=== PATIENT | female | born 1970 | race Caucasian/White ===

== ENCOUNTER 2019-05-09 07:58 | Outpatient (CLI) | payer OTHER, SELFPAY ==
--- NOTE | 2019-05-09 08:00 | US_ITS ---
WS: [id number] RIGHT UPPER QUADRANT ULTRASOUND HISTORY: ELEVATED LIVER ENZYMES COMPARISON: None available. Liver: 16.1 cm in length. Normal size liver with mild hepatic steatosis. No bile duct dilatation. Gallbladder: Normally distended gallbladder with no stones or wall thickening. CBD: 5.1 cm Pancreas: Normal size and echogenicity. Right kidney: 13.3 cm in length. Normal echogenicity with no mass or hydronephrosis. Aorta and IVC: Unremarkable. No ascites. US/US abdomen limited [id number] IMPRESSION: 1. Normal gallbladder. 2. Mild hepatic steatosis. No bile duct dilatation.
== END 2019-05-09 07:59 | disposition home or self-care (01) ==
PROVIDERS: PCP Nurse Practitioner Family; Visit Provider Nurse Practitioner Family
DX: R74.8 Abnormal levels of other serum enzymes (principal); K76.0 Fatty (change of) liver, not elsewhere classified
CPT/HCPCS: 76705

== ENCOUNTER 2019-08-10 10:43 | Emergency (ER) | payer OTHER, SELFPAY ==
[2019-08-10 10:50] VITALS: BP 119/87; PULSE 87; RESP 17; TEMP 37; O2SAT 96; BMI 21.7
--- NOTE | 2019-08-10 11:01 | CTR_ITS ---
PROCEDURE INFORMATION: Exam: CT Abdomen And Pelvis With Contrast Exam date and time: 08/10/2019 11:30 AM Age: 49 years old Clinical indication: Abdominal pain; Generalized; Prior surgery; Surgery date: 6+ months; Surgery type: Hyst, appy; Patient HX: C/O abd pain and nausea TECHNIQUE: Imaging protocol: Computed tomography of the abdomen and pelvis with intravenous contrast. Radiation optimization: All CT scans at this facility use at least one of these dose optimization techniques: automated exposure control; mA and/or kV adjustment per patient size (includes targeted exams where dose is matched to clinical indication); or iterative reconstruction. Contrast material: OMNI 300; Contrast volume: 95 ml; Contrast route: 20G; COMPARISON: CT Abdomen/[place]elvis o [id number] 01/16/2013 8:12 AM RADIATION DOSE METRICS: Total DLP: 564.15 mGy-cm FINDINGS: Lungs: Calcified granuloma right lung base Liver: Fatty infiltration of the liver. Gallbladder and bile ducts: Normal. No calcified stones. No ductal dilation. Pancreas: Normal. No ductal dilation. Spleen: Splenic granulomas are present. Adrenals: Normal. No mass. Kidneys and ureters: Normal. No hydronephrosis. Stomach and bowel: Rather severe circumferential thickening of the large bowel including the cecum, ascending colon, transverse colon splenic flexure and a portion of the descending colon. Findings consistent with a colitis either infectious versus inflammatory. Pseudomembranous colitis within the differential diagnosis although typically a lr colitis. Ischemic colitis felt unlikely given the distribution of involved segments. Diverticulosis without evidence of diverticulitis. Appendix: No evidence of appendicitis. Intraperitoneal space: No free fluid within the pelvis or within the dependent portions of the peritoneum. Vasculature: Calcification of the aorta. Celiac trunk and superior mesenteric arteries are patent. No appreciable narrowing. Lymph nodes: Unremarkable. No enlarged lymph nodes. Bladder: Unremarkable as visualized. Reproductive: Prior hysterectomy. Bones/joints: Unremarkable. No acute fracture. Soft tissues: Unremarkable. CT/CT abdomen pelvis w con* [id number] IMPRESSION: 1. Rather severe circumferential thickening of the large bowel including the cecum, ascending colon, transverse colon splenic flexure and a portion of the descending colon. Findings consistent with a colitis either infectious versus inflammatory. Pseudomembranous colitis within the differential diagnosis although typically a lr colitis. Ischemic colitis felt unlikely given the distribution of involved segments. 2. Diverticulosis without evidence of diverticulitis. 3. Fatty infiltration of the liver. Radiation Dose CTDIVOL = (mGy): DLP = 564.15 (mGy-cm)
--- NOTE | 2019-08-10 11:02 | ED_ITS ---
HPI - Abdominal Pain General: Chief Complaint: Abdominal Pain Stated Complaint: lower abd pain Time Seen by Provider: 08/10/19 11:01 History of Present Illness: HPI narrative: Patient is complained about abdominal pain that started last night that is progressively gotten worse. She describes it as sharp pain that comes in waves from the right side down to her lower pelvic area and then across her whole abdomen she ate [place]ian food last night denies any problems that she is not vomiting at all but that she does have some nausea she denies bowel or bladder problems present has history of full hysterectomy Sugars been running in 300 range MD elicited complaint: abdominal pain Pertinent past history: other (Diabetes) Onset (ago): day(s) (Since last night) Pain Consistency: intermittent Location: Diffuse Severity: moderate Pain scale (0-10): 6 Quality: stabbing and sharp Radiation: suprapubic Exacerbating factors: movement Relieving factors: rest Associated Symptoms: Reports no associated symptoms; Denies chills, fever(s), nausea and vomiting Review of Systems Const: Denies: fever(s), chills or body aches Eyes: Denies: change in vision or blurry vision ENMT: Denies: throat pain or nasal congestion Card: Denies: chest pain or dyspnea on exertion Resp: Denies: dyspnea, productive cough or non-productive cough GI: Reports: abdominal pain; Denies: nausea or vomiting Musc: Denies: extremity pain Skin/Breast: Denies: rash Neuro: Denies: headache(s) Psych: Denies: anxiety or depression Mio/Lymph: Denies: easy bruising PFSH ED PFSH: Social History Smoking and tobacco status: current some day smoker Physical Exam Const: COMMON NORMALS: no acute distress, average body habitus and patient oriented x3 HENMT: COMMON NORMALS: normocephalic HEAD & SCALP: normal to inspection and normocephalic FACE & SINUS: normal facial exam Eye: COMMON NORMALS: conjunctivae normal GENERAL EYE: appearance normal, both eyes and all related structures CONJUNCTIVA: Yes conjunctivae normal Neck/C-Spine: COMMON NORMALS: no JVD Chest: COMMONS NORMALS: normal inspection of the chest Resp: COMMON NORMALS: normal respiratory effort and clear to auscultation bilaterally AUSCULTATION: clear to auscultation bilaterally Cardio: COMMON NORMALS: no JVD, regular rate and regular rhythm RATE: regular rate RHYTHM: regular rhythm GI: COMMON NORMALS: Normal to inspection, nondistended, normoactive bowel sounds present AUSCULTATION: Yes normoactive bowel sounds PALPATION: Yes Tenderness to palpation present (GI) (Generalized) PERCUSSION: normal to percussion Extremity: COMMON NORMALS: normal to inspection and full ROM Neuro: COMMON NORMALS: patient oriented x3 Course Vital Signs: Vital signs: Vital Signs Temperature 98.6 F 08/10/19 10:50 Pulse Rate 87 08/10/19 10:50 Respiratory Rate 16 08/10/19 11:52 Blood Pressure 119/87 08/10/19 10:50 Pulse Oximetry 95 08/10/19 11:52 MDM - Abdominal Pain MDM Narrative: Medical decision making narrative: Discussed case after all results are back with Dr. Kendall agrees with plan Lab Data: Labs: Lab Results 08/10/19 08/10/19 08/10/19 Range/Units 11:12 11:12 11:25 WBC 7.9 (4.0-10.0) 10^3/ uL RBC 5.32 H (4.1-5.3) 10^6/u L Hgb 15.7 H (11.5-15.3) g/dL Hct 47.9 H (37.0-47.0) % MCV 90.0 (81-99) fL MCH 29.5 (28.0-34.0) pg MCHC 32.8 (30.0-36.0) g/dL RDW 12.1 (12.1-15.1) % Plt Count 178 (130-400) 10^3/c mm MPV 10.1 (7.4-10.4) fL Neut % (Auto) 72.3 % Lymph % (Auto) 20.4 % Fleming % (Auto) 6.0 % Eos % (Auto) 0.5 % Baso % (Auto) 0.4 % Neut # (Auto) 5.7 (1.8-7.7) 10^3/u L Lymph # (Auto) 1.6 (0.8-4.8) 10^3/u L Fleming # (Auto) 0.5 (0.2-0.9) 10^3/u L Eos # (Auto) 0.0 (0.0-0.8) 10^3/u L Baso # (Auto) 0.0 (0.0-0.1) 10^3/u L Nucleated RBC % (a uto) 0 % Nucleated RBCs # 0.0 /100WBC Sodium 133 L (136-145) mmol/L Potassium 4.0 (3.5-5.1) mmol/L Chloride 96 L (98-107) mmol/L Carbon Dioxide 24 (22-29) mmol/L Anion Gap 17.0 (5-19) BUN 16 (6-20) mg/dL Creatinine 0.5 (0.5-0.9) mg/dL GFR Calculation 132.2 H (90-130) mL/min Glucose 426 H (65-115) mg/dL POC Glucose (70-110) mg/dL Calculated Osmolal ity 291 (285-295) mOsm/k g Calcium 9.4 (8.5-10.5) mg/dL Total Bilirubin 0.5 (0.15-1.2) mg/dL AST 39 H (0-32) U/L ALT 79 H (0-33) U/L Alkaline Phosphata se 124 H (35-105) IU/L Total Protein 7.3 (6.6-8.7) g/dL Albumin 4.6 (3.5-5.2) g/dL Globulin 2.7 (1.3-4.6) g/dL Lipase 37 (13-60) U/L Urine Color Yellow (Yellow) Urine Appearance Clear (CLEAR) Urine pH 5 (5-7) Ur Specific Gravit y 1.015 (1.005-1.030) Urine Protein Neg (Negative) Urine Glucose (UA) 4+ H (Normal) Urine Ketones 1+ H (Negative) Urine Blood Neg (Negative) Urine Nitrate Negative (Negative) Urine Bilirubin Neg (NEGATIVE) Urine Urobilinogen Norm (Negative) mg/dL Ur Leukocyte Kisha ase Negative (Negative) 08/10/19 08/10/19 Range/Units 11:42 13:40 WBC (4.0-10.0) 10^3/ uL RBC (4.1-5.3) 10^6/u L Hgb (11.5-15.3) g/dL Hct (37.0-47.0) % MCV (81-99) fL MCH (28.0-34.0) pg MCHC (30.0-36.0) g/dL RDW (12.1-15.1) % Plt Count (130-400) 10^3/c mm MPV (7.4-10.4) fL Neut % (Auto) % Lymph % (Auto) % Fleming % (Auto) % Eos % (Auto) % Baso % (Auto) % Neut # (Auto) (1.8-7.7) 10^3/u L Lymph # (Auto) (0.8-4.8) 10^3/u L Fleming # (Auto) (0.2-0.9) 10^3/u L Eos # (Auto) (0.0-0.8) 10^3/u L Baso # (Auto) (0.0-0.1) 10^3/u L Nucleated RBC % (a uto) % Nucleated RBCs # /100WBC Sodium (136-145) mmol/L Potassium (3.5-5.1) mmol/L Chloride (98-107) mmol/L Carbon Dioxide (22-29) mmol/L Anion Gap (5-19) BUN (6-20) mg/dL Creatinine (0.5-0.9) mg/dL GFR Calculation (90-130) mL/min Glucose (65-115) mg/dL POC Glucose 355 225 (70-110) mg/dL Calculated Osmolal ity (285-295) mOsm/k g Calcium (8.5-10.5) mg/dL Total Bilirubin (0.15-1.2) mg/dL AST (0-32) U/L ALT (0-33) U/L Alkaline Phosphata se (35-105) IU/L Total Protein (6.6-8.7) g/dL Albumin (3.5-5.2) g/dL Globulin (1.3-4.6) g/dL Lipase (13-60) U/L Urine Color (Yellow) Urine Appearance (CLEAR) Urine pH (5-7) Ur Specific Gravit y (1.005-1.030) Urine Protein (Negative) Urine Glucose (UA) (Normal) Urine Ketones (Negative) Urine Blood (Negative) Urine Nitrate (Negative) Urine Bilirubin (NEGATIVE) Urine Urobilinogen (Negative) mg/dL Ur Leukocyte Kisha ase (Negative) Discharge Plan Discharge Patient Disposition: Home, Self-Care Clinical Impression: Colitis Condition: Stable Prescriptions: New ketoprofen 75 mg capsule 75 mg PO TID Qty: 20 RF: 0 tramadol 50 mg tablet 50 mg PO Q6H PRN (Reason: pain) Qty: 20 RF: 0 No Action Aspir-81 81 mg Tablet,Delayed Release (Dr/Ec) 81 mg PO DAILY RF: 0 Prozac 20 mg Capsule 60 mg PO DAILY RF: 0 fenofibrate 160 mg Tablet 160 mg PO DAILY RF: 0 Lantus Solostar U-100 Insulin 100 unit/mL (3 mL) Insulin Pen 70 unit SUBCUT BEDTIME RF: 0 Discharge Orders: Discharge Order (Routine); Ordered 08/10/19 Ordered By: Nigel Schaefer Referrals: Lev Macias DO [Primary Care Provider] - Discharge Diet: As Directed Discharge Activity: Increase activity as tolerated Patient Instructions: Diabetes Mellitus Type 2 in Adults (ED) Activity Restrictions/Additional Instructions: You have inflammatory colitis follow-up with your family provider go over your diet possible medication changes and stay on a stricter diabetic diet take medication as directed Coding Level of Care Code ED [place] Straightener Stamper for Dora Fwd Exam Comprehensive
[2019-08-10 11:27] LABS: Basophils % 0.4 %; Eosinophils % 0.5 %; Hematocrit 47.9 % (37.0-47.0); Hemoglobin 15.7 g/dL (11.5-15.3); Lymphocytes # 1.6 10^3/uL (0.8-4.8); Lymphocytes % 20.4 %; Mean Corpuscular HGB Conc 32.8 g/dL (30.0-36.0); Mean Corpuscular Hemoglobin 29.5 pg (28.0-34.0); Mean Platelet Volume 10.1 fL (7.4-10.4); Monocytes # 0.5 10^3/uL (0.2-0.9); Neutrophils # 5.7 10^3/uL (1.8-7.7); Neutrophils % 72.3 %; Nucleated Red Blood Cells % 0 %; Platelet Count 178 10^3/cmm (130-400); Red Blood Count 5.32 10^6/uL (4.1-5.3); Red Cell Distribution Width 12.1 % (12.1-15.1); White Blood Count 7.9 10^3/uL (4.0-10.0)
[2019-08-10 11:32] LABS: Alanine Aminotransferase 79 U/L (0-33); Albumin Level 4.6 g/dL (3.5-5.2); Alkaline Phosphatase 124 IU/L (35-105); Aspartate Amino Transferase 39 U/L (0-32); Blood Urea Nitrogen 16 mg/dL (6-20); Calcium 9.4 mg/dL (8.5-10.5); Carbon Dioxide 24 mmol/L (22-29); Chloride 96 mmol/L (98-107); Globulin 2.7 g/dL (1.3-4.6); Glomerular Filtration Rate 132.2 mL/min (90-130); Glucose 426 mg/dL (65-115); Lipase 37 U/L (13-60); Osmolality Calculated 291 mOsm/kg (285-295); Sodium 133 mmol/L (136-145); Total Bilirubin 0.5 mg/dL (0.15-1.2); Total Protein 7.3 g/dL (6.6-8.7)
[2019-08-10 11:41] LABS: Add Urine Microscopic? NO
[2019-08-10 11:43] LABS: Bilirubin Urine Neg (NEGATIVE); Blood Urine Neg (Negative); Glucose Urine UA 4+ (Normal); Ketones Urine 1+ (Negative); Leukocyte Esterase Urine Negative (Negative); Nitrate Urine Negative (Negative); Protein Urine Neg (Negative); Specific Gravity, Urine 1.015 (1.005-1.030); Urine Appearance Clear (CLEAR); Urine Color Yellow (Yellow); Urobilinogen Urine Norm (Negative); pH Urine 5 (5-7)
--- NOTE | 2019-08-10 11:45 | PC.NURSE ---
Patient blood glucose is 355, nurse and ER physician were informed.
[2019-08-10 11:46] LABS: Glucose Point of Care 355 mg/dL (70-110)
[2019-08-10] MEDS: sodium chloride 0.9% 1,000 ML 999 ML IV (11:49)
[2019-08-10] MEDS: ondansetron 2 mg/ML SDV 2 mL 4 MG IVP (11:50)
[2019-08-10 11:52] VITALS: RESP 16; O2SAT 95
[2019-08-10] MEDS: morphine 4 mg/mL SDV 1 mL IVP (11:52)
[2019-08-10] MEDS: iohexol 300 mg/mL 100 mL Btl IV (12:02)
[2019-08-10] MEDS: ketorolac 30 mg/mL INJ IVP (13:23)
--- NOTE | 2019-08-10 13:42 | PC.NURSE ---
Patient blood glucose is 225, ER physician and nurse were notified.
[2019-08-10 13:45] LABS: Glucose Point of Care 225 mg/dL (70-110)
[2019-08-10 13:54] VITALS: BP 91/65; PULSE 71; RESP 14; O2SAT 95
== END 2019-08-10 13:55 | disposition home or self-care (01) ==
PROVIDERS: Emergency Provider Nurse Practitioner Family; PCP Electrodiagnostic Medicine
DX: K52.9 Noninfective gastroenteritis and colitis, unspecified (principal); Z79.82 Long term (current) use of aspirin; Z79.4 Long term (current) use of insulin; F17.210 Nicotine dependence, cigarettes, uncomplicated
CPT/HCPCS: 12345; 36415; 36416; 74177; 80053; 81003; 82962; 83690; 85025; 96361; 96372; 96374; 96375; 99283; J1815; J1885; J2270; J2405; J7030; Q9967

== ENCOUNTER 2019-10-01 06:24 | Day surgery (SDC) | payer OTHER, SELFPAY ==
[2019-09-26 14:27] VITALS: BMI 23.3
[2019-10-01 06:50] VITALS: BP 113/77; PULSE 83; RESP 18; TEMP 36.2; O2SAT 98
--- NOTE | 2019-10-01 06:52 | ANES.PREANE2 ---
Pre-Anesthetic Assessment Pre-Anesthetic Assessment: Height/Weight: Height 1.68 m Weight 65.771 kg Preop Diagnosis: Colitis Proposed Procedure: Operation Date: 10/01/19 07:00 Proposed Procedures p Colonoscopy 44594 K52.9(Not Applicable) - Sukhdev Motley MD Familial anesthetic complications: none Was Beta Alice taken within 24 hours: N/A Last intake: Intake Last Liquid Date 09/30/19 Last Liquid Time 21:00 Last Solid Date 09/29/19 Last Solid Time 18:00 Social: Social History: Tobacco Packs per day: 1 Exam: Pre-Anes Outpt Exam: alert, oriented x 3, clear to auscultation bilaterally and regular rate & rhythm Airway: Submandibular: WNL Cervical ROM: WNL MP: 2 Dentition: Full Pulmonary: Pulmonary: None reported CV/HEM: CV/HEM: CAD Comments: Stents x 3 in 2014 : : None reported Hepatic: Hepatic: None reported GI: GI: None reported Metabolic: Metabolic: DM ( 85-220 normally ) and Hyperlipidemia Musc/skel: Musc/skel: OA/DJD Neuropsych: Neuropsych: MAYA Anesthetic Plan: ASA status: 3 Anesthesia: MAC Risk of > 500 ml blood loss (7ml/kg in children): No PFSH Anesthesia PFSH: Medical History (Updated 08/27/19 @ 17:14 by Sukhdev Motley MD) Diabetes Hypercholesterolemia Surgical History (Updated 08/27/19 @ 17:14 by Sukhdev Motley MD) H/O heart artery stent 5 years ago H/O melanoma excision H/O: hysterectomy Family History Father CAD (coronary artery disease) Grandfather CAD (coronary artery disease) Grandmother CAD (coronary artery disease) Cancer lung Denies family history of Anesthesia complication Bleeding disorder Social History Smoking and tobacco status: current some day smoker Alcohol intake: never Household members: spouse Marital status: Current occupational status: employed History of recent travel: No Data Anesthesia Cardiac Studies: No Data to Display
--- NOTE | 2019-10-01 06:58 | P.HP_ITS ---
Same Day Surgery H&P Indication for Procedure/HPI DATE OF PROCEDURE: October 01, 2019 CHIEF COMPLAINT/INDICATIONFOR SURGICAL PROCEDURE: pancolitis PREOP DIAGNOSIS: Colitis PLANNED PROCEDRUE: Operation Date: 10/01/19 07:00 Proposed Procedures p Colonoscopy 91928 K52.9(Not Applicable) - Sukhdev Motley MD Medications/Allergies* Home Medications Medication Instructions Recorded Confirmed Type aspirin [Aspir-81] 81 mg PO DAILY 08/10/19 09/26/19 History fenofibrate 160 mg PO DAILY 08/10/19 09/26/19 History fluoxetine [Prozac] 60 mg PO DAILY 08/10/19 09/26/19 History insulin glargine [Lantus Solostar 90 unit SUBCUT BEDTIME 08/10/19 09/26/19 History U-100 Insulin] Allergies/Adverse Reactions Allergy/AdvReac Type Severity Reaction Status Date / Time sumatriptan [From Imitrex] Allergy FRANKIY-Swell Verified 08/27/19 14:51 Lip/Tongue/Throat Pertinent History/Comorbid Conditions* Medical History (Updated 08/27/19 @ 17:14 by Sukhdev Motley MD) Diabetes Hypercholesterolemia Surgical History (Updated 08/27/19 @ 17:14 by Sukhdev Motley MD) H/O heart artery stent 5 years ago H/O melanoma excision H/O: hysterectomy Family History (Updated 08/27/19 @ 14:59 by Christianne Burks LPN) CAD (coronary artery disease) Father Grandfather Grandmother Cancer Grandmother lung Denies family history of Anesthesia complication Bleeding disorder Social History Smoking and tobacco status: current some day smoker Alcohol intake: never Household members: spouse Marital status: Current occupational status: employed History of recent travel: No Pertinent Exam Findings alert, oriented x 3, regular rate & rhythm and operative site marked Recommendations Surgery/Procedure today Coding Level of Care Code Acute Inventory Controller for Dora Sparks
[2019-10-01] MEDS: sodium chloride 0.9% 1,000 ML 30 ML IV (07:02)
[2019-10-01 07:05] LABS: Glucose Point of Care 228 mg/dL (70-110)
[2019-10-01 07:29] VITALS: BP 95/61; PULSE 71; RESP 12; TEMP 36.3; O2SAT 100
--- NOTE | 2019-10-01 07:30 | ANE.PACU2 ---
Inpatient post-anesthesia follow up: Airway intact: Yes Vital signs: Temperature 97.3 F Pulse Rate 71 Respiratory Rate 12 Blood Pressure 95/61 Pulse Oximetry 100 Oxygen Delivery Me thod Nasal Cannula Oxygen Flow Rate 2 Fraction of Inspir ed Oxygen Hydration adequate: Yes Nausea and vomiting: No Pain level: 1 Mental status: Baseline
[2019-10-01 07:41] VITALS: BP 102/70; PULSE 71; RESP 18; O2SAT 98
== END 2019-10-01 07:57 | disposition home or self-care (01) ==
PROVIDERS: PCP Electrodiagnostic Medicine; Visit Provider Surgery
PROC: 0DJD8ZZ Inspection of Lower Intestinal Tract, Via Natural or Artificial Opening Endoscopic (ICD-10-PCS; CPT 45378; principal; 2019-10-01 07:00)
DX: K57.30 Diverticulosis of large intestine without perforation or abscess without bleeding (principal); I25.10 Atherosclerotic heart disease of native coronary artery without angina pectoris; Z95.5 Presence of coronary angioplasty implant and graft; E11.9 Type 2 diabetes mellitus without complications; M19.90 Unspecified osteoarthritis, unspecified site; E78.5 Hyperlipidemia, unspecified; F17.210 Nicotine dependence, cigarettes, uncomplicated
CPT/HCPCS: 12345; 36416; 45378; 82274; 82962; 83630; 87493; 87506; J2001; J2704; J7030

== ENCOUNTER 2019-12-12 09:35 | Outpatient (CLI) | payer OTHER, SELFPAY ==
--- NOTE | 2019-12-12 09:40 | XRR_ITS ---
PROCEDURE INFORMATION: Exam: XR Left Knee Exam date and time: 12/12/2019 9:55 AM Age: 49 years old Clinical indication: Pain; Knee; Left; Additional info: L knee pain TECHNIQUE: Imaging protocol: XR Left knee. Views: 3 views. COMPARISON: No relevant prior studies available. FINDINGS: Bones/joints: Osseous structures of the knee normal. No fracture. No joint effusion. Soft tissues unremarkable. Soft tissues: See Bones/joints finding. XR/XR knee LT 3V* [id number] IMPRESSION: Normal knee.
== END 2019-12-12 09:36 | disposition home or self-care (01) ==
LOC: RAD 09:38
PROVIDERS: PCP Nurse Practitioner Family; Visit Provider Nurse Practitioner Family
DX: M25.562 Pain in left knee (principal)
CPT/HCPCS: 73562

== ENCOUNTER → 2019-12-27 08:05 | Outpatient (BNVA) | payer OTHER, SELFPAY | PROVIDERS: PCP Nurse Practitioner Family; Referring Provider Nurse Practitioner Family; Visit Provider Internal Medicine | DX: E11.40 Type 2 diabetes mellitus with diabetic neuropathy, unspecified (principal); E11.59 Type 2 diabetes mellitus with other circulatory complications; I25.10 Atherosclerotic heart disease of native coronary artery without angina pectoris; E11.65 Type 2 diabetes mellitus with hyperglycemia; E78.00 Pure hypercholesterolemia, unspecified; K76.0 Fatty (change of) liver, not elsewhere classified | CPT/HCPCS: 99204 ==

== ENCOUNTER 2020-03-19 05:34 | Emergency (ER) | payer OTHER, SELFPAY ==
[2020-03-19 05:43] VITALS: BP 132/82; PULSE 85; RESP 18; TEMP 36.8; O2SAT 98; BMI 23.3
--- NOTE | 2020-03-19 06:02 | ED_ITS ---
HPI - Skin/Abscess/Foreign Bdy General: Chief complaint: Skin/Abscess/Foreign Body Stated complaint: sores on scalp Time Seen by Provider: 03/19/20 05:56 History of Present Illness: HPI narrative: 50 yo female comes in complaining of tender abscess on the scalp. She also several areas of been excoriated on the back of the neck. She states she has had these frequently and chronically she was started on Keflex 4 to 5 days ago with no relief. She is diabetic these areas have not been draining on the back of her scalp but is the most tender there is another near the sagittal suture. She is not had any drainage from them. MD complaint: abscess/boil Onset (ago): week(s) Location: head (Scalp) Severity: mild Quality: sharp Pain Consistency: constant Relieving factors: none Exacerbating factors: palpation Context: recent antibiotic Associated symptoms: Deny arthralgias, chills, cough, fever(s), itching, myalgias, nausea, rigidity, short of breath, vomiting or other Treatments prior to arrival: antibiotic Review of Systems Const: Denies: fever(s) or chills ENMT: Denies: throat pain, ear or mastoid pain, nasal discharge or nasal congestion Card: Denies: chest pain, edema, dyspnea on exertion or orthopnea Resp: Denies: dyspnea, productive cough or non-productive cough GI: Denies: nausea or vomiting : Denies: flank pain, difficulty voiding, dysuria, urinary frequency or urinary urgency PFSH ED PFSH: Medical History Diabetes Hypercholesterolemia Surgical History H/O heart artery stent 5 years ago H/O melanoma excision H/O: hysterectomy Status post colonoscopy (10/01/19) Family History Father CAD (coronary artery disease) Diabetes Grandfather CAD (coronary artery disease) Diabetes Grandmother CAD (coronary artery disease) Cancer lung Diabetes Denies family history of Anesthesia complication Bleeding disorder Social History Smoking and tobacco status: current some day smoker Alcohol intake: never Household members: spouse Marital status: Current occupational status: employed History of recent travel: No Physical Exam Const: COMMON NORMALS: no acute distress GENERAL APPEARANCE: cooperative and comfortable ORIENTATION/CONSCIOUSNESS: Yes awake, Yes oriented to person, Yes oriented to place and Yes oriented to time HENMT: COMMON NORMALS: normocephalic, atraumatic and hearing grossly normal bilaterally HEAD & SCALP: normocephalic and atraumatic Neck/C-Spine: COMMON NORMALS: no JVD Resp: COMMON NORMALS: normal respiratory effort, No retractions, No use of accessory muscles and clear to auscultation bilaterally AUSCULTATION: clear to auscultation bilaterally Cardio: COMMON NORMALS: no JVD, regular rate, regular rhythm and No murmurs present (Cardio) RATE: regular rate RHYTHM: regular rhythm Neuro: SENSORIUM/ORIENTATION: Yes oriented to person, Yes oriented to place and Yes oriented to time Skin: NARRATIVE SKIN EXAM: Tender palpable nodules on the scalp to overload our 1 just to the right of the midline on the occiput of the other at the peak of the scalp near the sagittal suture. Neither are draining there is some excoriation on the occipital nodule there are several areas on the back of the neck that are excoriated but no abscess is present Course Vital Signs: Vital signs: Vital Signs Temperature 98.2 F 03/19/20 05:43 Pulse Rate 80 03/19/20 06:41 Respiratory Rate 18 03/19/20 06:41 Blood Pressure 113/76 03/19/20 06:41 Pulse Oximetry 96 03/19/20 06:41 MDM - Skin/Abscess/Foreign Bdy MDM Narrative: Medical decision making narrative: Discussed doing incision and drainage on these patient would prefer not to at this point we will go ahead and switch her from Keflex to Bactrim also give her mupirocin to put on all of the open areas she states she has these recurrently elbow chronically once this is calm down and should likely be removed we will set her up for evaluation infectious disease see if she is colonized with MRSA and would need to attempt some kind of decolonization regimen. Discharge Plan Discharge Patient Disposition: Home Clinical Impression: Trichilemmal cyst Condition: Stable Prescriptions: New Bactrim DS 800-160 mg tablet 1 tab PO BID 14 Days Qty: 28 RF: 0 hydrocodone-acetaminophen 5-325 mg tablet 1 tab PO Q6H PRN (Reason: pain) Qty: 10 RF: 0 No Action simvastatin 10 mg tablet 10 mg PO DAILY RF: 0 metformin 500 mg tablet extended release 24 hr 1,000 mg PO BID Qty: 120 RF: 3 aspirin [Aspir-81] 81 mg Tablet,Delayed Release (Dr/Ec) 81 mg PO DAILY RF: 0 fluoxetine [Prozac] 20 mg Capsule 60 mg PO DAILY RF: 0 fenofibrate 160 mg Tablet 160 mg PO DAILY RF: 0 Lantus Solostar U-100 Insulin 100 unit/mL (3 mL) Insulin Pen 90 unit SUBCUT BID RF: 0 tramadol 50 mg tablet 50 mg PO Q6H PRN (Reason: pain) Qty: 20 RF: 0 Victoza 2-Scotty 0.6 mg/0.1 mL (18 mg/3 mL) pen injector 1.2 mg SUBCUT DAILY RF: 0 Discharge Orders: Discharge ED (Routine); Ordered 03/19/20 Ordered By: Rafael Hill Referrals: JACOB WILKINS FNP [Primary Care Provider] - Activity Restrictions/Additional Instructions: Case management will call with a referral to the infectious disease clinic Coding Level of Care Code ED Staff Development Coordinator Rn for Dora Fwd Exam Detailed
[2020-03-19 06:41] VITALS: BP 113/76; PULSE 80; RESP 18; O2SAT 96
--- NOTE | 2020-03-19 09:40 | DCPLANNER ---
territory manager had message to schedule a follow up appointment for patient with infectious disease. territory manager emailed both Jodi and Jessi at general surgery for a follow up appointment. Patients information will be printed and reviewed. Clinic will call patient with appointment information.
--- NOTE | 2020-03-25 12:45 | DCPLANNER ---
Patient has a follow up appointment scheduled for Tuesday, April 14, 2020 at 9:[address] Cat, infectious disease. Clinic will call patient with appointment information.
--- NOTE | 2020-05-08 14:34 | DCPLANNER ---
Patient had a follow up appointment scheduled for 04.14.20 with infectious disease - patient did attend appointment.
== END 2020-03-19 06:35 | disposition home or self-care (01) ==
PROVIDERS: Emergency Provider Family Medicine; PCP Nurse Practitioner Family
DX: L72.12 Trichodermal cyst (principal); Z79.82 Long term (current) use of aspirin; Z79.4 Long term (current) use of insulin; E11.9 Type 2 diabetes mellitus without complications; F17.210 Nicotine dependence, cigarettes, uncomplicated
CPT/HCPCS: 12345; 99281; 99282

== ENCOUNTER → 2020-03-30 08:44 | Outpatient (BNVA) | payer OTHER, SELFPAY | PROVIDERS: PCP Nurse Practitioner Family; Visit Provider Internal Medicine | DX: E11.40 Type 2 diabetes mellitus with diabetic neuropathy, unspecified (principal); E11.59 Type 2 diabetes mellitus with other circulatory complications; I25.10 Atherosclerotic heart disease of native coronary artery without angina pectoris; E11.65 Type 2 diabetes mellitus with hyperglycemia; E78.00 Pure hypercholesterolemia, unspecified; K76.0 Fatty (change of) liver, not elsewhere classified | CPT/HCPCS: 99215 ==

== ENCOUNTER 2020-06-24 07:29 | Emergency (ER) | payer OTHER, SELFPAY ==
[2020-06-24 07:32] VITALS: BP 138/93; PULSE 99; RESP 16; TEMP 37.2; O2SAT 98; BMI 22.6
[2020-06-24 07:43] VITALS: PULSE 95; RESP 17; O2SAT 98
--- NOTE | 2020-06-24 07:43 | ED_ITS ---
HPI - Nausea/Vomiting/Diarrhea General: Chief complaint: Nausea/Vomiting/Diarrhea Stated complaint: N/V/Chills/Diarrhea/Fast HR Time Seen by Provider: 06/24/20 07:30 Source: patient Mode of arrival: ambulatory Limitations: no limitations History of Present Illness: HPI Narrative: Patient is a 50-year-old female who presents to ED today with complaint of nausea, vomiting, diarrhea. Patient tells me she has had intermittent diarrhea for approximately 5 weeks. Diarrhea is non-bloody. She states she has had similar symptoms previously. She has had a colonoscopy by Dr. Motley last year which was normal. She wonders if some of her symptoms could be related to her diabetic medication. She is taking Metformin. She states over the past few weeks she has had a feeling of upper abdomen fullness . She reports heartburn feeling symptoms. Reports a few episodes of nonbloody vomit. Describes the vomit as acidic. She was prescribed a 14-day course of omeprazole however patient has only taken 2 tablets of this. She states when she did take it-it did help/alleviate her symptoms. She has not noticed her symptoms worsening with specific foods. She is not running fevers. MD elicited complaint: nausea, vomiting, diarrhea and abdominal pain (upper abdomen ) Onset (ago): week(s) Description of vomiting: watery (acidic) Description of diarrhea: semi-solid Associated nausea: Yes Associated abdominal pain: Yes Location of pain: Epigastric Pain consistency: intermittent Severity: mild Relieving factors: vomiting Associated symtoms: Reports nausea; Denies change in vision, chest pain, dysuria, fatigue, headache(s), palpitations or syncope Review of Systems Const: Denies: fever(s), chills, body aches, fatigue or malaise Eyes: Denies: change in vision or blurry vision ENMT: Denies: throat pain or odynophagia Card: Denies: chest pain, palpitations, irregular heart rhythm, lightheadedness, syncope or dyspnea on exertion Resp: Denies: dyspnea, productive cough or pain on inspiration GI: Reports: abdominal pain, nausea, vomiting, heartburn and diarrhea; Denies: hematemesis, pain on defecation, rectal swelling, rectal itching, hematochezia, melena or white/light colored stool : Denies: flank pain, difficulty voiding, dysuria, urinary frequency, urinary urgency or urinary hesitancy Musc: Denies: neck pain, back pain or joint pain Skin/Breast: Denies: rash Neuro: Denies: headache(s) PFSH ED PFSH: Medical History Diabetes Hypercholesterolemia Surgical History H/O heart artery stent 5 years ago H/O melanoma excision H/O: hysterectomy Status post colonoscopy (10/01/19) Family History Father CAD (coronary artery disease) Diabetes Grandfather CAD (coronary artery disease) Diabetes Grandmother CAD (coronary artery disease) Cancer lung Diabetes Denies family history of Anesthesia complication Bleeding disorder Social History Smoking and tobacco status: current some day smoker Alcohol intake: never Household members: spouse Marital status: Current occupational status: employed History of recent travel: No Physical Exam Const: COMMON NORMALS: no acute distress, average body habitus, patient oriented x3, no limitations, healthy appearing, alert and well nourished GENERAL APPEARANCE: cooperative ORIENTATION/CONSCIOUSNESS: Yes awake, Yes oriented to person, Yes oriented to place and Yes oriented to time HENMT: COMMON NORMALS: normocephalic and atraumatic HEAD & SCALP: normocephalic and atraumatic Resp: COMMON NORMALS: normal respiratory effort and clear to auscultation bilaterally AUSCULTATION: clear to auscultation bilaterally Cardio: COMMON NORMALS: regular rate and regular rhythm RATE: regular rate RHYTHM: regular rhythm GI: COMMON NORMALS: Normal to inspection, nondistended, normoactive bowel sounds present, Soft to palpation, No hepatosplenomegaly present and no masses AUSCULTATION: Yes normoactive bowel sounds PALPATION: Yes Soft to palpation, Yes Tenderness to palpation present (GI) (mild epigastric-non surgical exam) and Yes No hepatosplenomegaly present : COMMON NORMALS: Yes no CVA tenderness BLADDER/KIDNEY EXAM: Yes no CVA tenderness Back/Pelvis: COMMON NORMALS: no CVA tenderness Neuro: COMMON NORMALS: patient oriented x3 SENSORIUM/ORIENTATION: Yes alert, Yes oriented to person, Yes oriented to place and Yes oriented to time Skin: COMMON NORMALS: no rashes or lesions noted GENERAL SKIN EXAM: no rashes or lesions noted Course Vital Signs: Vital signs: Vital Signs Temperature 98.9 F 06/24/20 07:32 Pulse Rate 88 06/24/20 08:40 Respiratory Rate 16 06/24/20 08:40 Blood Pressure 124/79 06/24/20 08:40 Pulse Oximetry 98 06/24/20 08:40 MDM - Nausea/Vomiting/Diarrhea MDM Narrative: Medical decision making narrative: Patient has not had any vomiting or diarrhea while here. She had a normal colonoscopy less than a year ago. She does report feeling a little better after GI cocktail and Zofran here. At this point I think diarrhea is most likely related to her diabetic medication/Metformin use. She is not having abdominal pain/cramping. No blood in her stools. No fevers. Upper abdominal fullness along with her other symptoms seem consistent with GERD. Recommend she take her omeprazole prescription as prescribed. We will add prn famotidine. If these do not help symptoms patient needs to follow-up with primary care provider for further evaluation. This could include a referral back to Dr. Motley for endoscopy. Return to ED precautions given. Lab Data: Labs: Lab Results 06/24/20 06/24/20 06/24/20 Range/Units 08:00 08:00 08:00 WBC 6.7 (4.0-10.0) 10^3/ uL RBC 4.48 (4.1-5.3) 10^6/u L Hgb 13.2 (11.5-15.3) g/dL Hct 39.7 (37.0-47.0) % MCV 88.6 (81-99) fL MCH 29.5 (28.0-34.0) pg MCHC 33.2 (30.0-36.0) g/dL RDW 12.0 L (12.1-15.1) % Plt Count 198 (130-400) 10^3/c mm MPV 9.1 (7.4-10.4) fL Neut % (Auto) 54.0 % Lymph % (Auto) 36.3 % [place] % (Auto) 5.8 % Eos % (Auto) 2.7 % Baso % (Auto) 0.9 % Neut # (Auto) 3.63 (1.8-7.7) 10^3/u L Lymph # (Auto) 2.4 (0.8-4.8) 10^3/u L [place] # (Auto) 0.4 (0.2-0.9) 10^3/u L Eos # (Auto) 0.2 (0.0-0.8) 10^3/u L Baso # (Auto) 0.1 (0.0-0.1) 10^3/u L Nucleated RBC % (a uto) 0 % Nucleated RBCs # 0.0 /100WBC Sodium 140 (136-145) mmol/L Potassium 3.9 (3.5-5.1) mmol/L Chloride 105 (98-107) mmol/L Carbon Dioxide 28 (22-29) mmol/L Anion Gap 10.9 (5-19) BUN 14 (6-20) mg/dL Creatinine 0.5 (0.5-0.9) mg/dL GFR Calculation 131.7 H (90-130) mL/min Glucose 100 (65-115) mg/dL Calculated Osmolal ity 291 (285-295) mOsm/k g Calcium 9.3 (8.5-10.5) mg/dL Total Bilirubin 0.3 (0.15-1.2) mg/dL AST 31 (0-32) U/L ALT 34 H (0-33) U/L Alkaline Phosphata se 55 (35-105) IU/L Total Protein 6.9 (6.6-8.7) g/dL Albumin 4.2 (3.5-5.2) g/dL Globulin 2.7 (1.3-4.6) g/dL Lipase 33 (13-60) U/L Urine Color Yellow (Yellow) Urine Appearance Clear (CLEAR) Urine pH 8 H (5-7) Ur Specific Gravit y 1.010 (1.005-1.030) Urine Protein Neg (Negative) Urine Glucose (UA) Norm (Normal) Urine Ketones Negative (Negative) Urine Blood Neg (Negative) Urine Nitrate Negative (Negative) Urine Bilirubin Neg (Negative) Prot Sulfosalicyli c Acd Negative (Negative) Urine Urobilinogen 1 H (Negative) mg/dL Ur Leukocyte Kisha ase Negative (Negative) Discharge Plan Discharge Patient Disposition: Home Clinical Impression: GERD (gastroesophageal reflux disease) Qualifiers: Esophagitis presence: with esophagitis Esophagitis bleeding: without hemorrhage Qualified Code(s): K21.00 - Gastro-esophageal reflux disease with esophagitis, without bleeding Condition: Stable Prescriptions: New Pepcid AC 20 mg tablet 20 mg PO BID PRN (Reason: heartburn) Qty: 30 RF: 0 No Action simvastatin 10 mg tablet 10 mg PO DAILY RF: 0 pioglitazone [Actos] 15 mg tablet 15 mg PO DAILY Qty: 90 RF: 3 Levemir FlexTouch U-100 Insuln 100 unit/mL (3 mL) insulin pen 80 unit SUBCUT BID 90 Days Qty: 144 RF: 3 metformin 500 mg tablet extended release 24 hr 1,000 mg PO BID RF: 0 chlorhexidine gluconate [Hibiclens] 4 % liquid 1 applic topical DAILY 5 Days Qty: 473 RF: 2 mupirocin 2 % ointment 1 applic topical BID Qty: 22 RF: 2 aspirin [Aspir-81] 81 mg Tablet,Delayed Release (Dr/Ec) 81 mg PO DAILY RF: 0 fluoxetine [Prozac] 20 mg Capsule 60 mg PO DAILY RF: 0 fenofibrate 160 mg Tablet 160 mg PO DAILY RF: 0 tramadol 50 mg tablet 50 mg PO Q6H PRN (Reason: pain) Qty: 20 RF: 0 Victoza 2-Scotty 0.6 mg/0.1 mL (18 mg/3 mL) pen injector 1.2 mg SUBCUT DAILY RF: 0 hydrocodone-acetaminophen 5-325 mg tablet 1 tab PO Q6H PRN (Reason: pain) Qty: 10 RF: 0 Discharge Orders: Discharge ED (Routine); Ordered 06/24/20 Ordered By: Laverne Lantigua Referrals: Joy Mccray, PBX TEACHER [Primary Care Provider] - Patient Instructions: Gastroesophageal Reflux Disease (ED) Activity Restrictions/Additional Instructions: As we discussed begin taking your omeprazole prescription as prescribed. You shante y speak to your ceramic tiler regarding the diarrhea as I believe this is most likely caused by your Metformin and other diabetic medications. If acid reflux symptoms do not improve after completing course of medication please follow-up with primary care provider. You may return to the emergency department for worsening symptoms, severe abdominal or chest pain, vomiting blood, or any other concerns you may have Coding Level of Care Code ED Lawn Care Specialist for Dora Sparks
[2020-06-24] MEDS: lidocaine 2% viscous 15 ML, aluminum-mag hydrox-simethicon 30 ML, sucralfate oral liq 1 GM PO (08:02)
[2020-06-24] MEDS: ondansetron 2 mg/ML SDV 2 mL 4 MG IVP (08:02)
[2020-06-24 08:09] VITALS: BP 124/79; PULSE 92; RESP 16; O2SAT 97
[2020-06-24 08:10] LABS: Add Urine Microscopic? NO
[2020-06-24 08:12] LABS: Basophils # 0.1 10^3/uL (0.0-0.1); Basophils % 0.9 %; Eosinophils # 0.2 10^3/uL (0.0-0.8); Eosinophils % 2.7 %; Hematocrit 39.7 % (37.0-47.0); Hemoglobin 13.2 g/dL (11.5-15.3); Lymphocytes # 2.4 10^3/uL (0.8-4.8); Lymphocytes % 36.3 %; Mean Corpuscular HGB Conc 33.2 g/dL (30.0-36.0); Mean Corpuscular Hemoglobin 29.5 pg (28.0-34.0); Mean Corpuscular Volume 88.6 fL (81-99); Mean Platelet Volume 9.1 fL (7.4-10.4); Monocytes # 0.4 10^3/uL (0.2-0.9); Monocytes % 5.8 %; Neutrophils # 3.63 10^3/uL (1.8-7.7); Nucleated Red Blood Cells % 0 %; Platelet Count 198 10^3/cmm (130-400); Red Blood Count 4.48 10^6/uL (4.1-5.3); White Blood Count 6.7 10^3/uL (4.0-10.0)
[2020-06-24 08:19] LABS: Bilirubin Urine Neg (Negative); Blood Urine Neg (Negative); Glucose Urine UA Norm (Normal); Ketones Urine Negative (Negative); Leukocyte Esterase Urine Negative (Negative); Nitrate Urine Negative (Negative); Protein Urine Neg (Negative); Sulfosalicylic Acid Urine Negative (Negative); Urine Appearance Clear (CLEAR); Urine Color Yellow (Yellow); Urobilinogen Urine 1 mg/dL (Negative); pH Urine 8 (5-7)
[2020-06-24 08:38] LABS: Alanine Aminotransferase 34 U/L (0-33); Albumin Level 4.2 g/dL (3.5-5.2); Alkaline Phosphatase 55 IU/L (35-105); Anion Gap 10.9 (5-19); Aspartate Amino Transferase 31 U/L (0-32); Blood Urea Nitrogen 14 mg/dL (6-20); Calcium 9.3 mg/dL (8.5-10.5); Carbon Dioxide 28 mmol/L (22-29); Chloride 105 mmol/L (98-107); Globulin 2.7 g/dL (1.3-4.6); Glomerular Filtration Rate 131.7 mL/min (90-130); Glucose 100 mg/dL (65-115); Lipase 33 U/L (13-60); Osmolality Calculated 291 mOsm/kg (285-295); Potassium 3.9 mmol/L (3.5-5.1); Sodium 140 mmol/L (136-145); Total Bilirubin 0.3 mg/dL (0.15-1.2); Total Protein 6.9 g/dL (6.6-8.7)
[2020-06-24 08:40] VITALS: BP 124/79; PULSE 88; RESP 16; O2SAT 98
[2020-06-24] MEDS: metoclopramide 5 mg/mL SDV 2 mL IVP (08:47)
== END 2020-06-24 09:03 | disposition home or self-care (01) ==
PROVIDERS: Emergency Provider Physician Assistant; PCP Nurse Practitioner Family
DX: K21.00 Gastro-esophageal reflux disease with esophagitis, without bleeding (principal); Z79.4 Long term (current) use of insulin; Z79.82 Long term (current) use of aspirin; E11.9 Type 2 diabetes mellitus without complications; F17.210 Nicotine dependence, cigarettes, uncomplicated
CPT/HCPCS: 80053; 81003; 83690; 85025; 96374; 96375; 99283; J2405; J2765

== ENCOUNTER → 2020-06-25 08:52 | Outpatient (BNVA) | payer OTHER, SELFPAY | PROVIDERS: PCP Nurse Practitioner Family; Visit Provider Internal Medicine | DX: E11.40 Type 2 diabetes mellitus with diabetic neuropathy, unspecified (principal); E11.59 Type 2 diabetes mellitus with other circulatory complications; I25.10 Atherosclerotic heart disease of native coronary artery without angina pectoris; E11.65 Type 2 diabetes mellitus with hyperglycemia; E78.00 Pure hypercholesterolemia, unspecified; K76.0 Fatty (change of) liver, not elsewhere classified | CPT/HCPCS: 99214 ==

== ENCOUNTER 2020-07-21 12:11 | Observation (INO) | payer OTHER, SELFPAY ==
[2020-07-21] VITALS (10 sets, daily range): BP systolic 99–137; BP diastolic 63–85; PULSE 77–99; RESP 13–24; TEMP 36.7–36.8; O2SAT 97–98; BMI 23.3
--- NOTE | 2020-07-21 12:25 | ECG_ITS ---
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 Measurements Intervals [place] Rate: 95 P: 74 [place]: 162 QRS: 84 QRSD: 92 T: 70 QT: 366 QTc: 461 Interpretive Statements SINUS RHYTHM Compared to ECG 07/14/2017 10:50:35 No significant changes Electronically Signed On 07-21-2020 17:28:30 CDT by Jania Chavez M.D. [id number]
--- NOTE | 2020-07-21 12:25 | XR_ITS ---
WS: [id number] Exam: XR chest 1V portable [id number] Date/Time of Exam: 07/21/2020 12:32 PM Reason For Exam: chest pain Comparison 05/16/2017. Findings: The lungs are clear and fully expanded. Costophrenic angles are sharp. No infiltrates. Bronchovascula r relief appears normal. Cardiac silhouette is unremarkable. Bony elements are intact. XR/XR chest 1V portable [id number] IMPRESSION: Unremarkable chest radiograph.
--- NOTE | 2020-07-21 12:51 | W.ED.CHESTPA ---
HPI - Chest Pain General: Chief Complaint: Chest Pain Stated Complaint: SOB, CHEST PAIN Time Seen by Provider: 07/21/20 12:24 History of Present Illness: HPI narrative: 50-year-old female with a known history of coronary artery disease comes in complaining of chest pain. 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 She began having chest pain shortness of breath radiated into her back left shoulder and left arm as well as the left side of her neck. She stopped and rested for about 20 minutes and it resolved. 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 Patient is diabetic has a known history of coronary disease and previously had PTCA with 2 stents. He is pain-free at this time. MD complaint: chest pain Pertinent past history: coronary artery disease Onset (ago): day(s) Timing of current episode: episodic Prior episodes: Yes Onset: during exertion Pain location: left chest Pain radiation: left arm, neck and left shoulder Severity: moderate Quality: tightness and aching Relieving factors: rest Exacerbating factors: exertion Associated symptoms: Deny abdominal pain, diaphoresis, dyspnea, fever(s), leg edema, nausea, palpitations, sense of impending doom, syncope or vomiting Treatment prior to arrival: none Review of Systems Const: Denies: fever(s) or diaphoresis ENMT: Denies: throat pain, ear or mastoid pain, nasal discharge or nasal congestion Card: Denies: palpitations or syncope Resp: Denies: dyspnea GI: Denies: abdominal pain, nausea or vomiting : Denies: flank pain, difficulty voiding, dysuria, urinary frequency or urinary urgency Skin/Breast: Denies: rash or pruritus PFSH ED PFSH: Medical History Diabetes Hypercholesterolemia Surgical History H/O heart artery stent 5 years ago H/O melanoma excision H/O: hysterectomy Status post colonoscopy (10/01/19) Family History Father CAD (coronary artery disease) Diabetes Grandfather CAD (coronary artery disease) Diabetes Grandmother CAD (coronary artery disease) Cancer lung Diabetes Denies family history of Anesthesia complication Bleeding disorder Social History Smoking and tobacco status: current some day smoker Alcohol intake: never Household members: spouse Marital status: Current occupational status: employed History of recent travel: No Physical Exam Const: COMMON NORMALS: no acute distress GENERAL APPEARANCE: cooperative and comfortable ORIENTATION/CONSCIOUSNESS: Yes awake, Yes oriented to person, Yes oriented to place and Yes oriented to time HENMT: COMMON NORMALS: normocephalic, atraumatic, hearing grossly normal bilaterally, external ears normal, EAC's normal, TM's normal bilaterally, Normal nasal mucous membranes and turbinates present, moist oral mucous membranes and oropharynx normal HEAD & SCALP: normocephalic and atraumatic NOSE: Normal nasal mucous membranes and turbinates present EXTERNAL EAR: Yes external ears normal EXTERNAL AUDITORY CANAL: EAC's normal TYMPANIC MEMBRANE: TM's normal bilaterally Eye: COMMON NORMALS: Equal, round and reactive pupils present, EOMs intact bilaterally, conjunctivae normal and no scleral icterus CONJUNCTIVA: Yes conjunctivae normal PUPIL: Yes Equal, round and reactive pupils present Neck/C-Spine: COMMON NORMALS: full ROM, no lymphadenopathy, supple and no JVD Lymph: LYMPHATIC: no lymphadenopathy noted and no lymphedema noted Resp: COMMON NORMALS: normal respiratory effort, No retractions, No use of accessory muscles and clear to auscultation bilaterally AUSCULTATION: clear to auscultation bilaterally Cardio: COMMON NORMALS: no JVD, regular rate, regular rhythm and No murmurs present (Cardio) RATE: regular rate RHYTHM: regular rhythm GI: COMMON NORMALS: Soft to palpation and No hepatosplenomegaly present AUSCULTATION: Yes normoactive bowel sounds PALPATION: Yes Soft to palpation, No Tenderness to palpation present (GI), No Guarding due to palpation present (GI) and Yes No hepatosplenomegaly present Extremity: COMMON NORMALS: normal to inspection, capillary refill normal, no clubbing, cyanosis or edema, no calf tenderness and no pedal edema Neuro: SENSORIUM/ORIENTATION: Yes oriented to person, Yes oriented to place and Yes oriented to time Skin: COMMON NORMALS: no rashes or lesions noted GENERAL SKIN EXAM: no rashes or lesions noted Course Vital Signs: Vital signs: Vital Signs Temperature 98 F 07/22/20 04:00 Pulse Rate 69 07/22/20 05:17 Respiratory Rate 18 07/22/20 04:00 Blood Pressure 138/85 07/22/20 04:00 Pulse Oximetry 98 07/22/20 04:00 MDM - Chest Pain MDM Narrative: Medical decision making narrative: She is pain-free at this time but has history pretty significant for coronary artery disease. She has angina was mild to moderate exertion. She been given aspirin we will go ahead and admit to Dr. Acosta. Lab Data: Labs: Lab Results 07/21/20 07/21/20 07/21/20 Range/Units 12:53 12:53 12:53 WBC 8.6 (4.0-10.0) 10^3/ uL RBC 3.99 L (4.1-5.3) 10^6/u L Hgb 11.8 (11.5-15.3) g/dL Hct 35.6 L (37.0-47.0) % MCV 89.2 (81-99) fL MCH 29.6 (28.0-34.0) pg MCHC 33.1 (30.0-36.0) g/dL RDW 12.8 (12.1-15.1) % Plt Count 270 (130-400) 10^3/c mm MPV 9.7 (7.4-10.4) fL Neut % (Auto) 53.4 % Lymph % (Auto) 35.2 % [place] % (Auto) 6.9 % Eos % (Auto) 3.6 % Baso % (Auto) 0.6 % Neut # (Auto) 4.61 (1.8-7.7) 10^3/u L Lymph # (Auto) 3.0 (0.8-4.8) 10^3/u L [place] # (Auto) 0.6 (0.2-0.9) 10^3/u L Eos # (Auto) 0.3 (0.0-0.8) 10^3/u L Baso # (Auto) 0.1 (0.0-0.1) 10^3/u L Nucleated RBC % (a uto) 0 % Nucleated RBCs # 0.0 /100WBC Sodium 136 (136-145) mmol/L Potassium 3.7 (3.5-5.1) mmol/L Chloride 100 (98-107) mmol/L Carbon Dioxide 24 (22-29) mmol/L Anion Gap 15.7 (5-19) BUN 15 (6-20) mg/dL Creatinine 0.7 (0.5-0.9) mg/dL GFR Calculation 89.3 L (90-130) mL/min Glucose 299 H (65-115) mg/dL POC Glucose (70-110) mg/dL Calculated Osmolal ity 294 (285-295) mOsm/k g Calcium 8.8 (8.5-10.5) mg/dL Total Bilirubin 0.2 (0.15-1.2) mg/dL AST 31 (0-32) U/L ALT 26 (0-33) U/L Alkaline Phosphata se 65 (35-105) IU/L Troponin T Baselin e 11 H (0-10) ng/L Total Protein 6.7 (6.6-8.7) g/dL Albumin 4.2 (3.5-5.2) g/dL Globulin 2.5 (1.3-4.6) g/dL // Range/Units 13:03 WBC (4.0-10.0) 10^3/ uL RBC (4.1-5.3) 10^6/u L Hgb (11.5-15.3) g/dL Hct (37.0-47.0) % MCV (81-99) fL MCH (28.0-34.0) pg MCHC (30.0-36.0) g/dL RDW (12.1-15.1) % Plt Count (130-400) 10^3/c mm MPV (7.4-10.4) fL Neut % (Auto) % Lymph % (Auto) % [place] % (Auto) % Eos % (Auto) % Baso % (Auto) % Neut # (Auto) (1.8-7.7) 10^3/u L Lymph # (Auto) (0.8-4.8) 10^3/u L [place] # (Auto) (0.2-0.9) 10^3/u L Eos # (Auto) (0.0-0.8) 10^3/u L Baso # (Auto) (0.0-0.1) 10^3/u L Nucleated RBC % (a uto) % Nucleated RBCs # /100WBC Sodium (136-145) mmol/L Potassium (3.5-5.1) mmol/L Chloride (98-107) mmol/L Carbon Dioxide (22-29) mmol/L Anion Gap (5-19) BUN (6-20) mg/dL Creatinine (0.5-0.9) mg/dL GFR Calculation (90-130) mL/min Glucose (65-115) mg/dL POC Glucose 314 H (70-110) mg/dL Calculated Osmolal ity (285-295) mOsm/k g Calcium (8.5-10.5) mg/dL Total Bilirubin (0.15-1.2) mg/dL AST (0-32) U/L ALT (0-33) U/L Alkaline Phosphata se (35-105) IU/L Troponin T Baselin e (0-10) ng/L Total Protein (6.6-8.7) g/dL Albumin (3.5-5.2) g/dL Globulin (1.3-4.6) g/dL Discharge Plan Discharge Patient Disposition: Placed in Observation Admit Provider: Buck Acosta Clinical Impression: Stable angina, Coronary artery 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 2 diabetes mellitus, Uncontrolled type 2 diabetes mellitus, Smoking addiction Coding Level of Care Code ED Medical Device Assembler for Dora Sparks
[2020-07-21 12:58] LABS: Basophils # 0.1 10^3/uL (0.0-0.1); Basophils % 0.6 %; Eosinophils # 0.3 10^3/uL (0.0-0.8); Eosinophils % 3.6 %; Hematocrit 35.6 % (37.0-47.0); Hemoglobin 11.8 g/dL (11.5-15.3); Lymphocytes % 35.2 %; Mean Corpuscular HGB Conc 33.1 g/dL (30.0-36.0); Mean Corpuscular Hemoglobin 29.6 pg (28.0-34.0); Mean Corpuscular Volume 89.2 fL (81-99); Mean Platelet Volume 9.7 fL (7.4-10.4); Monocytes # 0.6 10^3/uL (0.2-0.9); Monocytes % 6.9 %; Neutrophils # 4.61 10^3/uL (1.8-7.7); Neutrophils % 53.4 %; Nucleated Red Blood Cells % 0 %; Platelet Count 270 10^3/cmm (130-400); Red Blood Count 3.99 10^6/uL (4.1-5.3); Red Cell Distribution Width 12.8 % (12.1-15.1); White Blood Count 8.6 10^3/uL (4.0-10.0)
[2020-07-21] MEDS: aspirin 81 mg Chew Tablet 324 MG PO (13:06)
[2020-07-21] MEDS: sodium chloride 0.9% 500 ML 999 ML IV (13:06)
[2020-07-21 13:10] LABS: Glucose Point of Care 314 mg/dL (70-110)
[2020-07-21 13:17] LABS: Alanine Aminotransferase 26 U/L (0-33); Albumin Level 4.2 g/dL (3.5-5.2); Alkaline Phosphatase 65 IU/L (35-105); Anion Gap 15.7 (5-19); Aspartate Amino Transferase 31 U/L (0-32); Blood Urea Nitrogen 15 mg/dL (6-20); Calcium 8.8 mg/dL (8.5-10.5); Carbon Dioxide 24 mmol/L (22-29); Chloride 100 mmol/L (98-107); Creatinine Clr Calc Pharmacy 96.0253; Globulin 2.5 g/dL (1.3-4.6); Glomerular Filtration Rate 89.3 mL/min (90-130); Glucose 299 mg/dL (65-115); Osmolality Calculated 294 mOsm/kg (285-295); Potassium 3.7 mmol/L (3.5-5.1); Sodium 136 mmol/L (136-145); Total Bilirubin 0.2 mg/dL (0.15-1.2); Total Protein 6.7 g/dL (6.6-8.7)
[2020-07-21 13:19] LABS: Troponin(5th) Baseline 11 ng/L (0-10)
--- NOTE | 2020-07-21 14:25 | ECG_ITS ---
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 Measurements Intervals [place] Rate: 83 P: 59 SC: 168 QRS: 77 QRSD: 92 T: 63 QT: 392 QTc: 461 Interpretive Statements SINUS RHYTHM Compared to ECG 07/21/2020 12:27:55 No significant changes Electronically Signed On 07-21-2020 17:43:05 CDT by Jania Chavez M.D. [id number]
[2020-07-21 15:31] LABS: Troponin 5 2HR 11.72 ng/L (0-10); Troponin 5 2HR Delta 0.72 ABS# (0-10)
--- NOTE | 2020-07-21 16:46 | PM.HP ---
Providers/Chief Complaint Admitting Physician: Buck Acosta Primary Care Provider: Joy Mccray Chief Complaint: SOB, CHEST PAIN History of Present Illness Pleasant 50-year-old lady with history of CAD, with coronary angiography back in 2018, stenting of proximal and mid LAD due to significant stenosis, diabetes, current smoker, reported having episodes of chest pain, yesterday with exertion, then again this morning after moving a heavy desk, and subsequently ambulating. Episodes appear to have been improving with exertion. She did not take any nitroglycerin as does not have any at home. She states she did not have quite the sensation of heaviness she had last time, but the symptoms felt similar and so got her worried. She is currently having some residual discomfort, denies pain. Denies pressure. She does state she has been having a cold, think some cough. She states that moving around was making the symptoms somewhat better. Symptoms did feel somewhat like heartburn, but not entirely. Radiating to the left side of her neck. She denies any productive cough. Denies hemoptysis. Denies any orthopnea. Denies any unilateral or bilateral extremity swelling. She takes her medications. She still smokes although has been trying to reduce how much she smokes and quit. She does not see a emery wheel molder on a regular basis. She states otherwise apart from these complaints has been at baseline state of health. Review of Systems Const: Denies: fever(s), chills, body aches or malaise Eyes: Denies: change in vision or eye redness ENMT: Denies: throat pain, oral sores or ear or mastoid pain Card: Reports: chest pain; Denies: edema, pre-syncope or dyspnea on exertion Resp: Reports: non-productive cough; Denies: dyspnea, productive cough, change in phlegm color or hemoptysis GI: Denies: abdominal pain, nausea, vomiting, diarrhea, constipation, hematochezia or melena : Denies: flank pain, urinary frequency or hematuria Musc: Denies: back pain, joint swelling or joint redness Skin/Breast: Denies: rash, sores or new lesions Neuro: Denies: headache(s), numbness in extremities, weakness in extremities, dizziness, confusion or seizure-like activity Endo: Denies: polyuria or polydipsia Mio/Lymph: Denies: easy bleeding or purpura All/Imm: Denies: urticaria, throat swelling or tongue swelling Medications/Allergies Home Medications Medication Instructions Recorded Confirmed Last Taken Type aspirin [Aspir-81] 81 mg PO DAILY@08/10/19 07/21/20 07/21/20 History fenofibrate 160 mg PO DAILY@08/10/19 07/21/20 07/21/20 History fluoxetine [Prozac] 60 mg PO DAILY@08/10/19 07/21/20 07/21/20 History Victoza 2-Scotty 1.8 mg SUBCUT DAILY@10/01/19 07/21/20 07/21/20 History mupirocin 2 % topical ointment 1 applic TOPICAL BID #22 g 04/27/20 07/21/20 Unknown Rx insulin detemir U-100 100 unit/mL 64 unit SUBCUT BID@05,19 ml 06/25/20 07/21/20 07/21/20 History (3 mL) subcutaneous pen metformin 500 mg tablet,extended 500 mg PO BID@05,19 tab 06/25/20 07/21/20 07/21/20 History release 24 hr doxycycline hyclate 100 mg capsule 100 mg PO BID 7 Days #14 cap 07/10/20 07/21/20 Unknown Rx rifampin 300 mg capsule 300 mg PO DAILY 7 Days #14 cap 07/10/20 07/21/20 Unknown Rx Actos 15 mg PO DAILY@07/21/20 07/21/20 07/21/20 History hydroxyzine HCl 25 mg PO TID PRN 07/21/20 07/21/20 Unknown History lisinopril 2.5 mg PO DAILY@07/21/20 07/21/20 07/21/20 History simvastatin 10 mg PO DAILY@1900 07/21/20 07/21/20 07/20/20 History Allergies Allergy/AdvReac Type Severity Reaction Status Date / Time nalbuphine [From Nubain] Allergy ADR-Headach Verified 07/07/20 09:03 e sumatriptan [From Imitrex] Allergy ALGY-Swell Verified 07/07/20 09:03 Lip/Tongue/Throat PFSH Acute PFSH: Medical History Diabetes Hypercholesterolemia Surgical History H/O heart artery stent 5 years ago H/O melanoma excision H/O: hysterectomy Status post colonoscopy (10/01/19) Family History Father CAD (coronary artery disease) Diabetes Grandfather CAD (coronary artery disease) Diabetes Grandmother CAD (coronary artery disease) Cancer lung Diabetes Denies family history of Anesthesia complication Bleeding disorder Social History Smoking and tobacco status: current some day smoker Alcohol intake: never Household members: spouse Marital status: Current occupational status: employed History of recent travel: No Vitals/I&O/Wt Last Vital Signs Temp 98.2 F 07/21/20 15:45 Pulse 83 07/21/20 16:18 Resp 20 H 07/21/20 16:18 BP 131/81 07/21/20 16:18 Pulse Ox 97 07/21/20 16:18 07/21/20 07/21/20 07/21/20 06:59 14:59 22:59 Intake Total 500 / 500 Balance 500 / 500 Weight last 48 hrs Weight 65.771 kg Physical Exam Const: COMMON NORMALS: no acute distress and patient oriented x3 HENMT: COMMON NORMALS: oropharynx normal Neck/C-Spine: COMMON NORMALS: no JVD Resp: COMMON NORMALS: normal respiratory effort and clear to auscultation bilaterally AUSCULTATION: clear to auscultation bilaterally Cardio: COMMON NORMALS: no JVD, regular rhythm, S1 normal heart sound present, S2 normal heart sound present and No murmurs present (Cardio) RHYTHM: regular rhythm HEART SOUNDS: S1 normal heart sound present and S2 normal heart sound present GI: COMMON NORMALS: Normal to inspection, nondistended, normoactive bowel sounds present, Soft to palpation and non-tender PALPATION: Yes Soft to palpation Extremity: COMMON NORMALS: no joint enlargement and no pedal edema Neuro: COMMON NORMALS: patient oriented x3 and moves all extremities Skin: COMMON NORMALS: no rashes or lesions noted GENERAL SKIN EXAM: no rashes or lesions noted Data : 07/21/20 12:53 07/21/20 12:53 A&P Assessment and plan (1) Chest pain: Episode of chest pain yesterday, again today. Triggered by exertion. Currently some residual discomfort, but no pain or pressure. Troponin with minute elevation 11-11.72. Will complete troponin EKG series. Will assess by TTE given known underlying coronary disease. Diabetes. Current smoking. Discussed with her regarding smoking cessation. She knows that she needs to stop, and is going to be making a greater effort to do so. At this time continue aspirin, statin. We are adding beta-milton. As she is not having persistence of chest pain or pressure, will additionally assessed by TTE, and tentatively plan for stress testing tomorrow if there is no further concerning changes in troponin or symptoms. She is asked to let the nurse know in case there is any chest pain return. Wells score for PE is 0. PE unlikely. PERC rule PE less than 2% chance. No additional work-up necessary at this time. Status: Acute (2) Smoking addiction: Discussed smoking cessation for 4-1/2 minutes. She states will make a better effort to try to quit. She understands the risk especially with known coronary disease, and we discussed other risks as well. We will provide nicotine patches and/or, in case of cravings. Continue to encourage cessation. Status: Acute Additional A&P Information URI: Supportive care at this time. Unremarkable chest x-ray. She is afebrile. She does not have symptoms of COVID-19, no headache, chills, muscle aches, nausea vomiting or diarrhea. Monitor for any changes in symptoms. DM 2: Continue insulin. Hold oral hypoglycemics for now. Sliding scale while in the hospital. GERD Skin lesions: Reports having some small acneiform lesions on the back due to her diabetes for which her primary care provider was prescribing her medication when she will be starting soon. Depression Attestations Medical Necessity Statement*: Place in observation for additional assessment of chest pain episodes and lady with prior coronary disease, CAD risk factors. 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
[2020-07-21 16:56] LABS: Glucose Point of Care 196 mg/dL (70-110)
[2020-07-21] MEDS: famotidine 20 mg Tablet PO (17:39)
[2020-07-21] MEDS: atorvastatin 40 mg Tablet 20 MG PO (18:22)
--- NOTE | 2020-07-21 19:09 | PC.NURSE ---
Received bedside report from SARA Gutierrez. Patient resting in bed watching tv. Family member at bedside. Discussed plan for cardiac stress scheduled for 07/22. Patient verbalized understanding. Patient reports slight chest pressure with increased SOB during exertion only. No pain or pressure at this time. No other distress observed.
[2020-07-21 20:36] LABS: Troponin 5 6HR 14.13 ng/L (0-10); Troponin 5 6HR Delta 3.13 ng/L (0-12)
[2020-07-21 20:42] LABS: Glucose Point of Care 229 mg/dL (70-110)
[2020-07-21] MEDS: metoprolol tartrate 25 mg Tablet PO (20:55)
[2020-07-22 04:00] VITALS: BP 138/85; PULSE 71; RESP 18; TEMP 36.6; O2SAT 98
[2020-07-22] MEDS: lisinopril 2.5 mg Tablet PO (04:17)
[2020-07-22] MEDS: fluoxetine 20 mg Capsule 60 MG PO (04:17)
[2020-07-22 04:46] LABS: Basophils % 0.6 %; Eosinophils # 0.3 10^3/uL (0.0-0.8); Eosinophils % 4.1 %; Hematocrit 37.8 % (37.0-47.0); Hemoglobin 12.1 g/dL (11.5-15.3); Lymphocytes # 2.9 10^3/uL (0.8-4.8); Lymphocytes % 42.6 %; Mean Corpuscular Hemoglobin 28.9 pg (28.0-34.0); Mean Corpuscular Volume 90.2 fL (81-99); Mean Platelet Volume 9.7 fL (7.4-10.4); Monocytes # 0.5 10^3/uL (0.2-0.9); Monocytes % 7.7 %; Neutrophils # 3.06 10^3/uL (1.8-7.7); Neutrophils % 44.6 %; Nucleated Red Blood Cells % 0 %; Platelet Count 255 10^3/cmm (130-400); Red Blood Count 4.19 10^6/uL (4.1-5.3); Red Cell Distribution Width 12.8 % (12.1-15.1); White Blood Count 6.9 10^3/uL (4.0-10.0)
[2020-07-22 05:11] LABS: Chol HDL Ratio 4.94 mg/dL (0.0-4.40); Cholesterol 168 mg/dL (0-200); HDL Cholesterol 34 mg/dL (60-100); LDL Cholesterol Calculated 105 mg/dL (50-129); LDL HDL Ratio 3.09 RATIO (0.00-3.22); Triglycerides 146 mg/dL (0-150)
[2020-07-22 05:14] LABS: Alanine Aminotransferase 25 U/L (0-33); Alkaline Phosphatase 64 IU/L (35-105); Anion Gap 11.1 (5-19); Aspartate Amino Transferase 28 U/L (0-32); Blood Urea Nitrogen 13 mg/dL (6-20); Calcium 8.9 mg/dL (8.5-10.5); Carbon Dioxide 27 mmol/L (22-29); Chloride 108 mmol/L (98-107); Globulin 2.6 g/dL (1.3-4.6); Glomerular Filtration Rate 106.7 mL/min (90-130); Glucose 134 mg/dL (65-115); Osmolality Calculated 296 mOsm/kg (285-295); Potassium 4.1 mmol/L (3.5-5.1); Sodium 142 mmol/L (136-145); Total Bilirubin 0.2 mg/dL (0.15-1.2); Total Protein 6.6 g/dL (6.6-8.7)
[2020-07-22 05:17] VITALS: PULSE 69
[2020-07-22 05:21] LABS: Estmated Average Glucose 203; Hemoglobin A1C 8.7 % (4.0-6.0)
[2020-07-22 06:45] LABS: Glucose Point of Care 96 mg/dL (70-110)
--- NOTE | 2020-07-22 07:00 | USCV_ITS ---
Nelly Gaming Age: 50 Gender: F : 1970 Exam Date: 07/22/2020 06:32 Ordering Phys: Buck Acosta MD Technologist: Kelly Arias Exam Location: [facility] [place] Indication: Chest pain, CAD BP: 138 / 85 HR: 77 Rhythm: Sinus Technical Quality: Adequate MEASUREMENTS (Male / Female) Normal Values 2D ECHO LV Diastolic Diameter PLAX 3.5 cm 4.2 - 5.9 / 3.9 - 5.3 cm LV Systolic Diameter PLAX 2.4 cm IVS Diastolic Thickness 1.2 cm 0.6 - 1.0 / 0.6 - 0.9 cm IVS Systolic Thickness 1.4 cm LVPW Diastolic Thickness 1.2 cm 0.6 - 1.0 / 0.6 - 0.9 cm LVPW Systolic Thickness 1.9 cm RV Chamber Size 2.7 cm LVOT Diameter 2.0 cm LV Ejection Fraction 2D Teich 63.0 % LV Ejection Fraction MOD 2C 52.0 % LV Ejection Fraction 2C AL 54.1 % LA Diameter 2.6 cm LA Width 3.2 cm LA Height 4.2 cm RA Width 2.9 cm RA Height 4.3 cm Aorta at Sinotubular Diameter 2.8 cm M-MODE LV Diastolic Diameter MM 4.7 cm 4.2 - 5.9 / 3.9 - 5.3 cm LV Systolic Diameter MM 2.9 cm LV Ejection Fraction MM Teich 68.6 % IVS Diastolic Thickness MM 1.2 cm 0.6 - 1.0 / 0.6 - 0.9 cm IVS Systolic Thickness MM 1.5 cm LVPW Diastolic Thickness MM 1.0 cm 0.6 - 1.0 / 0.6 - 0.9 cm LVPW Systolic Thickness MM 1.7 cm Aortic Annulus Diameter 2.5 cm LA Ao Ratio MM 1.1 MV E Point Septal Separation 0.6 cm DOPPLER AV Peak Velocity 91.0 cm/s LVOT Peak Velocity 87.0 cm/s AV Area Cont Eq vti 2.9 cm squared AV Area Cont Eq pk 3.0 cm squared MV Area PHT 4.9 cm squared Mitral E to A Ratio 1.7 MV E' Velocity 61.6 cm/s Mitral E to MV E' Ratio 6.7 Mitral E to LV E' Lateral Ratio 6.2 Mitral E to LV E' Septal Ratio 7.4 TR Peak Velocity 238.4 cm/s TR Peak Gradient 22.7 mmHg TV Peak E Velocity 74.0 cm/s Right Atrial Pressure 3.0 mmHg Pulmonary Artery Systolic Pressu 25.7 mmHg PV Peak Velocity 72.0 cm/s RV Acceleration Time 0.1 s RV Ejection Time 0.3 s RV AcT/ET 0.2 FINDINGS Left Ventricle Normal left ventricular size, systolic function and wall thickness, with no regional wall motion abnormalities. Left ventricular ejection fraction is estimated at 65 %. Normal diastolic function. Right Ventricle Normal right ventricular size and systolic function. Right ventricular systolic pressure 25.7 mmHg. Right Atrium Normal right atrial size. Right atrial pressure estimated at 3 mmHg. Left Atrium Normal left atrial size. Mitral Valve Structurally normal mitral valve. No mitral valve stenosis. Trace mitral valve regurgitation. Aortic Valve Mildly thickened trileaflet aortic valve. No aortic valve stenosis. No aortic valve regurgitation. Tricuspid Valve Structurally normal tricuspid valve. No tricuspid valve stenosis. Trace tricuspid valve regurgitation. Pulmonic Valve Structurally normal pulmonic valve. No pulmonary valve stenosis. Trace pulmonary valve regurgitation. Pericardium No pericardial effusion. Aorta Normal-sized aortic root. Normal-sized inferior vena cava with normal respiratory variation. CONCLUSIONS 1. Normal left ventricular size, systolic function and wall thickness, with no regional wall motion abnormalities. Left ventricular ejection fraction is estimated at 65 %. Normal diastolic function. 2. Pulmonary artery pressure estimated at 26 mmHg. 3. No significant valvular abnormality. 4. When compared to previous echocardiogram report dated 10/26/2015, regional wall motion normality is not appreciated. Jania Chavez MD (Electronically Signed) Final Date: 22 July 2020 12:17 S
[2020-07-22] MEDS: regadenoson 0.4 Mg/5 ml Syringe IVP (07:50)
[2020-07-22 08:00] VITALS: BP 128/88; PULSE 73; RESP 21; O2SAT 98
--- NOTE | 2020-07-22 08:00 | ECG_ITS ---
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 Interpretive Statements NAME OF STUDY: LEXISCAN SESTAMIBI STRESS TEST INDICATION: [chest pain/cad] Procedure: At the baseline, the blood pressure was 139/85 mmHg with a heart rate of 70 bpm. The electrocardiogram showed normal sinus rhythm, normal axis with normal ST and T's. The Lexiscan was infused over a period of 20 seconds. A total of 0.4 mg of Lexiscan was infused. The stress phase was continued for a total of 5 minutes. Heart rate was at the end of stress phase was 90 bpm and a blood pressure of 114/73 mmHg. The EKG at the peak infusion revealed since normal sinus rhythm with no significant ST-T wave changes. Sestamibi was injected 20 seconds after the Lexiscan infusion. Blood pressure at the end of recovery phase was 113/72 mmHg with a heart rate of 88 bpm. Conclusion: 1. Normal EKG response to Lexiscan infusion 2. No Lexiscan induced chest pain or cardiac arrhythmia. 3. Normal blood pressure and heart rate response. 4. Sestamibi/sestamibi perfusion scan pending; see separate report. Electronically Signed On 08-01-2020 12:19:43 CDT by Eric Moses M.D. [id number]
[2020-07-22 08:01] VITALS: BP 113/72; PULSE 88
[2020-07-22] MEDS: famotidine 20 mg Tablet PO (09:31)
[2020-07-22] MEDS: metoprolol tartrate 25 mg Tablet PO (09:32)
[2020-07-22] MEDS: aspirin 325 mg Tablet PO (09:32)
--- NOTE | 2020-07-22 11:12 | PC.NURSE ---
pt went to cardiac stress test at 0700 this morning.tolerated test well.no c/o chest pain
[2020-07-22 11:25] VITALS: BP 144/90; PULSE 72; RESP 13; TEMP 36.7; O2SAT 97
[2020-07-22 11:47] LABS: Glucose Point of Care 142 mg/dL (70-110)
--- NOTE | 2020-07-22 13:52 | P.DS_ITS ---
Discharge Providers Date of Admission: 07/21/20 14:21 Date of Discharge: July 22, 2020 Attending Provider at Admission: Buck Acosta Attending Provider at Discharge: Buck Acosta Primary Care Provider: Joy Mccray Diagnoses at Discharge Discharge Diagnosis (1) Chest pain: Status: Acute (2) Smoking addiction: Status: Acute Other Information Additional DC diagnoses/information: URI: Supportive care at this time. Unremarkable chest x-ray. She is afebrile. She does not have symptoms of COVID-19, no headache, chills, muscle aches, nausea vomiting or diarrhea. Monitor for any changes in symptoms. DM 2: Continue insulin. Hold oral hypoglycemics for now. Sliding scale while in the hospital. GERD Skin lesions: Reports having some small acneiform lesions on the back due to her diabetes for which her primary care provider was prescribing her medication when she will be starting soon. Depression Reason for Visit Reason for Visit: SOB, CHEST PAIN Hospital Course Hospital Course Pleasant 50-year-old lady with placed observation for additional assessment after presenting following 2 episodes of chest pain and pressure, somewhat similar to the time when she had a heart attack. She has history of coronary disease with stent placement several years ago. With diabetes, hypertension, and is current smoker, although has been trying to cut down and quit. She was assessed by troponin EKG series, with troponin 11-11-14, without significant changes suggestive of acute ischemia. Initially with mild persistent di scomfort, remained symptom free subsequently. Underwent uneventful stress test with some mild nausea/feeling hot, no chest pain. Stress test results discussed with her with small in size, mostly fixed perfusion defect of inferior and inferior apical leon representing likely artifact, without significant area of ischemia. Elevated TID ratio. We discussed possibility of false negative testing, and staying vigilant in case of recurrence of symptoms. She has had no issues getting up and walking to the bathroom and back. She is encouraged to ambulate the halls prior to discharge. Echocardiogram showed normal ejection fraction, pulmonary artery pressure 26 mmHg. No significant valvular abnormalities. No regional wall motion abnormality. In addition to aspirin, statin, she is started on beta-milton to help with blood pressure control. She is encouraged to continue optimized control of diabetes. Her A1c could be better as it is currently 8.7. We also had a 5-minute discussion regarding smoking cessation. She is given prescription for nicotine patch, as well as gum per her request to help with cravings. Please help her in her pursuit of stopping smoking. She intends to follow-up with cardiology in office. Physical Exam Const: COMMON NORMALS: no acute distress and patient oriented x3 HENMT: COMMON NORMALS: oropharynx normal Neck/C-Spine: COMMON NORMALS: no JVD Resp: COMMON NORMALS: normal respiratory effort and clear to auscultation bilaterally AUSCULTATION: clear to auscultation bilaterally Cardio: COMMON NORMALS: no JVD, regular rhythm, S1 normal heart sound present, S2 normal heart sound present and No murmurs present (Cardio) RHYTHM: regular rhythm HEART SOUNDS: S1 normal heart sound present and S2 normal heart sound present GI: COMMON NORMALS: Normal to inspection, nondistended, normoactive bowel sounds present, Soft to palpation and non-tender PALPATION: Yes Soft to palpation Extremity: COMMON NORMALS: no joint enlargement and no pedal edema Neuro: COMMON NORMALS: patient oriented x3 and moves all extremities Skin: COMMON NORMALS: no rashes or lesions noted GENERAL SKIN EXAM: no rashes or lesions noted Discharge Data Data Completed and Pending: Completed Studies During Hospitalization Category Date Time Status Sestamibi Stress Test Request Routi ne Exams 07/22/20 08:00 Draft XR chest 1V jaron ble [id number] Stat Exams 07/21/20 12:25 Completed NM omar perf SPECT r/s* [id number] Routin e Nuc Med 07/22/20 17:04 Completed CV echo complete* [id number] Routine Ultrasound 07/22/20 07:00 Completed Labs from last 24 hours 07/22/20 07/22/20 07/22/20 10:50 06:39 04:22 WBC RBC Hgb Hct MCV MCH MCHC RDW Plt Count MPV Neut % (Auto) Lymph % (Auto) [place]ancock % (Auto) Eos % (Auto) Baso % (Auto) Neut # (Auto) Lymph # (Auto) [place]ancock # (Auto) Eos # (Auto) Baso # (Auto) Nucleated RBC % (a uto) Nucleated RBCs # Sodium Potassium Chloride Carbon Dioxide Anion Gap BUN Creatinine GFR Calculation Glucose POC Glucose 142 H 96 Estimat Average Gl ucose Hemoglobin A1c Calculated Osmolal ity Calcium Total Bilirubin AST ALT Alkaline Phosphata se Troponin T 120 Min [place] Delta Troponin T Troponin T Hi Sens 6Hr Troponin T Hi Sens 6Hr Delta Total Protein Albumin Globulin Triglycerides 146 Cholesterol 168 LDL Cholesterol, C alc 105 HDL Cholesterol 34 L LDL/HDL Ratio 3.09 Cholesterol/HDL Ra jane 4.94 H 07/22/20 07/22/20 07/22/20 04:22 04:22 04:22 WBC 6.9 RBC 4.19 Hgb 12.1 Hct 37.8 MCV 90.2 MCH 28.9 MCHC 32.0 RDW 12.8 Plt Count 255 MPV 9.7 Neut % (Auto) 44.6 Lymph % (Auto) 42.6 [place]ancock % (Auto) 7.7 Eos % (Auto) 4.1 Baso % (Auto) 0.6 Neut # (Auto) 3.06 Lymph # (Auto) 2.9 Hancock # (Auto) 0.5 Eos # (Auto) 0.3 Baso # (Auto) 0.0 Nucleated RBC % (a uto) 0 Nucleated RBCs # 0.0 Sodium 142 Potassium 4.1 Chloride 108 H Carbon Dioxide 27 Anion Gap 11.1 BUN 13 Creatinine 0.6 GFR Calculation 106.7 Glucose 134 H POC Glucose Estimat Average Gl ucose 203 Hemoglobin A1c 8.7 H Calculated Osmolal ity 296 H Calcium 8.9 Total Bilirubin 0.2 AST 28 ALT 25 Alkaline Phosphata se 64 Troponin T 120 Min [place] Delta Troponin T Troponin T Hi Sens 6Hr Troponin T Hi Sens 6Hr Delta Total Protein 6.6 Albumin 4.0 Globulin 2.6 Triglycerides Cholesterol LDL Cholesterol, C alc HDL Cholesterol LDL/HDL Ratio Cholesterol/HDL Ra jane 07/21/20 07/21/20 07/21/20 20:29 19:40 16:40 WBC RBC Hgb Hct MCV MCH MCHC RDW Plt Count MPV Neut % (Auto) Lymph % (Auto) [place] % (Auto) Eos % (Auto) Baso % (Auto) Neut # (Auto) Lymph # (Auto) [place]ancock # (Auto) Eos # (Auto) Baso # (Auto) Nucleated RBC % (a uto) Nucleated RBCs # Sodium Potassium Chloride Carbon Dioxide Anion Gap BUN Creatinine GFR Calculation Glucose POC Glucose 229 H 196 H Estimat Average Gl ucose Hemoglobin A1c Calculated Osmolal ity Calcium Total Bilirubin AST ALT Alkaline Phosphata se Troponin T 120 Min [place] Delta Troponin T Troponin T Hi Sens 6Hr 14.13 H Troponin T Hi Sens 6Hr Delta 3.13 Total Protein Albumin Globulin Triglycerides Cholesterol LDL Cholesterol, C alc HDL Cholesterol LDL/HDL Ratio Cholesterol/HDL Ra jane 07/21/20 15:03 WBC RBC Hgb Hct MCV MCH MCHC RDW Plt Count MPV Neut % (Auto) Lymph % (Auto) [place]ancock % (Auto) Eos % (Auto) Baso % (Auto) Neut # (Auto) Lymph # (Auto) [place]ancock # (Auto) Eos # (Auto) Baso # (Auto) Nucleated RBC % (a uto) Nucleated RBCs # Sodium Potassium Chloride Carbon Dioxide Anion Gap BUN Creatinine GFR Calculation Glucose POC Glucose Estimat Average Gl ucose Hemoglobin A1c Calculated Osmolal ity Calcium Total Bilirubin AST ALT Alkaline Phosphata se Troponin T 120 Min [place] 11.72 H Delta Troponin T 0.72 Troponin T Hi Sens 6Hr Troponin T Hi Sens 6Hr Delta Total Protein Albumin Globulin Triglycerides Cholesterol LDL Cholesterol, C alc HDL Cholesterol LDL/HDL Ratio Cholesterol/HDL Ra jane Vitals: Last Vital Signs Temp 98.0 F 07/22/20 11:25 Pulse 72 07/22/20 11:25 Resp 13 07/22/20 11:25 BP 144/90 07/22/20 11:25 Pulse Ox 97 07/22/20 11:25 Discharge Plan Discharge Patient Disposition: Home Condition: Stable Prescriptions: New nicotine 14 mg/24 hr Patch 24 Hour 1 patch transdermal DAILY PRN (Reason: Withdrawal) Qty: 30 RF: 0 nitroglycerin 0.4 mg tablet, sublingual 0.4 mg sublingual Q5M PRN (Reason: chest pain) Qty: 30 RF: 0 metoprolol tartrate 25 mg Tablet 25 mg PO BID@0900,2100 Qty: 60 RF: 0 nicotine (polacrilex) 2 mg gum 2 mg buccal Q1H PRN (Reason: nicotine cravings) Qty: 100 RF: 2 Continued metformin 500 mg tablet extended release 24 hr 500 mg PO BID@ RF: 0 Levemir FlexTouch U-100 Insuln 100 unit/mL (3 mL) insulin pen 64 unit SUBCUT BID@ RF: 0 doxycycline hyclate 100 mg capsule 100 mg PO BID 7 Days Qty: 14 RF: 0 rifampin 300 mg capsule 300 mg PO DAILY 7 Days Qty: 14 RF: 0 mupirocin 2 % ointment 1 applic topical BID Qty: 22 RF: 2 aspirin [Aspir-81] 81 mg Tablet,Delayed Release (Dr/Ec) 81 mg PO DAILY@05 RF: 0 fluoxetine [Prozac] 20 mg Capsule 60 mg PO DAILY@05 RF: 0 fenofibrate 160 mg Tablet 160 mg PO DAILY@05 RF: 0 Victoza 2-Scotty 0.6 mg/0.1 mL (18 mg/3 mL) pen injector 1.8 mg SUBCUT DAILY@05 RF: 0 Actos 15 mg tablet 15 mg PO DAILY@05 RF: 0 simvastatin 10 mg tablet 10 mg PO DAILY@1900 RF: 0 hydroxyzine HCl 25 mg Tablet 25 mg PO TID PRN (Reason: Itching) RF: 0 lisinopril 2.5 mg Tablet 2.5 mg PO DAILY@05 RF: 0 Referrals: Joy Mccray FNP [Primary Care Provider] - 4-7 days Kenneth Chappell MD [Physician] - 2 weeks (chest pain) Latonya Dang FNP [Nurse Practitioner] - 1 week Discharge Diet: Cardiac and Diabetic Discharge Activity: Increase activity as tolerated Patient Instructions: Angina (GEN), How to Stop Smoking (GEN), Cigarette Smoking and Your Health (GEN) Activity Restrictions/Additional Instructions: Please stop smoking. Continued smoking will lead to progression of coronary disease, continue to increase cardiovascular risk including heart attack, stroke, as well as the risk of various cancers and other complications. Please continue to monitor your blood glucose, blood pressures. Optimize diabetes and hypertension control to help reduce progression of coronary disease. Please follow-up with cardiology in office. If experiencing chest pain, take nitroglycerin, if chest pain persists, please call 911. Discharge Attestations Time Spent in Discharge Care*: greater than 30 min Quality Metrics Clinical Quality Measures During this hospital stay, did patient experience: None Coding Level of Care Code Acute Chg FW DC note Diagnoses Chest pain R07.9 Smoking addiction F17.200
[2020-07-22 15:05] VITALS: BP 144/90; PULSE 72; RESP 13; TEMP 36.7; O2SAT 97
--- NOTE | 2020-07-22 15:37 | PC.NURSE ---
discharge instructions given and explained.pt verb understanding of instructions.discharged to exit..ambulatory.spouse to drive pt home.
--- NOTE | 2020-07-22 17:04 | NMCV_ITS ---
NM omar perf SPECT r/s* [id number] Nelly Gaming Age: 50 Gender: F : 1970 Exam Date: 07/22/2020 07:18 Ordering Phys: Buck Acosta MD Technologist: RADHA Wood Exam Location: [facility] Indications: CHEST PAIN SOB STRESS TEST [facility] IMAGE PROTOCOL Rest/Stress 1 Lexiscan Day Radiopharmaceutical Dose (mCi) Administration Site Administered by Rest: Tc-99m 10.7 IV RADHA Valles Sestamibi Stress:Tc-99m 32.6 IV RADHA Valles Sestamibi Rest: 22-Jul-2020 60 Discovery 630 Stress: 22-Jul-2020 30 Discovery 630 0.4mg Lexiscan. Images obtained in supine and prone position. SPECT RESULTS Technical Quality: Excellent Raw Data Analysis: Normal Image Corrections: No attenuation or motion correction applied Summed Stress Score: 2 Summed Rest Score: 0 Summed Difference Score: 2 PERFUSION FINDINGS There is small in size, reversible perfusion defect of the inferior, apical inferior wall. This likely represents attenuation artifact FUNCTIONAL RESULTS (calculated via Gated SPECT) Stress Image LV EF (%): 73 Stress EDV (mL):82 TID: 1.26 Stress ESV (mL):22 FUNCTIONAL FINDINGS: There is normal left ventricular systolic function. IMPRESSIONS 1. There is a small in size, mostly fixed perfusion defect of inferior and inferior apical leon. This likely represents artifact. No significant area of ischemia is noted 2. Elevated TID ratio 2. LV systolic function is normal Eric Moses MD (Electronically Signed) Final Date: 22 July 2020 12:11 S
--- NOTE | 2020-07-27 18:57 | PC.RESP ---
Smoking Cessation information sent to patient.
== END 2020-07-22 15:38 | disposition home or self-care (01) ==
LOC: ER 12:33 → CSU 14:41
PROVIDERS: Internal Medicine; Admitting Provider Internal Medicine; Emergency Provider Family Medicine; PCP Nurse Practitioner Family; Visit Provider Internal Medicine
DX: R07.9 Chest pain, unspecified (principal); F17.210 Nicotine dependence, cigarettes, uncomplicated; E11.65 Type 2 diabetes mellitus with hyperglycemia; E78.00 Pure hypercholesterolemia, unspecified; Z79.4 Long term (current) use of insulin; K21.9 Gastro-esophageal reflux disease without esophagitis; F32.9 Major depressive disorder, single episode, unspecified; Z79.82 Long term (current) use of aspirin
CPT/HCPCS: 36415; 36416; 71045; 78452; 80053; 80061; 82962; 83036; 84484; 85025; 93005; 93017; 93306; 96372; 99285; A9500; G0378; J1815; J2785; J7040

== ENCOUNTER 2020-12-14 07:38 | Outpatient (CLI) | payer OTHER, SELFPAY ==
[2020-12-14 08:15] LABS: Estmated Average Glucose 217; Hemoglobin A1C 9.2 % (4.0-6.0)
[2020-12-14 08:31] LABS: Alanine Aminotransferase 39 U/L (0-33); Alkaline Phosphatase 79 IU/L (35-105); Anion Gap 12.6 (5-19); Aspartate Amino Transferase 29 U/L (0-32); Blood Urea Nitrogen 23 mg/dL (6-20); Calcium 9.1 mg/dL (8.5-10.5); Carbon Dioxide 25 mmol/L (22-29); Chloride 103 mmol/L (98-107); Cholesterol 183 mg/dL (0-200); Globulin 2.9 g/dL (1.3-4.6); Glomerular Filtration Rate 131.7 mL/min (90-130); Glucose 255 mg/dL (65-115); HDL Cholesterol 30 mg/dL (60-100); LDL Cholesterol Calculated 118 mg/dL (50-129); LDL HDL Ratio 3.93 RATIO (0.00-3.22); Osmolality Calculated 294 mOsm/kg (285-295); Potassium 4.6 mmol/L (3.5-5.1); Sodium 136 mmol/L (136-145); Total Bilirubin 0.3 mg/dL (0.15-1.2); Total Protein 6.9 g/dL (6.6-8.7); Triglycerides 174 mg/dL (0-150)
[2020-12-14 08:47] LABS: Vitamin B12 678 pg/mL (232-1245)
== END 2020-12-14 07:39 | disposition home or self-care (01) ==
LOC: LAB 07:46
PROVIDERS: PCP Nurse Practitioner Family; Referring Provider Internal Medicine Cardiovascular Disease; Visit Provider Internal Medicine
DX: I25.10 Atherosclerotic heart disease of native coronary artery without angina pectoris (principal); E11.9 Type 2 diabetes mellitus without complications
CPT/HCPCS: 36415; 80053; 80061; 82607; 83036

== ENCOUNTER → 2021-02-08 09:33 | Outpatient (BNVA) | payer OTHER, SELFPAY | PROVIDERS: PCP Nurse Practitioner Family; Visit Provider Internal Medicine Cardiovascular Disease | DX: I25.10 Atherosclerotic heart disease of native coronary artery without angina pectoris (principal); K76.0 Fatty (change of) liver, not elsewhere classified; E78.00 Pure hypercholesterolemia, unspecified | CPT/HCPCS: 80053; 80061; 83721 ==

== ENCOUNTER → 2021-03-03 14:32 | Outpatient (BNVA) | payer OTHER, SELFPAY | PROVIDERS: PCP Nurse Practitioner Family; Visit Provider Internal Medicine | DX: E11.40 Type 2 diabetes mellitus with diabetic neuropathy, unspecified (principal); E11.65 Type 2 diabetes mellitus with hyperglycemia; E11.59 Type 2 diabetes mellitus with other circulatory complications; I25.10 Atherosclerotic heart disease of native coronary artery without angina pectoris; E78.00 Pure hypercholesterolemia, unspecified; K76.0 Fatty (change of) liver, not elsewhere classified; L98.9 Disorder of the skin and subcutaneous tissue, unspecified; Z79.84 Long term (current) use of oral hypoglycemic drugs | CPT/HCPCS: 99214 ==

== ENCOUNTER 2021-06-04 09:08 | Outpatient (CLI) | payer OTHER, SELFPAY ==
[2021-06-04 10:02] LABS: Chol HDL Ratio 4.23 mg/dL (0.0-4.40); Cholesterol 148 mg/dL (0-200); HDL Cholesterol 35 mg/dL (60-100); LDL Cholesterol Calculated 69 mg/dL (50-129); LDL HDL Ratio 1.97 RATIO (0.00-3.22); Triglycerides 222 mg/dL (0-150)
[2021-06-04 10:06] LABS: Estmated Average Glucose 249; Hemoglobin A1C 10.3 % (4.0-6.0)
== END 2021-06-04 09:09 | disposition home or self-care (01) ==
PROVIDERS: PCP Nurse Practitioner Family; Visit Provider Internal Medicine
DX: E11.9 Type 2 diabetes mellitus without complications (principal); E78.00 Pure hypercholesterolemia, unspecified
CPT/HCPCS: 36415; 80061; 83036

== ENCOUNTER 2021-06-21 06:36 | Emergency (ER) | payer OTHER, SELFPAY ==
[2021-06-21 07:04] VITALS: BP 148/85; PULSE 81; RESP 17; TEMP 36.8; O2SAT 97; BMI 22.6
[2021-06-21 07:12] VITALS: BP 124/79; PULSE 79; RESP 18; TEMP 36.6; O2SAT 97
--- NOTE | 2021-06-21 07:16 | ED_ITS ---
Documented by User: NOAH Olivo 06/21/21 09:55 HPI - Recheck/Abnormal Lab/Rx General: Chief Complaint: Recheck/Abnormal Lab/Rx Stated Complaint: high bloodsugar Time Seen by Provider: 06/21/21 07:14 History of Present Illness: Patient is a 51-year-old female who comes to the ED with elevated blood sugars. Past medical history of diabetes and takes in sulin at home to control blood sugars. Approximately 2 weeks ago her primary care physician changed her insulin dosing. She checked her blood sugar at 4:00 this morning and it showed 500s she checked it again at 6:00 in the morning and glucometer just read high. She has not taken any insulin this morning and her last dose was yesterday evening. Patient did state that she ate spaghetti last night. The only symptom she endorses having has some muscle cramps in her legs bilaterally and a little bit of a headache. Denies any fever, nausea/vomiting, abdominal pain, chest pain, shortness of breath, palpitations, bladder or bowel symptoms. Review of Systems Const: Denies: fever(s), chills or fatigue Eyes: Denies: change in vision or eye discomfort ENMT: Denies: throat pain, odynophagia, nasal discharge or nasal congestion Card: Denies: chest pain, palpitations, edema, swelling of feet/ankles, dyspnea on exertion or orthopnea Resp: Denies: dyspnea, productive cough or non-productive cough GI: Denies: abdominal pain, nausea, vomiting, diarrhea, constipation or hematochezia : Denies: flank pain, dysuria or hematuria Musc: Reports: muscle cramps (Bilateral legs); Denies: neck pain, back pain or extremity swelling Skin/Breast: Denies: rash or new lesions Neuro: Reports: headache(s); Denies: numbness in extremities or weakness in extremities PFS ED PFSH: Medical History CAD (coronary artery disease) Coronary artery 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 2 diabetes mellitus Diabetes Hypercholesterolemia Uncontrolled type 2 diabetes mellitus Surgical History H/O heart artery stent 5 years ago H/O melanoma excision H/O: hysterectomy Status post colonoscopy (10/01/19) Family History Father CAD (coronary artery disease) Diabetes Grandfather CAD (coronary artery disease) Diabetes Grandmother CAD (coronary artery disease) Cancer lung Diabetes Denies family history of Anesthesia complication Bleeding disorder Social History Smoking and tobacco status: current every day smoker Alcohol intake: never Household members: spouse Marital status: Current occupational status: employed History of recent travel: No Physical Exam Const: COMMON NORMALS: no acute distress, patient oriented x3, healthy a ppearing and alert GENERAL APPEARANCE: cooperative and comfortable HENMT: COMMON NORMALS: normocephalic HEAD & SCALP: normocephalic MOUTH: Normal oral and palatal mucosa present THROAT: posterior oropharynx normal and uvula midline Neck/C-Spine: COMMON NORMALS: supple GENERAL: Yes normal visual inspection Resp: COMMON NORMALS: normal respiratory effort, No retractions, No use of accessory muscles and clear to auscultation bilaterally AUSCULTATION: clear to auscultation bilaterally Cardio: COMMON NORMALS: regular rate, regular rhythm, S1 normal heart sound present, S2 normal heart sound present, No gallops present (Cardio), No clicks present (Cardio), No murmurs present (Cardio) and Peripheral pulses 2+ throughout RATE: regular rate RHYTHM: regular rhythm HEART SOUNDS: S1 normal heart sound present and S2 normal heart sound present PERIPHERAL PULSES: Peripheral pulses 2+ throughout GI: COMMON NORMALS: Normal to inspection, nondistended, normoactive bowel sounds present, Soft to palpation, non-tender and no masses PALPATION: Yes Soft to palpation : COMMON NORMALS: Yes no CVA tenderness BLADDER/KIDNEY EXAM: Yes no CVA tenderness Back/Pelvis: COMMON NORMALS: no CVA tenderness Extremity: COMMON NORMALS: normal to inspection Neuro: COMMON NORMALS: patient oriented x3 and moves all extremities SENSORIUM/ORIENTATION: Yes alert Skin: GENERAL SKIN EXAM: dry skin Course Vital Signs: Vital signs: Vital Signs Temperature 97.9 F 06/21/21 07:12 Pulse Rate 77 06/21/21 09:27 Respiratory Rate 18 06/21/21 09:27 Blood Pressure 129/73 06/21/21 09:27 Pulse Oximetry 98 06/21/21 09:27 MDM - Recheck/Abnormal Lab/Rx Medical Decision Making Patient is a 51-year-old female comes to the ED with elevated blood sugars. She is a diabetic and has insulin at home. This morning she had elevated blood sugars over 500. She did not take any insulin this morning before coming to the ED. She is complaining of having some muscle cramping and a mild headache. Denies any other symptoms. Denies any shortness of breath, chest pains, nausea/vomiting, abdominal pain, bladder or bowel symptoms. Vitals are stable. Exam is benign and patient appears nontoxic and in no acute distress or pain. Blood sugar here in the ED was 576. The rest of her CBC and CMP was unremarkable. Negative serum ketones. Patient was given 1 L of IV fluids and 10 units of insulin and her blood sugar went down to 253. Patient appears stable for discharge home and no concerns for DKA at this time. She was told to continue using her insulin as prescribed by her PCP. Follow-up with PCP in the next 3 to 5 days for reevaluation. Return to ED precautions given. Patient understood and agree with plan. Lab Data I reviewed the patient's lab results. : 06/21/21 07:30 06/21/21 07:30 Laboratory Results WBC 5.7 10^3/uL (4.0-10.0) 06/21/21 07:30 RBC 4.97 10^6/uL (4.1-5.3) 06/21/21 07:30 Hgb 14.5 g/dL (11.5-15.3) 06/21/21 07:30 Hct 45.2 % (37.0-47.0) 06/21/21 07:30 MCV 90.9 fl (81-99) 06/21/21 07:30 MCH 29.2 pg (28.0-34.0) 06/21/21 07:30 MCHC 32.1 g/dL (30.0-36.0) 06/21/21 07:30 RDW 12.8 % (12.1-15.1) 06/21/21 07:30 Plt Count 176 10^3/cmm (130-400) 06/21/21 07:30 MPV 10.5 fL (7.4-10.4) H 06/21/21 07:30 Neut % (Auto) 51.2 % 06/21/21 07:30 Lymph % (Auto) 39.2 % 06/21/21 07:30 Cataño % (Auto) 6.6 % 06/21/21 07:30 Eos % (Auto) 1.9 % 06/21/21 07:30 Baso % (Auto) 0.9 % 06/21/21 07:30 Neut # (Auto) 2.93 10^3/uL (1.8-7.7) 06/21/21 07:30 Lymph # (Auto) 2.2 10^3/uL (0.8-4.8) 06/21/21 07:30 Cataño # (Auto) 0.4 10^3/uL (0.2-0.9) 06/21/21 07:30 Eos # (Auto) 0.1 10^3/uL (0.0-0.8) 06/21/21 07:30 Baso # (Auto) 0.1 10^3/uL (0.0-0.1) 06/21/21 07:30 Nucleated RBC % (auto) 0 % 06/21/21 07:30 Nucleated RBCs # 0.0 /100WBC 06/21/21 07:30 Sodium 133 mmol/L (136-145) L 06/21/21 07:30 Potassium 4.1 mmol/L (3.5-5.1) 06/21/21 07:30 Chloride 98 mmol/L (98-107) 06/21/21 07:30 Carbon Dioxide 22 mmol/L (22-29) 06/21/21 07:30 Anion Gap 17.1 (5-19) 06/21/21 07:30 BUN 15 mg/dL (6-20) 06/21/21 07:30 Creatinine 0.6 mg/dL (0.5-0.9) 06/21/21 07:30 GFR Calculation 106.3 mL/min (90-130) 06/21/21 07:30 Glucose 576 mg/dL (65-115) H* 06/21/21 07:30 POC Glucose 253 mg/dL (70-110) H 06/21/21 09:18 Calculated Osmolality 303 mOsm/kg (285-295) H 06/21/21 07:30 Calcium 9.7 mg/dL (8.5-10.5) 06/21/21 07:30 Total Bilirubin 0.2 mg/dL (0.15-1.2) 06/21/21 07:30 AST 43 U/L (0-32) H 06/21/21 07:30 ALT 64 U/L (0-33) H 06/21/21 07:30 Alkaline Phosphatase 181 IU/L (35-105) H 06/21/21 07:30 Total Protein 8.0 g/dL (6.6-8.7) 06/21/21 07:30 Albumin 4.5 g/dL (3.5-5.2) 06/21/21 07:30 Globulin 3.5 g/dL (1.3-4.6) 06/21/21 07:30 Lipase 79 U/L (13-60) H 06/21/21 07:30 Urine Color Straw (Yellow) 06/21/21 07:35 Urine Appearance Clear (CLEAR) 06/21/21 07:35 Urine pH 5 (5-7) 06/21/21 07:35 Ur Specific [place] 1.010 (1.005-1.030) 06/21/21 07:35 Urine Protein Neg (Negative) 06/21/21 07:35 Urine Glucose (UA) 4+ (Normal) H 06/21/21 07:35 Urine Ketones Negative (Negative) 06/21/21 07:35 Urine Blood Neg (Negative) 06/21/21 07:35 Urine Nitrate Negative (Negative) 06/21/21 07:35 Urine Bilirubin Neg (Negative) 06/21/21 07:35 Urine Urobilinogen Norm mg/dL (Negative) 06/21/21 07:35 Ur Leukocyte Esterase Negative (Negative) 06/21/21 07:35 Serum Ketones Negative (Negative) 06/21/21 07:30 Discharge Plan Discharge Patient Disposition: Home Clinical Impression: Hyperglycemia due to diabetes mellitus Condition: Stable Prescriptions: No Action triamcinolone acetonide 0.025 % cream 1 applic topical BID Qty: 15 0RF mupirocin 2 % ointment 1 applic topical BID Qty: 22 0RF omeprazole 20 mg capsule,delayed release(DR/EC) 20 mg PO DAILY 0RF (DME) pen needle, diabetic [Advocate Pen Needle] 33 gauge x 5/32 needle See Rx Instructions .Route Qty: 100 3RF Rx Instructions: As directed Humulin R U-500 (Conc) Kwikpen 500 unit/mL (3 mL) insulin pen 100 unit SUBCUT TIDWMEAL Qty: 54 3RF Rx Instructions: 3 month supply rosuvastatin [Crestor] 40 mg tablet 40 mg PO DAILY Qty: 90 3RF Actos 15 mg tablet 15 mg PO DAILY@05 Qty: 90 3RF Rx Instructions: Take one tablet by mouth daily. Victoza 2-Scotty 0.6 mg/0.1 mL (18 mg/3 mL) pen injector 1.8 mg SUBCUT DAILY@05 Qty: 9 3RF Rx Instructions: Inject 1.8 mg subcut daily. aspirin [Aspir-81] 81 mg Tablet,Delayed Release (Dr/Ec) 81 mg PO DAILY@05 0RF fluoxetine [Prozac] 20 mg Capsule 60 mg PO DAILY@05 0RF fenofibrate 160 mg Tablet 160 mg PO DAILY@05 0RF hydroxyzine HCl 25 mg Tablet 25 mg PO TID PRN (Reason: Itching) 0RF lisinopril 2.5 mg Tablet 2.5 mg PO DAILY@05 0RF metoprolol tartrate 25 mg Tablet 25 mg PO BID@0900,2100 Qty: 60 0RF nitroglycerin 0.4 mg tablet, sublingual 0.4 mg sublingual Q5M PRN (Reason: chest pain) Qty: 30 0RF Rx Instructions: do not exceed 3 doses per episode Discharge Orders: Discharge ED (Routine); Ordered 06/21/21 Ordered By: Luis Stallings Referrals: Joy Mccray, DESIZING MACHINE OPERATOR [Primary Care Provider] - Discharge Diet: Diabetic Discharge Activity: Increase activity as tolerated Patient Instructions: Diabetic Hyperglycemia (ED) Activity Restrictions/Additional Instructions: Follow-up with medical provider as directed in the next 3 to 5 days for reevaluation. Continue taking your insulin as previously prescribed. Adhere to diabetic diet and limiting carbohydrate intake. The ER or your medical provider if condition worsens. Please read and understand discharge instructi ons. Thank you for choosing [facility] for your healthcare needs today. Please realize this is an emergency room and that we are providing you with a medical screening exam and this may not be complete and all inclusive of all the testing and or work up that you may need to determine your ailment or severity of your illness. It is very important that you follow up as instructed or that you return to the Emergency Department should you have concerns or if your condition changes or worsens in any way. Coding Level of Care Code ED Wool And Pelt Grader for Chg Fwd Exam Comprehensive Documented by User: Rafael Hill DO 06/22/21 08:25 HPI - Recheck/Abnormal Lab/Rx 2 General: Chief Complaint: Recheck/Abnormal Lab/Rx Stated Complaint: high bloodsugar Time Seen by Provider: 06/21/21 07:14 [facility] ED PFSH: Medical History CAD (coronary artery disease) Coronary artery 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 2 diabetes mellitus Diabetes Hypercholesterolemia Uncontrolled type 2 diabetes mellitus Surgical History H/O heart artery stent 5 years ago H/O melanoma excision H/O: hysterectomy Status post colonoscopy (10/01/19) Family History Father CAD (coronary artery disease) Diabetes Grandfather CAD (coronary artery disease) Diabetes Grandmother CAD (coronary artery disease) Cancer lung Diabetes Denies family history of Anesthesia complication Bleeding disorder Social History Smoking and tobacco status: current every day smoker Alcohol intake: never Household members: spouse Marital status: Current occupational status: employed History of recent travel: No Course Vital Signs: Vital signs: Vital Signs Temperature 97.9 F 06/21/21 07:12 Pulse Rate 77 06/21/21 09:27 Respiratory Rate 18 06/21/21 09:27 Blood Pressure 129/73 06/21/21 09:27 Pulse Oximetry 98 06/21/21 09:27 MDM - Recheck/Abnormal Lab/Rx Medical Decision Making Patient is a 51-year-old female comes to the ED with elevated blood sugars. She is a diabetic and has insulin at home. This morning she had elevated blood sugars over 500. She did not take any insulin this morning before coming to the ED. She is complaining of having some muscle cramping and a mild headache. Denies any other symptoms. Denies any shortness of breath, chest pains, nausea/vomiting, abdominal pain, bladder or bowel symptoms. Vitals are stable. Exam is benign and patient appears nontoxic and in no acute distress or pain. Blood sugar here in the ED was 576. The rest of her CBC and CMP was unremarkable. Negative serum ketones. Patient was given 1 L of IV fluids and 10 units of insulin and her blood sugar went down to 253. Patient appears stable for discharge home and no concerns for DKA at this time. She was told to continue using her insulin as prescribed by her PCP. Follow-up with PCP in the next 3 to 5 days for reevaluation. Return to ED precautions given. Patient understood and agree with plan. Chart reviewed and patient discussed with midlevel. Agree with assessment and plan. Lab Data : 06/21/21 07:30 06/21/21 07:30 Laboratory Results WBC 5.7 10^3/uL (4.0-10.0) 06/21/21 07:30 RBC 4.97 10^6/uL (4.1-5.3) 06/21/21 07:30 Hgb 14.5 g/dL (11.5-15.3) 06/21/21 07:30 Hct 45.2 % (37.0-47.0) 06/21/21 07:30 MCV 90.9 fl (81-99) 06/21/21 07:30 MCH 29.2 pg (28.0-34.0) 06/21/21 07:30 MCHC 32.1 g/dL (30.0-36.0) 06/21/21 07:30 RDW 12.8 % (12.1-15.1) 06/21/21 07:30 Plt Count 176 10^3/cmm (130-400) 06/21/21 07:30 MPV 10.5 fL (7.4-10.4) H 06/21/21 07:30 Neut % (Auto) 51.2 % 06/21/21 07:30 Lymph % (Auto) 39.2 % 06/21/21 07:30 Cataño % (Auto) 6.6 % 06/21/21 07:30 Eos % (Auto) 1.9 % 06/21/21 07:30 Baso % (Auto) 0.9 % 06/21/21 07:30 Neut # (Auto) 2.93 10^3/uL (1.8-7.7) 06/21/21 07:30 Lymph # (Auto) 2.2 10^3/uL (0.8-4.8) 06/21/21 07:30 Cataño # (Auto) 0.4 10^3/uL (0.2-0.9) 06/21/21 07:30 Eos # (Auto) 0.1 10^3/uL (0.0-0.8) 06/21/21 07:30 Baso # (Auto) 0.1 10^3/uL (0.0-0.1) 06/21/21 07:30 Nucleated RBC % (auto) 0 % 06/21/21 07:30 Nucleated RBCs # 0.0 /100WBC 06/21/21 07:30 Sodium 133 mmol/L (136-145) L 06/21/21 07:30 Potassium 4.1 mmol/L (3.5-5.1) 06/21/21 07:30 Chloride 98 mmol/L (98-107) 06/21/21 07:30 Carbon Dioxide 22 mmol/L (22-29) 06/21/21 07:30 Anion Gap 17.1 (5-19) 06/21/21 07:30 BUN 15 mg/dL (6-20) 06/21/21 07:30 Creatinine 0.6 mg/dL (0.5-0.9) 06/21/21 07:30 GFR Calculation 106.3 mL/min (90-130) 06/21/21 07:30 Glucose 576 mg/dL (65-115) H* 06/21/21 07:30 POC Glucose 253 mg/dL (70-110) H 06/21/21 09:18 Calculated Osmolality 303 mOsm/kg (285-295) H 06/21/21 07:30 Calcium 9.7 mg/dL (8.5-10.5) 06/21/21 07:30 Total Bilirubin 0.2 mg/dL (0.15-1.2) 06/21/21 07:30 AST 43 U/L (0-32) H 06/21/21 07:30 ALT 64 U/L (0-33) H 06/21/21 07:30 Alkaline Phosphatase 181 IU/L (35-105) H 06/21/21 07:30 Total Protein 8.0 g/dL (6.6-8.7) 06/21/21 07:30 Albumin 4.5 g/dL (3.5-5.2) 06/21/21 07:30 Globulin 3.5 g/dL (1.3-4.6) 06/21/21 07:30 Lipase 79 U/L (13-60) H 06/21/21 07:30 Urine Color Straw (Yellow) 06/21/21 07:35 Urine Appearance Clear (CLEAR) 06/21/21 07:35 Urine pH 5 (5-7) 06/21/21 07:35 Ur Specific [place] 1.010 (1.005-1.030) 06/21/21 07:35 Urine Protein Neg (Negative) 06/21/21 07:35 Urine Glucose (UA) 4+ (Normal) H 06/21/21 07:35 Urine Ketones Negative (Negative) 06/21/21 07:35 Urine Blood Neg (Negative) 06/21/21 07:35 Urine Nitrate Negative (Negative) 06/21/21 07:35 Urine Bilirubin Neg (Negative) 06/21/21 07:35 Urine Urobilinogen Norm mg/dL (Negative) 06/21/21 07:35 Ur Leukocyte Esterase Negative (Negative) 06/21/21 07:35 Serum Ketones Negative (Negative) 06/21/21 07:30 Discharge Plan Discharge Patient Disposition: Home Clinical Impression: Hyperglycemia due to diabetes mellitus Condition: Stable Prescriptions: No Action triamcinolone acetonide 0.025 % cream 1 applic topical BID Qty: 15 0RF mupirocin 2 % ointment 1 applic topical BID Qty: 22 0RF omeprazole 20 mg capsule,delayed release(DR/EC) 20 mg PO DAILY 0RF (DME) pen needle, diabetic [Advocate Pen Needle] 33 gauge x 5/32 needle See Rx Instructions .Route Qty: 100 3RF Rx Instructions: As directed Humulin R U-500 (Conc) Kwikpen 500 unit/mL (3 mL) insulin pen 100 unit SUBCUT TIDWMEAL Qty: 54 3RF Rx Instructions: 3 month supply rosuvastatin [Crestor] 40 mg tablet 40 mg PO DAILY Qty: 90 3RF Actos 15 mg tablet 15 mg PO DAILY@05 Qty: 90 3RF Rx Instructions: Take one tablet by mouth daily. Victoza 2-Scotty 0.6 mg/0.1 mL (18 mg/3 mL) pen injector 1.8 mg SUBCUT DAILY@05 Qty: 9 3RF Rx Instructions: Inject 1.8 mg subcut daily. aspirin [Aspir-81] 81 mg Tablet,Delayed Release (Dr/Ec) 81 mg PO DAILY@05 0RF fluoxetine [Prozac] 20 mg Capsule 60 mg PO DAILY@05 0RF fenofibrate 160 mg Tablet 160 mg PO DAILY@05 0RF hydroxyzine HCl 25 mg Tablet 25 mg PO TID PRN (Reason: Itching) 0RF lisinopril 2.5 mg Tablet 2.5 mg PO DAILY@05 0RF metoprolol tartrate 25 mg Tablet 25 mg PO BID@0900,2100 Qty: 60 0RF nitroglycerin 0.4 mg tablet, sublingual 0.4 mg sublingual Q5M PRN (Reason: chest pain) Qty: 30 0RF Rx Instructions: do not exceed 3 doses per episode Discharge Orders: Discharge ED (Routine); Ordered 06/21/21 Ordered By: Luis Stallings Referrals: Joy Mccray FNP [Primary Care Provider] - Discharge Diet: Diabetic Discharge Activity: Increase activity as tolerated Patient Instructions: Diabetic Hyperglycemia (ED) Activity Restrictions/Additional Instructions: Follow-up with medical provider as directed in the next 3 to 5 days for reevaluation. Continue taking your insulin as previously prescribed. Adhere to diabetic diet and limiting carbohydrate intake. The ER or your medical provider if condition worsens. Please read and understand discharge instructions. Thank you for choosing [facility] for your healthcare needs today. Please realize this is an emergency room and that we are providing you with a medical screening exam and this may not be complete and all inclusive of all the testing and or work up that you may need to determine your ailment or severity of your illness. It is very important that you follow up as instructed or that you return to the Emergency Department should you have concerns or if your condition changes or worsens in any way. Coding Level of Care Code ED Wool And Pelt Grader for Chg Fwd Exam Comprehensive
[2021-06-21] MEDS: sodium chloride 0.9% 1,000 ML 999 ML IV (07:28)
[2021-06-21 07:51] LABS: Glucose Point of Care 564 mg/dL (70-110)
[2021-06-21 07:59] LABS: Basophils # 0.1 10^3/uL (0.0-0.1); Basophils % 0.9 %; Eosinophils # 0.1 10^3/uL (0.0-0.8); Eosinophils % 1.9 %; Hematocrit 45.2 % (37.0-47.0); Hemoglobin 14.5 g/dL (11.5-15.3); Lymphocytes # 2.2 10^3/uL (0.8-4.8); Lymphocytes % 39.2 %; Mean Corpuscular HGB Conc 32.1 g/dL (30.0-36.0); Mean Corpuscular Hemoglobin 29.2 pg (28.0-34.0); Mean Corpuscular Volume 90.9 fl (81-99); Mean Platelet Volume 10.5 fL (7.4-10.4); Monocytes # 0.4 10^3/uL (0.2-0.9); Monocytes % 6.6 %; Neutrophils # 2.93 10^3/uL (1.8-7.7); Neutrophils % 51.2 %; Nucleated Red Blood Cells % 0 %; Platelet Count 176 10^3/cmm (130-400); Red Blood Count 4.97 10^6/uL (4.1-5.3); Red Cell Distribution Width 12.8 % (12.1-15.1); White Blood Count 5.7 10^3/uL (4.0-10.0)
[2021-06-21 08:00] LABS: Add Urine Microscopic? NO; Charge for UA Resulting for Rev
[2021-06-21] MEDS: insulin regular-human 100 units/1 mL 10 UNIT IVP (08:00)
[2021-06-21 08:10] LABS: Protein Urine Neg (Negative); Urine Appearance Clear (CLEAR); Urine Color Straw (Yellow); pH Urine 5 (5-7)
[2021-06-21 08:10] LABS: Ketone (Acetest) Serum Negative (Negative)
[2021-06-21 08:11] LABS: Bilirubin Urine Neg (Negative); Blood Urine Neg (Negative); Glucose Urine UA 4+ (Normal); Ketones Urine Negative (Negative); Leukocyte Esterase Urine Negative (Negative); Nitrate Urine Negative (Negative); Urobilinogen Urine Norm (Negative)
[2021-06-21 08:15] LABS: Alanine Aminotransferase 64 U/L (0-33); Albumin Level 4.5 g/dL (3.5-5.2); Alkaline Phosphatase 181 IU/L (35-105); Anion Gap 17.1 (5-19); Aspartate Amino Transferase 43 U/L (0-32); Blood Urea Nitrogen 15 mg/dL (6-20); Calcium 9.7 mg/dL (8.5-10.5); Carbon Dioxide 22 mmol/L (22-29); Chloride 98 mmol/L (98-107); Globulin 3.5 g/dL (1.3-4.6); Glomerular Filtration Rate 106.3 mL/min (90-130); Lipase 79 U/L (13-60); Osmolality Calculated 303 mOsm/kg (285-295); Potassium 4.1 mmol/L (3.5-5.1); Sodium 133 mmol/L (136-145); Total Bilirubin 0.2 mg/dL (0.15-1.2)
[2021-06-21 08:34] LABS: Glucose Point of Care 347 mg/dL (70-110)
[2021-06-21 08:37] LABS: Glucose 576 mg/dL (65-115)
[2021-06-21 09:21] LABS: Glucose Point of Care 253 mg/dL (70-110)
[2021-06-21 09:27] VITALS: BP 129/73; PULSE 77; RESP 18; O2SAT 98
== END 2021-06-21 09:32 | disposition home or self-care (01) ==
PROVIDERS: Emergency Provider Physician Assistant; PCP Nurse Practitioner Family
DX: E11.65 Type 2 diabetes mellitus with hyperglycemia (principal); Z79.82 Long term (current) use of aspirin; Z79.4 Long term (current) use of insulin; I25.10 Atherosclerotic heart disease of native coronary artery without angina pectoris; F17.210 Nicotine dependence, cigarettes, uncomplicated
CPT/HCPCS: 36416; 80053; 81003; 82009; 82962; 83690; 85025; 96361; 96374; 99283; J1815; J7030

== ENCOUNTER 2021-12-13 09:35 | Emergency (ER) | payer OTHER, SELFPAY ==
[2021-12-13 09:54] VITALS: BP 104/71; PULSE 88; RESP 18; TEMP 36.8; O2SAT 98; BMI 21.7
--- NOTE | 2021-12-13 10:55 | XRR_ITS ---
PROCEDURE INFORMATION: Exam: XR Chest Exam date and time: 12/13/2021 11:05 AM Age: 51 years old Clinical indication: Pain; Left-sided; Prior surgery; Surgery type: Stent; Additional info: Cp TECHNIQUE: Imaging protocol: Radiologic exam of the chest. Views: 1 view. COMPARISON: CR XR chest 1V portable [id number] 07/21/2020 12:28 PM FINDINGS: Lungs: No focal airspace disease. Pleural spaces: Unremarkable. No pleural effusion. No pneumothorax. Heart/Mediastinum: Cardiomediastinal silhouette is within normal limits. Bones/joints: Unremarkable. XR/XR chest 1V portable [id number] IMPRESSION: No acute cardiopulmonary abnormality.
--- NOTE | 2021-12-13 10:56 | ECG_ITS ---
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 Measurements Intervals [place] Rate: 79 P: 34 DC: 139 QRS: 79 QRSD: 106 T: 72 QT: 394 QTc: 452 Interpretive Statements SINUS RHYTHM Compared to ECG 07/21/2020 14:48:24 No significant changes Electronically Signed On 12-13-2021 18:33:52 CDT by Eric Moses M.D. [id number]
[2021-12-13 11:16] LABS: Basophils # 0.1 10^3/uL (0.0-0.1); Basophils % 0.8 %; Eosinophils # 0.1 10^3/uL (0.0-0.8); Eosinophils % 1.2 %; Hematocrit 44.5 % (37.0-47.0); Hemoglobin 14.3 g/dL (11.5-15.3); Lymphocytes # 3.3 10^3/uL (0.8-4.8); Lymphocytes % 44.4 %; Mean Corpuscular HGB Conc 32.1 g/dL (30.0-36.0); Mean Corpuscular Volume 90.3 fl (81-99); Mean Platelet Volume 10.9 fL (7.4-10.4); Monocytes # 0.5 10^3/uL (0.2-0.9); Monocytes % 6.8 %; Neutrophils # 3.42 10^3/uL (1.8-7.7); Neutrophils % 46.7 %; Nucleated Red Blood Cells % 0 %; Platelet Count 180 10^3/cmm (130-400); Red Blood Count 4.93 10^6/uL (4.1-5.3); Red Cell Distribution Width 12.7 % (12.1-15.1); White Blood Count 7.3 10^3/uL (4.0-10.0)
[2021-12-13 11:31] LABS: Bilirubin Urine Neg (Negative); Blood Urine 2+ (Negative); Glucose Urine UA 4+ (Normal); Ketones Urine 1+ (Negative); Nitrate Urine Positive (Negative); Protein Urine Neg (Negative); Urine Appearance SL Hazy (CLEAR); Urine Color Yellow (Yellow); Urobilinogen Urine Norm (Negative); pH Urine 5 (5-7)
[2021-12-13 11:32] LABS: Add Urine Microscopic? YES; Leukocyte Esterase Urine Negative (Negative); RBC Urine RARE /hpf (0-2); Squamous Epithelial Cell Urine RARE /hpf (0-5)
[2021-12-13 11:33] LABS: Add Urine Culture? Yes; Bacteria Urine 3+ /hpf
[2021-12-13 11:41] LABS: Albumin Level 4.2 g/dL (3.5-5.2); Alkaline Phosphatase 130 U/L (35-105); Blood Urea Nitrogen 13 mg/dL (6-20); Calcium 9.7 mg/dL (8.5-10.5); Carbon Dioxide 25 mmol/L (22-29); Chloride 100 mmol/L (98-107); Globulin 3.2 g/dL (1.3-4.6); Glomerular Filtration Rate 169.7 mL/min (90-130); Glucose 307 mg/dL (65-115); HCG, Serum Qual Negative (Negative); Lipase 42 U/L (13-60); Osmolality Calculated 294 mOsm/kg (285-295); Sodium 136 mmol/L (136-145); Total Bilirubin 0.4 mg/dL (0.15-1.2); Total Protein 7.4 g/dL (6.6-8.7)
[2021-12-13 11:43] LABS: Alanine Aminotransferase 42 U/L (0-33); Anion Gap 15.5 (5-19); Aspartate Amino Transferase 32 U/L (0-32); Potassium 4.5 mmol/L (3.5-5.1)
[2021-12-13 11:46] LABS: Troponin(5th) Baseline 7 ng/L (0-10)
--- NOTE | 2021-12-13 11:47 | CT_ITS ---
WS: [id number] CT ABDOMEN PELVIS TECHNIQUE: Contrast-enhanced CT of the abdomen and pelvis with coronal and sagittal reformatted image s. CLINICAL INFORMATION: pn COMPARISON: CT abdomen pelvis August 10, 2019 DLP: 461.[address] scans at [facility] use at least one of these dose optimization techniques: automated e xposure control; mA and/or kV adjustment per patient size (includes targeted exams where dose is matc hed to clinical indication); or iterative reconstruction. FINDINGS: Prior hysterectomy. Lung bases are well aerated. Calcified granuloma RIGHT lower lobe. Diffuse fatty infiltration liver. Normal portal vein and splenic vein. Normal spleen. Splenic granulomas. Normal GE junction. Normal pancreatic parenchymal enhancement. Normal caliber abdominal aorta. Celiac and SMA are patent. Sigmoid diverticulosis. No evidence of acute diverticulitis. No evidence of high-grade small or large bowel obstruction. Adrenal glands are normal. Normal renal parenchymal enhancement. No hydronephrosi s. Normal bony lumbar spine. Mild disc bulging L4-L5. CT/CT abdomen pelvis w con* [id number] IMPRESSION: 1. Lung bases are well aerated. Visualized LEFT lower ribs are normal in appea anthony. 2. Diffuse fatty infiltration liver. 3. Sigmoid diverticulosis. No evidence of acute diverticulitis 4. No hydronephrosis in either kidney. 5. No evidence of high-grade small or large bowel obstruction. 6. No other acute findings.
[2021-12-13 12:27] VITALS: BP 102/60; PULSE 80; RESP 18; TEMP 36.8; O2SAT 98
[2021-12-13] MEDS: cefTRIAXone 1,000 MG in lidocaine 1% 2.1 ML 2.1 MG IM (12:40)
[2021-12-13] MEDS: iohexol 350 mg/mL 100 mL Btl IV (13:03)
[2021-12-13 13:13] VITALS: RESP 18; O2SAT 98
[2021-12-13] MEDS: morphine 4 mg/mL SDV 1 mL IM (13:13)
--- NOTE | 2021-12-13 13:20 | ECG_ITS ---
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 Measurements Intervals [place] Rate: 71 P: 77 VA: 154 QRS: 81 QRSD: 102 T: 77 QT: 412 QTc: 450 Interpretive Statements SINUS RHYTHM Compared to ECG 12/13/2021 11:55:50 No significant changes Electronically Signed On 12-13-2021 18:35:01 CDT by Eric Moses M.D. [id number]
--- NOTE | 2021-12-13 14:51 | W.ED.GENADLT ---
HPI - General Adult General: Stated complaint: Left abd pain Time Seen by Provider: 12/13/21 09:40 History of Present Illness: 51-year-old female patient presents to the emergency department with left-sided abdominal pain that radiates around into her flank area. Patient states pains been going on for a few days. Patient denies any trauma or injury. Patient denies any numbness or tingling. Patient denies any chest pain or shortness of breath. Patient denies any urinary symptoms. Patient states she has diabetic type I. Associated symptoms: Deny chest pain, confusion, diaphoresis, dyspnea, headache(s), malaise, nausea, rash, palpitations, syncope or vomiting Review of Systems Const: Denies: fever(s), chills, body aches, change in appetite, change in weight, fatigue, malaise or diaphoresis Eyes: Denies: change in vision, blurry vision, blind spots, photophobia, eye discomfort, eye discharge, eye redness, floaters or seeing flashes ENMT: Denies: throat pain, uvular edema, enlarged tonsils, odynophagia, hoarseness, mouth pain, swelling of lips/tongue, oral sores, bleeding gums, dental pain, dry mouth, ear or mastoid pain, ear discharge, change in hearing, tinnitus, disequilibrium, nasal discharge, nasal congestion, post nasal drip or sinus pain Card: Denies: chest pain, palpitations, irregular heart rhythm, edema, swelling of feet/ankles, lightheadedness, syncope, pre-syncope, dyspnea on exertion, orthopnea, leg pain with exertion or acrocyanosis Resp: Denies: dyspnea, productive cough, non-productive cough, wheezing, stridor, pain on inspiration, change in phlegm color, hemoptysis or chest congestion GI: Denies: nausea, vomiting, hematemesis, dysphagia, diarrhea, constipation, GI cramping, change in bowel habits or rectal pain : Denies: flank pain, difficulty voiding, dysuria, urinary frequency, urinary urgency, urinary hesitancy or hematuria Musc: Denies: neck pain, back pain, extremity pain, extremity swelling, joint pain, joint swelling, joint redness, joint warmth or deformity Skin/Breast: Denies: rash, pruritus, erythema, sores, new lesions, changes in skin color or dry skin Neuro: Denies: headache(s), numbness in extremities, weakness in extremities, sensory changes, lack of coordination, difficulty walking, frequent falls, dizziness, vertigo, confusion, behavioral changes, Slurred speech present, difficulty communicating thoughts or seizure-like activity Psych: Denies: anxiety, depression, suicidal ideation or homicidal ideation Endo: Denies: polyuria, polydipsia, tired all the time, cold intolerance, excessive sweating, flushing, hot flashes or heat intolerance Mio/Lymph: Denies: easy bruising, easy bleeding, petechiae, purpura, enlarged lymph nodes or tender lymph nodes All/Imm: Denies: urticaria, throat swelling, tongue swelling, facial swelling, acute wheezing or itchy eyes PFSH ED PFSH: Medical History CAD (coronary artery disease) Coronary artery 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 2 diabetes mellitus Diabetes Hypercholesterolemia Uncontrolled type 2 diabetes mellitus Surgical History H/O heart artery stent 5 years ago H/O melanoma excision H/O: hysterectomy Status post colonoscopy (10/01/19) Family History Father CAD (coronary artery disease) Diabetes Grandfather CAD (coronary artery disease) Diabetes Grandmother CAD (coronary artery disease) Cancer lung Diabetes Denies family history of Anesthesia complication Bleeding disorder Social History Smoking and tobacco status: current every day smoker Alcohol intake: never Household members: spouse Marital status: Current occupational status: employed History of recent travel: No Physical Exam Const: COMMON NORMALS: no acute distress, patient oriented x3, healthy appearing, alert and well nourished GENERAL APPEARANCE: cooperative, comfortable, well kempt and well developed; not ill appearing ORIENTATION/CONSCIOUSNESS: Yes awake, Yes oriented to person, Yes oriented to place and Yes oriented to time HENMT: COMMON NORMALS: normocephalic, atraumatic, hearing grossly normal bilaterally, external ears normal, Normal external nose present, Normal nasal mucous membranes and turbinates present and moist oral mucous membranes HEAD & SCALP: normal to inspection, normocephalic and atraumatic FACE & SINUS: normal facial exam, sinuses nontender and face symmetric NOSE: Normal external nose present, Normal nares present, Normal nasal mucous membranes and turbinates present, No nasal discharge present and Abnormal external nose present EXTERNAL EAR: Yes external ears normal and Yes mastoids normal MOUTH: Normal oral and palatal mucosa present, lip normal, tongue normal and Normal salivary glands and ducts present THROAT: no uvular edema Eye: COMMON NORMALS: Equal, round and reactive pupils present, EOMs intact bilaterally, conjunctivae normal and no scleral icterus GENERAL EYE: appearance normal, both eyes and all related structures EYELID: eyelids normal CONJUNCTIVA: Yes conjunctivae normal SCLERA: sclerae normal CORNEA: Yes corneas normal PUPIL: Yes Equal, round and reactive pupils present Neck/C-Spine: COMMON NORMALS: full ROM, no lymphadenopathy, supple, no meningeal signs, no JVD and Thyroid normal GENERAL: Yes normal visual inspection and Yes trachea midline THYROID: Thyroid normal CERVICAL SPINE: Yes cervical ROM normal Lymph: LYMPHATIC: no lymphadenopathy noted and no lymphedema noted Chest: COMMONS NORMALS: normal inspection of the chest and normal palpation of entire chest wall Resp: COMMON NORMALS: normal respiratory effort, No retractions, No use of accessory muscles and clear to auscultation bilaterally EFFORT & INSPECTION: Yes able to speak in complete sentences and Yes symmetric chest movement AUSCULTATION: clear to auscultation bilaterally Cardio: COMMON NORMALS: no JVD, regular rate and regular rhythm RATE: regular rate RHYTHM: regular rhythm GI: COMMON NORMALS: Normal to inspection, nondistended, normoactive bowel sounds present, Soft to palpation, No hepatosplenomegaly present, no masses and no bruits INSPECTION: Yes normal to inspection AUSCULTATION: Yes normoactive bowel sounds PALPATION: Yes Soft to palpation and Yes No hepatosplenomegaly present PERCUSSION: normal to percussion RECTAL EXAM: deferred : COMMON NORMALS: Yes no CVA tenderness, Yes normal external appearance, Yes normal appearance of the vagina, Yes normal appearance of the cervix, Yes normal bimanual exam, Yes No adnexal tenderness and Yes no masses BLADDER/KIDNEY EXAM: Yes no CVA tenderness BIMANUAL EXAM - VAGINA & UTERUS: Yes normal bimanual exam Back/Pelvis: COMMON NORMALS: no CVA tenderness, thoracic and lumbar spine normal to inspection, no thoracic nor lumbar tenderness, thoraco-lumbar ROM normal and straight leg raise negative bilaterally THORACIC SPINE/UPPER BACK: Yes normal to inspection LUMBAR SPINE/LOWER BACK: Yes normal to inspection Extremity: COMMON NORMALS: normal to inspection, full ROM and capillary refill normal GENERAL: Yes normal exam except as noted Neuro: COMMON NORMALS: patient oriented x3, CN's II-XII intact bilaterally, moves all extremities, no focal motor deficits, no sensory deficits noted, deep tendon reflexes 2+ bilaterally and gait normal SENSORIUM/ORIENTATION: Yes alert, Yes oriented to person, Yes oriented to place and Yes oriented to time MENINGEAL SIGNS: Yes no meningeal signs CRANIAL NERVES: Yes CN normal except as noted SPEECH: speech normal GAIT: Yes Normal gait present SENSORY EXAM: Yes extremities MOTOR EXAM: 5/5 motor strength present throughout Psych: COMMON NORMALS: mental status grossly normal, Normal thought process present, cooperative, normal affect, speech normal, activity/motor behavior normal, denies hallucinations, denies homicidal ideation and denies suicidal ideation APPEARANCE: Yes grossly normal and Yes well kempt ATTITUDE: Yes calm ACTIVITY/MOTOR BEHAVIOR: Yes appropriate eye contact SPEECH: Yes normal speech THOUGHT PROCESS: Normal thought process present THOUGHT CONTENT: Yes Normal thought content present ATTENTION/CONCENTRATION: Yes attention grossly intact MEMORY/COGNITION: Yes memory grossly intact INSIGHT: Good insight present (Psych) JUDGEMENT: Good judgement present (Psych) Skin: COMMON NORMALS: no rashes or lesions noted, no wounds, turgor normal, no jaundice, no petechiae and no mottling GENERAL SKIN EXAM: no rashes or lesions noted and turgor normal Course Vital Signs: Vital signs: Vital Signs Temperature 98.3 F 12/13/21 12:27 Pulse Rate 80 12/13/21 12:27 Respiratory Rate 18 12/13/21 13:13 Blood Pressure 102/60 12/13/21 12:27 Pulse Oximetry 98 12/13/21 13:13 Oxygen Delivery Me thod 12/13/21 12:27 [facility] - General Adult Medical Decision Making Patient is well-appearing nontoxic and in no acute distress.51-year-old female patient presents to the emergency department with left-sided abdominal pain that radiates around into her flank area. Patient states pains been going on for a few days. Patient denies any trauma or injury. Patient denies any numbness or tingling. Patient denies any chest pain or shortness of breath. Patient denies any urinary symptoms. Patient states she has diabetic type I. Patient's labs reveal a nitrate positive urine. Patient was given Rocephin 1 g. We will send patient home on appropriate antibiotics. CT of the abdomen and pelvis did not reveal any emergent or acute findings. I discussed return precautions with patient as well as home care. At this point I do not feel patient would benefit from any further emergent testing. Patient patient is medically cleared and appropriate for discharge Lab Data : 12/13/21 11:00 12/13/21 11:00 Radiology Impressions Chest X-Ray 12/13/21 10:55 IMPRESSION: No acute cardiopulmonary abnormality. Abdomen/Pelvis CT 12/13/21 11:47 IMPRESSION: 1. Lung bases are well aerated. Visualized LEFT lower ribs are normal in appearance. 2. Diffuse fatty infiltration liver. 3. Sigmoid diverticulosis. No evidence of acute diverticulitis 4. No hydronephrosis in either kidney. 5. No evidence of high-grade small or large bowel obstruction. 6. No other acute findings. Laboratory Results WBC 7.3 10^3/uL (4.0-10.0) 12/13/21 11:00 RBC 4.93 10^6/uL (4.1-5.3) 12/13/21 11:00 Hgb 14.3 g/dL (11.5-15.3) 12/13/21 11:00 Hct 44.5 % (37.0-47.0) 12/13/21 11:00 MCV 90.3 fl (81-99) 12/13/21 11:00 MCH 29.0 pg (28.0-34.0) 12/13/21 11:00 MCHC 32.1 g/dL (30.0-36.0) 12/13/21 11:00 RDW 12.7 % (12.1-15.1) 12/13/21 11:00 Plt Count 180 10^3/cmm (130-400) 12/13/21 11:00 MPV 10.9 fL (7.4-10.4) H 12/13/21 11:00 Neut % (Auto) 46.7 % 12/13/21 11:00 Lymph % (Auto) 44.4 % 12/13/21 11:00 Hodgeman % (Auto) 6.8 % 12/13/21 11:00 Eos % (Auto) 1.2 % 12/13/21 11:00 Baso % (Auto) 0.8 % 12/13/21 11:00 Neut # (Auto) 3.42 10^3/uL (1.8-7.7) 12/13/21 11:00 Lymph # (Auto) 3.3 10^3/uL (0.8-4.8) 12/13/21 11:00 Hodgeman # (Auto) 0.5 10^3/uL (0.2-0.9) 12/13/21 11:00 Eos # (Auto) 0.1 10^3/uL (0.0-0.8) 12/13/21 11:00 Baso # (Auto) 0.1 10^3/uL (0.0-0.1) 12/13/21 11:00 Nucleated RBC % (auto) 0 % 12/13/21 11:00 Nucleated RBCs # 0.0 /100WBC 12/13/21 11:00 Sodium 136 mmol/L (136-145) 12/13/21 11:00 Potassium 4.5 mmol/L (3.5-5.1) 12/13/21 11:00 Chloride 100 mmol/L (98-107) 12/13/21 11:00 Carbon Dioxide 25 mmol/L (22-29) 12/13/21 11:00 Anion Gap 15.5 (5-19) 12/13/21 11:00 BUN 13 mg/dL (6-20) 12/13/21 11:00 Creatinine 0.4 mg/dL (0.5-0.9) L 12/13/21 11:00 GFR Calculation 169.7 mL/min (90-130) H 12/13/21 11:00 Glucose 307 mg/dL (65-115) H 12/13/21 11:00 Calculated Osmolality 294 mOsm/kg (285-295) 12/13/21 11:00 Calcium 9.7 mg/dL (8.5-10.5) 12/13/21 11:00 Total Bilirubin 0.4 mg/dL (0.15-1.2) 12/13/21 11:00 AST 32 U/L (0-32) 12/13/21 11:00 ALT 42 U/L (0-33) H 12/13/21 11:00 Alkaline Phosphatase 130 U/L (35-105) H 12/13/21 11:00 Troponin T Baseline 7 ng/L (0-10) 12/13/21 11:00 Troponin T 120 Minute 6.00 ng/L (0-10) 12/13/21 12:33 Delta Troponin T -1.0 ABS# (0-10) L 12/13/21 12:33 Total Protein 7.4 g/dL (6.6-8.7) 12/13/21 11:00 Albumin 4.2 g/dL (3.5-5.2) 12/13/21 11:00 Globulin 3.2 g/dL (1.3-4.6) 12/13/21 11:00 Lipase 42 U/L (13-60) 12/13/21 11:00 HCG, Qual Negative (Negative) 12/13/21 11:00 Urine Color Yellow (Yellow) 12/13/21 11:00 Urine Appearance Sl hazy (CLEAR) 12/13/21 11:00 Urine pH 5 (5-7) 12/13/21 11:00 Ur Specific Mcdermitt 1.020 (1.005-1.030) 12/13/21 11:00 Urine Protein Neg (Negative) 12/13/21 11:00 Urine Glucose (UA) 4+ (Normal) H 12/13/21 11:00 Urine Ketones 1+ (Negative) H 12/13/21 11:00 Urine Blood 2+ (Negative) H 12/13/21 11:00 Urine Nitrate Positive (Negative) H 12/13/21 11:00 Urine Bilirubin Neg (Negative) 12/13/21 11:00 Urine Urobilinogen Norm mg/dL (Negative) 12/13/21 11:00 Ur Leukocyte Esterase Negative (Negative) 12/13/21 11:00 Urine RBC Rare /hpf (0-2) 12/13/21 11:00 Urine WBC 5-10 /hpf (0-5) H 12/13/21 11:00 Ur Squamous Epith Cells Rare /hpf (0-5) 12/13/21 11:00 Amorphous Sediment Not Reportable 12/13/21 11:00 Urine Bacteria 3+ /hpf (NONE) H 12/13/21 11:00 Discharge Plan Discharge Patient Disposition: Home Clinical Impression: UTI (urinary tract infection) Condition: Stable Prescriptions: New cephalexin 500 mg capsule 500 mg PO BID 7 Days Qty: 14 0RF No Action triamcinolone acetonide 0.025 % cream 1 applic topical BID Qty: 15 0RF mupirocin 2 % ointment 1 applic topical BID Qty: 22 0RF omeprazole 20 mg capsule,delayed release(DR/EC) 20 mg PO DAILY (DME) pen needle, diabetic [Advocate Pen Needle] 33 gauge x 5/32 needle See Rx Instructions .Route Qty: 100 3RF Rx Instructions: As directed rosuvastatin [Crestor] 40 mg tablet 40 mg PO DAILY Qty: 90 3RF Victoza 2-Scotty 0.6 mg/0.1 mL (18 mg/3 mL) pen injector 1.8 mg SUBCUT DAILY@05 Qty: 9 3RF Rx Instructions: Inject 1.8 mg subcut daily. fluoxetine [Prozac] 20 mg Capsule 60 mg PO DAILY@05 hydroxyzine HCl 25 mg Tablet 25 mg PO TID PRN (Reason: Itching) lisinopril 2.5 mg Tablet 2.5 mg PO DAILY@05 metoprolol tartrate 25 mg Tablet 25 mg PO BID@0900,2100 Qty: 60 0RF nitroglycerin 0.4 mg tablet, sublingual 0.4 mg sublingual Q5M PRN (Reason: chest pain) Qty: 30 0RF Rx Instructions: do not exceed 3 doses per episode Aspir-81 81 mg Tablet,Delayed Release (Dr/Ec) 81 mg PO DAILY Humulin R U-500 (Conc) Kwikpen 500 unit/mL (3 mL) insulin pen See Rx Instructions .ROUTE .COMPLEX Rx Instructions: 60 units AM, 90 units at noon and 60 units PM Discharge Orders: Discharge ED (Routine); Ordered 12/13/21 Ordered By: Kenyatta Maddox Referrals: Joy Mccray, ELECTRONICS REPAIR TECHNICIAN [Primary Care Provider] - Discharge Diet: Advance as tolerated Discharge Activity: Increase activity as tolerated Patient Instructions: Urinary Tract Infection in Women (DC), Opioid Safety, Pain Management Activity Restrictions/Additional Instructions: PLease take medications as prescribed Return to ER with any worsening of pain or symptoms Coding Level of Care Code ED 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
[2021-12-13 15:09] VITALS: BP 135/87; PULSE 80; RESP 18; O2SAT 98
== END 2021-12-13 15:10 | disposition home or self-care (01) ==
PROVIDERS: Emergency Medicine; Emergency Provider Registered Nurse; PCP Nurse Practitioner Family
DX: N39.0 Urinary tract infection, site not specified (principal); Z79.82 Long term (current) use of aspirin; Z79.4 Long term (current) use of insulin; F17.210 Nicotine dependence, cigarettes, uncomplicated; I25.10 Atherosclerotic heart disease of native coronary artery without angina pectoris; E11.9 Type 2 diabetes mellitus without complications
CPT/HCPCS: 36415; 71045; 74177; 80053; 81001; 83690; 84484; 84703; 85025; 87077; 87086; 87186; 93005; 96372; 99285; J0696; J2270; Q9967

== ENCOUNTER 2022-02-23 08:19 | Outpatient (CLI) | payer OTHER, SELFPAY ==
[2022-02-23 08:57] LABS: Chol HDL Ratio 8.81 mg/dL (0.0-4.40); Cholesterol 273 mg/dL (0-200); HDL Cholesterol 31 mg/dL (60-100); LDL Cholesterol Calculated 163 mg/dL (50-129); LDL HDL Ratio 5.26 RATIO (0.00-3.22); Triglycerides 393 mg/dL (0-150)
[2022-02-23 09:02] LABS: Estmated Average Glucose 292; Hemoglobin A1C 11.8 % (4.0-6.0)
== END 2022-02-23 08:20 | disposition home or self-care (01) ==
LOC: LAB 08:20
PROVIDERS: PCP Nurse Practitioner Family; Visit Provider Internal Medicine
DX: E11.65 Type 2 diabetes mellitus with hyperglycemia (principal)
CPT/HCPCS: 36415; 80061; 83036

== ENCOUNTER 2022-02-24 22:26 | Emergency (ER) | payer OTHER, SELFPAY ==
--- NOTE | 2022-02-24 22:26 | XRR_ITS ---
PROCEDURE INFORMATION: Exam: XR Chest Exam date and time: 02/24/2022 10:42 PM Age: 52 years old Clinical indication: Angina pectoris and chest pressure and chest wall pain; Additional info: Cp TECHNIQUE: Imaging protocol: Radiologic exam of the chest. Views: 1 view. COMPARISON: CR XR chest 1V portable [id number] 12/13/2021 11:05 AM FINDINGS: Lungs: Unremarkable. No consolidation. Pleural spaces: Unremarkable. No pleural effusion. No pneumothorax. Heart/Mediastinum: Unremarkable. No cardiomegaly. Bones/joints: Unremarkable. XR/XR chest 1V portable [id number] IMPRESSION: No acute findings.
[2022-02-24 22:31] VITALS: BP 121/79; PULSE 70; RESP 16; TEMP 36.3; O2SAT 98; BMI 20.5
--- NOTE | 2022-02-24 22:34 | ECG_ITS ---
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 Measurements Intervals [place] Rate: 71 P: 74 MN: 176 QRS: 71 QRSD: 101 T: 87 QT: 403 QTc: 439 Interpretive Statements SINUS RHYTHM MODERATE ST DEPRESSION [0.05+ mV ST DEPRESSION] Compared to ECG 12/13/2021 13:20:17 ST (T wave) deviation now present Electronically Signed On 02-27-2022 19:48:26 RESIDENTIAL INSTALLER by Eric Moses M.D. [email or web address]
--- NOTE | 2022-02-24 22:49 | W.ED.CHESTPA ---
HPI - Chest Pain General: Chief Complaint: Chest Pain Stated Complaint: Chest Pain\SOB Time Seen by Provider: 02/24/22 22:40 Source: patient Mode of arrival: ambulatory Limitations: no limitations History of Present Illness: 52-year-old female states started having crushing pain in the center of her chest 1 hour ago she states that the pain radiated to her neck and her arm she had some dyspnea as well states pain is improved is currently 2 out of 10 she does have a history of coronary artery disease and has had stents in the past. She denies any worsening proving factors does not take any medicines. Associated symptoms: Deny abdominal pain, dyspnea, fever(s), nausea or vomiting Review of Systems Const: Denies: fever(s), chills, body aches or change in appetite Eyes: Denies: blurry vision or eye discomfort ENMT: Denies: throat pain or dental pain Card: Reports: chest pain Resp: Denies: dyspnea GI: Denies: abdominal pain, nausea, vomiting or diarrhea : Denies: dysuria Musc: Denies: neck pain or back pain Skin/Breast: Denies: rash Neuro: Denies: headache(s) Psych: Denies: depression Mio/Lymph: Denies: easy bruising All/Imm: Denies: urticaria PFSH ED PFSH: Medical History CAD (coronary artery disease) Coronary artery 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 2 diabetes mellitus Diabetes Hypercholesterolemia Uncontrolled type 2 diabetes mellitus Surgical History H/O heart artery stent 5 years ago H/O melanoma excision H/O: hysterectomy Status post colonoscopy (10/01/19) Family History Father CAD (coronary artery disease) Diabetes Grandfather CAD (coronary artery disease) Diabetes Grandmother CAD (coronary artery disease) Cancer lung Diabetes Denies family history of Anesthesia complication Bleeding disorder Social History Smoking and tobacco status: current every day smoker Alcohol intake: never Household members: spouse Marital status: Current occupational status: employed History of recent travel: No Physical Exam Const: COMMON NORMALS: patient oriented x3 and healthy appearing HENMT: COMMON NORMALS: normocephalic and atraumatic HEAD & SCALP: normocephalic and atraumatic Eye: COMMON NORMALS: Equal, round and reactive pupils present and EOMs intact bilaterally PUPIL: Yes Equal, round and reactive pupils present Neck/C-Spine: COMMON NORMALS: full ROM and supple Chest: COMMONS NORMALS: normal inspection of the chest and normal palpation of entire chest wall Resp: COMMON NORMALS: normal respiratory effort, No retractions, No use of accessory muscles and clear to auscultation bilaterally AUSCULTATION: clear to auscultation bilaterally Cardio: COMMON NORMALS: regular rate, regular rhythm and No murmurs present (Cardio) RATE: regular rate RHYTHM: regular rhythm GI: COMMON NORMALS: Normal to inspection, nondistended, normoactive bowel sounds present, Soft to palpation, non-tender and no masses PALPATION: Yes Soft to palpation Extremity: COMMON NORMALS: normal to inspection and full ROM Neuro: COMMON NORMALS: patient oriented x3, moves all extremities and no focal motor deficits Psych: COMMON NORMALS: mental status grossly normal, Normal thought process present and cooperative THOUGHT PROCESS: Normal thought process present Skin: COMMON NORMALS: no rashes or lesions noted and no wounds GENERAL SKIN EXAM: no rashes or lesions noted Course Vital Signs: Vital signs: Vital Signs Temperature 97.4 F L 02/24/22 22:31 Pulse Rate 83 02/25/22 01:00 Respiratory Rate 20 H 02/25/22 01:00 Blood Pressure 116/63 02/25/22 01:00 Pulse Oximetry 98 02/25/22 01:00 Oxygen Delivery Hi thod 02/24/22 22:31 MDM - Chest Pain Medical Decision Making Patient presents here with chest pain atypical in nature she is pain-free currently on pain she is having is in her left shoulder and trapezius is actually worse with palpation could be muscular pain her initial repeat troponin here negative lipase is mildly elevated abdominal exam is benign no abdominal pain no signs of cholecystitis she would like to go home I feel she is stable for discharge we will get her follow-up with cardiology and will 2 to 5 days she is return to ER if worsening she understands agrees to plan her D-dimer is negative as well no signs of dissection or pulmonary embolism Lab Data 02/24/22 23:14 12/01/22 23:14 Radiology Impressions Chest X-Ray 02/24/22 22:26 IMPRESSION: No acute findings. Laboratory Results WBC 6.8 10^3/uL (4.0-10.0) 02/24/22 23:14 RBC 4.99 10^6/uL (4.1-5.3) 02/24/22 23:14 Hgb 14.6 g/dL (11.5-15.3) 02/24/22 23:14 Hct 43.4 % (37.0-47.0) 02/24/22 23:14 MCV 87.0 fl (81-99) 02/24/22 23:14 MCH 29.3 pg (28.0-34.0) 02/24/22 23:14 MCHC 33.6 g/dL (30.0-36.0) 02/24/22 23:14 RDW 12.2 % (12.1-15.1) 02/24/22 23:14 Plt Count 183 10^3/cmm (130-400) 02/24/22 23:14 MPV 10.2 fL (7.4-10.4) 02/24/22 23:14 Neut % (Auto) 48.1 % 02/24/22 23:14 Lymph % (Auto) 42.2 % 02/24/22 23:14 [place] % (Auto) 7.5 % 02/24/22 23:14 Eos % (Auto) 1.5 % 02/24/22 23:14 Baso % (Auto) 0.4 % 02/24/22 23:14 Neut # (Auto) 3.26 10^3/uL (1.8-7.7) 02/24/22 23:14 Lymph # (Auto) 2.9 10^3/uL (0.8-4.8) 02/24/22 23:14 [place] # (Auto) 0.5 10^3/uL (0.2-0.9) 02/24/22 23:14 Eos # (Auto) 0.1 10^3/uL (0.0-0.8) 02/24/22 23:14 Baso # (Auto) 0.0 10^3/uL (0.0-0.1) 02/24/22 23:14 Nucleated RBC % (auto) 0 % 02/24/22 23:14 Nucleated RBCs # 0.0 /100WBC 02/24/22 23:14 PT 12.40 SECONDS (12.1-14.9) 02/24/22 23:14 INR 0.90 (0.8-1.2) 02/24/22 23:14 D-Dimer <= 0.27 ug/mIFEU (0-0.59) 02/24/22 23:14 Sodium 134 mmol/L (136-145) L 02/24/22 23:14 Potassium 3.9 mmol/L (3.5-5.1) 02/24/22 23:14 Chloride 101 mmol/L (98-107) 02/24/22 23:14 Carbon Dioxide 22 mmol/L (22-29) 02/24/22 23:14 Anion Gap 14.9 (5-19) 02/24/22 23:14 BUN 19 mg/dL (6-20) 02/24/22 23:14 Creatinine 0.5 mg/dL (0.5-0.9) 02/24/22 23:14 GFR Calculation 130.6 mL/min (90-130) H 02/24/22 23:14 Glucose 414 mg/dL (65-115) H 02/24/22 23:14 Calculated Osmolality 298 mOsm/kg (285-295) H 02/24/22 23:14 Calcium 9.6 mg/dL (8.5-10.5) 02/24/22 23:14 Total Bilirubin 0.3 mg/dL (0.15-1.2) 02/24/22 23:14 AST 33 U/L (0-32) H 02/24/22 23:14 ALT 51 U/L (0-33) H 02/24/22 23:14 Alkaline Phosphatase 118 U/L (35-105) H 02/24/22 23:14 Troponin T Baseline 6 ng/L (0-10) 02/24/22 23:14 Troponin T 120 Minute 8.61 ng/L (0-10) 02/25/22 01:10 Delta Troponin T 2.61 ABS# (0-10) 02/25/22 01:10 NT-Pro-B Natriuret Pep 5 pg/mL (0-125) 02/24/22 23:14 Total Protein 7.1 g/dL (6.6-8.7) 02/24/22 23:14 Albumin 4.1 g/dL (3.5-5.2) 02/24/22 23:14 Globulin 3.0 g/dL (1.3-4.6) 02/24/22 23:14 Lipase 110 U/L (13-60) H 02/24/22 23:14 EKG Data EKG 1: I personally reviewed and interpreted this EKG as follows: EKG interpretation date: 02/24/22 EKG interpretation time: 22:34 Interpretation: nsr hr [address] or t wave abnormalities qrs 101 qtc 425 Discharge Plan Discharge Patient Disposition: Home Clinical Impression: Chest pain Condition: Stable Prescriptions: New methocarbamol 750 mg tablet 750 mg PO Q6H PRN (Reason: spasms) Qty: 20 0RF Naprosyn 500 mg tablet 500 mg PO BID PRN (Reason: pain) Qty: 20 0RF No Action triamcinolone acetonide 0.025 % cream 1 applic topical BID Qty: 15 0RF mupirocin 2 % ointment 1 applic topical BID Qty: 22 0RF omeprazole 20 mg capsule,delayed release(DR/EC) 20 mg PO DAILY (DME) pen needle, diabetic [Advocate Pen Needle] 33 gauge x 5/32 needle See Rx Instructions .Route Qty: 100 3RF Rx Instructions: As directed rosuvastatin [Crestor] 40 mg tablet 40 mg PO DAILY Qty: 90 3RF Victoza 3-Scotty 0.6 mg/0.1 mL (18 mg/3 mL) pen injector See Rx Instructions .ROUTE .COMPLEX Qty: 9 3RF Dose Instruction: INJECT 1.8MG SUBCUTANEOUSLY DAILY Rx Instructions: INJECT 1.8MG SUBCUTANEOUSLY DAILY fluoxetine [Prozac] 20 mg Capsule 60 mg PO DAILY@05 hydroxyzine HCl 25 mg Tablet 25 mg PO TID PRN (Reason: Itching) lisinopril 2.5 mg Tablet 2.5 mg PO DAILY@05 metoprolol tartrate 25 mg Tablet 25 mg PO BID@0900,2100 Qty: 60 0RF nitroglycerin 0.4 mg tablet, sublingual 0.4 mg sublingual Q5M PRN (Reason: chest pain) Qty: 30 0RF Rx Instructions: do not exceed 3 doses per episode Aspir-81 81 mg Tablet,Delayed Release (Dr/Ec) 81 mg PO DAILY Humulin R U-500 (Conc) Kwikpen 500 unit/mL (3 mL) insulin pen See Rx Instructions .ROUTE .COMPLEX Rx Instructions: 60 units AM, 90 units at noon and 60 units PM Discharge Orders: Discharge ED (Routine); Ordered 02/25/22 Ordered By: Boom Talbot Referrals: Joy Mccray FNP [Primary Care Provider] - Eric Moses M.D [Physician] - 1-3 days Discharge Diet: Advance as tolerated Discharge Activity: Resume usual activity Patient Instructions: Chest Pain (ED) Coding Level of Care Code ED Race Relations Adviser for Eveg Fwd Exam Comprehensive
[2022-02-24] MEDS: aspirin 81 mg Chew Tablet 324 MG PO (23:12)
[2022-02-24 23:18] LABS: Basophils % 0.4 %; Eosinophils # 0.1 10^3/uL (0.0-0.8); Eosinophils % 1.5 %; Hematocrit 43.4 % (37.0-47.0); Hemoglobin 14.6 g/dL (11.5-15.3); Lymphocytes # 2.9 10^3/uL (0.8-4.8); Lymphocytes % 42.2 %; Mean Corpuscular HGB Conc 33.6 g/dL (30.0-36.0); Mean Corpuscular Hemoglobin 29.3 pg (28.0-34.0); Mean Platelet Volume 10.2 fL (7.4-10.4); Monocytes # 0.5 10^3/uL (0.2-0.9); Monocytes % 7.5 %; Neutrophils # 3.26 10^3/uL (1.8-7.7); Neutrophils % 48.1 %; Nucleated Red Blood Cells % 0 %; Platelet Count 183 10^3/cmm (130-400); Red Blood Count 4.99 10^6/uL (4.1-5.3); Red Cell Distribution Width 12.2 % (12.1-15.1); White Blood Count 6.8 10^3/uL (4.0-10.0)
[2022-02-24 23:19] VITALS: BP 112/79; PULSE 82; RESP 16; O2SAT 98
[2022-02-24] MEDS: nitroglycerin 0.4 mg sublingual Tablet SUBLINGUAL (23:19)
[2022-02-24 23:24] VITALS: BP 93/57; PULSE 72; RESP 16; O2SAT 98
[2022-02-24 23:30] VITALS: BP 99/70; PULSE 77; RESP 16; O2SAT 100
[2022-02-24 23:40] VITALS: BP 126/83; PULSE 72; RESP 16; O2SAT 98
[2022-02-24] MEDS: fentaNYL 50 mcg/mL INJ 2mL IVP (23:43)
[2022-02-24] MEDS: ondansetron 2 mg/ML SDV 2 mL 4 MG IVP (23:43)
[2022-02-24] MEDS: sodium chloride 0.9% 1,000 ML 999 ML IV (23:43)
[2022-02-24 23:44] LABS: Troponin(5th) Baseline 6 ng/L (0-10)
[2022-02-24 23:45] LABS: D Dimer <= 0.27 ug/mIFEU (0-0.59)
[2022-02-24 23:47] VITALS: BP 108/73; PULSE 79; RESP 16; O2SAT 98
[2022-02-24 23:51] LABS: Alanine Aminotransferase 51 U/L (0-33); Albumin Level 4.1 g/dL (3.5-5.2); Alkaline Phosphatase 118 U/L (35-105); Aspartate Amino Transferase 33 U/L (0-32); Blood Urea Nitrogen 19 mg/dL (6-20); Calcium 9.6 mg/dL (8.5-10.5); Carbon Dioxide 22 mmol/L (22-29); Chloride 101 mmol/L (98-107); Glomerular Filtration Rate 130.6 mL/min (90-130); Glucose 414 mg/dL (65-115); NT Pro B Type Natriuretic Pept 5 pg/mL (0-125); Osmolality Calculated 298 mOsm/kg (285-295); Sodium 134 mmol/L (136-145); Total Bilirubin 0.3 mg/dL (0.15-1.2); Total Protein 7.1 g/dL (6.6-8.7)
[2022-02-24 23:53] LABS: Anion Gap 14.9 (5-19); Potassium 3.9 mmol/L (3.5-5.1)
[2022-02-25] MEDS: insulin regular-human 100 units/1 mL 6 UNIT IVP (00:02)
[2022-02-25 00:12] LABS: Lipase 110 U/L (13-60)
[2022-02-25 00:15] VITALS: BP 110/72; PULSE 80; RESP 13; O2SAT 97
--- NOTE | 2022-02-25 00:27 | ECG_ITS ---
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 Measurements Intervals [place] Rate: 70 P: 59 ND: 164 QRS: 75 QRSD: 104 T: 84 QT: 413 QTc: 449 Interpretive Statements SINUS RHYTHM MINIMAL ST DEPRESSION [0.025+ mV ST DEPRESSION] Compared to ECG 02/24/2022 22:34:26 No significant changes Electronically Signed On 02-27-2022 20:00:32 CARAMEL CUTTER HELPER by Eric Moses M.D. [id number]
[2022-02-25 00:30] VITALS: BP 108/68; PULSE 83; RESP 14; O2SAT 96
[2022-02-25 01:00] VITALS: BP 116/63; PULSE 83; RESP 20; O2SAT 98
[2022-02-25] MEDS: lidocaine 2% viscous 15 ML, aluminum-mag hydrox-simethicon 30 ML, sucralfate oral liq 1 GM PO (01:13)
[2022-02-25 01:30] VITALS: BP 124/72; PULSE 81; RESP 15; O2SAT 99
[2022-02-25 01:30] LABS: Troponin 5 2HR 8.61 ng/L (0-10)
[2022-02-25 01:35] LABS: Troponin 5 2HR Delta 2.61 ABS# (0-10)
--- NOTE | 2022-02-25 04:27 | ECG_ITS ---
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 Measurements Intervals [place] Rate: 72 P: 81 NV: 180 QRS: 79 QRSD: 105 T: 78 QT: 408 QTc: 449 Interpretive Statements SINUS RHYTHM Compared to ECG 02/24/2022 23:55:53 No significant changes Electronically Signed On 02-27-2022 20:00:19 ORIENTAL RUG REPAIRER by Eric Moses M.D. [id number]
--- NOTE | 2022-02-25 13:03 | DCPLANNER ---
Addendum entered by Mesha Christy 04/01/22 10:48: Patient had a follow up appointment scheduled with heart care - patient did attend appointment Addendum entered by Mesha Christy 03/04/22 15:09: Patient has a follow up appointment scheduled for , March 24, 2022 at 11:30 at [facility]. Clinic will call patient with appointment information. Original Note: manager pmo had message to schedule a follow up appointment for patient with cardiology. manager pmo sent patients information to the front office staff at [facility]. Patients information will be printed and reviewed. Clinic will call patient with appointment information.
== END 2022-02-25 01:52 | disposition home or self-care (01) ==
PROVIDERS: Emergency Provider Emergency Medicine; PCP Nurse Practitioner Family
DX: R07.89 Other chest pain (principal); E11.59 Type 2 diabetes mellitus with other circulatory complications; I25.10 Atherosclerotic heart disease of native coronary artery without angina pectoris; Z79.4 Long term (current) use of insulin; Z95.5 Presence of coronary angioplasty implant and graft; Z79.82 Long term (current) use of aspirin
CPT/HCPCS: 71045; 80053; 83690; 83880; 84484; 85025; 85378; 85610; 93005; 96361; 96374; 96375; 99285; J1815; J2405; J3010; J7030

== ENCOUNTER → 2022-03-09 16:44 | Outpatient (BNVA) | payer OTHER, SELFPAY | PROVIDERS: PCP Nurse Practitioner Family; Visit Provider Internal Medicine Cardiovascular Disease | DX: I25.10 Atherosclerotic heart disease of native coronary artery without angina pectoris (principal); E11.9 Type 2 diabetes mellitus without complications; E78.00 Pure hypercholesterolemia, unspecified | CPT/HCPCS: 36415; 80053; 83735; 83880; 85025 ==

== ENCOUNTER 2022-04-01 06:01 | Emergency (ER) | payer OTHER, SELFPAY ==
[2022-04-01] VITALS (12 sets, daily range): BP systolic 102; BP diastolic 62; PULSE 87–106; RESP 14–27; TEMP 36.6; O2SAT 92–96; BMI 20.5
--- NOTE | 2022-04-01 06:11 | ED_ITS ---
HPI - Chest Pain General: Chief Complaint: Chest Pain Stated Complaint: Pain on the right side and hurts to breath Time Seen by Provider: 04/01/22 06:08 Source: patient Mode of arrival: ambulatory History of Present Illness: 52-year-old female presents emergency room she is approximately 2 to 3 weeks status post coronary artery bypass graft was done in [place]. She is complaining of right upper chest pain. She denies fevers sweats or chills she has right upper chest pain worse with movement worse with deep inspiration. 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 MD complaint: chest pain Pertinent past history: coronary artery disease Onset (ago): day(s) (2) Timing of current episode: constant Pain location: right chest Pain radiation: none Severity: moderate Quality: sharp Relieving factors: rest Exacerbating factors: inspiration and movement Associated symptoms: Reports dyspnea and nausea; Deny abdominal pain, diaphoresis, fever(s), leg edema, palpitations, sense of impending doom, syncope or vomiting Treatment prior to arrival: none Review of Systems Const: Denies: fever(s), chills or diaphoresis ENMT: Denies: throat pain, ear or mastoid pain, nasal discharge or nasal congestion Card: Reports: chest pain; Denies: palpitations, irregular heart rhythm, edema or syncope Resp: Reports: dyspnea GI: Reports: nausea; Denies: abdominal pain or vomiting : Denies: flank pain, difficulty voiding, dysuria, urinary frequency or urinary urgency Skin/Breast: Denies: rash or pruritus PFSH ED PFSH: Medical History CAD (coronary artery disease) Coronary artery 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 2 diabetes mellitus Diabetes Hypercholesterolemia Uncontrolled type 2 diabetes mellitus Surgical History H/O heart artery stent 5 years ago H/O heart bypass surgery [place]- Last Monday03/02/22 H/O melanoma excision H/O: hysterectomy Status post colonoscopy (10/01/19) Family History Father CAD (coronary artery disease) Diabetes Grandfather CAD (coronary artery disease) Diabetes Grandmother CAD (coronary artery disease) Cancer lung Diabetes Denies family history of Anesthesia complication Bleeding disorder Social History Smoking and tobacco status: current every day smoker Alcohol intake: never Household members: spouse Marital status: Current occupational status: employed History of recent travel: No Physical Exam Const: COMMON NORMALS: no acute distress GENERAL APPEARANCE: cooperative and comfortable ORIENTATION/CONSCIOUSNESS: Yes awake, Yes oriented to person, Yes oriented to place and Yes oriented to time HENMT: COMMON NORMALS: normocephalic, atraumatic and hearing grossly normal bilaterally HEAD & SCALP: normocephalic and atraumatic Resp: COMMON NORMALS: normal respiratory effort, No retractions, No use of accessory muscles and clear to auscultation bilaterally AUSCULTATION: clear to auscultation bilaterally Cardio: COMMON NORMALS: regular rate, regular rhythm and No murmurs present (Cardio) RATE: regular rate RHYTHM: regular rhythm GI: COMMON NORMALS: Soft to palpation and No hepatosplenomegaly present AUSCULTATION: Yes normoactive bowel sounds PALPATION: Yes Soft to palpation, No Tenderness to palpation present (GI), No Guarding due to palpation present (GI) and Yes No hepatosplenomegaly present Extremity: COMMON NORMALS: normal to inspection, capillary refill normal, no clubbing, cyanosis or edema, no calf tenderness and no pedal edema Neuro: SENSORIUM/ORIENTATION: Yes oriented to person, Yes oriented to place and Yes oriented to time Skin: COMMON NORMALS: no rashes or lesions noted GENERAL SKIN EXAM: no rashes or lesions noted OTHER: Superficial wound dehiscence of the sternotomy scar no active drainage no redness or induration most noticeable at the inferior aspect of the wound. Course Vital Signs: Vital signs: Vital Signs Temperature 97.8 F 04/01/22 06:07 Pulse Rate 89 04/01/22 09:30 Respiratory Rate 27 H 04/01/22 09:30 Blood Pressure 102/62 04/01/22 07:18 Pulse Oximetry 95 04/01/22 09:30 Oxygen Delivery Me thod 04/01/22 07:30 MDM - Chest Pain Medical Decision Making Patient showed questionable left lower lobe pneumonia her exam is relatively unremarkable. We will go ahead and discharge the patient home on levofloxacin 750 mg 1 p.o. daily x7 days follow-up with primary care doctor within a week return to the emergency room for worsening symptoms. Medical Records I reviewed the patient's medical records. Lab Data I reviewed the patient's lab results. 04/01/22 06:25 04/01/22 06:25 Radiology Impressions Chest X-Ray 04/01/22 06:12 IMPRESSION: Mild left basilar pneumonia versus atelectasis. Chest CTA 04/01/22 06:22 IMPRESSION: 1. Consolidation in the left lung base concerning for pneumonia and or atelectasis. 2. Wound/defect in the anterior abdominal wall subxiphoid region, likely related to recent surgery. COMMENTS: In the absence of a history or active diagnosis of lung cancer, it is recommended that this patient with emphysema be evaluated for enrollment in a low dose CT lung cancer screening program. Laboratory Results WBC 14.0 10^3/uL (4.0-10.0) H 04/01/22 06:25 RBC 4.40 10^6/uL (4.1-5.3) 04/01/22 06:25 Hgb 11.9 g/dL (11.5-15.3) 04/01/22 06:25 Hct 38.8 % (37.0-47.0) 04/01/22 06:25 MCV 88.2 fl (81-99) 04/01/22 06:25 MCH 27.0 pg (28.0-34.0) L 04/01/22 06:25 MCHC 30.7 g/dL (30.0-36.0) 04/01/22 06:25 RDW 14.4 % (12.1-15.1) 04/01/22 06:25 Plt Count 231 10^3/cmm (130-400) 04/01/22 06:25 MPV 9.4 fL (7.4-10.4) 04/01/22 06:25 Neut % (Auto) 77.1 % 04/01/22 06:25 Lymph % (Auto) 12.7 % 04/01/22 06:25 [place] % (Auto) 9.1 % 04/01/22 06:25 Eos % (Auto) 0.1 % 04/01/22 06:25 Baso % (Auto) 0.4 % 04/01/22 06:25 Neut # (Auto) 10.79 10^3/uL (1.8-7.7) H 04/01/22 06:25 Lymph # (Auto) 1.8 10^3/uL (0.8-4.8) 04/01/22 06:25 [place] # (Auto) 1.3 10^3/uL (0.2-0.9) H 04/01/22 06:25 Eos # (Auto) 0.0 10^3/uL (0.0-0.8) 04/01/22 06:25 Baso # (Auto) 0.1 10^3/uL (0.0-0.1) 04/01/22 06:25 Nucleated RBC % (auto) 0 % 04/01/22 06:25 Nucleated RBCs # 0.0 /100WBC 04/01/22 06:25 Sodium 135 mmol/L (136-145) L 04/01/22 06:25 Potassium 4.3 mmol/L (3.5-5.1) 04/01/22 06:25 Chloride 102 mmol/L (98-107) 04/01/22 06:25 Carbon Dioxide 23 mmol/L (22-29) 04/01/22 06:25 Anion Gap 14.3 (5-19) 04/01/22 06:25 BUN 25 mg/dL (6-20) H 04/01/22 06:25 Creatinine 0.7 mg/dL (0.5-0.9) 04/01/22 06:25 GFR Calculation 88.6 mL/min (90-130) L 04/01/22 06:25 Glucose 154 mg/dL (65-115) H 04/01/22 06:25 Calculated Osmolality 287 mOsm/kg (285-295) 04/01/22 06:25 Calcium 9.5 mg/dL (8.5-10.5) 04/01/22 06:25 Total Bilirubin 0.6 mg/dL (0.15-1.2) 04/01/22 06:25 AST 14 U/L (0-32) 04/01/22 06:25 ALT 14 U/L (0-33) 04/01/22 06:25 Alkaline Phosphatase 83 U/L (35-105) 04/01/22 06:25 Troponin T Baseline 27 ng/L (0-10) H 04/01/22 06:25 Troponin T 120 Minute 26.72 ng/L (0-10) H 04/01/22 08:23 Delta Troponin T -0.28 ABS# (0-10) L 04/01/22 08:23 Total Protein 6.7 g/dL (6.6-8.7) 04/01/22 06:25 Albumin 4.1 g/dL (3.5-5.2) 04/01/22 06:25 Globulin 2.6 g/dL (1.3-4.6) 04/01/22 06:25 Discharge Plan Discharge Patient Disposition: Home Clinical Impression: Left lower lobe pneumonia Condition: Stable Prescriptions: No Action rosuvastatin [Crestor] 40 mg tablet 20 mg PO DAILY Qty: 90 3RF (DME) Dexcom G6 Transmitter Device See Rx Instructions .ROUTE .MEDSUPPLY Qty: 1 3RF Rx Instructions: change every 3 months (DME) Dexcom G6 Funeral Arranger Misc See Rx Instructions .ROUTE .MEDSUPPLY Qty: 1 3RF Rx Instructions: change every 90 days (DME) Dexcom G6 Sensor Device See Rx Instructions .ROUTE .MEDSUPPLY Qty: 6 3RF Rx Instructions: change every 10 days Humulin R U-500 (Conc) Kwikpen 500 unit/mL (3 mL) insulin pen See Rx Instructions .ROUTE .COMPLEX Qty: 30 0RF Rx Instructions: 60 units AM, 60 units at noon and 60 units PM (DME) pen needle, diabetic [Advocate Pen Needle] 33 gauge x 5/32 needle See Rx Instructions .Route Qty: 450 3RF Rx Instructions: As directed potassium chloride 20 mEq tablet extended release 20 meq PO DAILY furosemide 20 mg tablet 20 mg PO DAILY PRN (Reason: weight gain) oxycodone 5 mg tablet 5 mg PO Q6H PRN amiodarone 200 mg tablet 200 mg PO DAILY Victoza 3-Scotty 0.6 mg/0.1 mL (18 mg/3 mL) pen injector 1.8 mg SUBCUT DAILY Qty: 27 3RF hydroxyzine HCl 25 mg Tablet 25 mg PO TID PRN (Reason: Itching) nitroglycerin 0.4 mg tablet, sublingual 0.4 mg sublingual Q5M PRN (Reason: chest pain) Qty: 30 0RF Rx Instructions: do not exceed 3 doses per episode methocarbamol 750 mg tablet 750 mg PO Q6H PRN (Reason: spasms) Qty: 20 0RF Naprosyn 500 mg tablet 500 mg PO BID PRN (Reason: pain) Qty: 20 0RF Aspir-81 81 mg Tablet,Delayed Release (Dr/Ec) 81 mg PO DAILY Discharge Orders: Discharge ED (Routine); Ordered 04/01/22 Ordered By: Rafael Hill Referrals: Joy Mccray, PHARMACY TECHNICIAN [Primary Care Provider] - Discharge Diet: Usual diet Discharge Activity: Limit activity as instructed Patient Instructions: Opioid Safety, Pain Management Activity Restrictions/Additional Instructions: You were seen in the emergency room today for chest pain. The cardiac enzymes and EKG did not show anything acute. Imaging did show a Left lower lobe pneumonia, Start antibiotics prescribed. Follow up with your PCP or nitric acid concentrator operator ipain reccurs or persists. Coding Level of Care Code ED Worship Pastor for Chg Fwd Exam Detailed
--- NOTE | 2022-04-01 06:12 | XRR_ITS ---
PROCEDURE INFORMATION: Exam: XR Chest Exam date and time: 04/01/2022 6:20 AM Age: 52 years old Clinical indication: On breathing; Prior surgery; Surgery date: <1 month; Surgery type: Cabg on 03/02/2022; Patient HX: C/O chest pain with inspiration for two days. TECHNIQUE: Imaging protocol: Radiologic exam of the chest. Views: 1 view. COMPARISON: CR (CHEST, ) 02/24/2022 10:42 PM FINDINGS: Lungs: Mild left basilar pneumonia versus atelectasis. Remainder of the lung parenchyma is clear. Pleural spaces: No pneumothorax. No pleural effusion. Heart/Mediastinum: The cardiomediastinal silhouette is within normal limits. Bones/joints: Median sternotomy wires noted. XR/XR chest 1V portable [id number] IMPRESSION: Mild left basilar pneumonia versus atelectasis.
--- NOTE | 2022-04-01 06:13 | ECG_ITS ---
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 Measurements Intervals [place] Rate: 102 P: 75 IN: 163 QRS: 63 QRSD: 87 T: 84 QT: 349 QTc: 455 Interpretive Statements SINUS TACHYCARDIA POSSIBLE LEFT ATRIAL ENLARGEMENT [-0.1mV P-WAVE IN V1/V2] ST DEVIATION AND MODERATE T-WAVE ABNORMALITY, CONSIDER LATERAL ISCHEMIA [-0.1+ mV T-WAVE IN I/aVL/V5/V6] Compared to ECG 02/25/2022 01:21:25 T-wave abnormality now present Possible ischemia now present Sinus rhythm no longer present Electronically Signed On 04-01-2022 16:56:44 COAL WHEELER by Jania Chavez M.D. [email or web address] [email or web address] hospitalCrowd Source Capital Ltdselect [facility] [id number]
--- NOTE | 2022-04-01 06:22 | CTR_ITS ---
PROCEDURE INFORMATION: Exam: CTA Chest With Contrast Exam date and time: 04/01/2022 6:36 AM Age: 52 years old Clinical indication: Pain; Chest pressure and left-sided; Prior surgery; Surgery date: <1 month; Surgery type: Cabg; Additional info: Chest pain - dyspnea, S/P cabg TECHNIQUE: Imaging protocol: Computed tomographic angiography of the chest with contrast. 3D rendering (Not supervised by radiologist): MIP and/or 3D reconstructed images were created by the technologist. Radiation optimization: All CT scans at this facility use at least one of these dose optimization techniques: automated exposure control; mA and/or kV adjustment per patient size (includes targeted exams where dose is matched to clinical indication); or iterative reconstruction. Contrast material: OMNI 350; Contrast volume: 87 ml; Contrast route: INTRAVENOUS (IV); COMPARISON: CR (CHEST, ) 04/01/2022 6:20 AM RADIATION DOSE METRICS: Total DLP (mGy-cm): 747.89 FINDINGS: Pulmonary arteries: No central or segmental filling pulmonary artery filling defects are identified. Aorta: The aorta is normal in course and caliber. Lungs: Left basilar consolidation. Left basilar linear atelectasis. Trace right basilar linear atelectasis. The remainder of the lung parenchyma is clear. Trace biapical pulmonary scarring. Minimal subpleural cystic/emphysematous change in the apical segment of the right upper lobe. Pleural spaces: No pneumothorax. No pleural effusion. Heart: The heart is within normal limits for size. No pericardial effusion is seen. Coronary arteries: Severe coronary artery calcifications noted. Mediastinal space: Postsurgical changes in the mediastinum. Lymph nodes: The visualized supraclavicular region appears normal. No mediastinal or hilar adenopathy is identified. Kidneys and ureters: Partially visualized density in the left kidney may be early contrast filling. Bones/joints: Median sternotomy wires noted. Soft tissues: Wound/defect in the anterior abdominal wall subxiphoid region, likely related to recent surgery. CT/CT angio chest PE protcl [id number] IMPRESSION: 1. Consolidation in the left lung base concerning for pneumonia and or atelectasis. 2. Wound/defect in the anterior abdominal wall subxiphoid region, likely related to recent surgery. COMMENTS: In the absence of a history or active diagnosis of lung cancer, it is recommended that this patient with emphysema be evaluated for enrollment in a low dose CT lung cancer screening program.
[2022-04-01] MEDS: aspirin 81 mg Chew Tablet 324 MG PO (06:31)
[2022-04-01] MEDS: iohexol 350 mg/mL 500 mL Btl (per mL) IV (06:41)
[2022-04-01 06:42] LABS: Basophils # 0.1 10^3/uL (0.0-0.1); Basophils % 0.4 %; Eosinophils % 0.1 %; Hematocrit 38.8 % (37.0-47.0); Hemoglobin 11.9 g/dL (11.5-15.3); Lymphocytes # 1.8 10^3/uL (0.8-4.8); Lymphocytes % 12.7 %; Mean Corpuscular HGB Conc 30.7 g/dL (30.0-36.0); Mean Corpuscular Volume 88.2 fl (81-99); Mean Platelet Volume 9.4 fL (7.4-10.4); Monocytes # 1.3 10^3/uL (0.2-0.9); Monocytes % 9.1 %; Neutrophils # 10.79 10^3/uL (1.8-7.7); Neutrophils % 77.1 %; Nucleated Red Blood Cells % 0 %; Platelet Count 231 10^3/cmm (130-400); Red Cell Distribution Width 14.4 % (12.1-15.1)
[2022-04-01 07:01] LABS: Alanine Aminotransferase 14 U/L (0-33); Albumin Level 4.1 g/dL (3.5-5.2); Alkaline Phosphatase 83 U/L (35-105); Anion Gap 14.3 (5-19); Aspartate Amino Transferase 14 U/L (0-32); Blood Urea Nitrogen 25 mg/dL (6-20); Calcium 9.5 mg/dL (8.5-10.5); Carbon Dioxide 23 mmol/L (22-29); Chloride 102 mmol/L (98-107); Globulin 2.6 g/dL (1.3-4.6); Glomerular Filtration Rate 88.6 mL/min (90-130); Glucose 154 mg/dL (65-115); Osmolality Calculated 287 mOsm/kg (285-295); Potassium 4.3 mmol/L (3.5-5.1); Sodium 135 mmol/L (136-145); Total Bilirubin 0.6 mg/dL (0.15-1.2); Total Protein 6.7 g/dL (6.6-8.7)
[2022-04-01 07:02] LABS: Troponin(5th) Baseline 27 ng/L (0-10)
[2022-04-01] MEDS: morphine 4 mg/mL SDV 1 mL IVP ×2 (07:08→08:28)
[2022-04-01] MEDS: ondansetron 2 mg/ML SDV 2 mL 4 MG IVP (07:08)
--- NOTE | 2022-04-01 08:12 | ECG_ITS ---
[facility] Test Date: 2022-04-01 Pat Name: Nelly Gaming Department: Room: Gender: Female Pacu Nurse: : 1970 Requested By: Rafael Colindres Order Number: [id number] Luz MD: Jania Chavez M.D. Measurements Intervals [place] Rate: 90 P: 69 SD: 178 QRS: 53 QRSD: 91 T: 67 QT: 376 QTc: 462 Interpretive Statements SINUS RHYTHM WITH OCCASIONAL VENTRICULAR PREMATURE COMPLEXES POSSIBLE LEFT ATRIAL ENLARGEMENT [-0.1mV P-WAVE IN V1/V2] NONSPECIFIC T-WAVE ABNORMALITY Compared to ECG 02/25/2022 01:21:25 Ventricular premature complex(es) now present T-wave abnormality now present Electronically Signed On 04-01-2022 17:03:20 SURVEY CAD TECHNICIAN by Jania Chavez M.D. [id number]
[2022-04-01 08:48] LABS: Troponin 5 2HR 26.72 ng/L (0-10)
[2022-04-01 08:49] LABS: Troponin 5 2HR Delta -0.28 ABS# (0-10)
== END 2022-04-01 09:54 | disposition home or self-care (01) ==
PROVIDERS: Emergency Provider Family Medicine; PCP Nurse Practitioner Family
DX: J18.9 Pneumonia, unspecified organism (principal); Z79.82 Long term (current) use of aspirin; Z79.4 Long term (current) use of insulin; I25.10 Atherosclerotic heart disease of native coronary artery without angina pectoris; E11.9 Type 2 diabetes mellitus without complications; F17.210 Nicotine dependence, cigarettes, uncomplicated
CPT/HCPCS: 36415; 71045; 71275; 80053; 84484; 85025; 93005; 96374; 96375; 96376; 99285; J2270; J2405; Q9967

== ENCOUNTER 2022-05-22 11:58 | Emergency (ER) | payer OTHER, SELFPAY ==
[2022-05-22 12:11] VITALS: BP 150/91; PULSE 85; RESP 16; TEMP 37; O2SAT 97; BMI 23.3
[2022-05-22 12:17] VITALS: BP 150/91; RESP 16
--- NOTE | 2022-05-22 12:29 | ED_ITS ---
HPI - Back Pain/Injury General: Chief Complaint: Back Pain/Injury Stated Complaint: Back pain Time Seen by Provider: 05/22/22 12:10 History of Present Illness: 52-year-old female presents with right sided flank pain. Reports has been going there since yesterday afternoon. She denies any nausea or vomiting. She reports that she worked out in her yard yesterday but no other injury noted. Patient did have a open heart surgery back in February but no acute chest pain or associated symptoms. She denies dysuria, right upper quadrant pain, diarrhea or other systemic complaints. She is unable to describe anything that makes pain better or worse. Associated symptoms: Deny abdominal pain, chills, dysuria, fever(s), nausea or vomiting Review of Systems Const: Denies: fever(s) or chills Card: Denies: chest pain or palpitations Resp: Denies: dyspnea, productive cough or wheezing GI: Denies: abdominal pain, nausea or vomiting : Reports: flank pain; Denies: difficulty voiding or dysuria Musc: Reports: back pain Skin/Breast: Denies: rash Neuro: Denies: headache(s) or dizziness PFSH ED PFSH: Medical History CAD (coronary artery disease) Coronary artery 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 2 diabetes mellitus Diabetes Hypercholesterolemia Uncontrolled type 2 diabetes mellitus Surgical History H/O heart artery stent 5 years ago H/O heart bypass surgery [place]- Last Monday03/02/22 H/O melanoma excision H/O: hysterectomy Status post colonoscopy (10/01/19) Family History Father CAD (coronary artery disease) Diabetes Grandfather CAD (coronary artery disease) Diabetes Grandmother CAD (coronary artery disease) Cancer lung Diabetes Denies family history of Anesthesia complication Bleeding disorder Social History Smoking and tobacco status: current every day smoker Alcohol intake: never Household members: spouse Marital status: Current occupational status: employed Physical Exam Const: COMMON NORMALS: no acute distress, patient oriented x3, no limitations and alert Chest: CHEST: Yes Surgical scars present (Chest) Resp: COMMON NORMALS: normal respiratory effort, No retractions and No use of accessory muscles Cardio: COMMON NORMALS: regular rate and regular rhythm RATE: regular rate RHYTHM: regular rhythm GI: COMMON NORMALS: Soft to palpation and non-tender PALPATION: Yes Soft to palpation : BLADDER/KIDNEY EXAM: Yes CVA tenderness on the right Back/Pelvis: GENERAL BACK: Yes CVA tenderness Neuro: COMMON NORMALS: patient oriented x3 SENSORIUM/ORIENTATION: Yes alert Course Vital Signs: Vital signs: Vital Signs Temperature 98.6 F 05/22/22 12:11 Pulse Rate 85 05/22/22 12:11 Respiratory Rate 16 05/22/22 12:17 Blood Pressure 150/91 05/22/22 12:17 Pulse Oximetry 97 05/22/22 12:11 Oxygen Delivery Me thod 05/22/22 12:11 MDM - Back Pain/Injury Medical Decision Making Diagnostic tests were ordered and was reviewed by me, radiologic studies were reviewed and initially read by me and reviewed radiology reading. Patient has no acute urinary calculus obstruction or other intra-abdominal pathology noted. Patient slight elevation of blood sugar otherwise normal labs. Patient's symptoms likely result of just some overuse and brought back strain. She does have some gross hematuria which is likely due to being on blood thinners. Her urine is contaminated and no leukocyte Estrace or nitrates at this time no urinary tract infection is likely and so antibiotics are not indicated. Patient will be prescribed some Flexeril. She is also had a little bit of nausea oc casionally so I will give her some Zofran. She should follow-up with her primary care provider if symptoms or not improving over the next couple days. She currently has naproxen which she can continue to use. She was stable and discharged home Labs 05/22/22 12:26 05/22/22 12:26 Radiology Impressions Abdomen/Pelvis CT 05/22/22 13:25 IMPRESSION: No urinary tract calculus or obstruction. Laboratory Results WBC 9.8 10^3/uL (4.0-10.0) 05/22/22 12: RBC 5.62 10^6/uL (4.1-5.3) H 05/22/22 12:26 Hgb 14.4 g/dL (11.5-15.3) 05/22/22 12:26 Hct 45.7 % (37.0-47.0) 05/22/22 12: MCV 81.3 fl (81-99) 05/22/22 12: MCH 25.6 pg (28.0-34.0) L 05/22/22 12: MCHC 31.5 g/dL (30.0-36.0) 05/22/22 12: RDW 15.4 % (12.1-15.1) H 05/22/22 12: Plt Count 233 10^3/cmm (130-400) 05/22/22 12: MPV 10.0 fL (7.4-10.4) 05/22/22 12: Neut % (Auto) 55.7 % 05/22/22 12: Lymph % (Auto) 36.9 % 05/22/22 12: [place] % (Auto) 6.0 % 05/22/22 12: Eos % (Auto) 0.8 % 05/22/22 12: Baso % (Auto) 0.4 % 05/22/22 12: Neut # (Auto) 5.48 10^3/uL (1.8-7.7) 05/22/22 12: Lymph # (Auto) 3.6 10^3/uL (0.8-4.8) 05/22/22 12: [place] # (Auto) 0.6 10^3/uL (0.2-0.9) 05/22/22 12: Eos # (Auto) 0.1 10^3/uL (0.0-0.8) 05/22/22 12: Baso # (Auto) 0.0 10^3/uL (0.0-0.1) 05/22/22 12: Nucleated RBC % (auto) 0 % 05/22/22: Nucleated RBCs # 0.0 /100WBC 05/22/22 12: Sodium 137 mmol/L (136-145) 05/22/22 12: Potassium 3.8 mmol/L (3.5-5.1) 05/22/22 12: Chloride 99 mmol/L (98-107) 05/22/22 12: Carbon Dioxide 25 mmol/L (22-29) 05/22/22: Anion Gap 16.8 (5-19) 05/22/22 12: BUN 15 mg/dL (6-20) 05/22/22 12: Creatinine 0.5 mg/dL (0.5-0.9) 05/22/22 12: GFR Calculation 130.6 mL/min (90-130) H 05/22/22 12: Glucose 232 mg/dL (65-115) H 05/22/22 12: Calculated Osmolality 292 mOsm/kg (285-295) 05/22/22 12: Calcium 10.5 mg/dL (8.5-10.5) 05/22/22 12: Magnesium 2.0 mg/dL (1.7-2.3) 05/22/22 12: Total Bilirubin 0.4 mg/dL (0.15-1.2) 05/22/22 12: AST 22 U/L (0-32) 05/22/22 12: ALT 19 U/L (0-33) 05/22/22 12: Alkaline Phosphatase 89 U/L (35-105) 05/22/22 12:26 Total Protein 8.0 g/dL (6.6-8.7) 05/22/22 12: Albumin 4.8 g/dL (3.5-5.2) 05/22/22 12: Globulin 3.2 g/dL (1.3-4.6) 05/22/22 12: Lipase 19 U/L (13-60) 05/22/22 12:26 Urine Color Yellow (Yellow) 05/22/22 12:33 Urine Appearance Clear (CLEAR) 05/22/22 12:33 Urine pH 5 (5-7) 05/22/22 12:33 Ur Specific [place] 1.020 (1.005-1.030) 05/22/22 12:33 Urine Protein 1+ (Negative) H 05/22/22 12:33 Urine Glucose (UA) 4+ (Normal) H 05/22/22 12:33 Urine Ketones 1+ (Negative) H 05/22/22 12:33 Urine Blood 2+ (Negative) H 05/22/22 12:33 Urine Nitrate Negative (Negative) 05/22/22 12:33 Urine Bilirubin Neg (Negative) 05/22/22 12:33 Urine Urobilinogen 4 mg/dL (Negative) H 05/22/22 12:33 Ur Leukocyte Esterase Negative (Negative) 05/22/22 12:33 Urine RBC 0-4 /hpf (0-2) H 05/22/22 12:33 Urine WBC 0-4 /hpf (0-5) H 05/22/22 12:33 Ur Squamous Epith Cells 5-10 /hpf (0-5) H 05/22/22 12:33 Amorphous Sediment Not Reportable 05/22/22 12:33 Urine Bacteria Trace /hpf (NONE) 05/22/22 12:33 Urine Mucus 2+ /hpf 05/22/22 12:33 Discharge Plan Discharge Patient Disposition: Home Clinical Impression: Thoracic back pain Condition: Stable Prescriptions: New cyclobenzaprine 10 mg tablet 10 mg PO TID PRN (Reason: muscle spasm) Qty: 14 0RF ondansetron 4 mg tablet,disintegrating 4 mg PO Q8H PRN (Reason: nausea and vomiting) Qty: 20 0RF No Action rosuvastatin [Crestor] 40 mg tablet 20 mg PO DAILY Qty: 90 3RF (DME) Dexcom G6 Transmitter Device See Rx Instructions .ROUTE .MEDSUPPLY Qty: 1 3RF Rx Instructions: change every 3 months (DME) Dexcom G6 Manager Outpatient Misc See Rx Instructions .ROUTE .MEDSUPPLY Qty: 1 3RF Rx Instructions: change every 90 days (DME) Dexcom G6 Sensor Device See Rx Instructions .ROUTE .MEDSUPPLY Qty: 6 3RF Rx Instructions: change every 10 days Humulin R U-500 (Conc) Kwikpen 500 unit/mL (3 mL) insulin pen See Rx Instructions .ROUTE .COMPLEX Qty: 30 0RF Rx Instructions: 60 units AM, 60 units at noon and 60 units PM (DME) pen needle, diabetic [Advocate Pen Needle] 33 gauge x 5/32 needle See Rx Instructions .Route Qty: 450 3RF Rx Instructions: As directed Victoza 3-Scotty 0.6 mg/0.1 mL (18 mg/3 mL) pen injector 1.8 mg SUBCUT DAILY Qty: 27 3RF hydroxyzine HCl 25 mg Tablet 25 mg PO TID PRN (Reason: Itching) nitroglycerin 0.4 mg tablet, sublingual 0.4 mg sublingual Q5M PRN (Reason: chest pain) Qty: 30 0RF Rx Instructions: do not exceed 3 doses per episode methocarbamol 750 mg tablet 750 mg PO Q6H PRN (Reason: spasms) Qty: 20 0RF Naprosyn 500 mg tablet 500 mg PO BID PRN (Reason: pain) Qty: 20 0RF Aspir-81 81 mg Tablet,Delayed Release (Dr/Ec) 81 mg PO DAILY Discharge Orders: Discharge ED (Routine); Ordered 05/22/22 Ordered By: Werner Bradford Referrals: Joy Mccray BOOM CAT OPERATOR [Primary Care Provider] - Discharge Diet: Usual diet Discharge Activity: Increase activity as tolerated Patient Instructions: Thoracic Back Strain (ED), Opioid Safety, Pain Management Activity Restrictions/Additional Instructions: 4% topical lidocaine with menthol, cream gel or patch use as directed on package, Voltaren/diclofenac cream use as directed on package. Follow-up with your primary care provider if symptoms or not improved over the next 3 to 4 days. Coding Level of Care Code ED Commercial Litigation Attorney for Dora Sparks
[2022-05-22] MEDS: ketorolac 30 mg/mL INJ 15 MG IVP (12:35)
[2022-05-22] MEDS: ondansetron 2 mg/ML SDV 2 mL 4 MG IVP (12:36)
[2022-05-22 13:07] LABS: Basophils % 0.4 %; Eosinophils # 0.1 10^3/uL (0.0-0.8); Eosinophils % 0.8 %; Hematocrit 45.7 % (37.0-47.0); Hemoglobin 14.4 g/dL (11.5-15.3); Lymphocytes # 3.6 10^3/uL (0.8-4.8); Lymphocytes % 36.9 %; Mean Corpuscular HGB Conc 31.5 g/dL (30.0-36.0); Mean Corpuscular Hemoglobin 25.6 pg (28.0-34.0); Mean Corpuscular Volume 81.3 fl (81-99); Monocytes # 0.6 10^3/uL (0.2-0.9); Neutrophils # 5.48 10^3/uL (1.8-7.7); Neutrophils % 55.7 %; Nucleated Red Blood Cells % 0 %; Platelet Count 233 10^3/cmm (130-400); Red Blood Count 5.62 10^6/uL (4.1-5.3); Red Cell Distribution Width 15.4 % (12.1-15.1); White Blood Count 9.8 10^3/uL (4.0-10.0)
[2022-05-22 13:21] LABS: Urine Appearance Clear (CLEAR); Urine Color Yellow (Yellow); pH Urine 5 (5-7)
[2022-05-22 13:22] LABS: Add Urine Culture? No; Add Urine Microscopic? YES; Bacteria Urine TRACE /hpf; Bilirubin Urine Neg (Negative); Blood Urine 2+ (Negative); Glucose Urine UA 4+ (Normal); Ketones Urine 1+ (Negative); Leukocyte Esterase Urine Negative (Negative); Mucus Urine 2+ /hpf; Nitrate Urine Negative (Negative); Protein Urine 1+ (Negative); RBC Urine 0-4 /hpf (0-2); Urobilinogen Urine 4 mg/dL (Negative); WBC Urine 0-4 /hpf (0-5)
--- NOTE | 2022-05-22 13:25 | CTR_ITS ---
PROCEDURE INFORMATION: Exam: CT Abdomen And Pelvis Without Contrast Exam date and time: 05/22/2022 1:44 PM Age: 52 years old Clinical indication: Abdominal pain; Flank; Right; Prior surgery; Surgery date: 6+ months; Surgery type: Appy; Additional info: Hematuria, flank pain TECHNIQUE: Imaging protocol: Computed tomography of the abdomen and pelvis without contrast. Radiation optimization: All CT scans at this facility use at least one of these dose optimization techniques: automated exposure control; mA and/or kV adjustment per patient size (includes targeted exams where dose is matched to clinical indication); or iterative reconstruction. REPORTING DATA: Count of CT and Cardiac NM exams in prior 12 months: This patient has received 2 known CTs and 0 known cardiac nuclear medicine studies in the 12 months prior to the current study. COMPARISON: CT abdomen pelvis w con* [id number] 12/13/2021 1:00 PM RADIATION DOSE METRICS: Total DLP (mGy-cm): 432.27 FINDINGS: Lungs: Left lower lobe atelectasis. Calcified right lower lobe pulmonary granuloma. Coronary arteries: Calcified coronary artery atherosclerotic plaque visualized. Liver: The liver is not enlarged. There is an ill-defined focus of diminished subcapsular attenuation in segment 4B adjacent to the fissure for the falciform ligament which can be due to focal fatty change. Gallbladder and bile ducts: No calcified gallstones, gallbladder wall thickening, or pericholecystic inflammation. No biliary ductal dilation. Pancreas: No peripancreatic inflammation. No pancreatic ductal dilation. Spleen: Multiple calcified granulomas in a nonenlarged spleen. Adrenal glands: No adrenal mass. Kidneys and ureters: No hydronephrosis or nephrolithiasis. Stomach and bowel: No bowel obstruction. There is diverticulosis, most prominently in the descending colon and proximal sigmoid colon, without evidence of diverticulitis. Appendix: Prior appendectomy. Intraperitoneal space: No ascites or pneumoperitoneum. Vasculature: No abdominal aortic aneurysm. Lymph nodes: Calcified right hilar lymph nodes from prior granulomatous disease. No pathologically enlarged lymph nodes. Urinary bladder: No urinary bladder calculus or wall thickening. Reproductive: Prior hysterectomy. Bones/joints: Prior median sternotomy. Soft tissues: Tiny umbilical hernia containing fat. CT/CT kidney stone [id number] IMPRESSION: No urinary tract calculus or obstruction.
[2022-05-22 13:44] LABS: Alanine Aminotransferase 19 U/L (0-33); Albumin Level 4.8 g/dL (3.5-5.2); Alkaline Phosphatase 89 U/L (35-105); Aspartate Amino Transferase 22 U/L (0-32); Blood Urea Nitrogen 15 mg/dL (6-20); Calcium 10.5 mg/dL (8.5-10.5); Carbon Dioxide 25 mmol/L (22-29); Chloride 99 mmol/L (98-107); Creatinine Clr Calc Pharmacy 131.5129; Globulin 3.2 g/dL (1.3-4.6); Glomerular Filtration Rate 130.6 mL/min (90-130); Glucose 232 mg/dL (65-115); Lipase 19 U/L (13-60); Osmolality Calculated 292 mOsm/kg (285-295); Sodium 137 mmol/L (136-145); Total Bilirubin 0.4 mg/dL (0.15-1.2)
[2022-05-22 13:45] LABS: Anion Gap 16.8 (5-19); Potassium 3.8 mmol/L (3.5-5.1)
[2022-05-22] MEDS: diphenhydrAMINE 50 mg/mL SDV 1mL IVP (14:00)
[2022-05-22] MEDS: hyoscyamine ODT 0.125 mg Tablet PO (14:00)
[2022-05-22] MEDS: metoclopramide 5 mg/mL SDV 2 mL IVP (14:00)
[2022-05-22] MEDS: famotidine 20 mg/2 mL INJ 40 MG IVP (14:00)
== END 2022-05-22 14:59 | disposition home or self-care (01) ==
PROVIDERS: Emergency Provider Student in an Organized Health Care Education/Training Program; PCP Nurse Practitioner Family
DX: M54.6 Pain in thoracic spine (principal); Z79.82 Long term (current) use of aspirin; Z79.4 Long term (current) use of insulin; I25.10 Atherosclerotic heart disease of native coronary artery without angina pectoris; E11.9 Type 2 diabetes mellitus without complications; F17.210 Nicotine dependence, cigarettes, uncomplicated
CPT/HCPCS: 74176; 80053; 81001; 83690; 83735; 85025; 96374; 96375; 99285; J1200; J1885; J2405; J2765; J3490

== ENCOUNTER 2022-07-05 07:31 | Outpatient (CLI) | payer OTHER, SELFPAY ==
[2022-07-05 08:13] LABS: Estmated Average Glucose 235; Hemoglobin A1C 9.8 % (4.0-6.0)
[2022-07-05 08:19] LABS: Alanine Aminotransferase 20 U/L (0-33); Albumin Level 4.2 g/dL (3.5-5.2); Alkaline Phosphatase 88 U/L (35-105); Anion Gap 14.3 (5-19); Aspartate Amino Transferase 19 U/L (0-32); Blood Urea Nitrogen 21 mg/dL (6-20); Calcium 9.4 mg/dL (8.5-10.5); Carbon Dioxide 25 mmol/L (22-29); Chloride 103 mmol/L (98-107); Chol HDL Ratio 3.97 mg/dL (0.0-4.40); Cholesterol 119 mg/dL (0-200); Globulin 3.1 g/dL (1.3-4.6); Glomerular Filtration Rate 105.8 mL/min (90-130); Glucose 289 mg/dL (65-115); HDL Cholesterol 30 mg/dL (60-100); LDL Cholesterol Calculated 61 mg/dL (50-129); LDL HDL Ratio 2.03 RATIO (0.00-3.22); Osmolality Calculated 300 mOsm/kg (285-295); Potassium 4.3 mmol/L (3.5-5.1); Sodium 138 mmol/L (136-145); Total Bilirubin 0.4 mg/dL (0.15-1.2); Total Protein 7.3 g/dL (6.6-8.7); Triglycerides 140 mg/dL (0-150)
[2022-07-05 08:51] LABS: Creatinine Urine, Random 116 mg/dL (28-217); Microalbumin Random Urine 22 ug/dL (0-20)
[2022-07-05 08:57] LABS: Microalbum Creatinine Ratio Ur 190 mg/dL (0-20)
== END 2022-07-05 07:32 | disposition home or self-care (01) ==
LOC: LAB 07:34
PROVIDERS: PCP Nurse Practitioner Family; Visit Provider Internal Medicine
DX: E11.40 Type 2 diabetes mellitus with diabetic neuropathy, unspecified (principal); E11.9 Type 2 diabetes mellitus without complications; E78.00 Pure hypercholesterolemia, unspecified
CPT/HCPCS: 36415; 80053; 80061; 82044; 83036

== ENCOUNTER → 2022-08-16 12:19 | Outpatient (BNVA) | payer OTHER, SELFPAY | PROVIDERS: PCP Nurse Practitioner Family; Visit Provider Internal Medicine | DX: E11.9 Type 2 diabetes mellitus without complications (principal); E78.00 Pure hypercholesterolemia, unspecified; E11.40 Type 2 diabetes mellitus with diabetic neuropathy, unspecified; K76.0 Fatty (change of) liver, not elsewhere classified | CPT/HCPCS: 84439; 84443; 84480 ==

== ENCOUNTER 2022-08-30 08:11 | Outpatient (CLI) | payer OTHER, SELFPAY ==
--- NOTE | 2022-08-30 | ECG_ITS ---
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 Interpretive Statements Initially patient started to exercise however could not not to proceed with exercise. Patient switched to Lexiscan. Procedure: At the baseline, the blood pressure was 120/76 mmHg with a heart rate of 73 bpm. The electrocardiogram showed normal sinus rhythm, normal axis with normal ST and T's. The Lexiscan was infused over a period of 20 seconds. A total of 0.4 mg of Lexiscan was infused. The stress phase was continued for a total of 5 minutes. Heart rate was at the end of stress phase was 81 bpm and a blood pressure of 108/63 mmHg. The EKG at the peak infusion revealed normal sinus rhythm with no significant ST-T wave changes. Sestamibi was injected 20 seconds after the Lexiscan infusion. Blood pressure at the end of recovery phase was 105/45 mmHg with a heart rate of 87 bpm. Conclusion: 1. Normal EKG response to Lexiscan infusion 2. No Lexiscan induced chest pain or cardiac arrhythmia. 3. Normal blood pressure and heart rate response. 4. Sestamibi/sestamibi perfusion scan pending; see separate report. Electronically Signed On 09-13-2022 17:15:03 CDT by Eric Moses M.D. [id number]
[2022-08-30 08:29] VITALS: BMI 21.7
--- NOTE | 2022-08-30 08:31 | NMCV_ITS ---
NM omar perf SPECT r/s* [id number] Nelly Gaming Age: 52 Gender: F : 1970 Exam Date: 08/30/2022 09:30 Ordering Phys: Genaro Templeton MD ([email or web address]) Technologist: RADHA Wood Exam Location: [facility] Indications: CORONARY ANGIOPLASTY STATUS, ATHEROSCLEROTIC HEART DISEASE STRESS TEST Please [facility] for [facility] IMAGE PROTOCOL Rest/Stress 1 Lexiscan Day Radiopharmaceutical Dose (mCi) Administration Site Administered by Rest: Tc-99m 11.0 IV RADHA Valles Sestamibi Stress:Tc-99m 32.7 IV RADHA Valles Sestamibi Rest: 30-Aug-2022 60 Discovery 630 Stress: 30-Aug-2022 30 Discovery 630 0.4mg Lexiscan. Images obtained in supine and prone position. SPECT RESULTS Technical Quality: Excellent Raw Data Analysis: Normal Image Corrections: No attenuation or motion correction applied Summed Stress Score: 0 Summed Rest Score: 0 Summed Difference Score: 0 PERFUSION FINDINGS SPECT images demonstrate homogeneous tracer distribution throughout the myocardium. FUNCTIONAL RESULTS (calculated via Gated SPECT) Stress Image LV EF (%): 81 Stress EDV (mL):57 TID: 0.81 Stress ESV (mL):11 FUNCTIONAL FINDINGS: There is normal left ventricular systolic function. IMPRESSIONS 1. Myocardial perfusion imaging is normal with no evidence of ischemia. 2. LV systolic function is normal. Eric Moses MD (Electronically Signed) Final Date: 30 August 2022 16:37 S
[2022-08-30] MEDS: aminophylline 25 mg/mL SDV 10 mL IVP (10:30)
[2022-08-30 11:00] VITALS: BP 103/45; PULSE 88
== END 2022-08-30 08:12 | disposition home or self-care (01) ==
PROVIDERS: PCP Nurse Practitioner Family; Visit Provider Internal Medicine Cardiovascular Disease
DX: R42 Dizziness and giddiness (principal); I25.10 Atherosclerotic heart disease of native coronary artery without angina pectoris; Z98.61 Coronary angioplasty status
CPT/HCPCS: 36415; 78452; 93017; 96374; A9500; J0280

== ENCOUNTER 2022-11-19 22:09 | Inpatient (IN) | payer OTHER, SELFPAY ==
[2022-11-19 22:15] VITALS: BP 99/60; PULSE 126; RESP 18; O2SAT 96; BMI 22.2
--- NOTE | 2022-11-19 22:42 | XRR_ITS ---
PROCEDURE INFORMATION: Exam: XR Chest Exam date and time: 11/19/2022 10:51 PM Age: 52 years old Clinical indication: Fever; Additional info: Fever, sepsis TECHNIQUE: Imaging protocol: Radiologic exam of the chest. Views: 1 view. COMPARISON: CR (CHEST, ) 04/01/2022 6:20 AM FINDINGS: Lungs: Moderate lung expansion. Linear left basilar opacities. Pleural spaces: No pleural effusion. No pneumothorax. Heart/Mediastinum: Stable cardiomediastinal silhouette. Diaphragm: Elevated left hemidiaphragm as before. Bones/joints: No acute osseous abnormality. Intact sternotomy wires. XR/XR chest 1V portable [id number] IMPRESSION: No evidence of pneumonia. Linear left basilar opacities most compatible with atelectasis/scarring in the setting of elevated left hemidiaphragm.
--- NOTE | 2022-11-19 22:43 | CTR_ITS ---
PROCEDURE INFORMATION: Exam: CT Abdomen And Pelvis Without Contrast Exam date and time: 11/19/2022 11:23 PM Age: 52 years old Clinical indication: Other: Bacj; Prior surgery; Surgery date: 6+ months; Surgery type: Cabg. Coronary stent. Hysterectomy; Patient HX: C/O back pain with fever. Recently diagnosed with renal stone. ; Additional info: HX renal stone, fever, sepsis TECHNIQUE: Imaging protocol: Computed tomography of the abdomen and pelvis without contrast. Radiation optimization: All CT scans at this facility use at least one of these dose optimization techniques: automated exposure control; mA and/or kV adjustment per patient size (includes targeted exams where dose is matched to clinical indication); or iterative reconstruction. REPORTING DATA: Count of CT and Cardiac NM exams in prior 12 months: This patient has received 4 known CTs and 0 known cardiac nuclear medicine studies in the 12 months prior to the current study. COMPARISON: CT kidney stone [id number] 05/22/2022 1:44 PM RADIATION DOSE METRICS: Total DLP (mGy-cm): 1317.39 FINDINGS: Lungs: Calcified granuloma in the right lower lobe. Liver: Liver measures 18.3 cm in length. Gallbladder and bile ducts: Unremarkable. Pancreas: Unremarkable. Spleen: Spleen measures 11.9 cm in length. Calcified splenic granulomas. Adrenal glands: Unremarkable. Kidneys and ureters: Enlargement and edema of the left kidney with prominent perinephric stranding and fluid extending inferiorly along the left paracolic gutter. Mild bilateral hydronephrosis. No renal or ureteral calculi seen. Stomach and bowel: Colonic diverticulosis without CT evidence of acute diverticulitis. Appendix: Appendix not definitely visualized, but no inflammatory changes in the right lower quadrant in the expected location of the appendix.. Intraperitoneal space: Unremarkable. Vasculature: Moderate atherosclerotic calcifications in the abdomen and pelvis.. Lymph nodes: Partially visualized calcified right hilar lymph nodes indicative of prior granulomatous disease. Mildly enlarged periaortic retroperitoneal lymph nodes which are likely reactive. Urinary bladder: Unremarkable as visualized. Reproductive: Status post hysterectomy. Bones/joints: Partially visualized changes of median sternotomy . Soft tissues: Unremarkable. CT/CT kidney stone [id number] IMPRESSION: 1. Enlargement and edema of the left kidney with prominent perinephric stranding. Findings raise concern for ascending urinary tract infection with pyelonephritis, recommend correlation with urinalysis. No discrete perinephric collection seen. 2. Mild bilateral hydronephrosis without renal or ureteral calculi. 3. Reactive retroperitoneal lymphadenopathy. 4. Mild hepatomegaly.
[2022-11-19 22:44] LABS: Glucose Point of Care 501 mg/dL (70-110)
--- NOTE | 2022-11-19 22:45 | ED_ITS ---
HPI - Abdominal Pain General: Chief Complaint: General Medical Stated Complaint: HIGH BLOOD SUGAR Time Seen by Provider: 11/19/22 22:19 History of Present Illness: 52-year-old female presenting with mild mental status changes, left flank and abdominal pain, fever, high blood sugar, and vomiting. She was seen in outside facility yesterday, and diagnosed with left kidney stone. She was placed on Percocet, Zofran, tamsulosin, and her normal Prozac. She evidently was not febrile yesterday. Her blood sugar read high at home. She is an insulin- dependent diabetic. Associated Symptoms: Reports chills, fever(s), nausea and vomiting Review of Systems Const: Reports: fever(s), chills and body aches ENMT: Denies: throat pain Card: Denies: chest pain or palpitations Resp: Denies: dyspnea, productive cough or non-productive cough GI: Reports: abdominal pain, nausea and vomiting : Reports: flank pain (left) and dribbling Musc: Reports: back pain Neuro: Reports: confusion PFSH ED PFSH: Medical History CAD (coronary artery disease) Coronary artery 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 2 diabetes mellitus Diabetes Hypercholesterolemia Uncontrolled type 2 diabetes mellitus Surgical History H/O heart artery stent 5 years ago H/O heart bypass surgery [place]- Last Monday03/02/22 H/O melanoma excision H/O: hysterectomy Status post colonoscopy (10/01/19) Family History Father CAD (coronary artery disease) Diabetes Grandfather CAD (coronary artery disease) Diabetes Grandmother CAD (coronary artery disease) Cancer lung Diabetes Denies family history of Anesthesia complication Bleeding disorder Social History Smoking and tobacco status: current every day smoker Alcohol intake: never Substance/Drug Use: never Household members: spouse Marital status: Current occupational status: employed Physical Exam Const: GENERAL APPEARANCE: cooperative, in distress and ill appearing; not frail appearing HENMT: COMMON NORMALS: normocephalic, atraumatic and Normal external nose present HEAD & SCALP: normocephalic and atraumatic FACE & SINUS: normal facial exam and face symmetric NOSE: Normal external nose present Eye: COMMON NORMALS: Equal, round and reactive pupils present and EOMs intact bilaterally PUPIL: Yes Equal, round and reactive pupils present Neck/C-Spine: GENERAL: Yes trachea midline Chest: CHEST: Yes Symmetrical chest wall rise Resp: COMMON NORMALS: normal respiratory effort, No retractions, No use of accessory muscles and clear to auscultation bilaterally AUSCULTATION: clear to auscultation bilaterally Cardio: COMMON NORMALS: regular rhythm RATE: tachycardic RHYTHM: regular rhythm GI: COMMON NORMALS: Normal to inspection, nondistended, normoactive bowel sounds present PALPATION: Yes Tenderness to palpation present (GI) Details: LLQ : BLADDER/KIDNEY EXAM: Yes CVA tenderness on the left Back/Pelvis: GENERAL BACK: Yes CVA tenderness Extremity: COMMON NORMALS: no pedal edema Neuro: NIKKIE COMA SCALE: document GCS findings [place] coma scale eye opening: Spontaneous [place] coma scale verbal response: Orientated [place] coma scale motor response: Obey commands [place] coma scale total score: 15 SENSORY EXAM: Yes extremities (intact) Psych: COMMON NORMALS: speech normal SPEECH: Yes normal speech Skin: COMMON NORMALS: no rashes or lesions noted GENERAL SKIN EXAM: no rashes or lesions noted Procedures Central Line Placement Right IJ: Time Out Performed: Yes Patient Placed on Monitor/Pulse Ox: Yes MD Prep: mask, gown and gloves Central Line Prep: Povidone-Iodine 1% Local Anesthetic: lidocaine 1% Amount of anesthesia used (mL): 4 Ultrasound Used for Placement: Yes Central Line Lumen Inserted: triple Post Procedure: sutured in place, good blood return, all ports aspirated, flushed, capped and sterile dressing applied Post Procedure X-Ray: tip of catheter in good position and no pneumothorax seen Patient Tolerated Procedure: well and no complications Course Vital Signs: Vital signs: Vital Signs Temperature 100.5 F H 11/20/22 16:00 Pulse Rate 111 H 11/20/22 16:00 Respiratory Rate 18 11/20/22 05:00 Blood Pressure 111/69 11/20/22 16:00 Pulse Oximetry 95 11/20/22 16:00 Oxygen Delivery Me thod Room Air 11/20/22 11:09 MDM - Abdominal Pain Medical Decision Making 52 year old female with a fever, left flank pain. She had a history of a kidney stone yesterday. No calcification present on repeat CT today. No obstruction present on CT. The patient believes she passed her stone earlier today, and save d it at home. There's been some mild confusion, but with improvement in her temperature, confusion is improved. Despite this, she is tachycardic and hypotensive. Lactate is mildly elevated. Despite a 30 milliliter per kilogram bolus, she remained with a MAP below 65. Leave a fed was started at 5, which has improved her blood pressure significantly. She was significantly hypoglycemic with elevated blood sugars, she's given IV insulin for this. Serum ketones are negative and no acidosis on ABG. CT did show findings of pyelonephritis on the left where she is tender. She is covered with antibiotics. Her white blood cell count is normal. CRP is 217. With no obstruction present on CT, she will be admitted to ICU. Right adjacent trail catheter is placed by myself in the ICU without complication. Lab Data 11/20/22 08:53 11/20/22 08:53 Labs/Radiology: Radiology Impressions Abdomen/Pelvis CT 11/19/22 22:43 IMPRESSION: 1. Enlargement and edema of the left kidney with prominent perinephric stranding. Findings raise concern for ascending urinary tract infection with pyelonephritis, recommend correlation with urinalysis. No discrete perinephric collection seen. 2. Mild bilateral hydronephrosis without renal or ureteral calculi. 3. Reactive retroperitoneal lymphadenopathy. 4. Mild hepatomegaly. Head CT 11/19/22 23:16 IMPRESSION: No acute intracranial findings. Chest X-Ray 11/20/22 05:25 IMPRESSION: Satisfactory position of the jugular venous catheter in the SVC. Laboratory Results WBC 6.95 10^3/uL (3.29-11.43) 11/19/22 23:05 RBC 4.32 10^6/uL (3.85-5.65) 11/19/22 23:05 Hgb 11.50 g/dL (11.27-16.99) 11/19/22 23:05 Hct 35.9 % (36-47) L 11/19/22 23:05 MCV 83.1 fl (85-98) L 11/19/22 23:05 MCH 26.6 pg (27-33) L 11/19/22 23:05 MCHC 32.0 g/dL (30-55) 11/19/22 23:05 RDW 14.3 % (12.1-15.1) 11/19/22 23:05 Plt Count 143 10^3/cmm (157-399) L 11/19/22 23:05 MPV 10.1 fL (7.4-10.4) 11/19/22 23:05 Lymph % (Auto) Not Reportable 11/19/22 23:05 [place] % (Auto) Not Reportable 11/19/22 23:05 Lymph # (Auto) Not Reportable 11/19/22 23:05 [place] # (Auto) Not Reportable 11/19/22 23:05 Total Counted 100 (0-100) 11/19/22 23:05 Atypical Lymphs % 2.0 % (0-5) 11/19/22 23:05 Absolute Neutrophils 5.5 10^3/cmm (1.4-6.5) 11/19/22 23:05 Segmented Neutrophils 58 % 11/19/22 23:05 Abs Segm Neuts (Man) 4.0 10/cmm (1.6-7.1) 11/19/22 23:05 Band Neutrophils 21.0 % 11/19/22 23:05 Abs Band Neuts (Man) 1.5 10^3/cmm (0.0-1.2) H 11/19/22 23:05 Absolute Lymphocytes 0.8 10^3/cmm (1.2-3.4) L 11/19/22 23:05 Lymphocytes (Manual) 10 % 11/19/22 23:05 Monocytes (Manual) 4.0 % 11/19/22 23:05 Absolute Monocytes 0.3 10^3/cmm (0.1-0.6) 11/19/22 23:05 Eosinophils (Manual) 0 % 11/19/22 23:05 Absolute Eosinophils 0.0 10^3/cmm (0.0-0.7) 11/19/22 23:05 Basophils (Manual) 0.0 % 11/19/22 23:05 Absolute Basophils 0.0 10^3/cmm (0.0-0.2) 11/19/22 23:05 Metamyelocytes 5.0 % 11/19/22 23:05 Platelet Estimate Normal (Normal) 11/19/22 23:05 Hypochromasia 2+ H 11/19/22 23:05 Specimen Type Arterial 11/19/22 23:00 Sample Site Radial, left 11/19/22 23:00 ABG pH 7.43 (7.35-7.45) 11/19/22 23:00 ABG pCO2 35.8 mmHg (35-45) 11/19/22 23:00 ABG pO2 49.6 mmHg (80.0-100.0) L 11/19/22 23:00 ABG HCO3 23.6 mmol/L (22-26) 11/19/22 23:00 ABG Base Excess -0.5 mmol/L (-2.0-2.0) 11/19/22 23: Noe Test Pos 11/19/22 23:00 Hematocrit 35.3 % (37-47) L 11/19/22 23:00 O2 Delivery Device None 11/19/22 23:00 FiO2 21.0 % 11/19/22 23:00 Criminal Investigative Agent ID [email or web address] 11/19/22 23:00 Sodium 129 mmol/L (136-145) L 11/19/22 23:05 Potassium 4.3 mmol/L (3.5-5.1) 11/19/22 23:05 Chloride 93 mmol/L (98-107) L 11/19/22 23:05 Carbon Dioxide 24 mmol/L (22-29) 11/19/22 23:05 Anion Gap 16.3 (5-19) 11/19/22 23:05 BUN 29 mg/dL (6-20) H 11/19/22 23:05 Creatinine 1.4 mg/dL (0.5-0.9) H 11/19/22 23:05 GFR Calculation 39.8 mL/min (90-130) L 11/19/22 23:05 Glucose 538 mg/dL (65-115) H* 11/19/22 23:05 POC Glucose 501 mg/dL (70-110) H 11/19/22 22:40 Estimat Average Glucose 280 11/19/22 23:05 Hemoglobin A1c 11.4 % (4.0-6.0) H 11/19/22 23:05 Calculated Osmolality 298 mOsm/kg (285-295) H 11/19/22 23:05 Lactic Acid 2.9 mmol/L (0.5-2.2) H 11/19/22 23:05 Lactic Acid (Sepsis) 1.8 mmol/L (0.5-2.2) 11/20/22 02:37 Calcium 8.5 mg/dL (8.5-10.5) 11/19/22 23:05 Total Bilirubin 1.2 mg/dL (0.15-1.2) 11/19/22 23:05 AST 17 U/L (0-32) 11/19/22 23:05 ALT 24 U/L (0-33) 11/19/22 23:05 Alkaline Phosphatase 87 U/L (35-105) 11/19/22 23:05 C-Reactive Protein 217.1 mg/L (0.0-4.9) H 11/19/22 23:05 Total Protein 6.2 g/dL (6.6-8.7) L 11/19/22 23:05 Albumin 3.4 g/dL (3.5-5.2) L 11/19/22 23:05 Globulin 2.8 g/dL (1.3-4.6) 11/19/22 23:05 Lipase 9 U/L (13-60) L 11/19/22 23:05 Urine Color Yellow (Yellow) 11/20/22 00:14 Urine Appearance Hazy (CLEAR) A 11/20/22 00:14 Urine pH 5 (5-7) 11/20/22 00:14 Ur Specific [place] 1.020 (1.005-1.030) 11/20/22 00:14 Urine Protein 1+ (Negative) H 11/20/22 00:14 Urine Glucose (UA) 4+ (Normal) H 11/20/22 00:14 Urine Ketones 1+ (Negative) H 11/20/22 00:14 Urine Blood 3+ (Negative) H 11/20/22 00:14 Urine Nitrate Negative (Negative) 11/20/22 00:14 Urine Bilirubin Neg (Negative) 11/20/22 00:14 Urine Urobilinogen Norm mg/dL (Negative) 11/20/22 00:14 Ur Leukocyte Esterase Trace (Negative) H 11/20/22 00:14 Urine RBC 0-4 /hpf (0-2) H 11/20/22 00:14 Urine WBC 25-40 /hpf (0-5) H 11/20/22 00:14 Ur Squamous Epith Cells 0-4 /hpf (0-5) H 11/20/22 00:14 Ur Transition Epith Cell 0-4 /hpf 11/20/22 00:14 Amorphous Sediment 1+ /hpf 11/20/22 00:14 Urine Bacteria 1+ /hpf (NONE) H 11/20/22 00:14 Coarse Granular Casts 0-4 /lpf H 11/20/22 00:14 Serum Ketones Negative (Negative) 11/19/22 23:05 SARS-CoV-2 Ag (Rapid) negative (Negative) 11/20/22 02:16 Critical Care Time Critical Care Time: Critical Care Time: Yes Total Critical Care Time: 40 Attestation: This case had a high probability of a clinically significant, sudden, or life threatening deterioration of this patient's condition which required my full and direct attention, intervention and personal management. Time excludes any procedures performed on the patient such as TLC placement. 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
[2022-11-19 22:51] VITALS: PULSE 122; RESP 16; TEMP 39.4; O2SAT 96
[2022-11-19] MEDS: acetaminophen 500 mg Tablet 1000 MG PO (22:51)
[2022-11-19] MEDS: sodium chloride 0.9% 1,000 ML 999 ML IV ×2 (22:53→23:43)
[2022-11-19] MEDS: ondansetron 2 mg/ML SDV 2 mL 4 MG IVP (22:55)
[2022-11-19] MEDS: morphine 4 mg/mL SDV 1 mL IVP (22:57)
[2022-11-19 23:06] LABS: ABG PCO2 35.8 mmHg (35-45); ABG PH Result 7.43 (7.35-7.45); Arterial Blood Gas Hematocrit 35.3 % (37-47); Base Excess ABG -0.5 mmol/L (-2.0-2.0); Blood Gas Allen Test Pos; Blood Gas Sample Type Arterial; HCO3 ABG 23.6 mmol/L (22-26); PO2 ABG 49.6 mmHg (80.0-100.0)
--- NOTE | 2022-11-19 23:16 | CTR_ITS ---
PROCEDURE INFORMATION: Exam: CT Head Without Contrast Exam date and time: 11/19/2022 11:19 PM Age: 52 years old Clinical indication: Altered mental status/memory loss and fever and speech disturbance; Patient HX: Confusion with fever and transient aphasia TECHNIQUE: Imaging protocol: Computed tomography of the head without contrast. Radiation optimization: All CT scans at this facility use at least one of these dose optimization techniques: automated exposure control; mA and/or kV adjustment per patient size (includes targeted exams where dose is matched to clinical indication); or iterative reconstruction. REPORTING DATA: Count of CT and Cardiac NM exams in prior 12 months: This patient has received 4 known CTs and 0 known cardiac nuclear medicine studies in the 12 months prior to the current study. COMPARISON: No relevant prior studies available. RADIATION DOSE METRICS: Total DLP (mGy-cm): 976.48 FINDINGS: Brain: No acute intracranial hemorrhage. No mass effect or midline shift. Basal cisterns are patent. Normal diop-white matter differentiation. Cerebral ventricles: No ventriculomegaly. Paranasal sinuses: Visualized sinuses are unremarkable. Mastoid air cells: Visualized mastoid air cells are clear. Bones/joints: No acute calvarial fracture. Soft tissues: Unremarkable. CT/CT head wo con* [id number] IMPRESSION: No acute intracranial findings.
[2022-11-19 23:19] LABS: Hematocrit 35.9 % (36-47); Mean Corpuscular Hemoglobin 26.6 pg (27-33); Mean Corpuscular Volume 83.1 fl (85-98); Mean Platelet Volume 10.1 fL (7.4-10.4); Platelet Count 143 10^3/cmm (157-399); Red Blood Count 4.32 10^6/uL (3.85-5.65); Red Cell Distribution Width 14.3 % (12.1-15.1); White Blood Count 6.95 10^3/uL (3.29-11.43)
[2022-11-19 23:39] LABS: Alanine Aminotransferase 24 U/L (0-33); Albumin Level 3.4 g/dL (3.5-5.2); Alkaline Phosphatase 87 U/L (35-105); Anion Gap 16.3 (5-19); Aspartate Amino Transferase 17 U/L (0-32); Blood Urea Nitrogen 29 mg/dL (6-20); C Reactive Protein 217.1 mg/L (0.0-4.9); Calcium 8.5 mg/dL (8.5-10.5); Carbon Dioxide 24 mmol/L (22-29); Chloride 93 mmol/L (98-107); Globulin 2.8 g/dL (1.3-4.6); Glomerular Filtration Rate 39.8 mL/min (90-130); Ketone (Acetest) Serum Negative (Negative); Lipase 9 U/L (13-60); Osmolality Calculated 298 mOsm/kg (285-295); Potassium 4.3 mmol/L (3.5-5.1); Sodium 129 mmol/L (136-145); Total Bilirubin 1.2 mg/dL (0.15-1.2); Total Protein 6.2 g/dL (6.6-8.7)
[2022-11-19 23:40] LABS: Glucose 538 mg/dL (65-115); Lactic Sepsis W/Reflex 2.9 mmol/L (0.5-2.2)
[2022-11-19] MEDS: insulin regular-human 100 units/1 mL 10 UNIT IVP (23:43)
[2022-11-19] MEDS: cefTRIAXone 1,000 MG in sodium chloride 0.9% (plus) 50 ML 100 MG IV (23:54)
[2022-11-20] VITALS (83 sets, daily range): BP systolic 81–120; BP diastolic 39–76; PULSE 88–130; RESP 16–24; TEMP 37.2–38.8; O2SAT 69–100
[2022-11-20 00:02] LABS: Band Neutrophils Absolute 1.5 10^3/cmm (0.0-1.2); Lymphocytes 10 %; Monocytes Absolute 0.3 10^3/cmm (0.1-0.6); Segmented Neutrophils 58 %; Slide Review Slide Review Perform; Total Cells Counted 100 (0-100)
[2022-11-20 00:03] LABS: Absolute Neutrophil 5.5 10^3/cmm (1.4-6.5); Eosinophils 0 %; Hypochromasia 2+; Lymphocytes Absolute 0.8 10^3/cmm (1.2-3.4); Platelet Estimate Normal (Normal)
[2022-11-20 00:33] LABS: Blood Gas Sample Site Radial, left
[2022-11-20 00:39] LABS: Urine Appearance Hazy (CLEAR); Urine Color Yellow (Yellow)
[2022-11-20 00:40] LABS: Add Urine Culture? Yes; Add Urine Microscopic? YES; Amorphous Sediment Urine 1+ /hpf; Bacteria Urine 1+ /hpf; Bilirubin Urine Neg (Negative); Blood Urine 3+ (Negative); Coarse Granular Casts Urine 0-4 /lpf; Glucose Urine UA 4+ (Normal); Ketones Urine 1+ (Negative); Leukocyte Esterase Urine Trace (Negative); Nitrate Urine Negative (Negative); Protein Urine 1+ (Negative); RBC Urine 0-4 /hpf (0-2); Squamous Epithelial Cell Urine 0-4 /hpf (0-5); Transitional Epi Cells Urine 0-4 /hpf; Urobilinogen Urine Norm (Negative); WBC Urine 25-40 /hpf (0-5); pH Urine 5 (5-7)
[2022-11-20 01:03] LABS: Reflex Lactate Order REFLEX LACTIC ORDERD
[2022-11-20] MEDS: sodium chloride 0.9% 1,000 ML 150 ML IV ×3 (01:38→17:25)
[2022-11-20 03:02] LABS: Lactic Acid level (Lactate) 1.8 mmol/L (0.5-2.2)
[2022-11-20 03:39] LABS: SARS Covid-2 Antigen negative (Negative)
--- NOTE | 2022-11-20 03:41 | PM.HP ---
Providers/Chief Complaint Admitting Physician: Mariano Walker MD Primary Care Provider: Joy Mccray Chief Complaint: HIGH BLOOD SUGAR History of Present Illness Nelly Gaming is a 52 year old female with a past medical history of insulin-dependent type 2 diabetes mellitus, history of CABG, who presents to [facility] due to increased confusion, left flank pain, high-grade fever. Patient for the last 48 hours, has been feeling fevers, chills, fatigue, malaise, she went to [facility] yesterday had a CAT scan which showed that she had a 4 mm UVJ stone, was sent home with medications, tells me that this evening, she was confused use, she had high-grade fevers, complains of left flank pain, current she is alert oriented x3, responses are a bit delayed, follows all commands, complains of chills, fatigue, malaise, no nausea, no vomiting, no chest pain, shortness of breath, does have left flank pain, no abdominal pain, no diarrhea, currently on Levophed, has received IV antibiotics has received fluid bolus MAP still about 65, on room air, Review of Systems Const: Reports: fever(s), chills, body aches, fatigue and malaise Eyes: Denies: change in vision Card: Denies: chest pain Resp: Denies: dyspnea GI: Denies: abdominal pain : Reports: flank pain, difficulty voiding and dysuria Musc: Denies: back pain Skin/Breast: Denies: rash Neuro: Reports: confusion; Denies: headache(s) Medications/Allergies Home Medications Medication Instructions Recorded Confirmed Last Taken Type hydroxyzine HCl 25 mg tablet 25 mg PO TID PRN Itching 07/21/20 08/16/22 12/12/21 History nitroglycerin 0.4 mg sublingual 0.4 mg sublingual Q5M PRN chest 07/22/20 08/16/22 Unknown Rx tablet pain #30 tabs aspirin 81 mg tablet,delayed 81 mg PO DAILY 12/13/21 08/16/22 12/12/21 History release methocarbamol 750 mg tablet 750 mg PO Q6H PRN spasms #20 tabs 02/25/22 08/16/22 Unknown Rx naproxen 500 mg tablet (Naprosyn) 500 mg PO BID PRN pain #20 tabs 02/25/22 08/16/22 Unknown Rx fluoxetine 40 mg capsule 40 mg PO DAILY 07/04/22 08/16/22 Unknown History semaglutide 0.25 mg or 0.5 mg (2 0.25 mg (0.2 mL) SUBCUT .weekly 07/04/22 08/16/22 Unknown Rx mg/1.5 mL) subcutaneous pen #0.8 mL injector (Ozempic) semaglutide 0.25 mg or 0.5 mg (2 0.5 mg (0.4 mL) SUBCUT .weekly 07/04/22 08/16/22 Unknown Rx mg/1.5 mL) subcutaneous pen #1.6 mL injector (OzZabu Studio[employer]) semaglutide 1 mg/dose (2 mg/1.5 1 mg (0.75 mL) SUBCUT .weekly #3 mL 07/04/22 08/16/22 Unknown Rx mL) subcutaneous pen injector blood-glucose sensor (Dexcom G6 #6 ea 07/19/22 08/16/22 Unknown Rx Sensor device) blood-glucose transmitter (Dexcom #1 ea 07/19/22 08/16/22 Unknown Rx G6 Transmitter device) rosuvastatin 40 mg tablet (Crestor) 40 mg PO DAILY 07/19/22 08/16/22 Unknown History blood-glucose meter,continuous #1 ea 08/16/22 08/16/22 Unknown Rx (Dexcom G6 Director Of Instruction) insulin glargine 100 unit/mL (3 74 unit (0.74 mL) SUBCUT DAILY 90 09/09/22 Unknown Rx mL) subcutaneous pen (Lantus days #30 mL Solostar U-100 Insulin) pen needle, diabetic 32 gauge x ##100 09/13/22 Unknown Rx 32 (TechLITE Pen Needle) insulin degludec 100 unit/mL (3 80 unit (0.8 mL) SUBCUT DAILY #24 10/28/22 Unknown Rx mL) subcutaneous pen (Tresiba mL FlexTouch U-100 insulin) Allergies Allergy/AdvReac Type Severity Reaction Status Date / Time nalbuphine [From Nubain] Allergy ADR-Headach Verified 08/16/22 10:27 e sumatriptan [From Imitrex] Allergy ALGY-Swell Verified 08/16/22 10:27 Lip/Tongue/Throat PFSH Acute PFSH: Medical History CAD (coronary artery disease) Coronary artery 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 2 diabetes mellitus Diabetes Hypercholesterolemia Uncontrolled type 2 diabetes mellitus Surgical History H/O heart artery stent 5 years ago H/O heart bypass surgery [place]- Last Monday03/02/22 H/O melanoma excision H/O: hysterectomy Status post colonoscopy (10/01/19) Family History Father CAD (coronary artery disease) Diabetes Grandfather CAD (coronary artery disease) Diabetes Grandmother CAD (coronary artery disease) Cancer lung Diabetes Denies family history of Anesthesia complication Bleeding disorder Social History Smoking and tobacco status: current every day smoker Alcohol intake: never Substance/Drug Use: never Household members: spouse Marital status: Current occupational status: employed Vitals/I&O/Wt Last Vital Signs Temp 99.2 F 11/20/22 00:49 Pulse 92 11/20/22 02:56 Resp 16 11/20/22 00:49 BP 94/52 11/20/22 02:56 Pulse Ox 92 11/20/22 02:56 O2 Del Method Room Air 11/20/22 02:56 11/19/22 11/19/22 11/20/22 14:59 22:59 06:59 Intake Total 2049 Balance 2049 Weight last 48 hrs Weight 62.596 kg Physical Exam Const: COMMON NORMALS: no acute distress and patient oriented x3 GENERAL APPEARANCE: cooperative, well kempt and well developed HENMT: COMMON NORMALS: normocephalic, Normal external nose present and oropharynx normal HEAD & SCALP: normocephalic FACE & SINUS: normal facial exam NOSE: Normal external nose present MOUTH: Normal oral and palatal mucosa present THROAT: posterior oropharynx normal Eye: COMMON NORMALS: Equal, round and reactive pupils present, EOMs intact bilaterally, conjunctivae normal and no scleral icterus CONJUNCTIVA: Yes conjunctivae normal PUPIL: Yes Equal, round and reactive pupils present Neck/C-Spine: COMMON NORMALS: full ROM, no lymphadenopathy and no JVD Lymph: LYMPHATIC: no lymphadenopathy noted Chest: COMMONS NORMALS: normal inspection of the chest Resp: COMMON NORMALS: normal respiratory effort, No retractions, No use of accessory muscles and clear to auscultation bilaterally AUSCULTATION: clear to auscultation bilaterally Cardio: COMMON NORMALS: regular rate, regular rhythm, S1 normal heart sound present, S2 normal heart sound present, No murmurs present (Cardio) and Peripheral pulses 2+ throughout RATE: regular rate RHYTHM: regular rhythm HEART SOUNDS: S1 normal heart sound present and S2 normal heart sound present PERIPHERAL PULSES: Peripheral pulses 2+ throughout GI: COMMON NORMALS: Normal to inspection, nondistended, normoactive bowel sounds present, Soft to palpation and non-tender Back/Pelvis: OTHER: Left CVA tenderness Extremity: COMMON NORMALS: normal to inspection, full ROM and no pedal edema Neuro: COMMON NORMALS: patient oriented x3, CN's II-XII intact bilaterally, moves all extremities and no focal motor deficits Psych: COMMON NORMALS: mental status grossly normal, Normal thought process present and cooperative Skin: COMMON NORMALS: turgor normal and no jaundice GENERAL SKIN EXAM: turgor normal Urinary Catheter Management: [place]ctor: Cath Placed During This Visit: yes Urinary Catheter Date of Insertion: 11/20/22 Urinary Catheter Time of Insertion: 03:05 Sepsis: Is patient septic: Yes Focused sepsis exam performed: Yes Focused sepsis exam: DP PT pulses diminished bilaterally, but palpable, capillary refill greater than 3 seconds, pale bilateral lower extremities, febrile 104 in the emergency room, hypotensive requiring Levophed Data 11/19/22 23:05 11/19/22 23:05 Micro: Microbiology 11/19/22 23:12 Blood Culture - Preliminary Blood SPECIMEN COLLECTED 11/19/22 23:05 Blood Culture - Preliminary Blood SPECIMEN COLLECTED A&P Assessment and plan (1) H/O heart bypass surgery: (2) CAD (coronary artery disease): (3) Diabetes: (4) Hypercholesterolemia: (5) Diabetic neuropathy: (6) Septic shock: (7) Sepsis: (8) Acute pyelonephritis: (9) Acute encephalopathy: (10) Acute kidney injury: (11) Lactic acidosis: Plan Acute pyelonephritis ? Acute encephalopathy ? LYRIC ? Lactic acidosis ?, Septic shock, ? CT shows 1. ? Enlargement and edema of the left kidney with prominent perinephric stranding. Findings raise concern for ascending urinary tract infection with pyelonephritis, recommend correlation with urinalysis. No discrete perinephric collection seen. 2. ? Mild bilateral hydronephrosis without renal or ureteral calculi. 3. ? Reactive retroperitoneal lymphadenopathy. 4. ? Mild hepatomegaly. ? Febrile ? Plan ? Admit to ICU ? Continue Levophed ? Central line to be placed in the emergency room ? Has received Rocephin in the emergency room we will broaden antibiotic coverage to Zosyn ? Follow urine culture, blood culture ? Tylenol for fevers ? Full code ? Lovenox for DVT prophylaxis Type 2 diabetes mellitus ? We will place her on high-dose sliding scale ? Lantus 40 units Attestations Medical Necessity Statement*: Patient requires hospitalization, inpatient, greater than 2 midnights, for septic shock, sepsis, acute encephalopathy, LYRIC, lactic acidosis, secondary to acute pyelonephritis, Coding Level of Care Code Critical Care >/= 30 minutes Critical care time (in minutes): 45 The high probability of a clinically significant, sudden or life threatening deterioration, as referenced in this documentation, required my full and direct attention, intervention and personal management. The critical care time shown is in addition to time spent performing any reported separately billable procedures and includes the following: [x] Data and vital sign review and interpretation [x] Patient assessment, examination and intervention [x] Medication orders and management [x] Patient/Family updates as able [x] Care Coordination and Documentation. Diagnoses H/O heart bypass surgery Z95.1 CAD (coronary artery disease) I25.10 Diabetes E11.9 Hypercholesterolemia E78.00 Diabetic neuropathy E11.40 Septic shock A41.9; R65.21 Sepsis A41.9 Acute pyelonephritis N10 Acute encephalopathy G93.40 Acute kidney injury N17.9 Lactic acidosis E87.20
[2022-11-20] MEDS: pantoprazole 40 mg SDV IVP (04:24)
[2022-11-20] MEDS: morphine 4 mg/mL SDV 1 mL 2 MG IVP ×3 (04:25→21:04)
[2022-11-20] MEDS: enoxaparin 40 mg/0.4 mL Syringe SUBCUT (04:26)
[2022-11-20] MEDS: acetaminophen 325 mg Tablet 650 MG PO ×3 (04:26→19:29)
[2022-11-20 04:45] LABS: Glucose Point of Care 432 mg/dL (70-110)
[2022-11-20] MEDS: piperacillin-tazobactam 3.375 GM in sodium chloride 0.9% (plus) 50 ML IV (04:48)
[2022-11-20 05:10] LABS: Troponin(5th) Baseline 24 ng/L (0-10)
[2022-11-20 05:21] LABS: NT Pro B Type Natriuretic Pept 1064 pg/mL (0-125); Procalcitonin 2.54 ng/mL (0-0.5); Thyroid Stimulating Hormone 0.51 uIU/mL (0.27-4.20)
[2022-11-20 05:22] LABS: Estmated Average Glucose 280; Hemoglobin A1C 11.4 % (4.0-6.0)
--- NOTE | 2022-11-20 05:25 | XRR_ITS ---
PROCEDURE INFORMATION: Exam: XR Chest Exam date and time: 11/20/2022 5:31 AM Age: 52 years old Clinical indication: Other vascular access device placement or adjustment; Central line, tunnelled; Prior surgery; Surgery date: 6+ months; Surgery type: Cabg; Patient HX: Check S/P RT side central line. ; Additional info: Central line placement TECHNIQUE: Imaging protocol: Radiologic exam of the chest. Views: 1 view. COMPARISON: CR (CHEST, ) 11/19/2022 10:51 PM FINDINGS: Tubes, catheters and devices: The tip of a right jugular venous catheter projects on the SVC in satisfactory position. Lungs: Patchy left basilar opacity unchanged. Pleural spaces: Unremarkable. No pleural effusion. No pneumothorax. Heart/Mediastinum: Unremarkable. No cardiomegaly. Bones/joints: Median sternotomy. XR/XR chest 1V portable [id number] IMPRESSION: Satisfactory position of the jugular venous catheter in the SVC.
[2022-11-20 05:31] LABS: Magnesium 1.4 mg/dL (1.7-2.3)
--- NOTE | 2022-11-20 05:52 | ECG_ITS ---
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 Measurements Intervals [place] Rate: 119 P: 89 DC: 149 QRS: 81 QRSD: 93 T: 56 QT: 313 QTc: 440 Interpretive Statements SINUS TACHYCARDIA POSSIBLE LEFT ATRIAL ENLARGEMENT [-0.1mV P-WAVE IN V1/V2] ST DEVIATION AND MODERATE T-WAVE ABNORMALITY, CONSIDER LATERAL ISCHEMIA [-0.1+ mV T-WAVE IN I/aVL/V5/V6] Compared to ECG 04/01/2022 08:25:57 Possible ischemia now present Sinus rhythm no longer present Ventricular premature complex(es) no longer present T-wave abnormality still present Electronically Signed On 11-20-2022 15:24:18 CDT by Eric Moses M.D. [email or web address]
[2022-11-20] MEDS: insulin glargine 100 units/1 mL 10 UNIT SUBCUT (06:03)
[2022-11-20 06:27] LABS: Glucose Point of Care 438 mg/dL (70-110)
--- NOTE | 2022-11-20 06:49 | PC.NURSE ---
Dr. Marx came down at [address] a central line in the Right IJ of the patient.
[2022-11-20 06:50] LABS: Troponin 5 2HR 25.53 ng/L (0-10)
[2022-11-20 07:19] LABS: Troponin 5 2HR Delta 1.53 ABS# (0-10)
[2022-11-20 07:45] LABS: Glucose Point of Care 402 mg/dL (70-110)
[2022-11-20] MEDS: insulin lispro 100 unit/1 mL SUBCUT ×5 (07:48→23:36)
[2022-11-20] MEDS: aspirin 81 mg EC Tablet PO (07:49)
[2022-11-20] MEDS: atorvastatin 40 mg Tablet 80 MG PO (07:49)
[2022-11-20] MEDS: fluoxetine 20 mg Capsule 40 MG PO (07:49)
[2022-11-20] MEDS: sodium chloride 0.9% 1,000 ML 999 ML IV (08:47)
[2022-11-20 09:04] LABS: Basophils % 0.3 %; Hematocrit 28.7 % (36-47); Lymphocytes # 0.9 10^3/uL (0.8-4.8); Lymphocytes % 14.2 %; Mean Corpuscular HGB Conc 31.7 g/dL (30-55); Mean Corpuscular Hemoglobin 26.6 pg (27-33); Mean Corpuscular Volume 83.9 fl (85-98); Mean Platelet Volume 10.5 fL (7.4-10.4); Monocytes # 0.4 10^3/uL (0.2-0.9); Monocytes % 7.2 %; Neutrophils # 4.71 10^3/uL (1.8-7.7); Neutrophils % 76.7 %; Nucleated Red Blood Cells % 0 %; Platelet Count 103 10^3/cmm (157-399); Red Blood Count 3.42 10^6/uL (3.85-5.65); Red Cell Distribution Width 14.5 % (12.1-15.1); White Blood Count 6.14 10^3/uL (3.29-11.43)
[2022-11-20 09:21] LABS: Ketone (Acetest) Serum Negative (Negative)
[2022-11-20 09:37] LABS: Vitamin B12 853 pg/mL (232-1245)
--- NOTE | 2022-11-20 09:52 | ECG_ITS ---
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 Measurements Intervals [place] Rate: 99 P: 80 IL: 157 QRS: 74 QRSD: 101 T: 90 QT: 361 QTc: 464 Interpretive Statements SINUS RHYTHM POSSIBLE LEFT ATRIAL ENLARGEMENT [-0.1mV P-WAVE IN V1/V2] NONSPECIFIC ST & T-WAVE ABNORMALITY Compared to ECG 11/20/2022 06:44:32 Sinus tachycardia no longer present Possible ischemia no longer present T-wave abnormality still present Electronically Signed On 11-20-2022 15:22:23 CDT by Eric Moses M.D. [id number]
[2022-11-20 10:14] LABS: Alanine Aminotransferase 19 U/L (0-33); Albumin Level 2.3 g/dL (3.5-5.2); Alkaline Phosphatase 75 U/L (35-105); Anion Gap 11.6 (5-19); Aspartate Amino Transferase 18 U/L (0-32); Blood Urea Nitrogen 22 mg/dL (6-20); Calcium 7.3 mg/dL (8.5-10.5); Carbon Dioxide 21 mmol/L (22-29); Chloride 101 mmol/L (98-107); Globulin 2.5 g/dL (1.3-4.6); Glomerular Filtration Rate 43.4 mL/min (90-130); Glucose 456 mg/dL (65-115); Osmolality Calculated 293 mOsm/kg (285-295); Potassium 3.6 mmol/L (3.5-5.1); Sodium 130 mmol/L (136-145); Total Bilirubin 0.5 mg/dL (0.15-1.2)
[2022-11-20 10:24] LABS: Total Protein 4.8 g/dL (6.6-8.7)
[2022-11-20] MEDS: insulin glargine 100 units/1 mL 15 UNIT SUBCUT ×2 (10:25→17:31)
[2022-11-20 11:33] LABS: Glucose Point of Care 471 mg/dL (70-110)
[2022-11-20] MEDS: acetaminophen 1,000 MG/100 ML PIGGYBACK 400 MG IV (11:56)
[2022-11-20] MEDS: meropenem 1,000 MG in sodium chloride 0.9% (plus) 50 ML 100 MG IV ×2 (11:57→23:35)
[2022-11-20 12:02] LABS: Acinetobacter baumannii Not Detected (NOT DETECT); Bacteroides fragilis Not Detected (NOT DETECT); CTX-M Not Detected (NOT DETECT); Citrobacter Not Detected (NOT DETECT); Cronobacter sakazakii Not Detected (NOT DETECT); Enterobacter cloacae complex Not Detected (NOT DETECT); Enterobacter non cloacae Not Detected (NOT DETECT); Fusobacterium necrophorum Not Detected (NOT DETECT); Fusobacterium nucleatum Not Detected (NOT DETECT); Haemophilus influenzae Not Detected (NOT DETECT); IMP Resistance Gene Not Detected (NOT DETECT); KPC Resistance Gene Not Detected (NOT DETECT); Klebsiella pneumoniae group Not Detected (NOT DETECT); Morganella morganii Not Detected (NOT DETECT); NDM Resistance Gene Not Detected (NOT DETECT); Neisseria meningitidis Not Detected (NOT DETECT); OXA Resistance Gene Not Detected (NOT DETECT); Pan Candida Not Detected (NOT DETECT); Pan Gram-Positive Not Detected (NOT DETECT); Proteus mirabilis Not Detected (NOT DETECT); Pseudomonas aeruginosa Not Detected (NOT DETECT); Salmonella Not Detected (NOT DETECT); Serratia Not Detected (NOT DETECT); Serratia marcescens Not Detected (NOT DETECT); Stenotrophomonas maltophilia Not Detected (NOT DETECT); VIM Resistance Gene Not Detected (NOT DETECT)
[2022-11-20 14:58] LABS: Glucose Point of Care 385 mg/dL (70-110)
--- NOTE | 2022-11-20 16:15 | P.PNCC_ITS ---
Critical Care Event Note Admitted earlier today morning. Admitted for septic shock in setting of left-sided hydronephrosis and pyelonephritis. No obstruction seen on CT abdomen pelvis. Seen with family at bedside. Patient lying comfortably in bed, complaining of feeling cold and chills along with left-sided flank pain. On 3 mics of Levophed, vitals showing tachycardia and borderline blood pressures with mean of around 65. Fluid running at 150 cc/h. Febrile up to 101 Fahrenheit. Labs appreciated. Microbiology 11/19/22 23:12 Blood Blood Culture - Preliminary Escherichia coli 11/19/22 23:05 Blood Blood Culture - Preliminary Escherichia coli Radiology Impressions Abdomen/Pelvis CT 11/19/22 22:43 IMPRESSION: 1. Enlargement and edema of the left kidney with prominent perinephric stranding. Findings raise concern for ascending urinary tract infection with pyelonephritis, recommend correlation with urinalysis. No discrete perinephric collection seen. 2. Mild bilateral hydronephrosis without renal or ureteral calculi. 3. Reactive retroperitoneal lymphadenopathy. 4. Mild hepatomegaly. Head CT 11/19/22 23:16 IMPRESSION: No acute intracranial findings. Chest X-Ray 11/20/22 05:25 IMPRESSION: Satisfactory position of the jugular venous catheter in the SVC. Laboratory Results WBC 6.14 10^3/uL (3.29-11.43) 11/20/22 08:53 RBC 3.42 10^6/uL (3.85-5.65) L 11/20/22 08:53 Hgb 9.10 g/dL (11.27-16.99) L 11/20/22 08:53 Hct 28.7 % (36-47) L 11/20/22 08:53 MCV 83.9 fl (85-98) L 11/20/22 08:53 MCH 26.6 pg (27-33) L 11/20/22 08:53 MCHC 31.7 g/dL (30-55) 11/20/22 08:53 RDW 14.5 % (12.1-15.1) 11/20/22 08:53 Plt Count 103 10^3/cmm (157-399) L 11/20/22 08:53 MPV 10.5 fL (7.4-10.4) H 11/20/22 08:53 Neut % (Auto) 76.7 % 11/20/22 08:53 Lymph % (Auto) 14.2 % 11/20/22 08:53 [place] % (Auto) 7.2 % 11/20/22 08:53 Eos % (Auto) 0.0 % 11/20/22 08:53 Baso % (Auto) 0.3 % 11/20/22 08:53 Neut # (Auto) 4.71 10^3/uL (1.8-7.7) 11/20/22 08:53 Lymph # (Auto) 0.9 10^3/uL (0.8-4.8) 11/20/22 08:53 [place] # (Auto) 0.4 10^3/uL (0.2-0.9) 11/20/22 08:53 Eos # (Auto) 0.0 10^3/uL (0.0-0.8) 11/20/22 08:53 Baso # (Auto) 0.0 10^3/uL (0.0-0.1) 11/20/22 08:53 Nucleated RBC % (auto) 0 % 11/20/22 08:53 Total Counted 100 (0-100) 11/19/22 23:05 Atypical Lymphs % 2.0 % (0-5) 11/19/22 23:05 Absolute Neutrophils 5.5 10^3/cmm (1.4-6.5) 11/19/22 23:05 Segmented Neutrophils 58 % 11/19/22 23:05 Abs Segm Neuts (Man) 4.0 10/cmm (1.6-7.1) 11/19/22 23:05 Band Neutrophils 21.0 % 11/19/22 23:05 Abs Band Neuts (Man) 1.5 10^3/cmm (0.0-1.2) H 11/19/22 23:05 Absolute Lymphocytes 0.8 10^3/cmm (1.2-3.4) L 11/19/22 23:05 Lymphocytes (Manual) 10 % 11/19/22 23:05 Monocytes (Manual) 4.0 % 11/19/22 23:05 Absolute Monocytes 0.3 10^3/cmm (0.1-0.6) 11/19/22 23:05 Eosinophils (Manual) 0 % 11/19/22 23:05 Absolute Eosinophils 0.0 10^3/cmm (0.0-0.7) 11/19/22 23:05 Basophils (Manual) 0.0 % 11/19/22 23:05 Absolute Basophils 0.0 10^3/cmm (0.0-0.2) 11/19/22 23:05 Metamyelocytes 5.0 % 11/19/22 23:05 Nucleated RBCs # 0.0 /100WBC 11/20/22 08:53 Platelet Estimate Normal (Normal) 11/19/22 23:05 Hypochromasia 2+ H 11/19/22 23:05 Specimen Type Arterial 11/19/22 23:00 Sample Site Radial, left 11/19/22 23:00 ABG pH 7.43 (7.35-7.45) 11/19/22 23:00 ABG pCO2 35.8 mmHg (35-45) 11/19/22 23:00 ABG pO2 49.6 mmHg (80.0-100.0) L 11/19/22 23:00 ABG HCO3 23.6 mmol/L (22-26) 11/19/22 23:00 ABG Base Excess -0.5 mmol/L (-2.0-2.0) 11/19/22 23:00 Noe Test Pos 11/19/22 23:00 Hematocrit 35.3 % (37-47) L 11/19/22 23:00 O2 Delivery Device None 11/19/22 23:00 FiO2 21.0 % 11/19/22 23:00 Prints And Drawings Curator ID [email or web address] 11/19/22 23:00 Sodium 130 mmol/L (136-145) L 11/20/22 08:53 Potassium 3.6 mmol/L (3.5-5.1) 11/20/22 08:53 Chloride 101 mmol/L (98-107) 11/20/22 08:53 Carbon Dioxide 21 mmol/L (22-29) L 11/20/22 08:53 Anion Gap 11.6 (5-19) 11/20/22 08:53 BUN 22 mg/dL (6-20) H 11/20/22 08:53 Creatinine 1.3 mg/dL (0.5-0.9) H 11/20/22 08:53 GFR Calculation 43.4 mL/min (90-130) L 11/20/22 08:53 Glucose 456 mg/dL (65-115) H 11/20/22 08:53 POC Glucose 385 mg/dL (70-110) H 11/20/22 14:54 Estimat Average Glucose 280 11/19/22 23:05 Hemoglobin A1c 11.4 % (4.0-6.0) H 11/19/22 23:05 Calculated Osmolality 293 mOsm/kg (285-295) 11/20/22 08:53 Lactic Acid 2.9 mmol/L (0.5-2.2) H 11/19/22 23:05 Lactic Acid (Sepsis) 1.8 mmol/L (0.5-2.2) 11/20/22 02:37 Calcium 7.3 mg/dL (8.5-10.5) L 11/20/22 08:53 Phosphorus 3.0 mg/dL (2.5-4.5) 11/20/22 04:22 Magnesium 1.4 mg/dL (1.7-2.3) L 11/20/22 04:22 Total Bilirubin 0.5 mg/dL (0.15-1.2) 11/20/22 08:53 AST 18 U/L (0-32) 11/20/22 08:53 ALT 19 U/L (0-33) 11/20/22 08:53 Alkaline Phosphatase 75 U/L (35-105) 11/20/22 08:53 Troponin T Baseline 24 ng/L (0-10) H 11/20/22 04:22 Troponin T 120 Minute 25.53 ng/L (0-10) H 11/20/22 06:24 Delta Troponin T 1.53 ABS# (0-10) 11/20/22 06:24 Troponin T Hi Sens 6Hr 30.20 ng/L (0-10) H 11/20/22 10:21 Troponin T Hi Sens 6Hr Delta 6.20 ng/L (0-12) 11/20/22 10:21 C-Reactive Protein 217.1 mg/L (0.0-4.9) H 11/19/22 23:05 NT-Pro-B Natriuret Pep 1064 pg/mL (0-125) H 11/20/22 04:22 Total Protein 4.8 g/dL (6.6-8.7) L D 11/20/22 08:53 Albumin 2.3 g/dL (3.5-5.2) L 11/20/22 08:53 Globulin 2.5 g/dL (1.3-4.6) 11/20/22 08:53 Lipase 9 U/L (13-60) L 11/19/22 23:05 Vitamin B12 853 pg/mL (232-1245) 11/20/22 08:53 Procalcitonin 2.54 ng/mL (0-0.5) H 11/20/22 04:22 TSH 0.51 uIU/mL (0.27-4.20) 11/20/22 04:22 Urine Color Yellow (Yellow) 11/20/22 00:14 Urine Appearance Hazy (CLEAR) A 11/20/22 00:14 Urine pH 5 (5-7) 11/20/22 00:14 Ur Specific [place] 1.020 (1.005-1.030) 11/20/22 00:14 Urine Protein 1+ (Negative) H 11/20/22 00:14 Urine Glucose (UA) 4+ (Normal) H 11/20/22 00:14 Urine Ketones 1+ (Negative) H 11/20/22 00:14 Urine Blood 3+ (Negative) H 11/20/22 00:14 Urine Nitrate Negative (Negative) 11/20/22 00:14 Urine Bilirubin Neg (Negative) 11/20/22 00:14 Urine Urobilinogen Norm mg/dL (Negative) 11/20/22 00:14 Ur Leukocyte Esterase Trace (Negative) H 11/20/22 00:14 Urine RBC 0-4 /hpf (0-2) H 11/20/22 00:14 Urine WBC 25-40 /hpf (0-5) H 11/20/22 00:14 Ur Squamous Epith Cells 0-4 /hpf (0-5) H 11/20/22 00:14 Ur Transition Epith Cell 0-4 /hpf 11/20/22 00:14 Amorphous Sediment 1+ /hpf 11/20/22 00:14 Urine Bacteria 1+ /hpf (NONE) H 11/20/22 00:14 Coarse Granular Casts 0-4 /lpf H 11/20/22 00:14 Serum Ketones Negative (Negative) 11/20/22 08:53 SARS-CoV-2 Ag (Rapid) negative (Negative) 11/20/22 02:16 Plan: Keep mean artery pressure over 65. Increase Levophed to around 5 and wean accordingly. Bolus 1 L of IV fluids to complete sepsis bolus. Continue with IV fluids for now at 150 cc/h while monitoring for fluid overload. Echocardiogram from 2020 appreciated for EF of around 65% with no diastolic dysfunction, normal regional wall motion. Blood cultures positive for E. coli. Await sensitivities. As patient is critically sick with septic shock, thrombocytopenia for now switch to meropenem 1 g IV every 8 hourly. Will de-escalate antibiotics as per culture sensitivities. Repeat blood cultures in AM. Blood sugars elevated. Repeat CBC and CMP today along with ketones to rule out DKA. If DKA negative will switch to Lantus 15 units twice daily along with insulin sliding scale at moderate dose protocol every 4 hourly. At home patient seems to be taking Lantus 74 units daily. As oral intake attending was right now giv en septic shock for now we will continue with lower dose of insulin as above. IV Tylenol as needed for high-grade fever. Does have LYRIC. Should help with IV fluids. Repeating labs as above. Monitor hyponatremia. Care discussed in detail with patient's spouse and son at bedside. All the questions were answered. The high probability of a clinically significant, sudden or life threatening deterioration of the patient's [infectious, cardiac, renal, endocrine] system(s) required my full and direct attention, intervention and personal management. The critical care time is as shown. This time is in addition to time spent performing any reported procedures but includes the following: [x] Data and vital sign review and interpretation [x] Patient assessment, examination and intervention [x] Documentation [x] Medication orders and management Critical Care Time Code activated: No Critical Care Time (min): 60 Additional information about critical care time: Seen multiple times, discussion with family, monitoring vitals, managing Levophed, septic shock, monitoring fluid status, monitor blood sugars with concerns for DKA Coding Level of Care Code Critical Care Other Coding Information Prolonged care (total time indicated above or notated here) Time Spent (min) 60
[2022-11-20] MEDS: ondansetron 2 mg/ML SDV 2 mL 4 MG IVP (16:44)
[2022-11-20 16:54] LABS: Glucose Point of Care 371 mg/dL (70-110)
--- NOTE | 2022-11-20 18:24 | PC.NURSE ---
remains on levophed gtt at this time monitor shows sinus tach has severe headache with morphine given prior and nausea zofran given .... urine output good
[2022-11-20 19:39] LABS: Glucose Point of Care 317 mg/dL (70-110)
--- NOTE | 2022-11-20 19:40 | PC.NURSE ---
MAR Upon assessment of patient, levophed administering at 8 mcg/min while MAR displays 5 mcg/min. MAR updated to reflect administration.
[2022-11-20] MEDS: promethazine 25 mg/mL SDV 1 mL 12.5 MG IM (21:15)
--- NOTE | 2022-11-20 22:56 | PC.NURSE ---
Blood Pressure Patient's blood pressure MAPs ranging from 58-63 this evening, levophed titrated accordingly. Patient also complaining of increased abdominal pain as well as flank pain. Dr. Walker notified of increasing levophed dosage as well as pain; order received for vasopressin drip per protocol.
[2022-11-21] VITALS (88 sets, daily range): BP systolic 78–158; BP diastolic 36–88; PULSE 78–121; TEMP 37.1–38.6; O2SAT 75–99; BMI 23.7
[2022-11-21] MEDS: sodium chloride 0.9% 1,000 ML 150 ML IV ×3 (00:30→18:38)
[2022-11-21] MEDS: pantoprazole 40 mg SDV IVP (03:33)
[2022-11-21] MEDS: enoxaparin 40 mg/0.4 mL Syringe SUBCUT (03:33)
[2022-11-21] MEDS: insulin lispro 100 unit/1 mL SUBCUT ×3 (03:33→18:31)
[2022-11-21] MEDS: acetaminophen 325 mg Tablet 650 MG PO (04:01)
[2022-11-21] MEDS: methocarbamol 750 mg Tablet PO ×3 (04:04→18:30)
[2022-11-21 04:10] LABS: Basophils # 0.1 10^3/uL (0.0-0.1); Basophils % 1.1 %; Eosinophils % 0.2 %; Hematocrit 29.9 % (36-47); Lymphocytes # 0.9 10^3/uL (0.8-4.8); Lymphocytes % 14.2 %; Mean Corpuscular HGB Conc 32.1 g/dL (30-55); Mean Corpuscular Hemoglobin 26.6 pg (27-33); Mean Corpuscular Volume 82.8 fl (85-98); Mean Platelet Volume 10.5 fL (7.4-10.4); Monocytes # 0.6 10^3/uL (0.2-0.9); Monocytes % 9.1 %; Neutrophils # 4.84 10^3/uL (1.8-7.7); Neutrophils % 73.7 %; Nucleated Red Blood Cells % 0 %; Platelet Count 93 10^3/cmm (157-399); Red Blood Count 3.61 10^6/uL (3.85-5.65); Red Cell Distribution Width 14.6 % (12.1-15.1); White Blood Count 6.56 10^3/uL (3.29-11.43)
[2022-11-21 04:23] LABS: Glucose Point of Care 265 mg/dL (70-110)
[2022-11-21 04:26] LABS: Slide Review Slide Review Perform
[2022-11-21 04:30] LABS: Alanine Aminotransferase 21 U/L (0-33); Albumin Level 2.2 g/dL (3.5-5.2); Alkaline Phosphatase 106 U/L (35-105); Anion Gap 11.5 (5-19); Aspartate Amino Transferase 27 U/L (0-32); Blood Urea Nitrogen 15 mg/dL (6-20); Calcium 7.3 mg/dL (8.5-10.5); Carbon Dioxide 20 mmol/L (22-29); Chloride 105 mmol/L (98-107); Globulin 2.7 g/dL (1.3-4.6); Glomerular Filtration Rate 52.6 mL/min (90-130); Glucose 271 mg/dL (65-115); Osmolality Calculated 286 mOsm/kg (285-295); Phosphorus 1.2 mg/dL (2.5-4.5); Potassium 3.5 mmol/L (3.5-5.1); Sodium 133 mmol/L (136-145); Total Bilirubin 0.5 mg/dL (0.15-1.2); Total Protein 4.9 g/dL (6.6-8.7)
[2022-11-21 04:31] LABS: Lactic Sepsis W/Reflex 1.3 mmol/L (0.5-2.2)
[2022-11-21 04:45] LABS: Folate Level 14.8 ng/mL (4.8-37.3)
[2022-11-21] MEDS: aspirin 81 mg EC Tablet PO (08:55)
[2022-11-21] MEDS: potassium phosphate (mMol PO4) 15 MMOL in sodium chloride 0.9% (100 ml) 100 ML 42 MMOL IV (08:55)
[2022-11-21] MEDS: atorvastatin 40 mg Tablet 80 MG PO (08:56)
[2022-11-21] MEDS: fluoxetine 20 mg Capsule 40 MG PO (08:56)
[2022-11-21] MEDS: insulin glargine 100 units/1 mL 25 UNIT SUBCUT ×2 (08:57→22:48)
[2022-11-21 11:19] LABS: Glucose Point of Care 264 mg/dL (70-110)
[2022-11-21 11:23] LABS: Glucose Point of Care 234 mg/dL (70-110)
[2022-11-21] MEDS: ondansetron 2 mg/ML SDV 2 mL 4 MG IVP (11:24)
[2022-11-21] MEDS: meropenem 1,000 MG in sodium chloride 0.9% (plus) 50 ML 100 MG IV ×2 (11:28→23:35)
[2022-11-21] MEDS: ketorolac 30 mg/mL INJ 15 MG IVP ×2 (11:32→18:30)
--- NOTE | 2022-11-21 14:11 | PM.PN ---
Subjective Subjective: Patient reports severe back pain exacerbated by any movement. Fevered overnight. Poor oral intake. Remains critically ill on vasopressor support. Medications: Reviewed: Yes Vitals/I&O/Wt Last Vital Signs Temp 100 F H 11/21/22 08:00 Pulse 104 H 11/21/22 12:30 Resp 22 H 11/20/22 21:45 BP 113/64 11/21/22 12:30 Pulse Ox 94 11/21/22 12:30 O2 Del Method Room Air 11/21/22 06:00 11/20/22 11/21/22 11/21/22 22:59 06:59 14:59 Intake Total 916.259 / 4695.729 1287.491 / 5983.220 1231.14 / 1231.14 Output Total 2400 / 2400 1175 / 3575 Balance -1483.741 / 2295.729 112.491 / 2408.220 1231.14 / 1231.14 Weight last 48 hrs Weight 66.678 kg Weight 59.421 kg Weight 62.596 kg Physical Exam Narrative: General: Patient is awake. Ill appearing. Pleasant. Head: Normocephalic. Atraumatic. Dry mucous membranes. Neck: No JVD. Cardiovascular: No gallops. No murmurs. Tachycardic. Lungs: Clear to auscultation, no use of accessory muscles, no crackles or wheezes. Skin: No jaundice. No rashes. Abdomen: Normal bowel sounds, abdomen soft and nontender. Extremities: No cyanosis or clubbing. Musculoskeletal: No swollen or erythematous joints. Neurological: Moves all 4 extremities. No myoclonus. Urinary Catheter Management: Proctor: Cath Placed During This Visit: yes Reason for Continuing Indwelling Catheter: Accurate Measurement of Urinary Output in Critically Ill Patients Urinary Catheter Date of Insertion: 11/20/22 Urinary Catheter Time of Insertion: 03:05 Data 11/21/22 03:29 11/21/22 03:29 Micro: Microbiology 11/20/22 00:14 Urine Culture - Preliminary Urine,Clean Catch Gram Negative Rods 11/21/22 03:35 Blood Culture - Preliminary Blood SPECIMEN COLLECTED 11/21/22 03:29 Blood Culture - Preliminary Blood SPECIMEN COLLECTED 11/19/22 23:12 Blood Culture - Preliminary Blood Escherichia coli 08/26/23 23:05 Blood Culture - Preliminary Blood Escherichia coli A&P Assessment and plan (1) Septic shock: Patient remains in septic shock. Source is pyelonephritis/UTI complicated by E. coli bacteremia Continue Levophed for map goal of 65 mmHg Strict I's and O's Daily weights Follow cultures Continue meropenem (2) Acute encephalopathy: Resolving, mentation seems close if not at baseline Treat underlying infection Supportive care (3) Acute pyelonephritis: Follow cultures, suspect will be E. coli given bacteremia Continue antibiotics (4) Diabetes: Blood sugars been uncontrolled Increasing Lantus Sliding-scale insulin correction Titrate as needed Plan DVT prophylaxis: Lovenox CODE STATUS: Full code Attestations Medical Necessity Statement*: Patient remains in septic shock requiring vasopressor support and ongoing hospitalization for IV Levophed, IV antibiotics, and supportive care. Critical Care Time: The high probability of a clinically significant, sudden or life threatening deterioration of the patient's cardiovascular, circulatory, renal system(s) required my full and direct attention, intervention and personal management. The critical care time is as shown. This time is in addition to time spent performing any reported procedures but includes the following: [x] Data and vital sign review and interpretation [x] Patient assessment, examination and intervention [x] Documentation [x] Medication orders and management Critical Care Time (min): 35 Coding Level of Care Code Acute Code for g Fwd Diagnoses Septic shock A41.9; R65.21 Acute encephalopathy G93.40 Acute pyelonephritis N10 Diabetes E11.9
[2022-11-21 17:00] LABS: Glucose Point of Care 242 mg/dL (70-110)
[2022-11-21 20:12] LABS: Glucose Point of Care 232 mg/dL (70-110)
--- NOTE | 2022-11-21 21:00 | PC.NURSE ---
Stool Sample Patient having multiple large, liquid bowel movements. Dr. Lala notified; order received to test for C Diff.
[2022-11-21 22:22] LABS: Glucose Point of Care 209 mg/dL (70-110)
[2022-11-21] MEDS: acetaminophen 500 mg Tablet 1000 MG PO (22:26)
[2022-11-22] VITALS (42 sets, daily range): BP systolic 83–131; BP diastolic 49–101; PULSE 75–112; RESP 16–30; TEMP 36.4–38; O2SAT 91–100; BMI 23.3
[2022-11-22] MEDS: sodium chloride 0.9% 1,000 ML 150 ML IV (03:56)
[2022-11-22] MEDS: enoxaparin 40 mg/0.4 mL Syringe SUBCUT (03:57)
[2022-11-22] MEDS: pantoprazole 40 mg SDV IVP (03:57)
[2022-11-22] MEDS: ketorolac 30 mg/mL INJ 15 MG IVP ×3 (03:57→17:35)
[2022-11-22 04:22] LABS: Glucose Point of Care 180 mg/dL (70-110)
[2022-11-22 05:42] LABS: Basophils % 0.5 %; Eosinophils # 0.1 10^3/uL (0.0-0.8); Eosinophils % 1.7 %; Hematocrit 27.1 % (36-47); Lymphocytes # 0.9 10^3/uL (0.8-4.8); Lymphocytes % 20.4 %; Mean Corpuscular HGB Conc 31.7 g/dL (30-55); Mean Corpuscular Hemoglobin 26.1 pg (27-33); Mean Corpuscular Volume 82.4 fl (85-98); Mean Platelet Volume 10.7 fL (7.4-10.4); Monocytes # 0.4 10^3/uL (0.2-0.9); Monocytes % 9.1 %; Neutrophils # 2.61 10^3/uL (1.8-7.7); Neutrophils % 62.8 %; Nucleated Red Blood Cells % 0 %; Platelet Count 93 10^3/cmm (157-399); Red Blood Count 3.29 10^6/uL (3.85-5.65); White Blood Count 4.16 10^3/uL (3.29-11.43)
[2022-11-22 05:55] LABS: Slide Review Slide Review Perform
[2022-11-22 05:59] LABS: Albumin Level 2.3 g/dL (3.5-5.2); Anion Gap 7.9 (5-19); Blood Urea Nitrogen 12 mg/dL (6-20); Calcium 7.5 mg/dL (8.5-10.5); Carbon Dioxide 24 mmol/L (22-29); Chloride 110 mmol/L (98-107); Creatinine Clr Calc Pharmacy 73.0627; Glomerular Filtration Rate 66.3 mL/min (90-130); Glucose 166 mg/dL (65-115); Magnesium 1.4 mg/dL (1.7-2.3); Phosphorus 1.6 mg/dL (2.5-4.5); Sodium 139 mmol/L (136-145)
[2022-11-22 06:05] LABS: Potassium 2.9 mmol/L (3.5-5.1)
[2022-11-22] MEDS: insulin lispro 100 unit/1 mL SUBCUT ×3 (06:11→17:36)
--- NOTE | 2022-11-22 06:20 | PC.NURSE ---
Criticals Patient's potassium level 2.9. Dr. Lala notified; orders received for 4 g mag sulfate IV once, 40 mg PO KCL once, and 40 mg KCL IV once. See MAR for details.
[2022-11-22 06:23] LABS: Glucose Point of Care 157 mg/dL (70-110)
[2022-11-22] MEDS: potassium chloride ER 20 mEq Tablet 40 MEQ PO (06:25)
[2022-11-22] MEDS: potassium chloride premix 100 ML 25 MEQ IV (06:26)
[2022-11-22] MEDS: magnesium sulfate premix 4 GM/100 ML PREMIX IV (06:54)
[2022-11-22] MEDS: aspirin 81 mg EC Tablet PO (08:22)
[2022-11-22] MEDS: fluoxetine 20 mg Capsule 40 MG PO (08:22)
[2022-11-22] MEDS: atorvastatin 40 mg Tablet 80 MG PO (08:23)
[2022-11-22] MEDS: insulin glargine 100 units/1 mL 25 UNIT SUBCUT ×2 (09:02→17:36)
--- NOTE | 2022-11-22 10:57 | P.PN_ITS ---
Subjective Subjective: Levophed off overnight. Patient noted to have severe diarrhea. C diff obtained and negative. She reports almost continuous diarrhea overnight. Reports appetite is slightly better. Continues to endorse low back pain, reports slightly better than yesterday. bedside and supportive. Medications: Reviewed: Yes Vitals/I&O/Wt Last Vital Signs Temp 98.5 F 11/22/22 04:00 Pulse 95 11/22/22 08:30 Resp 22 H 11/20/22 21:45 BP 102/62 11/22/22 08:30 Pulse Ox 98 11/22/22 08:30 O2 Del Method Room Air 11/22/22 04:00 11/21/22 11/22/22 11/22/22 22:59 06:59 14:59 Intake Total 1155.702 / 2640.140 1360.900 / 4001.040 Output Total 2600 / 2600 1750 / 4350 Balance -1444.298 / 40.140 -389.100 / -348.960 Weight last 48 hrs Weight 65.771 kg Weight 66.678 kg Physical Exam Narrative: General: Patient is awake. Ill appearing. Pleasant. Lying in bed. Head: Normocephalic. Atraumatic. Neck: No JVD. Cardiovascular: No gallops. No murmurs. Lungs: Clear to auscultation, no use of accessory muscles, no crackles or wheezes. Skin: No jaundice. No rashes. Abdomen: Normal bowel sounds, abdomen soft and nontender. Extremities: No cyanosis or clubbing. Musculoskeletal: No swollen or erythematous joints. Neurological: Moves all 4 extremities. No myoclonus. Urinary Catheter Management: Proctor: Cath Placed During This Visit: yes Reason for Continuing Indwelling Catheter: Accurate Measurement of Urinary Output in Critically Ill Patients Urinary Catheter Date of Insertion: 11/20/22 Urinary Catheter Time of Insertion: 03:05 Data 11/22/22 05:01 11/22/22 05:01 Micro: Microbiology 11/21/22 03:35 Blood Culture - Preliminary Blood NEGATIVE TO DATE 11/21/22 03:29 Blood Culture - Preliminary Blood NEGATIVE TO DATE 11/21/22 20:20 C.difficile Toxin B Gene (PCR) - Final Stool Routine Collection 11/19/22 23:12 Blood Culture - Preliminary Blood Escherichia coli 11/19/22 23:05 Blood Culture - Preliminary Blood Escherichia coli 11/20/22 00:14 Urine Culture - Preliminary Urine,Clean Catch Gram Negative Rods A&P Assessment and plan (1) Septic shock: Shock has improved, blood pressure remains soft, may consider albumin infusion if needed Source: E coli bacteremia/pyelonephritis/UTI Strict I's and O's Daily weights Follow cultures Continue meropenem for now, possibly narrow on Monday (2) Acute encephalopathy: Resolving, mentation at baseline Treat underlying infection Supportive care (3) Acute pyelonephritis: Continue antibiotics (4) Diabetes: Glycemic control has improved Continue current insulin dosing, adjust as necessary (5) Diarrhea: C diff negative Likely antibiotic induced Imodium if needed Plan DVT prophylaxis: Lovenox CODE STATUS: Full code Attestations Medical Necessity Statement*: Patient remains with sepsis requiring ongoing hospitalization for IV antibiotics, IV fluids, serial labs and supportive care. Coding Level of Care Code Acute Code for [facility] Fwd Diagnoses Septic shock A41.9; R65.21 Acute encephalopathy G93.40 Acute pyelonephritis N10 Diabetes E11.9 Diarrhea R19.7
[2022-11-22 11:03] LABS: Glucose Point of Care 209 mg/dL (70-110)
[2022-11-22] MEDS: meropenem 1,000 MG in sodium chloride 0.9% (plus) 50 ML 100 MG IV ×2 (11:13→21:32)
[2022-11-22] MEDS: sodium chloride 0.9% 1,000 ML 75 ML IV (11:14)
[2022-11-22] MEDS: acetaminophen 500 mg Tablet 1000 MG PO (15:05)
[2022-11-22 15:55] LABS: Glucose Point of Care 202 mg/dL (70-110)
[2022-11-22] MEDS: loperamide 2 mg Capsule 4 MG PO ×2 (17:36→21:43)
[2022-11-22 21:15] LABS: Glucose Point of Care 261 mg/dL (70-110)
[2022-11-22] MEDS: methocarbamol 750 mg Tablet PO (21:32)
[2022-11-23] VITALS: BP 123/72; PULSE 92; RESP 18; TEMP 36.6; O2SAT 97
[2022-11-23 00:04] LABS: Glucose Point of Care 197 mg/dL (70-110)
[2022-11-23] MEDS: acetaminophen 500 mg Tablet 1000 MG PO ×2 (00:26→10:41)
[2022-11-23] MEDS: sodium chloride 0.9% 1,000 ML 75 ML IV (00:26)
[2022-11-23] MEDS: ketorolac 30 mg/mL INJ 15 MG IVP (00:33)
[2022-11-23] MEDS: enoxaparin 40 mg/0.4 mL Syringe SUBCUT (04:15)
[2022-11-23] MEDS: pantoprazole 40 mg SDV IVP (04:15)
[2022-11-23 04:37] LABS: Glucose Point of Care 239 mg/dL (70-110)
[2022-11-23 05:00] VITALS: BP 100/62; PULSE 77; RESP 18; TEMP 36.4; O2SAT 93
[2022-11-23 05:38] LABS: Basophils % 0.6 %; Eosinophils # 0.1 10^3/uL (0.0-0.8); Eosinophils % 2.3 %; Hematocrit 26.5 % (36-47); Lymphocytes # 0.9 10^3/uL (0.8-4.8); Lymphocytes % 24.8 %; Mean Corpuscular HGB Conc 30.9 g/dL (30-55); Mean Corpuscular Hemoglobin 25.7 pg (27-33); Mean Corpuscular Volume 83.1 fl (85-98); Mean Platelet Volume 11.2 fL (7.4-10.4); Monocytes # 0.4 10^3/uL (0.2-0.9); Monocytes % 12.3 %; Neutrophils % 59.7 %; Nucleated Red Blood Cells % 0 %; Platelet Count 82 10^3/cmm (157-399); Red Blood Count 3.19 10^6/uL (3.85-5.65); Red Cell Distribution Width 15.6 % (12.1-15.1); White Blood Count 3.51 10^3/uL (3.29-11.43)
[2022-11-23 05:54] LABS: Alanine Aminotransferase 42 U/L (0-33); Alkaline Phosphatase 210 U/L (35-105); Anion Gap 9.1 (5-19); Aspartate Amino Transferase 81 U/L (0-32); Blood Urea Nitrogen 13 mg/dL (6-20); Calcium 7.2 mg/dL (8.5-10.5); Carbon Dioxide 21 mmol/L (22-29); Chloride 111 mmol/L (98-107); Globulin 2.6 g/dL (1.3-4.6); Glomerular Filtration Rate 58.7 mL/min (90-130); Glucose 218 mg/dL (65-115); Magnesium 1.9 mg/dL (1.7-2.3); Osmolality Calculated 293 mOsm/kg (285-295); Phosphorus 1.3 mg/dL (2.5-4.5); Potassium 3.1 mmol/L (3.5-5.1); Sodium 138 mmol/L (136-145); Total Bilirubin 0.5 mg/dL (0.15-1.2); Total Protein 4.6 g/dL (6.6-8.7)
[2022-11-23 06:00] LABS: Slide Review Slide Review Perform
[2022-11-23] MEDS: meropenem 1,000 MG in sodium chloride 0.9% (plus) 50 ML 100 MG IV (06:01)
[2022-11-23 06:29] LABS: Glucose Point of Care 173 mg/dL (70-110)
[2022-11-23] MEDS: insulin lispro 100 unit/1 mL SUBCUT (06:45)
[2022-11-23 07:29] VITALS: BP 129/78; PULSE 80; RESP 20; TEMP 36.3; O2SAT 96
[2022-11-23] MEDS: atorvastatin 40 mg Tablet 80 MG PO (08:39)
[2022-11-23] MEDS: aspirin 81 mg EC Tablet PO (08:39)
[2022-11-23] MEDS: fluoxetine 20 mg Capsule 40 MG PO (08:39)
[2022-11-23 08:53] LABS: Glucose Point of Care 141 mg/dL (70-110)
[2022-11-23] MEDS: insulin glargine 100 units/1 mL 25 UNIT SUBCUT (09:25)
[2022-11-23] MEDS: potassium chloride ER 20 mEq Tablet 40 MEQ PO (09:26)
--- NOTE | 2022-11-23 10:44 | PM.DCS ---
Discharge Providers Date of Admission: 11/20/22 04:12 Date of Discharge: November 23, 2022 Attending Provider at Admission: Mariano Walker MD Attending Provider at Discharge: Luis Banda MD Primary Care Provider: Joy Mccray Diagnoses at Discharge Discharge Diagnosis (1) Septic shock: Status: Acute (2) Acute encephalopathy: Status: Acute (3) Acute pyelonephritis: Status: Acute (4) Diabetes: Status: Acute (5) Diarrhea: Status: Acute Reason for Visit Reason for Visit: HIGH BLOOD SUGAR Hospital Course Hospital Course Nelly Gaming is a very pleasant 52-year-old female with a past medical history significant for coronary artery disease with history of CABG and PCI, hyperlipidemia, and type 2 diabetes mellitus on insulin who presented with confusion, left flank pain, and high-grade fever, found to have septic shock requiring vasopressor support secondary to E coli bacteremia from E coli pyelonephritis and urinary tract infection. Patient was also found to have acute metabolic encephalopathy upon presentation. She was treated with broad-spectrum antibiotics. Shock resolved. Patient was found to have severe diarrhea subsequent electrolyte abnormalities. She was treated with IV fluids and electrolyte replacement. C. difficile negative. Cultures revealed E. coli was pansensitive. She was narrowed from meropenem to levofloxacin at discharge. She is to complete 14 days of antibiotic treatment for E. coli bacteremia. Patient has a history of type 2 diabetes mellitus for which she is on insulin. She was noted to have moderate to high level of insulin requirements prior to admission. Hospital course was complicated by labile blood pressures which insulin was titrated. Patient typically manages her own insulin with a continuous glucose monitor which she intends on restarting upon returning to home. Patient's symptoms improved. She was discharged home in stable condition. She is to follow-up with her primary care provider in approximately 1 week. Physical Exam Narrative: General: Patient is awake and alert. Sitting in bed. Head: Normocephalic. Atraumatic. EOM intact. Neck: No JVD. Cardiovascular: No gallops. No murmurs. No heaves. Lungs: Good air movement, no use of accessory muscles, no crackles or wheezes. Skin: No jaundice. No rashes. Abdomen: Normal bowel sounds, abdomen soft and nontender. Extremities: No cyanosis or clubbing. Musculoskeletal: No erythematous joints. Neurological: Moves all 4 extremities. No myoclonus. Urinary Catheter Management: Proctor: Cath Placed During This Visit: yes Reason for Continuing Indwelling Catheter: Other Urinary Catheter Date of Insertion: 11/20/22 Urinary Catheter Time of Insertion: 03:05 Discharge Data Studies Completed and Pending Completed Studies During Hospitalization Category Date Time Status CT head wo con* [id number] Stat Cat Scan 11/19/22 23:[address] kidney stone [id number] Stat Cat Scan 11/19/22 22:43 Completed XR chest 1V portable [id number] Stat Exams 11/19/22 22:42 Completed XR chest 1V portable [id number] Stat Exams 11/20/22 05:25 Completed Pending at discharge Category Date Time Status Blood Culture AM LABS Lab 11/21/22 03:35 Results Radiology Impressions Abdomen/Pelvis CT 11/19/22 22:43 IMPRESSION: 1. Enlargement and edema of the left kidney with prominent perinephric stranding. Findings raise concern for ascending urinary tract infection with pyelonephritis, recommend correlation with urinalysis. No discrete perinephric collection seen. 2. Mild bilateral hydronephrosis without renal or ureteral calculi. 3. Reactive retroperitoneal lymphadenopathy. 4. Mild hepatomegaly. Head CT 11/19/22 23:16 IMPRESSION: No acute intracranial findings. Chest X-Ray 11/20/22 05:25 IMPRESSION: Satisfactory position of the jugular venous catheter in the SVC. Laboratory Results WBC 3.51 10^3/uL (3.29-11.43) 11/23/22 04:52 RBC 3.19 10^6/uL (3.85-5.65) L 11/23/22 04:52 Hgb 8.20 g/dL (11.27-16.99) L 11/23/22 04:52 Hct 26.5 % (36-47) L 11/23/22 04:52 MCV 83.1 fl (85-98) L 11/23/22 04:52 MCH 25.7 pg (27-33) L 11/23/22 04:52 MCHC 30.9 g/dL (30-55) 11/23/22 04:52 RDW 15.6 % (12.1-15.1) H 11/23/22 04:52 Plt Count 82 10^3/cmm (157-399) L 11/23/22 04:52 MPV 11.2 fL (7.4-10.4) H 11/23/22 04:52 Neut % (Auto) 59.7 % 11/23/22 04:52 Lymph % (Auto) 24.8 % 11/23/22 04:52 [place] % (Auto) 12.3 % 11/23/22 04:52 Eos % (Auto) 2.3 % 11/23/22 04:52 Baso % (Auto) 0.6 % 11/23/22 04:52 Neut # (Auto) 2.10 10^3/uL (1.8-7.7) 11/23/22 04:52 Lymph # (Auto) 0.9 10^3/uL (0.8-4.8) 11/23/22 04:52 [place] # (Auto) 0.4 10^3/uL (0.2-0.9) 11/23/22 04:52 Eos # (Auto) 0.1 10^3/uL (0.0-0.8) 11/23/22 04:52 Baso # (Auto) 0.0 10^3/uL (0.0-0.1) 11/23/22 04:52 Nucleated RBC % (auto) 0 % 11/23/22 04:52 Total Counted 100 (0-100) 11/19/22 23:05 Atypical Lymphs % 2.0 % (0-5) 11/19/22 23:05 Absolute Neutrophils 5.5 10^3/cmm (1.4-6.5) 11/19/22 23:05 Segmented Neutrophils 58 % 11/19/22 23:05 Abs Segm Neuts (Man) 4.0 10/cmm (1.6-7.1) 11/19/22 23:05 Band Neutrophils 21.0 % 11/19/22 23:05 Abs Band Neuts (Man) 1.5 10^3/cmm (0.0-1.2) H 11/19/22 23:05 Absolute Lymphocytes 0.8 10^3/cmm (1.2-3.4) L 11/19/22 23:05 Lymphocytes (Manual) 10 % 11/19/22 23:05 Monocytes (Manual) 4.0 % 11/19/22 23:05 Absolute Monocytes 0.3 10^3/cmm (0.1-0.6) 11/19/22 23:05 Eosinophils (Manual) 0 % 11/19/22 23:05 Absolute Eosinophils 0.0 10^3/cmm (0.0-0.7) 11/19/22 23:05 Basophils (Manual) 0.0 % 11/19/22 23:05 Absolute Basophils 0.0 10^3/cmm (0.0-0.2) 11/19/22 23:05 Metamyelocytes 5.0 % 11/19/22 23:05 Nucleated RBCs # 0.0 /100WBC 11/23/22 04:52 Platelet Estimate Normal (Normal) 11/19/22 23:05 Hypochromasia 2+ H 11/19/22 23:05 Specimen Type Arterial 11/19/22 23:00 Sample Site Radial, left 11/19/22 23:00 ABG pH 7.43 (7.35-7.45) 11/19/22 23:00 ABG pCO2 35.8 mmHg (35-45) 11/19/22 23:00 ABG pO2 49.6 mmHg (80.0-100.0) L 11/19/22 23:00 ABG HCO3 23.6 mmol/L (22-26) 11/19/22 23:00 ABG Base Excess -0.5 mmol/L (-2.0-2.0) 11/19/22 23:00 Noe Test Pos 11/19/22 23:00 Hematocrit 35.3 % (37-47) L 11/19/22 23:00 O2 Delivery Device None 11/19/22 23:00 FiO2 21.0 % 11/19/22 23:00 Collections And Archives Director ID [email or web address] 11/19/22 23:00 Sodium 138 mmol/L (136-145) 11/23/22 04:52 Potassium 3.1 mmol/L (3.5-5.1) L 11/23/22 04:52 Chloride 111 mmol/L (98-107) H 11/23/22 04:52 Carbon Dioxide 21 mmol/L (22-29) L 11/23/22 04:52 Anion Gap 9.1 (5-19) 11/23/22 04:52 BUN 13 mg/dL (6-20) 11/23/22 04:52 Creatinine 1.0 mg/dL (0.5-0.9) H 11/23/22 04:52 GFR Calculation 58.7 mL/min (90-130) L 11/23/22 04:52 Glucose 218 mg/dL (65-115) H 11/23/22 04:52 POC Glucose 141 mg/dL (70-110) H 11/23/22 08:50 Estimat Average Glucose 280 11/19/22 23:05 Hemoglobin A1c 11.4 % (4.0-6.0) H 11/19/22 23:05 Calculated Osmolality 293 mOsm/kg (285-295) 11/23/22 04:52 Lactic Acid 1.3 mmol/L (0.5-2.2) 11/21/22 03:29 Lactic Acid (Sepsis) 1.8 mmol/L (0.5-2.2) 11/20/22 02:37 Calcium 7.2 mg/dL (8.5-10.5) L 11/23/22 04:52 Phosphorus 1.3 mg/dL (2.5-4.5) L 11/23/22 04:52 Magnesium 1.9 mg/dL (1.7-2.3) 11/23/22 04:52 Total Bilirubin 0.5 mg/dL (0.15-1.2) 11/23/22 04:52 AST 81 U/L (0-32) H 11/23/22 04:52 ALT 42 U/L (0-33) H 11/23/22 04:52 Alkaline Phosphatase 210 U/L (35-105) H 11/23/22 04:52 Troponin T Baseline 24 ng/L (0-10) H 11/20/22 04:22 Troponin T 120 Minute 25.53 ng/L (0-10) H 11/20/22 06:24 Delta Troponin T 1.53 ABS# (0-10) 11/20/22 06:24 Troponin T Hi Sens 6Hr 30.20 ng/L (0-10) H 11/20/22 10:21 Troponin T Hi Sens 6Hr Delta 6.20 ng/L (0-12) 11/20/22 10:21 C-Reactive Protein 217.1 mg/L (0.0-4.9) H 11/19/22 23:05 NT-Pro-B Natriuret Pep 1064 pg/mL (0-125) H 11/20/22 04:22 Total Protein 4.6 g/dL (6.6-8.7) L 11/23/22 04:52 Albumin 2.0 g/dL (3.5-5.2) L 11/23/22 04:52 Globulin 2.6 g/dL (1.3-4.6) 11/23/22 04:52 Lipase 9 U/L (13-60) L 11/19/22 23:05 Vitamin B12 853 pg/mL (232-1245) 11/20/22 08:53 Folate 14.8 ng/mL (4.8-37.3) 11/21/22 03:29 Procalcitonin 2.54 ng/mL (0-0.5) H 11/20/22 04:22 TSH 0.51 uIU/mL (0.27-4.20) 11/20/22 04:22 Urine Color Yellow (Yellow) 11/20/22 00:14 Urine Appearance Hazy (CLEAR) A 11/20/22 00:14 Urine pH 5 (5-7) 11/20/22 00:14 Ur Specific [place] 1.020 (1.005-1.030) 11/20/22 00:14 Urine Protein 1+ (Negative) H 11/20/22 00:14 Urine Glucose (UA) 4+ (Normal) H 11/20/22 00:14 Urine Ketones 1+ (Negative) H 11/20/22 00:14 Urine Blood 3+ (Negative) H 11/20/22 00:14 Urine Nitrate Negative (Negative) 11/20/22 00:14 Urine Bilirubin Neg (Negative) 11/20/22 00:14 Urine Urobilinogen Norm mg/dL (Negative) 11/20/22 00:14 Ur Leukocyte Esterase Trace (Negative) H 11/20/22 00:14 Urine RBC 0-4 /hpf (0-2) H 11/20/22 00:14 Urine WBC 25-40 /hpf (0-5) H 11/20/22 00:14 Ur Squamous Epith Cells 0-4 /hpf (0-5) H 11/20/22 00:14 Ur Transition Epith Cell 0-4 /hpf 11/20/22 00:14 Amorphous Sediment 1+ /hpf 11/20/22 00:14 Urine Bacteria 1+ /hpf (NONE) H 11/20/22 00:14 Coarse Granular Casts 0-4 /lpf H 11/20/22 00:14 Serum Ketones Negative (Negative) 11/20/22 08:53 SARS-CoV-2 Ag (Rapid) negative (Negative) 11/20/22 02:16 Vitals Last Vital Signs Temp 97.4 F L 11/23/22 07:29 Pulse 80 11/23/22 07:29 Resp 20 H 11/23/22 07:29 BP 129/78 11/23/22 07:29 Pulse Ox 96 11/23/22 07:29 O2 Del Method Room Air 11/23/22 07:29 Discharge Plan Discharge Patient Disposition: Home Condition: Good Prescriptions: New hydrocodone-acetaminophen 5-325 mg tablet 1 tab PO Q4H PRN (Reason: pain) 5 Days Qty: 14 0RF levofloxacin 750 mg tablet 750 mg PO DAILY 11 Days Qty: 11 0RF Continued fluoxetine 40 mg capsule 40 mg PO DAILY semaglutide 1 mg/dose (2 mg/1.5 mL) pen injector 1 mg SUBCUT .weekly Qty: 3 0RF Rx Instructions: 1 mg weekly for 1 month rosuvastatin [Crestor] 40 mg tablet 40 mg PO DAILY (DME) Dexcom G6 Sensor Device See Rx Instructions .ROUTE .MEDSUPPLY Qty: 6 3RF Rx Instructions: change every 10 days (DME) Dexcom G6 Transmitter Device See Rx Instructions .ROUTE .MEDSUPPLY Qty: 1 3RF Rx Instructions: change every 3 months (DME) Dexcom G6 Hoop Bending Machine Operator Misc See Rx Instructions .ROUTE .MEDSUPPLY Qty: 1 3RF Rx Instructions: new business analytics director once a year insulin glargine [Lantus Solostar U-100 Insulin] 100 unit/mL (3 mL) insulin pen 74 unit SUBCUT DAILY 90 Days Qty: 30 2RF Rx Instructions: 70 Units at night and 60 units in morning. (DME) pen needle, diabetic [TechLITE Pen Needle] 32 gauge x 5/32 needle See Rx Instructions .ROUTE .COMPLEX Qty: 100 3RF Dose Instruction: USE DIRECTED Rx Instructions: USE DIRECTED insulin degludec [Tresiba FlexTouch U-100] 100 unit/mL (3 mL) insulin pen 80 unit SUBCUT DAILY Qty: 24 1RF Rx Instructions: 80 units daily hydroxyzine HCl 25 mg Tablet 25 mg PO TID PRN (Reason: Itching) nitroglycerin 0.4 mg tablet, sublingual 0.4 mg sublingual Q5M PRN (Reason: chest pain) Qty: 30 0RF Rx Instructions: do not exceed 3 doses per episode methocarbamol 750 mg tablet 750 mg PO Q6H PRN (Reason: spasms) Qty: 20 0RF naproxen [Naprosyn] 500 mg tablet 500 mg PO BID PRN (Reason: pain) Qty: 20 0RF Multi-Vitamin Tablet 1 tab PO DAILY aspirin [Aspir-81] 81 mg Tablet,Delayed Release (Dr/Ec) 81 mg PO DAILY Discharge Orders: Discharge Order (Routine); Ordered 11/23/22 Ordered By: Luis Banda Referrals: Joy Mccray [employer]PER[employer] [Primary Care Provider] - 11/30/22 2:00 pm Discharge Diet: Advance as tolerated, Usual diet and Diabetic Discharge Activity: Resume usual activity and Increase activity as tolerated Patient Instructions: Diarrhea - Adult, Acute Kidney Injury (DC), Sepsis (GEN), Opioid Safety Activity Restrictions/Additional Instructions: 1. Increase activity as tolerated. 2. Follow up with PCP as scheduled. 3. Take medications as prescribed. 4. Restart continuous glucose monitoring. Discharge Attestations Time Spent in Discharge Care*: greater than 30 min Quality Metrics Clinical Quality Measures [ No reported AMI, CVA or VTE this stay] Coding Level of Care Code Acute Code for g Fwd Diagnoses Septic shock A41.9; R65.21 Acute encephalopathy G93.40 Acute pyelonephritis N10 Diabetes E11.9 Diarrhea R19.7
[2022-11-23] MEDS: promethazine 25 mg/mL SDV 1 mL 12.5 MG IM (11:27)
[2022-11-23 11:38] VITALS: BP 146/80; PULSE 101; RESP 20; TEMP 37.2; O2SAT 92
[2022-11-23 13:25] VITALS: BP 146/80; PULSE 101; RESP 20; TEMP 37.2; O2SAT 92
== END 2022-11-23 13:28 | disposition home or self-care (01) | DRG 871 ==
LOC: ER 11-20 01:16 → ICU 11-20 04:49 → MEDSURG 11-22 14:27
PROVIDERS: Student in an Organized Health Care Education/Training Program; Admitting Provider Family Medicine; Emergency Provider Emergency Medicine; PCP Nurse Practitioner Family; Visit Provider Internal Medicine
DX: A41.51 Sepsis due to Escherichia coli [E. coli] (principal); G93.41 Metabolic encephalopathy; R65.21 Severe sepsis with septic shock; N39.0 Urinary tract infection, site not specified; N10 Acute pyelonephritis; K52.1 Toxic gastroenteritis and colitis; N17.9 Acute kidney failure, unspecified; E87.1 Hypo-osmolality and hyponatremia; E11.65 Type 2 diabetes mellitus with hyperglycemia; E11.42 Type 2 diabetes mellitus with diabetic polyneuropathy; I25.10 Atherosclerotic heart disease of native coronary artery without angina pectoris; Z95.1 Presence of aortocoronary bypass graft; Z95.5 Presence of coronary angioplasty implant and graft; E78.5 Hyperlipidemia, unspecified; T36.95XA Adverse effect of unspecified systemic antibiotic, initial encounter; Z79.4 Long term (current) use of insulin; Z79.82 Long term (current) use of aspirin; E78.00 Pure hypercholesterolemia, unspecified; Z85.820 Personal history of malignant melanoma of skin; F17.200 Nicotine dependence, unspecified, uncomplicated; D69.6 Thrombocytopenia, unspecified
CPT/HCPCS: 36415; 36416; 36556; 36592; 36600; 51702; 70450; 71045; 74176; 80053; 80069; 81001; 82009; 82607; 82746; 82803; 82962; 83036; 83605; 83690; 83735; 83880; 84100; 84145; 84443; 84484; 85007; 85025; 86140; 87040; 87077; 87086; 87150; 87186; 87205; 87426; 87493; 93005; 94664; 96365; 96366; 96372; 96375; 96376; 99285; C9113; J0131; J0696; J1650; J1815; J1885; J2185; J2270; J2405; J2543; J2550; J3475; J3480; J3490; J7030; J7060

== ENCOUNTER → 2023-01-06 11:20 | Outpatient (BNVA) | payer OTHER, SELFPAY | PROVIDERS: PCP Nurse Practitioner Family; Visit Provider Internal Medicine | DX: E78.00 Pure hypercholesterolemia, unspecified; I25.10 Atherosclerotic heart disease of native coronary artery without angina pectoris; E11.59 Type 2 diabetes mellitus with other circulatory complications | CPT/HCPCS: 36415; 80053; 80061; 82044; 83036; 84681; 86337; 86341 ==

== ENCOUNTER 2023-01-27 12:26 | Emergency (ER) | payer OTHER, SELFPAY ==
--- NOTE | 2023-01-27 12:31 | XRR_ITS ---
PROCEDURE INFORMATION: Exam: XR Chest Exam date and time: 01/27/2023 12:51 PM Age: 53 years old Clinical indication: Shortness of breath; Additional info: MARCE Christine TECHNIQUE: Imaging protocol: Radiologic exam of the chest. Views: 1 view. COMPARISON: CR (CHEST, ) 11/20/2022 5:31 AM FINDINGS: Lungs: Unremarkable. No consolidation. Pleural spaces: Unremarkable. No pleural effusion. No pneumothorax. Heart/Mediastinum: See Bones/joints finding. Bones/joints: Previous median sternotomy. Coronary artery stents. XR/XR chest 1V portable [id number] IMPRESSION: No acute findings.
[2023-01-27 12:42] VITALS: BP 101/62; PULSE 90; RESP 18; TEMP 36.5; O2SAT 96
--- NOTE | 2023-01-27 14:50 | W.ED.COVID ---
HPI - COVID General: Chief Complaint: COVID symptoms Stated Complaint: sob, covid + Time Seen by Provider: 01/27/23 14:50 Source: patient Mode of arrival: ambulatory Limitations: no limitations History of Present Illness: Patient is a 53-year-old female with history of coronary artery disease, diabetes, and bypass surgery who presents to the emergency department complaining of shortness of breath status post positive COVID test onset 3 days ago. Patient states that she started feeling symptoms of upper respiratory infection last Monday, prompting her to get tested for COVID. While the symptoms have resolved, she states that her breathing has worsened to the point where she gets severely short of breath with any exertion. She also reports a repetitive nonproductive cough that has caused her to develop a sore throat. She has had COVID in the past, states that it was not this severe. She has been self isolating since being diagnosed with a COVID test at her workplace. She denies any fever, chest pain, nausea vomiting or diarrhea. She has no other symptoms to report at this time. MD complaint: known COVID positive COVID 19 common symptoms: positive non-productive cough, dyspnea and throat pain; negative fever(s), chills, fatigue, headache(s), nausea, vomiting or diarrhea COVID 19 other sytmptoms: negative chest pain COVID Results: SARS-CoV-2 Antigen (Rapid) negative (Negative) 11/20/22 02:16 Review of Systems Const: Denies: fever(s), chills, fatigue or malaise ENMT: Reports: throat pain Card: Denies: chest pain Resp: Reports: dyspnea, non-productive cough and wheezing GI: Denies: abdominal pain, nausea, vomiting or diarrhea : Denies: dysuria, urinary frequency or urinary urgency Musc: Denies: neck pain or back pain Skin/Breast: Denies: rash Neuro: Denies: headache(s) or weakness in extremities PFSH ED PFSH: Medical History CAD (coronary artery disease) Coronary artery 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 2 diabetes mellitus Diabetes Diabetic neuropathy Folliculitis Hypercholesterolemia Skin lesions Uncontrolled type 2 diabetes mellitus Surgical History H/O heart artery stent 5 years ago H/O heart bypass surgery [place]- Last Monday03/02/22 H/O melanoma excision H/O: hysterectomy Status post colonoscopy (10/01/19) Family History Father CAD (coronary artery disease) Diabetes Grandfather CAD (coronary artery disease) Diabetes Grandmother CAD (coronary artery disease) Cancer lung Diabetes Denies family history of Anesthesia complication Bleeding disorder Social History Smoking and tobacco/nicotine status: current every day tobacco/nicotine user Alcohol intake: never Substance/Drug Use: never Household members: spouse Marital status: Current occupational status: employed Physical Exam Const: COMMON NORMALS: no acute distress GENERAL APPEARANCE: cooperative and comfortable ORIENTATION/CONSCIOUSNESS: Yes awake, Yes oriented to person, Yes oriented to place and Yes oriented to time HENMT: COMMON NORMALS: normocephalic, atraumatic and hearing grossly normal bilaterally HEAD & SCALP: normocephalic and atraumatic Resp: COMMON NORMALS: normal respiratory effort, No retractions and No use of accessory muscles EFFORT & INSPECTION: Yes able to speak in complete sentences and No tachypneic AUSCULTATION: wheezes throughout OTHER: Coughing on exam Cardio: COMMON NORMALS: regular rate, regular rhythm and No murmurs present (Cardio) RATE: regular rate RHYTHM: regular rhythm GI: COMMON NORMALS: Soft to palpation and No hepatosplenomegaly present AUSCULTATION: Yes normoactive bowel sounds PALPATION: Yes Soft to palpation, No Tenderness to palpation present (GI), No Guarding due to palpation present (GI) and Yes No hepatosplenomegaly present Extremity: COMMON NORMALS: normal to inspection, capillary refill normal, no clubbing, cyanosis or edema, no calf tenderness and no pedal edema Neuro: SENSORIUM/ORIENTATION: Yes oriented to person, Yes oriented to place and Yes oriented to time Skin: COMMON NORMALS: no rashes or lesions noted GENERAL SKIN EXAM: no rashes or lesions noted Course Vital Signs: Vital signs: Vital Signs Temperature 97.7 F 01/27/23 12:42 Pulse Rate 90 01/27/23 12:42 Respiratory Rate 18 01/27/23 12:42 Blood Pressure 101/62 01/27/23 12:42 Pulse Oximetry 96 01/27/23 12:42 Oxygen Delivery Me thod Room Air 01/27/23 12:42 MDM - COVID Medical Decision Making Patient seen by PA student Mina Garcia. Documentation in the chart based on his history and exam. I had completed the discharge paperwork and was going to see the patient and was asked to attend another emergent matter. When I returned to the room the patient had been discharged. We did contact the patient and asked her to come back she evidently declined. Reviewed vitals and history. Patient encouraged to follow-up with primary care physician worsening changes symptoms Medical Records I reviewed the patient's medical records. Lab Data I reviewed the patient's lab results. Radiology Impressions Chest X-Ray 01/27/23 12:31 IMPRESSION: No acute findings. SARS-CoV-2 Antigen (Rapid) negative (Negative) 11/20/22 02:16 All radiology interpretation(s) finalized by discharge Discharge Plan Discharge Patient Disposition: Home Clinical Impression: COVID-19 Clinical Impression: (Ruled Out): Acute sinusitis Condition: Stable Prescriptions: New albuterol sulfate 90 mcg/actuation HFA aerosol inhaler 2 inh INHALATION Q4H PRN (Reason: shortness of breath or wheezing) Qty: 18 0RF Paxlovid 300 mg (150 mg x 2)-100 mg tablets,dose pack See Rx Instructions .ROUTE .COMPLEX Qty: 30 0RF Rx Instructions: take TWO 150 mg tablets of nirmatrelvir with ONE 100 mg tablet of ritonavir twice daily for 5 days No Action fluoxetine 40 mg capsule 20 mg PO DAILY (DME) FreeStyle Angy 2 [place] Misc See Rx Instructions .ROUTE Rx Instructions: As directed rosuvastatin [Crestor] 40 mg tablet 40 mg PO DAILY (DME) Dexcom G6 Sensor Device See Rx Instructions .ROUTE .MEDSUPPLY Qty: 6 3RF Rx Instructions: change every 10 days (DME) Dexcom G6 Transmitter Device See Rx Instructions .ROUTE .MEDSUPPLY Qty: 1 3RF Rx Instructions: change every 3 months (DME) Dexcom G6 Cleaner Window Misc See Rx Instructions .ROUTE .MEDSUPPLY Qty: 1 3RF Rx Instructions: new leisure studies professor once a year (DME) pen needle, diabetic [TechLITE Pen Needle] 32 gauge x 5/32 needle See Rx Instructions .ROUTE .COMPLEX Qty: 100 3RF Dose Instruction: USE DIRECTED Rx Instructions: USE DIRECTED insulin degludec [Tresiba FlexTouch U-100] 100 unit/mL (3 mL) insulin pen See Rx Instructions .ROUTE .COMPLEX Qty: 24 0RF Dose Instruction: INJECT 60 UNITS (0.8ML) SUBCUTANEOUSLY EVERY DAY Rx Instructions: INJECT 60 UNITS (0.8ML) SUBCUTANEOUSLY EVERY DAY insulin glargine [Lantus Solostar U-100 Insulin] 100 unit/mL (3 mL) insulin pen 74 unit SUBCUT DAILY 90 Days Qty: 75 2RF hydroxyzine HCl 25 mg Tablet 25 mg PO TID PRN (Reason: Itching) nitroglycerin 0.4 mg tablet, sublingual 0.4 mg sublingual Q5M PRN (Reason: chest pain) Qty: 30 0RF Rx Instructions: do not exceed 3 doses per episode multivitamin Tablet 1 tab PO DAILY aspirin 81 mg Tablet,Delayed Release (Dr/Ec) 81 mg PO DAILY Discharge Orders: Discharge ED (Routine); Ordered 01/27/23 Ordered By: Rafael Hill Referrals: Joy Mccray FNP [Primary Care Provider] - Discharge Diet: Usual diet Discharge Activity: Resume usual activity Patient Instructions: COVID-19 (Coronavirus Disease 2019) (ED), Opioid Safety, Pain Management Activity Restrictions/Additional Instructions: Thank you for choosing [facility] for your healthcare needs today. Please realize this is an emergency room and that we are providing you with a medical screening exam and this may not be complete and all inclusive of all the testing and or work up that you may need to determine your ailment or severity of your illness. It is very important that you follow up as instructed or that you return to the Emergency Department should you have concerns or if your condition changes or worsens in any way. Use albuterol as needed for cough or wheezing. You can use Paxlovid the prescription was given today it suppresses the virus but does not cure it you will likely still be symptomatic after the end of 7days of the medications. Coding Level of Care Code ED Court Attendant for Dora Sparks
== END 2023-01-27 15:25 | disposition home or self-care (01) ==
PROVIDERS: Emergency Provider Family Medicine; PCP Nurse Practitioner Family
DX: U07.1 COVID-19 (principal); Z79.82 Long term (current) use of aspirin; Z79.4 Long term (current) use of insulin; Z72.0 Tobacco use; I25.10 Atherosclerotic heart disease of native coronary artery without angina pectoris; E11.40 Type 2 diabetes mellitus with diabetic neuropathy, unspecified
CPT/HCPCS: 71045; 99283

== ENCOUNTER 2023-03-03 08:05 | Outpatient (CLI) | payer OTHER, SELFPAY ==
[2023-03-03 08:38] LABS: Estmated Average Glucose 272; Hemoglobin A1C 11.1 % (4.0-6.0)
[2023-03-03 08:50] LABS: Alanine Aminotransferase 40 U/L (0-33); Albumin Level 4.3 g/dL (3.5-5.2); Alkaline Phosphatase 103 U/L (35-105); Anion Gap 15.2 (5-19); Aspartate Amino Transferase 33 U/L (0-32); Blood Urea Nitrogen 27 mg/dL (6-20); Calcium 9.6 mg/dL (8.5-10.5); Carbon Dioxide 25 mmol/L (22-29); Chloride 106 mmol/L (98-107); Chol HDL Ratio 7.03 mg/dL (0.0-4.40); Cholesterol 281 mg/dL (0-200); Globulin 3.1 g/dL (1.3-4.6); Glucose 223 mg/dL (65-115); HDL Cholesterol 40 mg/dL (60-100); LDL Cholesterol Calculated 175 mg/dL (50-129); LDL HDL Ratio 4.38 RATIO (0.00-3.22); Osmolality Calculated 306 mOsm/kg (285-295); Potassium 4.2 mmol/L (3.5-5.1); Sodium 142 mmol/L (136-145); Total Bilirubin 0.3 mg/dL (0.15-1.2); Total Protein 7.4 g/dL (6.6-8.7); Triglycerides 331 mg/dL (0-150)
[2023-03-03 08:51] LABS: Creatinine Urine, Random 139 mg/dL (28-217); Microalbumin Random Urine 24 ug/dL (0-20)
[2023-03-03 08:54] LABS: Microalbum Creatinine Ratio Ur 173 mg/dL (0-20)
== END 2023-03-03 08:06 | disposition home or self-care (01) ==
LOC: LAB 08:07
PROVIDERS: PCP Nurse Practitioner Family; Visit Provider Internal Medicine
DX: E11.40 Type 2 diabetes mellitus with diabetic neuropathy, unspecified; I25.10 Atherosclerotic heart disease of native coronary artery without angina pectoris; Z79.899 Other long term (current) drug therapy
CPT/HCPCS: 36415; 80053; 80061; 82044; 83036

== ENCOUNTER 2023-05-16 10:27 | Outpatient (CLI) | payer OTHER, SELFPAY ==
--- NOTE | 2023-05-16 10:37 | XRR_ITS ---
PROCEDURE INFORMATION: Exam: XR Left Knee Exam date and time: 05/16/2023 10:47 AM Age: 53 years old Clinical indication: Patient HX: Left knee pain for 3 weeks after doing yoga; Additional info: L knee pain TECHNIQUE: Imaging protocol: Radiologic exam of the left knee. Views: 3 views. COMPARISON: CR XR knee LT 3V* [id number] 12/12/2019 9:47 AM FINDINGS: Bones/joints: Surgical clips in the medial mid to lower thigh. No erosion or chondrocalcinosis. No acute osseous or joint abnormality. Soft tissues: Normal. Vasculature: Arterial calcifications. XR/XR knee LT 3V* [id number] IMPRESSION: No acute findings.
== END 2023-05-16 10:28 | disposition home or self-care (01) ==
LOC: RAD 10:30
PROVIDERS: PCP Nurse Practitioner Family; Visit Provider Family Medicine
DX: M25.562 Pain in left knee (principal)
CPT/HCPCS: 73562

== ENCOUNTER 2023-06-05 08:21 | Outpatient (CLI) | payer OTHER, SELFPAY ==
[2023-06-05 09:15] LABS: Alanine Aminotransferase 43 U/L (0-33); Alkaline Phosphatase 85 U/L (35-105); Anion Gap 14.6 (5-19); Aspartate Amino Transferase 44 U/L (0-32); Blood Urea Nitrogen 19 mg/dL (6-20); Calcium 9.3 mg/dL (8.5-10.5); Carbon Dioxide 25 mmol/L (22-29); Chloride 104 mmol/L (98-107); Chol HDL Ratio 3.31 mg/dL (0.0-4.40); Cholesterol 119 mg/dL (0-200); Globulin 3.2 g/dL (1.3-4.6); Glucose 249 mg/dL (65-115); HDL Cholesterol 36 mg/dL (60-100); LDL Cholesterol Calculated 37 mg/dL (50-129); LDL HDL Ratio 1.03 RATIO (0.00-3.22); Osmolality Calculated 299 mOsm/kg (285-295); Potassium 4.6 mmol/L (3.5-5.1); Sodium 139 mmol/L (136-145); Total Bilirubin 0.3 mg/dL (0.15-1.2); Total Protein 7.2 g/dL (6.6-8.7); Triglycerides 232 mg/dL (0-150)
[2023-06-05 09:16] LABS: Creatinine Urine, Random 162 mg/dL (28-217); Microalbumin Random Urine 17 ug/dL (0-20)
[2023-06-05 09:22] LABS: Estmated Average Glucose 249; Hemoglobin A1C 10.3 % (4.0-6.0)
[2023-06-05 09:27] LABS: Microalbum Creatinine Ratio Ur 105 mg/dL (0-20)
== END 2023-06-05 08:22 | disposition home or self-care (01) ==
LOC: LAB 08:23
PROVIDERS: PCP Nurse Practitioner Family; Visit Provider Internal Medicine
DX: E11.9 Type 2 diabetes mellitus without complications (principal); E78.00 Pure hypercholesterolemia, unspecified
CPT/HCPCS: 36415; 80053; 80061; 82044; 83036

== ENCOUNTER 2023-06-17 09:11 | Emergency (ER) | payer OTHER, SELFPAY ==
[2023-06-17 09:16] VITALS: BP 98/74; PULSE 108; RESP 16; TEMP 36.9; O2SAT 98; BMI 24.5
--- NOTE | 2023-06-17 09:23 | XRR_ITS ---
PROCEDURE INFORMATION: Exam: XR Chest Exam date and time: 06/17/2023 9:32 AM Age: 53 years old Clinical indication: Cough and dyspnea; Additional info: Dyspnea/cough TECHNIQUE: Imaging protocol: Radiologic exam of the chest. Views: 1 view. COMPARISON: CR XR chest 1V portable [id number] 01/27/2023 12:51 PM FINDINGS: Lungs: Unremarkable. No consolidation. Pleural spaces: Unremarkable. No pleural effusion. No pneumothorax. Heart/Mediastinum: Unremarkable. No cardiomegaly. Bones/joints: Unremarkable. There are sternal wires consistent with previous sternotomy incision. XR/XR chest 1V portable [id number] IMPRESSION: No acute findings.
--- NOTE | 2023-06-17 09:25 | W.ED.DIZZY ---
HPI - Dizziness General: Chief Complaint: Dizziness Stated Complaint: Dizzy/ Headache Time Seen by Provider: 06/17/23 09:18 Source: patient Mode of arrival: ambulatory History of Present Illness: Associated symptoms: Denies chest pain or chills Review of Systems Const: Denies: fever(s) or chills Card: Denies: chest pain Resp: Denies: dyspnea GI: Denies: abdominal pain : Denies: dysuria, urinary frequency or urinary urgency Musc: Denies: neck pain or back pain Skin/Breast: Denies: rash PFSH ED PFSH: Medical History Skin lesions CAD (coronary artery disease) Folliculitis Diabetic neuropathy Coronary artery 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 2 diabetes mellitus Uncontrolled type 2 diabetes mellitus Diabetes Hypercholesterolemia Surgical History H/O heart bypass surgery [place]- 03/02/22 Status post colonoscopy (10/01/19) H/O: hysterectomy H/O heart artery stent 5 years ago H/O melanoma excision Family History Father CAD (coronary artery disease) Diabetes Grandfather CAD (coronary artery disease) Diabetes Grandmother CAD (coronary artery disease) Cancer lung Diabetes Denies family history of Anesthesia complication Bleeding disorder Social History Smoking and tobacco/nicotine status: current every day tobacco/nicotine user Alcohol intake: never Substance/Drug Use: never Household members: spouse Marital status: Current occupational status: employed Physical Exam Const: COMMON NORMALS: no acute distress GENERAL APPEARANCE: cooperative and comfortable ORIENTATION/CONSCIOUSNESS: Yes awake, Yes oriented to person, Yes oriented to place and Yes oriented to time HENMT: COMMON NORMALS: normocephalic, atraumatic and hearing grossly normal bilaterally HEAD & SCALP: normocephalic and atraumatic Resp: COMMON NORMALS: normal respiratory effort, No retractions, No use of accessory muscles and clear to auscultation bilaterally AUSCULTATION: clear to auscultation bilaterally Cardio: COMMON NORMALS: regular rate, regular rhythm and No murmurs present (Cardio) RATE: regular rate RHYTHM: regular rhythm GI: COMMON NORMALS: Soft to palpation and No hepatosplenomegaly present AUSCULTATION: Yes normoactive bowel sounds PALPATION: Yes Soft to palpation, No Tenderness to palpation present (GI), No Guarding due to palpation present (GI) and Yes No hepatosplenomegaly present Extremity: COMMON NORMALS: normal to inspection, capillary refill normal, no clubbing, cyanosis or edema, no calf tenderness and no pedal edema Neuro: SENSORIUM/ORIENTATION: Yes oriented to person, Yes oriented to place and Yes oriented to time Skin: COMMON NORMALS: no rashes or lesions noted GENERAL SKIN EXAM: no rashes or lesions noted Course Vital Signs: Vital signs: Vital Signs Temperature 98.5 F 06/17/23 09:16 Pulse Rate 108 H 06/17/23 09:16 Respiratory Rate 16 06/17/23 09:16 Blood Pressure 98/74 06/17/23 09:16 Pulse Oximetry 98 06/17/23 09:16 Discharge Plan Discharge Condition: Stable Prescriptions: No Action fluoxetine 40 mg capsule 20 mg PO DAILY (DME) Dexcom G6 Sensor Device See Rx Instructions .ROUTE .MEDSUPPLY Qty: 6 3RF Rx Instructions: change every 10 days (DME) Dexcom G6 Transmitter Device See Rx Instructions .ROUTE .MEDSUPPLY Qty: 1 3RF Rx Instructions: change every 3 months rosuvastatin [Crestor] 40 mg tablet 40 mg PO DAILY Qty: 90 0RF Ozempic 1 mg/dose (4 mg/3 mL) pen injector 1 mg SUBCUT Q7D Qty: 3 1RF rosuvastatin [Crestor] 40 mg tablet 40 mg PO DAILY (DME) Dexcom G6 Generating Station Mechanic Misc See Rx Instructions .ROUTE .MEDSUPPLY Qty: 1 3RF Rx Instructions: new montessori teacher once a year (DME) pen needle, diabetic [TechLITE Pen Needle] 32 gauge x 5/32 needle See Rx Instructions .ROUTE .COMPLEX Qty: 100 3RF Dose Instruction: USE DIRECTED Rx Instructions: USE DIRECTED Humulin R U-500 (Conc) Kwikpen 500 unit/mL (3 mL) insulin pen 100 unit SUBCUT BID Qty: 36 2RF hydroxyzine HCl 25 mg Tablet 25 mg PO TID PRN (Reason: Itching) nitroglycerin 0.4 mg tablet, sublingual 0.4 mg sublingual Q5M PRN (Reason: chest pain) Qty: 30 0RF Rx Instructions: do not exceed 3 doses per episode multivitamin Tablet 1 tab PO DAILY aspirin 81 mg Tablet,Delayed Release (Dr/Ec) 81 mg PO DAILY albuterol sulfate 90 mcg/actuation HFA aerosol inhaler 2 inh INHALATION Q4H PRN (Reason: shortness of breath or wheezing) Qty: 18 0RF Paxlovid 300 mg (150 mg x 2)-100 mg tablets,dose pack See Rx Instructions .ROUTE .COMPLEX Qty: 30 0RF Rx Instructions: take TWO 150 mg tablets of nirmatrelvir with ONE 100 mg tablet of ritonavir twice daily for 5 days Referrals: Joy Mccray DIRECTOR OF MATERIALS [Primary Care Provider] - Coding Level of Care Code ED Commercial Analyst for Dora Sparks
--- NOTE | 2023-06-17 09:29 | ECG_ITS ---
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 Measurements Intervals Sasser Rate: 103 P: 6 KS: 154 QRS: 65 QRSD: 89 T: 82 QT: 340 QTc: 445 Interpretive Statements SINUS TACHYCARDIA Compared to ECG 11/20/2022 09:46:56 Sinus rhythm no longer present T-wave abnormality no longer present Electronically Signed On 06-17-2023 15:51:50 CDT by Eric Moses M.D. [id number]
--- NOTE | 2023-06-17 09:44 | ED_ITS ---
HPI - General Adult 2 General: Chief complaint: Dizziness Stated complaint: Dizzy/ Headache Time Seen by Provider: 06/17/23 09:18 Source: patient Mode of arrival: ambulatory History of Present Illness: 53-year-old female arrives to the emerge ncy room complaining of bilateral flank pain headache dizziness. Generally not feeling well blood sugars have been difficult to monitor she malfunction with her Dexcom this morning. She did take naproxen for headache she denies any vomiting or diarrhea but has been very nauseous. Generally not feeling well. No chest or abdominal pain moderate flank pain no gross hematuria no history of renal stones Associated symptoms: Reports decreased appetite, malaise, nausea and other; Deny chest pain, confusion, cough, diaphoresis, dyspnea, fevers/chills, headache(s), rash, palpitations, seizures, short of breath, syncope, vomiting or weakness Treatments prior to arrival: NSAID Review of Systems 2 Const: Reports: malaise; Denies: fever(s), chills or diaphoresis Card: Denies: chest pain, palpitations or syncope Resp: Denies: dyspnea GI: Reports: nausea; Denies: abdominal pain or vomiting : Denies: dysuria, urinary frequency or urinary urgency Musc: Denies: neck pain or back pain Skin/Breast: Denies: rash Neuro: Denies: headache(s) or confusion PFSH ED 2 PFSH: Medical History Skin lesions CAD (coronary artery disease) Folliculitis Diabetic neuropathy Coronary artery 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 2 diabetes mellitus Uncontrolled type 2 diabetes mellitus Diabetes Hypercholesterolemia Surgical History H/O heart bypass surgery [place]- Last Monday03/02/22 Status post colonoscopy (10/01/19) H/O: hysterectomy H/O heart artery stent 5 years ago H/O melanoma excision Family History Father CAD (coronary artery disease) Diabetes Grandfather CAD (coronary artery disease) Diabetes Grandmother CAD (coronary artery disease) Cancer lung Diabetes Denies family history of Anesthesia complication Bleeding disorder Social History Smoking and tobacco/nicotine status: current every day tobacco/nicotine user Alcohol intake: never Substance/Drug Use: never Household members: spouse Marital status: Current occupational status: employed Physical Exam 2 Const: GENERAL APPEARANCE: cooperative ORIENTATION/CONSCIOUSNESS: Yes awake, Yes oriented to person, Yes oriented to place and Yes oriented to time HENMT: COMMON NORMALS: normocephalic, atraumatic and hearing grossly normal bilaterally HEAD & SCALP: normocephalic and atraumatic Resp: COMMON NORMALS: normal respiratory effort, No retractions, No use of accessory muscles and clear to auscultation bilaterally AUSCULTATION: clear to auscultation bilaterally Cardio: COMMON NORMALS: regular rate, regular rhythm and No murmurs present (Cardio) RATE: regular rate RHYTHM: regular rhythm GI: COMMON NORMALS: Soft to palpation and No hepatosplenomegaly present A USCULTATION: Yes normoactive bowel sounds PALPATION: Yes Soft to palpation, No Tenderness to palpation present (GI), No Guarding due to palpation present (GI) and Yes No hepatosplenomegaly present : COMMON NORMALS: Yes no CVA tenderness BLADDER/KIDNEY EXAM: Yes no CVA tenderness Back/Pelvis: COMMON NORMALS: no CVA tenderness Extremity: COMMON NORMALS: normal to inspection, capillary refill normal, no clubbing, cyanosis or edema, no calf tenderness and no pedal edema Neuro: SENSORIUM/ORIENTATION: Yes oriented to person, Yes oriented to place and Yes oriented to time Skin: COMMON NORMALS: no rashes or lesions noted GENERAL SKIN EXAM: no rashes or lesions noted Course 2 Vital Signs: Vital signs: Vital Signs Temperature 98.5 F 06/17/23 09:16 Pulse Rate 101 H 06/17/23 11:45 Respiratory Rate 18 06/17/23 11:45 Blood Pressure 132/87 06/17/23 11:45 Pulse Oximetry 97 06/17/23 11:45 [facility] - General Adult Medical Decision Making Laboratory test reviewed. No sign of DKA no sign of sepsis lactic acid ketones are all normal. No leukocytosis patient given 2 L of fluids insulin and initial dose of IV antibiotics discharged home with Bactrim to start tomorrow monitor blood sugars closely return with worsening symptoms Medical Records I reviewed the patient's medical records. Lab Data I reviewed the patient's lab results. 06/17/23 09:49 03/23/24 09:49 Radiology Impressions Chest X-Ray 06/17/23 09:23 IMPRESSION: No acute findings. Laboratory Results WBC 5.61 10^3/uL (3.29-11.43) 06/17/23 09:49 RBC 3.82 10^6/uL (3.85-5.65) L 06/17/23 09:49 Hgb 10.80 g/dL (11.27-16.99) L 06/17/23 09:49 Hct 33.1 % (36-47) L 06/17/23 09:49 MCV 86.6 fl (85-98) 06/17/23 09:49 MCH 28.3 pg (27-33) 06/17/23 09:49 MCHC 32.6 g/dL (30-55) 06/17/23 09:49 RDW 13.7 % (12.1-15.1) 06/17/23 09:49 Plt Count 142 10^3/cmm (157-399) L 06/17/23 09:49 MPV 9.7 fL (7.4-10.4) 06/17/23 09:49 Neut % (Auto) 77.9 % 06/17/23 09:49 Lymph % (Auto) 14.6 % 06/17/23 09:49 Orange % (Auto) 6.4 % 06/17/23 09:49 Eos % (Auto) 0.2 % 06/17/23 09:49 Baso % (Auto) 0.4 % 06/17/23 09:49 Neut # (Auto) 4.37 10^3/uL (1.8-7.7) 06/17/23 09:49 Lymph # (Auto) 0.8 10^3/uL (0.8-4.8) 06/17/23 09:49 Orange # (Auto) 0.4 10^3/uL (0.2-0.9) 06/17/23 09:49 Eos # (Auto) 0.0 10^3/uL (0.0-0.8) 06/17/23 09:49 Baso # (Auto) 0.0 10^3/uL (0.0-0.1) 06/17/23 09:49 Nucleated RBC % (auto) 0 % 06/17/23 09:49 Nucleated RBCs # 0.0 /100WBC 06/17/23 09:49 Specimen Type Arterial 06/17/23 09:42 Sample Site Brachial, left 06/17/23 09:42 ABG pH 7.40 (7.35-7.45) 06/17/23 09:42 ABG pCO2 36.7 mmHg (35-45) 06/17/23 09:42 ABG pO2 74.6 mmHg (80.0-100.0) L 06/17/23 09:42 ABG PO2/FiO2 Ratio 0 06/17/23 09:42 ABG HCO3 22.5 mmol/L (22-26) 06/17/23 09:42 ABG O2 Saturation 96.0 06/17/23 09:42 ABG Base Excess -2.0 mmol/L (-2.0-2.0) 06/17/23 09:42 Noe Test Pos 06/17/23 09:42 A-a O2 Gradient 4.0 mmHg (5-10) L 06/17/23 09:42 Hematocrit 34.5 % (37-47) L 06/17/23 09:42 Hgb O2 Saturation 94.8 % (95-100) L 06/17/23 09:42 Carboxyhemoglobin 1.0 %THgb (0.4-20.1) 06/17/23 09:42 Methemoglobin 0.4 % (0.4-1.5) 06/17/23 09:42 Total Hemoglobin 11.2 g/dL (12-16) L 06/17/23 09:42 Sodium 137.0 mmol/L (131-143) 06/17/23 09:42 Potassium 4.0 mmol/L (3.5-5.0) 06/17/23 09:42 Glucose 312.0 mg/dL (70-115) H 06/17/23 09:42 Ionized Calcium 1.3 mmol/L (1.1-1.4) 06/17/23 09:42 O2 Delivery Device Room air 06/17/23 09:42 FiO2 21.0 % 06/17/23 09:42 Assistant Chief Train Dispatcher ID [place] 06/17/23 09:42 Sodium 134 mmol/L (136-145) L 06/17/23 09:49 Potassium 4.3 mmol/L (3.5-5.1) 06/17/23 09:49 Chloride 100 mmol/L (98-107) 06/17/23 09:49 Carbon Dioxide 24 mmol/L (22-29) 06/17/23 09:49 Anion Gap 14.3 (5-19) 06/17/23 09:49 BUN 22 mg/dL (6-20) H 06/17/23 09:49 Creatinine 1.1 mg/dL (0.5-0.9) H 06/17/23 09:49 GFR Calculation 52.4 mL/min (90-130) L 06/17/23 09:49 Glucose 332 mg/dL (65-115) H 06/17/23 09:49 POC Glucose 220 mg/dL (70-110) H 06/17/23 11:26 Calculated Osmolality 294 mOsm/kg (285-295) 06/17/23 09:49 Lactic Acid 1.7 mmol/L (0.5-2.2) 06/17/23 09:49 Calcium 9.1 mg/dL (8.5-10.5) 06/17/23 09:49 Total Bilirubin 0.5 mg/dL (0.15-1.2) 06/17/23 09:49 AST 41 U/L (0-32) H 06/17/23 09:49 ALT 56 U/L (0-33) H 06/17/23 09:49 Alkaline Phosphatase 101 U/L (35-105) 06/17/23 09:49 Total Protein 7.3 g/dL (6.6-8.7) 06/17/23 09:49 Albumin 4.1 g/dL (3.5-5.2) 06/17/23 09:49 Globulin 3.2 g/dL (1.3-4.6) 06/17/23 09:49 Lipase 51 U/L (13-60) 06/17/23 09:49 Urine Color Straw (Yellow) 06/17/23 09:36 Urine Appearance Cloudy (CLEAR) A 06/17/23 09:36 Urine pH 5 (5-7) 06/17/23 09:36 Ur Specific [place] 1.015 (1.005-1.030) 06/17/23 09:36 Urine Protein Trace (Negative) 06/17/23 09:36 Urine Glucose (UA) 4+ (Normal) H 06/17/23 09:36 Urine Ketones Negative (Negative) 06/17/23 09:36 Urine Blood 2+ (Negative) H 06/17/23 09:36 Urine Nitrate Positive (Negative) H 06/17/23 09:36 Urine Bilirubin Neg (Negative) 06/17/23 09:36 Urine Urobilinogen Neg mg/dL (Negative) 06/17/23 09:36 Ur Leukocyte Esterase 1+ (Negative) H 06/17/23 09:36 Urine RBC 0-4 /hpf (0-2) H 06/17/23 09:36 Urine WBC >100 /hpf (0-5) H 06/17/23 09:36 Ur Squamous Epith Cells 0-4 /hpf (0-5) H 06/17/23 09:36 Amorphous Sediment Not Reportable 06/17/23 09:36 Urine Bacteria 3+ /hpf (NONE) H 06/17/23 09:36 Serum Ketones Negative (Negative) 06/17/23 09:49 All radiology interpretation(s) finalized by discharge Discharge Plan Discharge Patient Disposition: Home Clinical Impression: Cystitis, Diabetes mellitus, Anemia Condition: Stable Prescriptions: New Bactrim DS 800-160 mg tablet 1 tab PO BID 7 Days Qty: 14 0RF promethazine 25 mg tablet 25 mg PO Q6H PRN (Reason: nausea and vomiting) Qty: 20 0RF No Action fluoxetine 40 mg capsule 40 mg PO QAM (DME) Dexcom G6 Sensor Device See Rx Instructions .ROUTE .MEDSUPPLY Qty: 6 3RF Rx Instructions: change every 10 days (DME) Dexcom G6 Transmitter Device See Rx Instructions .ROUTE .MEDSUPPLY Qty: 1 3RF Rx Instructions: change every 3 months Ozempic 1 mg/dose (4 mg/3 mL) pen injector 1 mg SUBCUT Q7D Qty: 3 1RF Rx Instructions: on sat (DME) Dexcom G6 Wallpaperer Misc See Rx Instructions .ROUTE .MEDSUPPLY Qty: 1 3RF Rx Instructions: new mattress and foundation sewer once a year (DME) pen needle, diabetic [TechLITE Pen Needle] 32 gauge x 5/32 needle See Rx Instructions .ROUTE .COMPLEX Qty: 100 3RF Dose Instruction: USE DIRECTED Rx Instructions: USE DIRECTED hydroxyzine HCl 25 mg Tablet 25 mg PO Q6H PRN (Reason: Itching) nitroglycerin 0.4 mg tablet, sublingual 0.4 mg sublingual Q5M PRN (Reason: chest pain) Qty: 30 0RF Rx Instructions: do not exceed 3 doses per episode multivitamin Tablet 1 tab PO DAILY aspirin 81 mg Tablet,Delayed Release (Dr/Ec) 81 mg PO QAM albuterol sulfate 90 mcg/actuation HFA aerosol inhaler 2 inh INHALATION Q4H PRN (Reason: shortness of breath or wheezing) Qty: 18 0RF amitriptyline 25 mg tablet 25 mg PO BEDTIME naproxen 500 mg tablet 500 mg PO Q12H PRN (Reason: Pain) Crestor 40 mg tablet 40 mg PO QAM Humulin R U-500 (Conc) Kwikpen 500 unit/mL (3 mL) insulin pen See Rx Instructions .ROUTE .COMPLEX Rx Instructions: 140 units subcutaneously qam and 100 units at bedtime Discharge Orders: Discharge ED (Routine); Ordered 06/17/23 Ordered By: Rafael Hill Referrals: Joy Mccray FNP [Primary Care Provider] - Discharge Diet: Usual diet Discharge Activity: Increase activity as tolerated Patient Instructions: Opioid Safety, Pain Management Activity Restrictions/Additional Instructions: Thank you for choosing [facility] for your healthcare needs today. Please realize this is an emergency room and that we are providing you with a medical screening exam and this may not be complete and all inclusive of all the testing and or work up that you may need to determine your ailment or severity of your illness. It is very important that you follow up as instructed or that you return to the Emergency Department should you have concerns or if your condition changes or worsens in any way. You are seen today with complaint of headache dizziness flank pain. Your laboratory test did not show signs of diabetic ketoacidosis. Your blood sugar was high. You were given insulin and IV fluids. Your white count was normal and lactic acid was normal urine did show signs of bladder infection. You were given initial dose of IV antibiotics in the emergency room start the oral antibiotics tomorrow. Coding Level of Care Code ED Metal Bonding Crib Attendant for Dora Sparks
[2023-06-17] MEDS: sodium chloride 0.9% 1,000 ML 999 ML IV ×2 (09:51→11:07)
--- NOTE | 2023-06-17 09:52 | PC.PHAR ---
pt states she takes care of her own medications-pt states she uses humulin r u-500 kwikpen uses 140 units qam and 100 units hs ext shows last filled 05/23/23 73d/s 100 units bid-pt states she uses ozempic 1mg q7d filled 06/07/23 pt states was on the 2mg q7d ext shows last filled 05/30/[address] decreased to 1mg q7d-pt states she does not take prilosec 20mg daily ext shows last filled 05/22/23-
[2023-06-17 09:59] LABS: ABG PCO2 36.7 mmHg (35-45); Arterial Blood Gas Hematocrit 34.5 % (37-47); Blood Gas Allen Test Pos; Blood Gas Operator Identificat MONRO; Blood Gas Sample Site Brachial, left; Blood Gas Sample Type Arterial; HCO3 ABG 22.5 mmol/L (22-26); HGB O2 Sat 94.8 % (95-100); Ionized Calcium Level - ABG 1.3 mmol/L (1.1-1.4); Methemoglobin 0.4 % (0.4-1.5); Oxygen Device ROOM AIR; PO2 ABG 74.6 mmHg (80.0-100.0); PO2 FiO2 Ratio Arterial Blood 0; Total Hemoglobin 11.2 g/dL (12-16)
[2023-06-17 10:06] VITALS: BP 124/67; PULSE 103; RESP 18; O2SAT 100
[2023-06-17 10:07] LABS: Glucose Point of Care 316 mg/dL (70-110)
[2023-06-17 10:09] LABS: Basophils % 0.4 %; Eosinophils % 0.2 %; Hematocrit 33.1 % (36-47); Lymphocytes # 0.8 10^3/uL (0.8-4.8); Lymphocytes % 14.6 %; Mean Corpuscular HGB Conc 32.6 g/dL (30-55); Mean Corpuscular Hemoglobin 28.3 pg (27-33); Mean Corpuscular Volume 86.6 fl (85-98); Mean Platelet Volume 9.7 fL (7.4-10.4); Monocytes # 0.4 10^3/uL (0.2-0.9); Monocytes % 6.4 %; Neutrophils # 4.37 10^3/uL (1.8-7.7); Neutrophils % 77.9 %; Nucleated Red Blood Cells % 0 %; Platelet Count 142 10^3/cmm (157-399); Red Blood Count 3.82 10^6/uL (3.85-5.65); Red Cell Distribution Width 13.7 % (12.1-15.1); White Blood Count 5.61 10^3/uL (3.29-11.43)
[2023-06-17 10:10] LABS: Add Urine Microscopic? YES; Bilirubin Urine Neg (Negative); Blood Urine 2+ (Negative); Glucose Urine UA 4+ (Normal); Ketones Urine Negative (Negative); Leukocyte Esterase Urine 1+ (Negative); Nitrate Urine Positive (Negative); Protein Urine Trace (Negative); Specific Gravity, Urine 1.015 (1.005-1.030); Urine Appearance Cloudy (CLEAR); Urine Color Straw (Yellow); Urobilinogen Urine Neg (Negative); pH Urine 5 (5-7)
[2023-06-17 10:11] LABS: RBC Urine 0-4 /hpf (0-2); WBC Urine >100 /hpf (0-5)
[2023-06-17 10:12] LABS: Add Urine Culture? Yes; Bacteria Urine 3+ /hpf; Squamous Epithelial Cell Urine 0-4 /hpf (0-5)
[2023-06-17 10:25] LABS: Alanine Aminotransferase 56 U/L (0-33); Albumin Level 4.1 g/dL (3.5-5.2); Alkaline Phosphatase 101 U/L (35-105); Anion Gap 14.3 (5-19); Aspartate Amino Transferase 41 U/L (0-32); Blood Urea Nitrogen 22 mg/dL (6-20); Calcium 9.1 mg/dL (8.5-10.5); Carbon Dioxide 24 mmol/L (22-29); Chloride 100 mmol/L (98-107); Creatinine Clr Calc Pharmacy 60.3274; Globulin 3.2 g/dL (1.3-4.6); Glomerular Filtration Rate 52.4 mL/min (90-130); Glucose 332 mg/dL (65-115); Lipase 51 U/L (13-60); Osmolality Calculated 294 mOsm/kg (285-295); Potassium 4.3 mmol/L (3.5-5.1); Sodium 134 mmol/L (136-145); Total Bilirubin 0.5 mg/dL (0.15-1.2); Total Protein 7.3 g/dL (6.6-8.7)
[2023-06-17 10:26] LABS: Lactic Sepsis W/Reflex 1.7 mmol/L (0.5-2.2)
[2023-06-17 10:29] LABS: Ketone (Acetest) Serum Negative (Negative)
[2023-06-17] MEDS: cefTRIAXone 2,000 MG in sodium chloride 0.9% (plus) 50 ML 100 MG IV (10:55)
[2023-06-17] MEDS: insulin regular-human 100 units/1 mL 10 UNIT IVP ×2 (10:56→11:47)
[2023-06-17 11:00] VITALS: BP 155/73; PULSE 111; RESP 12; O2SAT 98
[2023-06-17 11:29] LABS: Glucose Point of Care 220 mg/dL (70-110)
[2023-06-17 11:45] VITALS: BP 132/87; PULSE 101; RESP 18; O2SAT 97
[2023-06-17 12:07] LABS: Glucose Point of Care 174 mg/dL (70-110)
[2023-06-17 12:16] VITALS: BP 129/54; PULSE 111; RESP 24; O2SAT 97
[2023-06-18 03:23] LABS: Acinetobacter baumannii Not Detected (NOT DETECT); Bacteroides fragilis Not Detected (NOT DETECT); CTX-M Not Detected (NOT DETECT); Citrobacter Not Detected (NOT DETECT); Cronobacter sakazakii Not Detected (NOT DETECT); Enterobacter cloacae complex Not Detected (NOT DETECT); Enterobacter non cloacae Not Detected (NOT DETECT); Fusobacterium necrophorum Not Detected (NOT DETECT); Fusobacterium nucleatum Not Detected (NOT DETECT); Haemophilus influenzae Not Detected (NOT DETECT); IMP Resistance Gene Not Detected (NOT DETECT); KPC Resistance Gene Not Detected (NOT DETECT); Klebsiella pneumoniae group Not Detected (NOT DETECT); Morganella morganii Not Detected (NOT DETECT); NDM Resistance Gene Not Detected (NOT DETECT); Neisseria meningitidis Not Detected (NOT DETECT); OXA Resistance Gene Not Detected (NOT DETECT); Pan Candida Not Detected (NOT DETECT); Pan Gram-Positive Not Detected (NOT DETECT); Proteus mirabilis Not Detected (NOT DETECT); Pseudomonas aeruginosa Not Detected (NOT DETECT); Salmonella Not Detected (NOT DETECT); Serratia Not Detected (NOT DETECT); Serratia marcescens Not Detected (NOT DETECT); Stenotrophomonas maltophilia Not Detected (NOT DETECT); VIM Resistance Gene Not Detected (NOT DETECT)
== END 2023-06-17 12:10 | disposition home or self-care (01) ==
PROVIDERS: Emergency Provider Family Medicine; PCP Nurse Practitioner Family
DX: N30.90 Cystitis, unspecified without hematuria (principal); E11.9 Type 2 diabetes mellitus without complications; D64.9 Anemia, unspecified; Z79.82 Long term (current) use of aspirin; Z79.4 Long term (current) use of insulin; I25.10 Atherosclerotic heart disease of native coronary artery without angina pectoris; E11.42 Type 2 diabetes mellitus with diabetic polyneuropathy; Z72.0 Tobacco use
CPT/HCPCS: 36415; 36416; 36600; 71045; 80051; 80053; 81001; 82009; 82330; 82805; 82962; 83605; 83690; 85025; 87040; 87077; 87086; 87150; 87186; 87205; 93005; 96361; 96365; 96375; 96376; 99285; J0696; J1815; J7030

== ENCOUNTER 2023-06-17 20:36 | Inpatient (IN) | payer OTHER, SELFPAY ==
[2023-06-17 20:38] VITALS: BP 115/71; PULSE 108; RESP 24; TEMP 38.2; O2SAT 95; BMI 24.5
--- NOTE | 2023-06-17 20:52 | XRR_ITS ---
PROCEDURE INFORMATION: Exam: XR Chest Exam date and time: 06/17/2023 9:05 PM Age: 53 years old Clinical indication: Fever; Prior surgery; Surgery date: 6+ months; Surgery type: Cabg. Coronary stent; Additional info: Fever, sepsis criteria TECHNIQUE: Imaging protocol: Radiologic exam of the chest. Views: 1 view. COMPARISON: CR (CHEST, ) 06/17/2023 9:32 AM FINDINGS: Lungs: Septal lines noted at the right lung base. Lungs are otherwise clear. Pleural spaces: No pleural effusion. No pneumothorax. Heart/Mediastinum: Cardiac silhouette is normal in size for technique. Vasculature: Mediastinal surgical clips and vascular markers suggest prior myocardial revascularization. Bones/joints: Age appropriate. XR/XR chest 1V portable [id number] IMPRESSION: Subtle septal lines noted at the right lung base. Findings could reflect mild edema or developing pneumonitis.
[2023-06-17 21:19] LABS: Bilirubin Urine Neg (Negative); Blood Urine 2+ (Negative); Glucose Urine UA 4+ (Normal); Ketones Urine Negative (Negative); Leukocyte Esterase Urine Negative (Negative); Nitrate Urine Negative (Negative); Protein Urine 1+ (Negative); Urine Appearance SL Hazy (CLEAR); Urine Color Light yellow (Yellow); Urobilinogen Urine Neg (Negative); pH Urine 6 (5-7)
--- NOTE | 2023-06-17 21:25 | CTR_ITS ---
PROCEDURE INFORMATION: Exam: CT Abdomen And Pelvis Without Contrast Exam date and time: 06/17/2023 9:47 PM Age: 53 years old Clinical indication: Abdominal pain; Right; Prior surgery; Surgery date: 6+ months; Surgery type: Cabg. Hysterectomy; Patient HX: RT flank pain with fever. Positive UTI; Additional info: R flank pain, UTI TECHNIQUE: Imaging protocol: Computed tomography of the abdomen and pelvis without contrast. Radiation optimization: All CT scans at this facility use at least one of these dose optimization techniques: automated exposure control; mA and/or kV adjustment per patient size (includes targeted exams where dose is matched to clinical indication); or iterative reconstruction. COMPARISON: CT kidney stone [id number] 11/19/2022 11:23 PM RADIATION DOSE METRICS: Total DLP (mGy-cm): 534.03 FINDINGS: Lungs: Minor dependent change noted at each lung base. Pleural spaces: No pleural fluid. Heart: Heart size is normal. Diaphragm: Tiny sliding hiatal hernia. Liver: Homogeneous low attenuation throughout the liver is compatible with fatty infiltration. Liver measures 19.4 cm in length. Gallbladder and bile ducts: Postprandial gallbladder is contracted. Pancreas: Normal. No ductal dilation. Spleen: Spleen measures 13.7 cm in length. Adrenal glands: Normal configuration. Kidneys and ureters: No evidence of renal obstruction on either side. No significant renal contour deformity. There is nonspecific bilateral perinephric stranding. Stomach and bowel: Postprandial stomach. Normal caliber small bowel. Distal colonic diverticulosis without evidence of acute diverticulitis. Appendix: Appendix is not visualized as a discrete structure but there is no inflammation at the cecal base. Intraperitoneal space: No free air. No significant fluid collection. Vasculature: Moderate aortoiliac calcific atherosclerosis without aneurysm. Lymph nodes: No enlarged lymph nodes. Urinary bladder: Unremarkable as visualized. Reproductive: Prior hysterectomy. No evidence of vaginal cuff or adnexal mass. Bones/joints: Prior median sternotomy is incompletely healed. No bony destructive change. Soft tissues: Unremarkable. CT/CT kidney stone [id number] IMPRESSION: 1. No findings of renal obstruction. It is difficult to exclude pyelonephritis without intravenous contrast. 2. Fatty liver with hepatosplenomegaly.
[2023-06-17 21:38] LABS: Bacteria Urine 1+ /hpf; Squamous Epithelial Cell Urine 0-4 /hpf (0-5); WBC Urine 15-25 /hpf (0-5)
[2023-06-17 21:50] LABS: Basophils % 0.5 %; Hematocrit 29.2 % (36-47); Lymphocytes # 0.5 10^3/uL (0.8-4.8); Lymphocytes % 11.6 %; Mean Corpuscular HGB Conc 32.5 g/dL (30-55); Mean Corpuscular Hemoglobin 28.5 pg (27-33); Mean Corpuscular Volume 87.7 fl (85-98); Mean Platelet Volume 9.4 fL (7.4-10.4); Monocytes # 0.2 10^3/uL (0.2-0.9); Monocytes % 4.4 %; Neutrophils # 3.55 10^3/uL (1.8-7.7); Neutrophils % 82.3 %; Nucleated Red Blood Cells % 0 %; Platelet Count 118 10^3/cmm (157-399); Red Blood Count 3.33 10^6/uL (3.85-5.65); Red Cell Distribution Width 14.1 % (12.1-15.1); White Blood Count 4.31 10^3/uL (3.29-11.43)
[2023-06-17 22:09] LABS: Ketone (Acetest) Serum Negative (Negative)
[2023-06-17 22:17] LABS: Alanine Aminotransferase 49 U/L (0-33); Albumin Level 3.7 g/dL (3.5-5.2); Alkaline Phosphatase 82 U/L (35-105); Aspartate Amino Transferase 47 U/L (0-32); Blood Urea Nitrogen 17 mg/dL (6-20); C Reactive Protein 112.9 mg/L (0.0-4.9); Calcium 8.4 mg/dL (8.5-10.5); Carbon Dioxide 20 mmol/L (22-29); Chloride 102 mmol/L (98-107); Creatinine Clr Calc Pharmacy 60.3274; Globulin 3.1 g/dL (1.3-4.6); Glomerular Filtration Rate 52.4 mL/min (90-130); Glucose 423 mg/dL (65-115); Magnesium 1.6 mg/dL (1.7-2.3); Osmolality Calculated 296 mOsm/kg (285-295); Sodium 133 mmol/L (136-145); Total Bilirubin 0.4 mg/dL (0.15-1.2); Total Protein 6.8 g/dL (6.6-8.7)
[2023-06-17 22:18] LABS: Lactic Sepsis W/Reflex 1.6 mmol/L (0.5-2.2)
[2023-06-17] MEDS: insulin regular-human 100 units/1 mL 10 UNIT IVP (22:55)
[2023-06-17] MEDS: piperacillin-tazobactam 4.5 GM in sodium chloride 0.9% (plus) 50 ML IV (23:00)
--- NOTE | 2023-06-17 23:44 | P.HP_ITS ---
Providers/Chief Complaint 2 Primary Care Provider: Joy MccrayP Chief Complaint: UTI History of Present Illness Nelly Gaming is a 53 year old female who was seen at 9 AM 06/16 in the ER she was given antibiotics and was discharged home, presented back with fever 103, persistent nausea and not feeling well, in the ER she has been diagnosed with sepsis related to UTI and pyelonephritis CT Abdo pelvis did not show any stone however perinephric stranding noted her heart rate is around 90s, she weighs around 68 kg, received 2 L of IV fluids in the morning and 800 mL today by the EMS during her second visit, she has already received septic bolus, will give her another IV fluid bolus to challenge and see if her blood pressure would improve currently MAP is 64 she is awake and alert no active chest pain or abdominal pain. Clinically she looks dehydrated. Blood culture showing gram-negative radha No leukocytosis or fever at the time of evaluation Patient is stating that her symptoms started on Monday spontaneously, she was in her backyard managing rocks when she started experiencing abdominal discomfort which she is describing as bilateral flank pain, she did not vomit, she is endorsing nausea, she has noticed fever of 103, she has history of diabetes takes her U-500 140 units in the morning and [address] scan of abdomen did not show any stones LYRIC creatinine 1.1 Hypomagnesemia Review of Systems 2 Const: Reports: fever(s), chills and change in weight Eyes: Denies: change in vision ENMT: Denies: throat pain Card: Denies: chest pain Resp: Denies: dyspnea GI: Reports: abdominal pain and nausea : Reports: flank pain Musc: Denies: neck pain Skin/Breast: Denies: rash Medications/Allergies Home Medications Medication Instructions Recorded Confirmed Last Taken Type hydroxyzine HCl 25 mg tablet 25 mg PO Q6H PRN Itching 07/21/20 06/17/23 12/12/21 History nitroglycerin 0.4 mg sublingual 0.4 mg sublingual Q5M PRN chest 07/22/20 06/17/23 Unknown Rx tablet pain #30 tabs aspirin 81 mg tablet,delayed 81 mg PO QAM 12/13/21 06/17/23 06/16/23 History release blood-glucose meter,continuous #1 ea 08/16/22 06/17/23 Unknown Rx (Dexcom G6 Ammonia Still Operator) pen needle, diabetic 32 gauge x ##100 09/13/22 06/17/23 Unknown Rx 32 (TechLITE Pen Needle) multivitamin 1 tab PO DAILY 11/20/22 06/17/23 11/19/22 History fluoxetine 40 mg capsule 40 mg PO QAM 01/03/23 06/17/23 06/16/23 History albuterol sulfate 90 mcg/actuation 2 inh inhalation Q4H PRN shortness 01/27/23 06/17/23 Unknown Rx aerosol inhaler of breath or wheezing #18 grams blood-glucose sensor (Dexcom G6 #6 ea 03/10/23 06/17/23 Unknown Rx Sensor device) blood-glucose transmitter (Dexcom #1 ea 03/10/23 06/17/23 Unknown Rx G6 Transmitter device) semaglutide 1 mg/dose (4 mg/3 mL) 1 mg (0.75 mL) SUBCUT Q7D #3 mL 06/06/23 06/17/23 Unknown Rx subcutaneous pen injector (Ozempic) amitriptyline 25 mg tablet 25 mg PO BEDTIME 06/17/23 06/17/23 06/16/23 History insulin regular hum U-500 conc 500 See Rx Instructions .Route .COMPLEX 06/17/23 06/17/23 Unknown History unit/mL(3 mL) subcut pen (Humulin R U-500 (Conc) Insulin Kwikpen) naproxen 500 mg tablet 500 mg PO Q12H PRN Pain 06/17/23 06/17/23 Unknown History promethazine 25 mg tablet 25 mg PO Q6H PRN nausea and 06/17/23 Unknown Rx vomiting #20 tabs rosuvastatin 40 mg tablet (Crestor) 40 mg PO QAM 06/17/23 06/17/23 06/16/23 History sulfamethoxazole 800 1 tab PO BID 7 days #14 tabs 06/17/23 Unknown Rx mg-trimethoprim 160 mg tablet (Bactrim DS) Allergies Allergy/AdvReac Type Severity Reaction Status Date / Time nalbuphine [From Nubain] Allergy ADR-Headach Verified 06/17/23 20:48 e sumatriptan [From Imitrex] Allergy ALGY-Swell Verified 06/17/23 20:48 Lip/Tongue/Throat PFSH Acute 2 PFSH: Medical History Skin lesions CAD (coronary artery disease) Folliculitis Diabetic neuropathy Coronary artery 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 2 diabetes mellitus Uncontrolled type 2 diabetes mellitus Diabetes Hypercholesterolemia Surgical History H/O heart bypass surgery [place]- Last Monday03/02/22 Status post colonoscopy (10/01/19) H/O: hysterectomy H/O heart artery stent 5 years ago H/O melanoma excision Family History Father CAD (coronary artery disease) Diabetes Grandfather CAD (coronary artery disease) Diabetes Grandmother CAD (coronary artery disease) Cancer lung Diabetes Denies family history of Anesthesia complication Bleeding disorder Social History Smoking and tobacco/nicotine status: current every day tobacco/nicotine user Alcohol intake: never Substance/Drug Use: never Household members: spouse Marital status: Current occupational status: employed Vitals/I&O/Wt Last Vital Signs Temp 100.8 F H 06/17/23 20:38 Pulse 108 H 06/17/23 20:38 Resp 24 H 06/17/23 20:38 BP 115/71 06/17/23 20:38 Pulse Ox 95 06/17/23 20:38 O2 Del Method Room Air 06/17/23 20:38 Weight last 48 hrs Weight 68.946 kg Physical Exam 2 Narrative: Clinically patient is dry No active complaint GCS 15 MAP 64 mmHg Nonfocal neuroexam Pleasant cough S1, S2 No audible stridor or wheezing Currently on room air is at the bedside Data 06/17/23 21:35 06/17/23 21:35 Micro: Microbiology 06/17/23 21:40 Blood Culture - Preliminary Blood SPECIMEN COLLECTED 06/17/23 21:35 Blood Culture - Preliminary Blood SPECIMEN COLLECTED A&P Assessment and plan (1) H/O heart artery stent: (2) Coronary artery 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 2 diabetes mellitus: (3) H/O heart bypass surgery: (4) Diabetes: (5) Fatty liver: (6) Cystitis: (7) Acute pyelonephritis: (8) LYRIC (acute kidney injury): (9) Acute kidney injury: Plan Sepsis Rule out septic shock Giving her fluid challenge in the ER, roughly patient has received 2600 mL IV fluid today Source is pyelonephritis/UTI Gram-negative radha in blood culture Patient has received septic bolus no Encephalopathy No skin mottling Will give her another IV fluid bolus challenge in the ER to see if she would improve otherwise she will need ICU Start broad-spectrum antibiotics Criteria met with fever 103 at home, currently heart rate is around 90s, endorgan damage creatinine 1.1, temperature in the hospital 100.8, she is tachypneic and tachycardic as well Lactic acid is normal Blood cultures taken in the morning along urine Previous history of kidney stones, no active stones noted on CT abdomen pelvis History of diabetes Patient takes RU 500 140 units in the morning and 100 at night for now I will keep her on sliding scale medium intensity along Lantus Will check A1c level No sign of DKA History of coronary disease no active chest pain LYRIC:. Please note she was given Bactrim which I would avoid it can cause pseudo hypercreatinemia as well I will put her on Zosyn for now renally dosed [place] diet because she is nauseous Heparin as DVT prophylaxis Consistent carb diet can be initiated once her nausea improves Full code Attestations 2 Medical Necessity Statement*: More than 2 midnights anticipated Diagnoses H/O heart artery stent Z95.5 Coronary artery 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 2 diabetes mellitus E11.59; I25.10 H/O heart bypass surgery Z95.1 Diabetes E11.9 Fatty liver K76.0 Cystitis N30.90 Acute pyelonephritis N10 LYRIC (acute kidney injury) N17.9
[2023-06-17 23:52] LABS: Glucose Point of Care 300 mg/dL (70-110)
--- NOTE | 2023-06-17 23:54 | W.ED.FEMALGU ---
HPI - Female Genitourinary General: Chief complaint: Urogenital-Female Stated complaint: UTI Time Seen by Provider: 06/17/23 20:47 History of Present Illness: 53-year-old female seen earlier today and diagnosed with a urinary tract infection. She was given IV fluids, IV antibiotics, and allowed home on Bactrim, of which she has had 1 dose. Evidently she had 2 L of fluid earlier today. She reports that after returning home, she spiked a 103 fever, and had chills with rigors. This concerned her and her , so she came back via ambulance. She continues to complain of right-sided flank pain. She is not having dysuria. No vomiting. Associated symptoms: Reports abdominal pain and nausea; Deny headache(s) Review of Systems Const: Reports: fever(s), chills and body aches ENMT: Denies: throat pain Card: Denies: chest pain Resp: Reports: dyspnea; Denies: productive cough GI: Reports: abdominal pain and nausea; Denies: vomiting : Reports: flank pain Skin/Breast: Denies: rash Neuro: Denies: headache(s) PFSH ED PFSH: Medical History Skin lesions CAD (coronary artery disease) Folliculitis Diabetic neuropathy Coronary artery 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 2 diabetes mellitus Uncontrolled type 2 diabetes mellitus Diabetes Hypercholesterolemia Surgical History H/O heart bypass surgery [place]- 03/02/22 Status post colonoscopy (10/01/19) H/O: hysterectomy H/O heart artery stent 5 years ago H/O melanoma excision Family History Father CAD (coronary artery disease) Diabetes Grandfather CAD (coronary artery disease) Diabetes Grandmother CAD (coronary artery disease) Cancer lung Diabetes Denies family history of Anesthesia complication Bleeding disorder Social History Smoking and tobacco/nicotine status: current every day tobacco/nicotine user Alcohol intake: never Substance/Drug Use: never Household members: spouse Marital status: Current occupational status: employed Physical Exam Const: GENERAL APPEARANCE: cooperative and ill appearing HENMT: COMMON NORMALS: normocephalic, atraumatic and Normal external nose present HEAD & SCALP: normocephalic and atraumatic FACE & SINUS: normal facial exam and face symmetric NOSE: Normal external nose present Eye: COMMON NORMALS: Equal, round and reactive pupils present and EOMs intact bilaterally PUPIL: Yes Equal, round and reactive pupils present Neck/C-Spine: GENERAL: Yes trachea midline Chest: CHEST: Yes Symmetrical chest wall rise Resp: COMMON NORMALS: normal respiratory effort, No retractions, No use of accessory muscles and clear to auscultation bilaterally AUSCULTATION: clear to auscultation bilaterally Cardio: COMMON NORMALS: regular rhythm RATE: tachycardic RHYTHM: regular rhythm GI: COMMON NORMALS: Normal to inspection, nondistended, normoactive bowel sounds present : BLADDER/KIDNEY EXAM: Yes CVA tenderness on the right Back/Pelvis: GENERAL BACK: Yes CVA tenderness Extremity: COMMON NORMALS: no pedal edema Neuro: NIKKIE COMA SCALE: document GCS findings [place] coma scale eye opening: Spontaneous [place] coma scale verbal response: Orientated [place] coma scale motor response: Obey commands [place] coma scale total score: 15 SENSORY EXAM: Yes extremities (intact) Psych: COMMON NORMALS: speech normal SPEECH: Yes normal speech Skin: COMMON NORMALS: no rashes or lesions noted GENERAL SKIN EXAM: no rashes or lesions noted Course Vital Signs: Vital signs: Vital Signs Temperature 97.7 F 06/18/23 04:00 Pulse Rate 86 06/18/23 04:00 Respiratory Rate 18 06/18/23 04:00 Blood Pressure 111/74 06/18/23 04:00 Pulse Oximetry 92 06/18/23 04:00 Oxygen Delivery Me thod Room Air 06/18/23 04:00 [facility] - Female Medical Decision Making Fevers improved here, down to 100.8. No leukocytosis. CBC is otherwise stable. Bicarb is 21. Lactic acid is normal. Urine ketones are negative. Viral swab is negative. Urinalysis does appear improved from prior with absence of leukocyte Estrace currently. Chest x-ray shows subtle septal lines in the right lung base that could reflect developing pneumonitis. She is given IV Zosyn here. Her blood pressure has been normal here, but as time elapsed, began to sink to some degree. She is given 2 more liters of fluid to complete a full sepsis bolus, even though she was given 2 L earlier in the day, and 800 mL by ambulance. We were notified that one of her blood cultures from earlier in the morning on her previous visit pop positive for gram negative rods. Because of this, she will be admitted. Lab Data 06/18/23 01:15 06/18/23 01:15 Radiology Impressions Chest X-Ray 06/17/23 20:52 IMPRESSION: Subtle septal lines noted at the right lung base. Findings could reflect mild edema or developing pneumonitis. Abdomen/Pelvis CT 06/17/23 21:25 IMPRESSION: 1. No findings of renal obstruction. It is difficult to exclude pyelonephritis without intravenous contrast. 2. Fatty liver with hepatosplenomegaly. Laboratory Results WBC 4.31 10^3/uL (3.29-11.43) 06/17/23 21:35 RBC 3.33 10^6/uL (3.85-5.65) L 06/17/23 21:35 Hgb 9.50 g/dL (11.27-16.99) L 06/17/23 21:35 Hct 29.2 % (36-47) L 06/17/23 21:35 MCV 87.7 fl (85-98) 06/17/23 21:35 MCH 28.5 pg (27-33) 06/17/23 21:35 MCHC 32.5 g/dL (30-55) 06/17/23 21:35 RDW 14.1 % (12.1-15.1) 06/17/23 21:35 Plt Count 118 10^3/cmm (157-399) L 06/17/23 21:35 MPV 9.4 fL (7.4-10.4) 06/17/23 21:35 Neut % (Auto) 82.3 % 06/17/23 21:35 Lymph % (Auto) 11.6 % 06/17/23 21:35 [place] % (Auto) 4.4 % 06/17/23 21:35 Eos % (Auto) 0.0 % 06/17/23 21:35 Baso % (Auto) 0.5 % 06/17/23 21:35 Neut # (Auto) 3.55 10^3/uL (1.8-7.7) 06/17/23 21:35 Lymph # (Auto) 0.5 10^3/uL (0.8-4.8) L 06/17/23 21:35 [place] # (Auto) 0.2 10^3/uL (0.2-0.9) 06/17/23 21:35 Eos # (Auto) 0.0 10^3/uL (0.0-0.8) 06/17/23 21:35 Baso # (Auto) 0.0 10^3/uL (0.0-0.1) 06/17/23 21:35 Nucleated RBC % (auto) 0 % 06/17/23 21:35 Nucleated RBCs # 0.0 /100WBC 06/17/23 21:35 Sodium 133 mmol/L (136-145) L 06/17/23 21:35 Potassium 4.0 mmol/L (3.5-5.1) 06/17/23 21:35 Chloride 102 mmol/L (98-107) 06/17/23 21:35 Carbon Dioxide 20 mmol/L (22-29) L 06/17/23 21:35 Anion Gap 15.0 (5-19) 06/17/23 21:35 BUN 17 mg/dL (6-20) 06/17/23 21:35 Creatinine 1.1 mg/dL (0.5-0.9) H 06/17/23 21:35 GFR Calculation 52.4 mL/min (90-130) L 06/17/23 21:35 Glucose 423 mg/dL (65-115) H 06/17/23 21:35 POC Glucose 300 mg/dL (70-110) H 06/17/23 23:46 Calculated Osmolality 296 mOsm/kg (285-295) H 06/17/23 21:35 Lactic Acid 1.6 mmol/L (0.5-2.2) 06/17/23 21:35 Calcium 8.4 mg/dL (8.5-10.5) L 06/17/23 21:35 Magnesium 1.6 mg/dL (1.7-2.3) L 06/17/23 21:35 Total Bilirubin 0.4 mg/dL (0.15-1.2) 06/17/23 21:35 AST 47 U/L (0-32) H 06/17/23 21:35 ALT 49 U/L (0-33) H 06/17/23 21:35 Alkaline Phosphatase 82 U/L (35-105) 06/17/23 21:35 C-Reactive Protein 112.9 mg/L (0.0-4.9) H 06/17/23 21:35 Total Protein 6.8 g/dL (6.6-8.7) 06/17/23 21:35 Albumin 3.7 g/dL (3.5-5.2) 06/17/23 21:35 Globulin 3.1 g/dL (1.3-4.6) 06/17/23 21:35 Urine Color Light yellow (Yellow) 06/17/23 21:02 Urine Appearance Sl hazy (CLEAR) A 06/17/23 21: Urine pH 6 (5-7) 06/17/23 21:02 Ur Specific [place] 1.010 (1.005-1.030) 06/17/23 21:02 Urine Protein 1+ (Negative) H 06/17/23 21:02 Urine Glucose (UA) 4+ (Normal) H 06/17/23 21:02 Urine Ketones Negative (Negative) 06/17/23 21:02 Urine Blood 2+ (Negative) H 06/17/23 21:02 Urine Nitrate Negative (Negative) 06/17/23 21: Urine Bilirubin Neg (Negative) 06/17/23 21:02 Urine Urobilinogen Neg mg/dL (Negative) 06/17/23 21:02 Ur Leukocyte Esterase Negative (Negative) 06/17/23 21:02 Ur Microscopic Indic Cancelled 06/17/23 21:02 Urine RBC 5-10 /hpf (0-2) H 06/17/23 21:02 Urine WBC 15-25 /hpf (0-5) H 06/17/23 21:02 Ur Squamous Epith Cells 0-4 /hpf (0-5) H 06/17/23 21:02 Amorphous Sediment Not Reportable 06/17/23 21:02 Urine Bacteria 1+ /hpf (NONE) H 06/17/23 21:02 Serum Ketones Negative (Negative) 06/17/23 21:35 Adenovirus (PCR) Not detected (NOT DETECT) 06/17/23 22:57 C. pneumoniae DNA (PCR) Not detected (NOT DETECT) 06/17/23 22:57 Coronavirus 229E (PCR) Not detected (NOT DETECT) 06/17/23 22:57 Human Metapneumovir PCR Not detected (NOT DETECT) 06/17/23 22:57 Influenza A (H1) PCR Not detected (NOT DETECT) 06/17/23 22:57 Influ A (H1/09) PCR Not detected (NOT DETECT) 06/17/23 22:57 Influenza A (H3) PCR Not detected (NOT DETECT) 06/17/23 22:57 Influenza Type A (PCR) Not detected (NOT DETECT) 06/17/23 22:57 Influenza Type B (PCR) Not detected (NOT DETECT) 06/17/23 22:57 M. pneumoniae (PCR) Not detected (NOT DETECT) 06/17/23 22:57 Parainfluenza 1 (PCR) Not detected (NOT DETECT) 06/17/23 22:57 Parainfluenza 2 (PCR) Not detected (NOT DETECT) 06/17/23 22:57 Parainfluenza 3 (PCR) Not detected (NOT DETECT) 06/17/23 22:57 Parainfluenza 4 (PCR) Not detected (NOT DETECT) 06/17/23 22:57 RSV Type A (PCR) Not detected (NOT DETECT) 06/17/23 22:57 RSV Type B (PCR) Not detected (NOT DETECT) 06/17/23 22:57 Entero/Rhino (PCR) Not detected (NOT DETECT) 06/17/23 22:57 SARS-CoV-2 (PCR) Not detected (NOT DETECT) 06/17/23 22:57 All radiology interpretation(s) finalized by discharge Discharge Plan Discharge Patient Disposition: Admitted As Inpatient Admit Provider: Kenneth Perkins Clinical Impression: Acute pyelonephritis Condition: Fair Coding Level of Care Code ED 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
[2023-06-18] VITALS (11 sets, daily range): BP systolic 108–118; BP diastolic 61–74; PULSE 81–97; RESP 16–18; TEMP 36.5–37.8; O2SAT 92–97; BMI 25.5
[2023-06-18 01:21] LABS: Glucose Point of Care 305 mg/dL (70-110)
[2023-06-18 01:31] LABS: Adenovirus Not Detected (NOT DETECT); Chlamydia Pneumoniae Not Detected (NOT DETECT); Coronavirus 229E,HKU1,NL63,OC4 Not Detected (NOT DETECT); Human Metapneumovirus Not Detected (NOT DETECT); Human Rhinovirus/Enterovirus Not Detected (NOT DETECT); Influenza A Not Detected (NOT DETECT); Influenza A H1 Not Detected (NOT DETECT); Influenza A H1-2009 Not Detected (NOT DETECT); Influenza A H3 Not Detected (NOT DETECT); Influenza B Not Detected (NOT DETECT); Mycoplasma Pneumoniae Not Detected (NOT DETECT); Parainfluenza Virus Type 1 Not Detected (NOT DETECT); Parainfluenza Virus Type 2 Not Detected (NOT DETECT); Parainfluenza Virus Type 3 Not Detected (NOT DETECT); Parainfluenza Virus Type 4 Not Detected (NOT DETECT); Respiratory Syncytial Virus A Not Detected (NOT DETECT); Respiratory Syncytial Virus B Not Detected (NOT DETECT); SARS-COV-2 Not Detected (NOT DETECT)
[2023-06-18 01:46] LABS: Estmated Average Glucose 235; Hemoglobin A1C 9.8 % (4.0-6.0)
[2023-06-18 01:48] LABS: Basophils % 0.8 %; Hematocrit 29.8 % (36-47); Lymphocytes # 0.6 10^3/uL (0.8-4.8); Lymphocytes % 15.2 %; Mean Corpuscular HGB Conc 31.5 g/dL (30-55); Mean Corpuscular Hemoglobin 28.3 pg (27-33); Mean Corpuscular Volume 89.8 fl (85-98); Mean Platelet Volume 9.3 fL (7.4-10.4); Monocytes # 0.2 10^3/uL (0.2-0.9); Monocytes % 6.1 %; Neutrophils % 77.3 %; Nucleated Red Blood Cells % 0 %; Platelet Count 104 10^3/cmm (157-399); Red Blood Count 3.32 10^6/uL (3.85-5.65); Red Cell Distribution Width 14.2 % (12.1-15.1); White Blood Count 3.62 10^3/uL (3.29-11.43)
[2023-06-18] MEDS: ondansetron 2 mg/ML SDV 2 mL 4 MG IVP (01:53)
[2023-06-18] MEDS: heparin 5,000 unit/mL INJ 1 mL 5000 UNIT SUBCUT (01:53)
[2023-06-18 02:13] LABS: C Reactive Protein 108.6 mg/L (0.0-4.9); Magnesium 1.5 mg/dL (1.7-2.3); Phosphorus 2.9 mg/dL (2.5-4.5)
[2023-06-18 02:14] LABS: Anion Gap 13.7 (5-19); Blood Urea Nitrogen 18 mg/dL (6-20); Calcium 7.4 mg/dL (8.5-10.5); Carbon Dioxide 21 mmol/L (22-29); Chloride 106 mmol/L (98-107); Creatinine Clr Calc Pharmacy 67.5517; Glomerular Filtration Rate 58.5 mL/min (90-130); Glucose 305 mg/dL (65-115); Osmolality Calculated 297 mOsm/kg (285-295); Potassium 3.7 mmol/L (3.5-5.1); Sodium 137 mmol/L (136-145)
[2023-06-18 02:17] LABS: Procalcitonin 1.47 ng/mL (0-0.5)
[2023-06-18] MEDS: insulin glargine 100 units/1 mL 10 UNIT SUBCUT ×2 (02:22→21:08)
[2023-06-18] MEDS: magnesium oxide 400 mg tablet PO ×3 (02:22→16:58)
[2023-06-18] MEDS: acetaminophen 500 mg Tablet PO ×3 (02:22→21:08)
[2023-06-18] MEDS: sodium chloride 0.9% 1,000 ML 75 ML IV ×2 (02:26→15:06)
[2023-06-18] MEDS: piperacillin-tazobactam 3.375 GM in sodium chloride 0.9% (plus) 50 ML IV ×3 (05:42→21:08)
[2023-06-18] MEDS: aspirin 81 mg EC Tablet PO (05:48)
[2023-06-18 06:39] LABS: Glucose Point of Care 291 mg/dL (70-110)
--- NOTE | 2023-06-18 08:19 | PC.PHAR ---
PT WAS SEEN ON 06/17/23 MED REC WAS COMPLETED-NOTE FROM 06/17/23 pt states she takes care of her own medications-pt states she uses humulin r u-500 kwikpen uses 140 units qam and 100 units hs ext shows last filled 05/23/23 73d/s 100 units bid-pt states she uses ozempic 1mg q7d filled 06/07/23 pt states was on the 2mg q7d ext shows last filled 05/30/[address] decreased to 1mg q7d-pt states she does not take prilosec 20mg daily ext shows last filled 05/22/23-
[2023-06-18] MEDS: insulin lispro 100 unit/1 mL SUBCUT ×4 (08:38→21:08)
[2023-06-18 10:40] LABS: Glucose Point of Care 337 mg/dL (70-110)
--- NOTE | 2023-06-18 14:25 | P.PN_ITS ---
Subjective 2 Subjective: Admitted overnight. H&P and labs appreciated. Examination patient laying comfortably in bed. Denies any nausea vomiting, headache today. 2 tolerate diet. States she continues to have pain in her flank especially on bending down. Denies any headaches. Has remained afebrile. Vitals/I&O/Wt Last Vital Signs Temp 98.9 F 06/18/23 11:20 Pulse 83 06/18/23 11:20 Resp 17 06/18/23 11:20 BP 117/71 06/18/23 11:20 Pulse Ox 97 06/18/23 11:20 O2 Del Method Room Air 06/18/23 11:20 06/17/23 06/18/23 06/18/23 22:59 06:59 14:59 Intake Total 2168.38 / 2168.38 290 / 290 Balance 2168.38 / 2168.38 290 / 290 Weight last 48 hrs Weight 72.235 kg Weight 71.781 kg Weight 68.946 kg Physical Exam 2 Narrative: General: No acute distress, AO x3 HEENT: PERRLA, pupils bilaterally equal and reactive Chest: Normal vesicular breath sounds, no added sounds, equal good air entry bilaterally CVS: S1-S2 regular, no murmurs, no tachycardia, no gallops, no rubs Abdomen: Soft, nontender, no organomegaly, bowel sounds present Neuro: No focal deficits, no facial deformity, AO x3, power 5/5 in all limbs Right renal angle tenderness. Data 06/18/23 01:15 06/18/23 01:15 Micro: Microbiology 06/17/23 21:40 Blood Culture - Preliminary Blood SPECIMEN COLLECTED 06/17/23 21:35 Blood Culture - Preliminary Blood SPECIMEN COLLECTED A&P Assessment and plan (1) Cystitis: (2) Acute pyelonephritis: (3) LYRIC (acute kidney injury): (4) H/O heart artery stent: (5) Coronary artery 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 2 diabetes mellitus: (6) H/O heart bypass surgery: (7) Diabetes: (8) Fatty liver: (9) Gram-negative bacteremia: Plan Gram-negative bacteremia: In setting of pyelonephritis and cystitis. History of repeat E. coli UTI. Had previous bacteremia and UTI in October 2022. At that time was discharged on oral Levaquin. Blood cultures from 03/23 positive. Follow-up urine culture. Repeat blood cultures sent last night. Might be too soon as patient had not received antibiotics at that time. Will repeat blood cultures in AM. Continue with IV Zosyn for now. Will de-escalate antibiotics as per culture sensitivities. Keep mean artery pressure over 65. Type 2 diabetes mellitus: Check A1c. Last A1c more than 10. Blood sugars elevated. Continue with Lantus 10 units nightly. Continue with insulin sliding scale ACHS. Will increase the dose of glargine as per use of insulin in next 24 hours. Acute kidney injury: Most likely in setting of acute infection along with Bactrim. Continue with IV fluids with normal saline at 75 cc/h. Monitor BMP daily. History of CAD?history of CABG: No active chest pain. Continue with home dose of aspirin, statin. Full code Carb consistent diet Famotidine for PUD prophylaxis Heparin 5000 every 12 hourly for DVT prophylaxis. Attestations 2 Medical Necessity Statement*: Requires further hospitalization for management of gram-negative bacteremia in setting of cystitis and right-sided pyonephritis, uncontrolled diabetes mellitus Diagnoses Cystitis N30.90 Acute pyelonephritis N10 LYRIC (acute kidney injury) N17.9 H/O heart artery stent Z95.5 Coronary artery 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 2 diabetes mellitus E11.59; I25.10 H/O heart bypass surgery Z95.1 Diabetes E11.9 Fatty liver K76.0 Gram-negative bacteremia R78.81
[2023-06-18] MEDS: fluoxetine 20 mg Capsule 40 MG PO (16:34)
[2023-06-18] MEDS: TRAMadol 50 mg Tablet PO ×2 (16:59→21:08)
[2023-06-18 17:00] LABS: Glucose Point of Care 387 mg/dL (70-110)
[2023-06-18 20:27] LABS: Glucose Point of Care 360 mg/dL (70-110)
--- NOTE | 2023-06-18 20:37 | PC.NURSE ---
Addendum entered by Jeri Klein RN 06/18/23 20:44: Tramadol 50 mg x1 dose ordered. Original Note: Patient is asking for Tramadol for a headache. Per mar, she received a one time dose of 50 mg today at 1700. Dr. Perkins notified.
[2023-06-18] MEDS: amitriptyline 25 mg Tablet PO (21:08)
--- NOTE | 2023-06-18 22:28 | PC.NURSE ---
Patient said the Tramdol didn't help her headache. She is rating the pain 8/10. She said she has a history of migraines, but has not had them in several years. Dr. Perkins notified. Morphine x1 ordered.
[2023-06-18] MEDS: morphine 4 mg/mL SDV 1 mL 2 MG IVP (22:43)
[2023-06-19] VITALS (7 sets, daily range): BP systolic 108–150; BP diastolic 62–82; PULSE 75–88; RESP 16–18; TEMP 36.5–37.3; O2SAT 94–96
[2023-06-19] MEDS: atorvastatin 40 mg Tablet 80 MG PO (04:47)
[2023-06-19] MEDS: piperacillin-tazobactam 3.375 GM in sodium chloride 0.9% (plus) 50 ML IV ×3 (04:47→20:43)
[2023-06-19] MEDS: fluoxetine 20 mg Capsule 40 MG PO (04:48)
[2023-06-19] MEDS: acetaminophen 500 mg Tablet PO ×2 (04:48→19:25)
[2023-06-19] MEDS: aspirin 81 mg EC Tablet PO (04:48)
[2023-06-19] MEDS: sodium chloride 0.9% 1,000 ML 75 ML IV ×2 (04:48→17:10)
[2023-06-19] MEDS: heparin 5,000 unit/mL INJ 1 mL 5000 UNIT SUBCUT ×2 (04:49→17:10)
--- NOTE | 2023-06-19 05:56 | PC.NURSE ---
Addendum entered by Jeri Klein RN 06/19/23 05:59: Pain did not improve with PRN Tylenol. Original Note: Patient states the morphine helped her headache, but that the pain has now come back. Dr. Perkins notified. Morphine x1 dose ordered.
[2023-06-19] MEDS: morphine 4 mg/mL SDV 1 mL 2 MG IVP (06:21)
[2023-06-19 06:36] LABS: Glucose Point of Care 196 mg/dL (70-110)
[2023-06-19 07:30] LABS: Basophils % 0.6 %; Eosinophils % 0.3 %; Hematocrit 27.3 % (36-47); Lymphocytes # 1.1 10^3/uL (0.8-4.8); Lymphocytes % 35.7 %; Mean Corpuscular HGB Conc 31.9 g/dL (30-55); Mean Corpuscular Hemoglobin 28.5 pg (27-33); Mean Corpuscular Volume 89.5 fl (85-98); Mean Platelet Volume 9.9 fL (7.4-10.4); Monocytes # 0.3 10^3/uL (0.2-0.9); Monocytes % 10.3 %; Neutrophils # 1.68 10^3/uL (1.8-7.7); Neutrophils % 52.8 %; Nucleated Red Blood Cells % 0 %; Platelet Count 89 10^3/cmm (157-399); Red Blood Count 3.05 10^6/uL (3.85-5.65); Red Cell Distribution Width 14.3 % (12.1-15.1); White Blood Count 3.19 10^3/uL (3.29-11.43)
[2023-06-19 07:48] LABS: Alanine Aminotransferase 79 U/L (0-33); Albumin Level 2.8 g/dL (3.5-5.2); Alkaline Phosphatase 90 U/L (35-105); Anion Gap 10.9 (5-19); Aspartate Amino Transferase 82 U/L (0-32); Blood Urea Nitrogen 17 mg/dL (6-20); Calcium 8.2 mg/dL (8.5-10.5); Carbon Dioxide 21 mmol/L (22-29); Chloride 110 mmol/L (98-107); Creatinine Clr Calc Pharmacy 75.5342; Globulin 2.8 g/dL (1.3-4.6); Glucose 216 mg/dL (65-115); Osmolality Calculated 294 mOsm/kg (285-295); Potassium 3.9 mmol/L (3.5-5.1); Sodium 138 mmol/L (136-145); Total Bilirubin 0.4 mg/dL (0.15-1.2); Total Protein 5.6 g/dL (6.6-8.7)
[2023-06-19] MEDS: magnesium oxide 400 mg tablet PO ×2 (07:49→17:10)
[2023-06-19] MEDS: insulin lispro 100 unit/1 mL SUBCUT ×4 (07:49→20:42)
--- NOTE | 2023-06-19 10:12 | PC.CHAP ---
Pastoral Care Encounter/Spiritual Assessment Type of Contact [] Declined neurosurgical nurse visit [] Patient/Family/Request visit [] Outpatient visit [] Follow-up visit [] Physician referral [] Code/Alert [x] Routine visit [] Staff referral [] Actively dying [] Patient sleeping [x] Family support [] [] Out of room [] Palliative care [] [] Receiving care in room [] Pre-surgical visit [] Trauma [] Long length of stay [] ICU visit [] Other: Relational/Emotional Strength [] Patient feels connected with others/family/visitors/staff [] Distress [] Loneliness/isolation [] Abandonment Spirituality of Patient [x] Person of Cammie [x] Attends Buddhism of their [place] [x] Believes in Prayer [] Reads Bible or Christianity materials [] There are Spiritual issues to be addressed 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 Interventions [x] Prayer [x] Active listening [] Non-anxious presence [x] Spiritual/emotional support [] Crisis/trauma care [] Spiritual counseling [] Bereavement support [] Provided bereavement packet [x] Provided Bible/devotional materials [] Provided toy/stuffed animal, coloring book to patient or family member [] Provided Communion [] Anointing/[place] [] Salvation [] Completed spiritual assessment [] Other: Impact on Illness or Injury [] Angry [] Fearful [] Anxious [] Often cries [] Exhaustion [] Unable to work [] Unable to attend yazdanism [] Unable to walk/stand [] Unable to read [] Unable to drive [] Unable to eat/drink [] Unable to sleep [] Unable to be with family [] Patient intubated [] Other: Summary Time spent with patient 15 min
--- NOTE | 2023-06-19 11:08 | PC.NUTR ---
Patient was interested in how to meal prep and plan to manage diabetes. Took educational materials to her and emailed links to healthy/quick meal plans for managing DM2. She has my contact information for f/u questions.
[2023-06-19] MEDS: diphenhydrAMINE 50 mg/mL SDV 1mL 25 MG IVP ×2 (11:31→21:42)
[2023-06-19] MEDS: ketorolac 30 mg/mL INJ 15 MG IVP ×2 (11:31→21:41)
[2023-06-19 12:10] LABS: Glucose Point of Care 320 mg/dL (70-110)
[2023-06-19 16:56] LABS: Glucose Point of Care 238 mg/dL (70-110)
--- NOTE | 2023-06-19 18:21 | PC.NURSE ---
SHIFT SUMMARY Patient has done well today. No longer having loose stool. Patient complained of headache this morning. This nurse administered IV toradol and benadryl. No longer having headache. Patient has had good intake and output. Patient took a shower today. Stated she is feeling better. Currently resting in bed watching TV.
[2023-06-19 20:20] LABS: Glucose Point of Care 321 mg/dL (70-110)
[2023-06-19] MEDS: amitriptyline 25 mg Tablet PO (20:42)
[2023-06-19] MEDS: insulin glargine 100 units/1 mL 10 UNIT SUBCUT (20:42)
--- NOTE | 2023-06-19 23:23 | P.PN_ITS ---
Subjective 2 Subjective: She was developing a migraine today, improved with dose of Toradol and Benadryl. She is otherwise improving. Confusion resolved. Vitals/I&O/Wt Last Vital Signs Temp 99.2 F 06/19/23 19:42 Pulse 88 06/19/23 19:42 Resp 16 06/19/23 19:42 BP 150/82 06/19/23 19:42 Pulse Ox 96 06/19/23 19:42 O2 Del Method Room Air 06/19/23 19:42 06/19/23 06/19/23 06/20/23 14:59 22:59 06:59 Intake Total 530 / 530 1697.5 / 2227.5 Balance 530 / 530 1697.5 / 2227.5 Weight last 48 hrs Weight 72.802 kg Weight 72.235 kg Weight 71.781 kg Physical Exam 2 Narrative: Sitting up in bed. Const: COMMON NORMALS: patient oriented x3 and alert GENERAL APPEARANCE: c ooperative ORIENTATION/CONSCIOUSNESS: Yes awake HENMT: COMMON NORMALS: oropharynx normal Neck/C-Spine: COMMON NORMALS: no JVD Resp: COMMON NORMALS: normal respiratory effort and clear to auscultation bilaterally AUSCULTATION: clear to auscultation bilaterally Cardio: COMMON NORMALS: no JVD, regular rhythm, S1 normal heart sound present, S2 normal heart sound present and No murmurs present (Cardio) RHYTHM: regular rhythm HEART SOUNDS: S1 normal heart sound present and S2 normal heart sound present GI: COMMON NORMALS: Normal to inspection, nondistended, normoactive bowel sounds present, Soft to palpation and non-tender PALPATION: Yes Soft to palpation Extremity: COMMON NORMALS: no joint enlargement and no pedal edema Neuro: COMMON NORMALS: patient oriented x3 and moves all extremities S ENSORIUM/ORIENTATION: Yes alert Skin: COMMON NORMALS: no rashes or lesions noted GENERAL SKIN EXAM: no rashes or lesions noted Data 06/19/23 07:10 06/19/23 07:10 Micro: Microbiology 06/19/23 08:44 Blood Culture - Preliminary Blood SPECIMEN COLLECTED 06/19/23 08:44 Blood Culture - Preliminary Blood SPECIMEN COLLECTED 06/17/23 21:40 Blood Culture - Preliminary Blood NEGATIVE TO DATE 06/17/23 21:35 Blood Culture - Preliminary Blood NEGATIVE TO DATE A&P Assessment and plan (1) Cystitis: (2) Acute pyelonephritis: (3) LYRIC (acute kidney injury): (4) H/O heart artery stent: (5) Coronary artery 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 2 diabetes mellitus: (6) H/O heart bypass surgery: (7) Diabetes: (8) Fatty liver: (9) Gram-negative bacteremia: Plan Gram-negative bacteremia: In setting of pyelonephritis and cystitis. Confusion/encephalopathy with delirium has resolved. Reviewed vitals, CBC, CMP, blood cultures, additional blood cultures were repeated this morning. Preadmission blood cultures with pansensitive E. coli. Follow-up repeat blood cultures. Continue IV antibiotic treatment with Zosyn. Stop IV fluid. Discussed with transplant case manager. History of repeat E. coli UTI. Had previous bacteremia and UTI in October 2022. At that time was discharged on oral Levaquin. Migraine headache: Improved after Toradol and Benadryl. Blood cultures from 06/16 positive. Follow-up urine culture. Repeat blood cultures sent last night. Might be too soon as patient had not received antibiotics at that time. Will repeat blood cultures in AM. Continue with IV Zosyn for now. Will de-escalate antibiotics as per culture sensitivities. Keep mean artery pressure over 65. Type 2 diabetes mellitus: Check A1c. Last A1c more than 10. Blood sugars elevated. Continue with Lantus 10 units nightly. Continue with insulin sliding scale ACHS. Will increase the dose of glargine as per use of insulin in next 24 hours. Acute kidney injury: Most likely in setting of acute infection along with Bactrim. Continue with IV fluids with normal saline at 75 cc/h. Monitor BMP daily. History of CAD?history of CABG: No active chest pain. Continue with home dose of aspirin, statin. Full code Carb consistent diet Famotidine for PUD prophylaxis Heparin 5000 every 12 hourly for DVT prophylaxis. Attestations 2 Medical Necessity Statement*: Continue admission for assessment management of pyelonephritis, gram-negative bacteremia. and High MDM includes amount and/or complexity of data reviewed/ordered [ resulted lab(s)/test(s), ordered lab(s)/test(s) and other healthcare professional discussion] as documented Diagnoses Cystitis N30.90 Acute pyelonephritis N10 LYRIC (acute kidney injury) N17.9 H/O heart artery stent Z95.5 Coronary artery 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 2 diabetes mellitus E11.59; I25.10 H/O heart bypass surgery Z95.1 Diabetes E11.9 Fatty liver K76.0 Gram-negative bacteremia R78.81
[2023-06-20 03:44] VITALS: BP 127/79; PULSE 73; RESP 16; TEMP 36.3; O2SAT 96; BMI 26.0
[2023-06-20] MEDS: atorvastatin 40 mg Tablet 80 MG PO (05:25)
[2023-06-20] MEDS: fluoxetine 20 mg Capsule 40 MG PO (05:25)
[2023-06-20] MEDS: piperacillin-tazobactam 3.375 GM in sodium chloride 0.9% (plus) 50 ML IV (05:25)
[2023-06-20] MEDS: heparin 5,000 unit/mL INJ 1 mL 5000 UNIT SUBCUT (05:25)
[2023-06-20] MEDS: aspirin 81 mg EC Tablet PO (05:25)
[2023-06-20 05:51] LABS: Basophils % 0.3 %; Eosinophils # 0.1 10^3/uL (0.0-0.8); Eosinophils % 1.4 %; Hematocrit 27.7 % (36-47); Lymphocytes # 1.2 10^3/uL (0.8-4.8); Lymphocytes % 34.3 %; Mean Corpuscular HGB Conc 31.8 g/dL (30-55); Mean Corpuscular Hemoglobin 28.1 pg (27-33); Mean Corpuscular Volume 88.5 fl (85-98); Mean Platelet Volume 9.9 fL (7.4-10.4); Monocytes # 0.4 10^3/uL (0.2-0.9); Monocytes % 9.9 %; Neutrophils # 1.95 10^3/uL (1.8-7.7); Neutrophils % 53.8 %; Nucleated Red Blood Cells % 0 %; Platelet Count 89 10^3/cmm (157-399); Red Blood Count 3.13 10^6/uL (3.85-5.65); Red Cell Distribution Width 14.2 % (12.1-15.1); White Blood Count 3.62 10^3/uL (3.29-11.43)
[2023-06-20 06:19] LABS: Alanine Aminotransferase 78 U/L (0-33); Albumin Level 3.2 g/dL (3.5-5.2); Alkaline Phosphatase 110 U/L (35-105); Aspartate Amino Transferase 72 U/L (0-32); Blood Urea Nitrogen 16 mg/dL (6-20); Calcium 8.3 mg/dL (8.5-10.5); Carbon Dioxide 23 mmol/L (22-29); Chloride 108 mmol/L (98-107); Creatinine Clr Calc Pharmacy 85.1903; Globulin 2.7 g/dL (1.3-4.6); Glomerular Filtration Rate 75.6 mL/min (90-130); Glucose 187 mg/dL (65-115); Osmolality Calculated 294 mOsm/kg (285-295); Sodium 139 mmol/L (136-145); Total Bilirubin 0.3 mg/dL (0.15-1.2); Total Protein 5.9 g/dL (6.6-8.7)
[2023-06-20 06:36] LABS: Glucose Point of Care 180 mg/dL (70-110)
[2023-06-20 07:37] VITALS: BP 122/78; PULSE 74; RESP 17; TEMP 36.6; O2SAT 97
[2023-06-20] MEDS: sennosides-docusate Tablet 1 TAB PO (09:30)
[2023-06-20] MEDS: insulin lispro 100 unit/1 mL SUBCUT ×2 (09:30→12:09)
[2023-06-20] MEDS: magnesium oxide 400 mg tablet PO (09:30)
[2023-06-20 10:30] VITALS: BP 124/79; PULSE 79; RESP 17; O2SAT 96
[2023-06-20 11:06] LABS: Glucose Point of Care 256 mg/dL (70-110)
[2023-06-20] MEDS: diphenhydrAMINE 50 mg/mL SDV 1mL 25 MG IVP (11:33)
[2023-06-20] MEDS: ketorolac 30 mg/mL INJ 15 MG IVP (11:34)
[2023-06-20 12:56] VITALS: BP 124/79; PULSE 79; RESP 17; TEMP 36.6; O2SAT 96
--- NOTE | 2023-06-20 15:25 | PM.DCS ---
Discharge Providers Date of Admission: 06/17/23 23:49 Date of Discharge: June 20, 2023 Attending Provider at Admission: Kenneth Perkins MD Attending Provider at Discharge: Buck Acosta Primary Care Provider: Joy Mccray Diagnoses at Discharge Discharge Diagnosis (1) Cystitis: Status: Acute (2) Acute pyelonephritis: Status: Acute (3) LYRIC (acute kidney injury): Status: Acute (4) H/O heart artery stent: Status: Acute Permanent problem details: 5 years ago (5) Coronary artery 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 2 diabetes mellitus: Status: Acute (6) H/O heart bypass surgery: Status: Acute Permanent problem details: [place]- 03/02/22 (7) Diabetes: Status: Acute (8) Fatty liver: Status: Acute (9) Gram-negative bacteremia: Status: Acute Reason for Visit Reason for Visit: UTI Hospital Course Hospital Course 53-year-old lady with history of diabetes, CAD, CABG, diabetes, diabetic neuropathy, HLD, with recurrent cystitis with E. coli bacteremia in October, was seen in ER on 06/16 complaining of bilateral flank pain, headache, dizziness, syncope, monitoring her blood glucose, reported urinary frequency. Return to the hospital due to fever of 103 after initially going home with antibiotics. With possible sepsis on presentation, previous blood culture also noted growing gram-negative rods. She was treated with IV fluid challenge, treated with Zosyn, sepsis resolved, repeat blood cultures have been negative. Both original urine cultures and blood cultures with pansensitive E. coli. Was assessed by CT abdomen pelvis which showed no findings of renal obstruction, difficult to exclude pyelonephritis. Failure with hepatosplenomegaly incidentally noted. Continued on IV antibiotics. With her condition improved. Symptoms resolved. She is doing much better. Feels ready to discharge home, discharge will complete additional course of 8 more days of amoxicillin for the pansensitive organism. She denies any symptoms that may suggest colovesical or colovaginal fistula or other complaints which could suggest alternative source of the E. coli bacteremia. Please follow-up regarding usual age-appropriate screening. She had an unremarkable colonoscopy in 2019. Given recurrent urinary tract infection, pyelonephritis, gram-negative radha bacteremia, she is referred for follow-up for additional assessment by urology and infectious disease. She reports history of hysterectomy with bladder suspension surgery. A1c is slightly better compared to earlier in the month at 9.8. Continue optimization of diabetes control. Physical Exam Narrative: Sitting up at the edge of bed. Appears in good spirits. Reports feeling much better. Denies any complaints. Has been ambulating in the room. Const: COMMON NORMALS: patient oriented x3 and alert GENERAL APPEARANCE: cooperative ORIENTATION/CONSCIOUSNESS: Yes awake HENMT: COMMON NORMALS: oropharynx normal Neck/C-Spine: COMMON NORMALS: no JVD Resp: COMMON NORMALS: normal respiratory effort and clear to auscultation bilaterally AUSCULTATION: clear to auscultation bilaterally Cardio: COMMON NORMALS: no JVD, regular rhythm, S1 normal heart sound present, S2 normal heart sound present and No murmurs present (Cardio) RHYTHM: regular rhythm HEART SOUNDS: S1 normal heart sound present and S2 normal heart sound present GI: COMMON NORMALS: Normal to inspection, nondistended, normoactive bowel sounds present, Soft to palpation and non-tender PALPATION: Yes Soft to palpation Extremity: COMMON NORMALS: no joint enlargement and no pedal edema Neuro: COMMON NORMALS: patient oriented x3 and moves all extremities SENSORIUM/ORIENTATION: Yes alert Skin: COMMON NORMALS: no rashes or lesions noted GENERAL SKIN EXAM: no rashes or lesions noted Discharge Data Studies Completed and Pending Completed Studies During Hospitalization Category Date Time Status CT kidney stone [id number] Stat Cat Scan 06/17/23 21:25 Completed XR chest 1V portable [id number] Stat Exams 06/17/23 20:52 Completed Pending at discharge Category Date Time Status Blood Culture AM LABS Lab 06/19/23 08:44 Results Blood Culture Stat Lab 06/17/23 21:40 Results Radiology Impressions Chest X-Ray 06/17/23 20:52 IMPRESSION: Subtle septal lines noted at the right lung base. Findings could reflect mild edema or developing pneumonitis. Abdomen/Pelvis CT 06/17/23 21:25 IMPRESSION: 1. No findings of renal obstruction. It is difficult to exclude pyelonephritis without intravenous contrast. 2. Fatty liver with hepatosplenomegaly. Laboratory Results WBC 3.62 10^3/uL (3.29-11.43) 06/20/23 05:28 RBC 3.13 10^6/uL (3.85-5.65) L 06/20/23 05:28 Hgb 8.80 g/dL (11.27-16.99) L 06/20/23 05:28 Hct 27.7 % (36-47) L 06/20/23 05:28 MCV 88.5 fl (85-98) 06/20/23 05:28 MCH 28.1 pg (27-33) 06/20/23 05: MCHC 31.8 g/dL (30-55) 06/20/23 05:28 RDW 14.2 % (12.1-15.1) 06/20/23 05:28 Plt Count 89 10^3/cmm (157-399) L 06/20/23 05:28 MPV 9.9 fL (7.4-10.4) 06/20/23 05:28 Neut % (Auto) 53.8 % 06/20/23 05: Lymph % (Auto) 34.3 % 06/20/23 05:28 Coffee % (Auto) 9.9 % 06/20/23 05:28 Eos % (Auto) 1.4 % 06/20/23 05:28 Baso % (Auto) 0.3 % 06/20/23 05:28 Neut # (Auto) 1.95 10^3/uL (1.8-7.7) 06/20/23 05:28 Lymph # (Auto) 1.2 10^3/uL (0.8-4.8) 06/20/23 05:28 Coffee # (Auto) 0.4 10^3/uL (0.2-0.9) 06/20/23 05:28 Eos # (Auto) 0.1 10^3/uL (0.0-0.8) 06/20/23 05:28 Baso # (Auto) 0.0 10^3/uL (0.0-0.1) 06/20/23 05:28 Nucleated RBC % (auto) 0 % 06/20/23 05:28 Nucleated RBCs # 0.0 /100WBC 06/20/23 05:28 Sodium 139 mmol/L (136-145) 06/20/23 05:28 Potassium 4.0 mmol/L (3.5-5.1) 06/20/23 05:28 Chloride 108 mmol/L (98-107) H 06/20/23 05:28 Carbon Dioxide 23 mmol/L (22-29) 06/20/23 05:28 Anion Gap 12.0 (5-19) 06/20/23 05:28 BUN 16 mg/dL (6-20) 06/20/23 05:28 Creatinine 0.8 mg/dL (0.5-0.9) 06/20/23 05:28 GFR Calculation 75.6 mL/min (90-130) L 06/20/23 05:28 Glucose 187 mg/dL (65-115) H 06/20/23 05:28 POC Glucose 256 mg/dL (70-110) H 06/20/23 10:29 Estimat Average Glucose 235 06/18/23 Unknown Hemoglobin A1c 9.8 % (4.0-6.0) H 06/18/23 Unknown Calculated Osmolality 294 mOsm/kg (285-295) 06/20/23 05:28 Lactic Acid 1.6 mmol/L (0.5-2.2) 06/17/23 21:35 Calcium 8.3 mg/dL (8.5-10.5) L 06/20/23 05:28 Phosphorus 2.9 mg/dL (2.5-4.5) 06/18/23 01:15 Magnesium 1.5 mg/dL (1.7-2.3) L 06/18/23 01:15 Total Bilirubin 0.3 mg/dL (0.15-1.2) 06/20/23 05:28 AST 72 U/L (0-32) H 06/20/23 05:28 ALT 78 U/L (0-33) H 06/20/23 05:28 Alkaline Phosphatase 110 U/L (35-105) H 06/20/23 05:28 C-Reactive Protein 108.6 mg/L (0.0-4.9) H 06/18/23 01:15 Total Protein 5.9 g/dL (6.6-8.7) L 06/20/23 05:28 Albumin 3.2 g/dL (3.5-5.2) L 06/20/23 05:28 Globulin 2.7 g/dL (1.3-4.6) 06/20/23 05:28 Procalcitonin 1.47 ng/mL (0-0.5) H 06/18/23 01:15 Urine Color Light yellow (Yellow) 06/17/23 21:02 Urine Appearance Sl hazy (CLEAR) A 06/17/23 21:02 Urine pH 6 (5-7) 06/17/23 21:02 Ur Specific [place] 1.010 (1.005-1.030) 06/17/23 21:02 Urine Protein 1+ (Negative) H 06/17/23 21:02 Urine Glucose (UA) 4+ (Normal) H 06/17/23 21:02 Urine Ketones Negative (Negative) 06/17/23 21:02 Urine Blood 2+ (Negative) H 06/17/23 21:02 Urine Nitrate Negative (Negative) 06/17/23 21:02 Urine Bilirubin Neg (Negative) 06/17/23 21:02 Urine Urobilinogen Neg mg/dL (Negative) 06/17/23 21:02 Ur Leukocyte Esterase Negative (Negative) 06/17/23 21:02 Ur Microscopic Indic Cancelled 06/17/23 21:02 Urine RBC 5-10 /hpf (0-2) H 06/17/23 21:02 Urine WBC 15-25 /hpf (0-5) H 06/17/23 21:02 Ur Squamous Epith Cells 0-4 /hpf (0-5) H 06/17/23 21:02 Amorphous Sediment Not Reportable 06/17/23 21:02 Urine Bacteria 1+ /hpf (NONE) H 06/17/23 21:02 Serum Ketones Negative (Negative) 06/17/23 21:35 Adenovirus (PCR) Not detected (NOT DETECT) 06/17/23 22:57 C. pneumoniae DNA (PCR) Not detected (NOT DETECT) 06/17/23 22:57 Coronavirus 229E (PCR) Not detected (NOT DETECT) 06/17/23 22:57 Human Metapneumovir PCR Not detected (NOT DETECT) 06/17/23 22:57 Influenza A (H1) PCR Not detected (NOT DETECT) 06/17/23 22:57 Influ A (H1/09) PCR Not detected (NOT DETECT) 06/17/23 22:57 Influenza A (H3) PCR Not detected (NOT DETECT) 06/17/23 22:57 Influenza Type A (PCR) Not detected (NOT DETECT) 06/17/23 22:57 Influenza Type B (PCR) Not detected (NOT DETECT) 06/17/23 22:57 M. pneumoniae (PCR) Not detected (NOT DETECT) 06/17/23 22:57 Parainfluenza 1 (PCR) Not detected (NOT DETECT) 06/17/23 22:57 Parainfluenza 2 (PCR) Not detected (NOT DETECT) 06/17/23 22:57 Parainfluenza 3 (PCR) Not detected (NOT DETECT) 06/17/23 22:57 Parainfluenza 4 (PCR) Not detected (NOT DETECT) 06/17/23 22:57 RSV Type A (PCR) Not detected (NOT DETECT) 06/17/23 22:57 RSV Type B (PCR) Not detected (NOT DETECT) 06/17/23 22:57 Entero/Rhino (PCR) Not detected (NOT DETECT) 06/17/23 22:57 SARS-CoV-2 (PCR) Not detected (NOT DETECT) 06/17/23 22:57 Vitals Last Vital Signs Temp 97.9 F 06/20/23 12:56 Pulse 79 06/20/23 12:56 Resp 17 06/20/23 12:56 BP 124/79 06/20/23 12:56 Pulse Ox 96 06/20/23 12:56 O2 Del Method Room Air 06/20/23 10:30 Discharge Plan Discharge Patient Disposition: Home Condition: Fair Prescriptions: New amoxicillin 875 mg tablet 875 mg PO BID Qty: 16 0RF Continued fluoxetine 40 mg capsule 40 mg PO QAM (DME) Dexcom G6 Sensor Device See Rx Instructions .ROUTE .MEDSUPPLY Qty: 6 3RF Rx Instructions: change every 10 days (DME) Dexcom G6 Transmitter Device See Rx Instructions .ROUTE .MEDSUPPLY Qty: 1 3RF Rx Instructions: change every 3 months Ozempic 1 mg/dose (4 mg/3 mL) pen injector 1 mg SUBCUT Q7D Qty: 3 1RF Rx Instructions: on sat (DME) Dexcom G6 Irrigation Engineer Misc See Rx Instructions .ROUTE .MEDSUPPLY Qty: 1 3RF Rx Instructions: new bilingual inside sales representative once a year (DME) pen needle, diabetic [TechLITE Pen Needle] 32 gauge x 5/32 needle See Rx Instructions .ROUTE .COMPLEX Qty: 100 3RF Dose Instruction: USE DIRECTED Rx Instructions: USE DIRECTED hydroxyzine HCl 25 mg Tablet 25 mg PO Q6H PRN (Reason: Itching) nitroglycerin 0.4 mg tablet, sublingual 0.4 mg sublingual Q5M PRN (Reason: chest pain) Qty: 30 0RF Rx Instructions: do not exceed 3 doses per episode multivitamin Tablet 1 tab PO DAILY aspirin 81 mg Tablet,Delayed Release (Dr/Ec) 81 mg PO QAM albuterol sulfate 90 mcg/actuation HFA aerosol inhaler 2 inh INHALATION Q4H PRN (Reason: shortness of breath or wheezing) Qty: 18 0RF amitriptyline 25 mg tablet 25 mg PO BEDTIME naproxen 500 mg tablet 500 mg PO Q12H PRN (Reason: Pain) rosuvastatin [Crestor] 40 mg tablet 40 mg PO QAM Humulin R U-500 (Conc) Kwikpen 500 unit/mL (3 mL) insulin pen See Rx Instructions .ROUTE .COMPLEX Rx Instructions: 140 units subcutaneously qam and 100 units at bedtime promethazine 25 mg tablet 25 mg PO Q6H PRN (Reason: nausea and vomiting) Qty: 20 0RF Discontinued sulfamethoxazole-trimethoprim [Bactrim DS] 800-160 mg tablet 1 tab PO BID 7 Days Qty: 14 0RF Discharge Orders: Discharge Order (Routine); Ordered 06/20/23 Ordered By: Buck Acosta Referrals: [facility] [Provider Group] - 2 weeks (Recurrent e coli bacteremia, pyelonephritis We have notified your physician's clinic of the need for a follow-up appointment to be scheduled. If you have not heard from them within the next 2 business days, please call them directly. ) Joy Mccray FNP [Primary Care Provider] - 06/26/23 2:30 pm Gio Klein MD [Occupational Therapist] - (Recurrent e coli bacteremia, pyelonephritis) Discharge Diet: Cardiac and Diabetic Patient Instructions: Amoxicillin (By mouth), Urinary Tract Infection in Women (GEN), Kidney Infection (GEN), Opioid Safety Activity Restrictions/Additional Instructions: Please follow-up with urology and infectious disease with regards to recurrent urinary tract infection, pyelonephritis, E. coli bacteremia. If you notice any worsening or any concerning symptoms seek medical attention without delay. Similarly discussed with your primary doctor in case you ever notice any gas or fecal content in urine or vaginal discharge, or any other unusual or concerning symptoms. Discuss with urology and infectious disease regarding past hysterectomy and bladder suspension surgery. Discharge Attestations Time Spent in Discharge Care*: greater than 30 min Quality Metrics Clinical Quality Measures [ No reported AMI, CVA or VTE this stay] Coding Level of Care Code 92783 Total time (in minutes) for Discharge: 40 Diagnoses Cystitis N30.90 Acute pyelonephritis N10 LYRIC (acute kidney injury) N17.9 H/O heart artery stent Z95.5 Coronary artery 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 2 diabetes mellitus E11.59; I25.10 H/O heart bypass surgery Z95.1 Diabetes E11.9 Fatty liver K76.0 Gram-negative bacteremia R78.81
== END 2023-06-20 12:56 | disposition home or self-care (01) | DRG 872 ==
LOC: ER 20:49 → MEDSURG 06-18 06:12
PROVIDERS: Student in an Organized Health Care Education/Training Program; Admitting Provider Internal Medicine; Emergency Provider Emergency Medicine; PCP Nurse Practitioner Family; Visit Provider Internal Medicine
DX: A41.9 Sepsis, unspecified organism (principal); N10 Acute pyelonephritis; N17.9 Acute kidney failure, unspecified; N30.90 Cystitis, unspecified without hematuria; B96.20 Unspecified Escherichia coli [E. coli] as the cause of diseases classified elsewhere; I25.10 Atherosclerotic heart disease of native coronary artery without angina pectoris; Z95.5 Presence of coronary angioplasty implant and graft; Z95.1 Presence of aortocoronary bypass graft; E83.42 Hypomagnesemia; K76.0 Fatty (change of) liver, not elsewhere classified; E11.40 Type 2 diabetes mellitus with diabetic neuropathy, unspecified; E78.5 Hyperlipidemia, unspecified; R16.2 Hepatomegaly with splenomegaly, not elsewhere classified; Z72.0 Tobacco use; G43.909 Migraine, unspecified, not intractable, without status migrainosus; Z79.82 Long term (current) use of aspirin; Z79.4 Long term (current) use of insulin; Z79.85 Long-term (current) use of injectable non-insulin antidiabetic drugs
CPT/HCPCS: 36415; 36416; 71045; 74176; 80048; 80053; 81001; 82009; 82962; 83036; 83605; 83735; 84100; 84145; 85025; 86140; 87040; 87486; 87581; 87633; 96365; 96372; 96375; 99285; J1200; J1644; J1815; J1885; J2270; J2405; J2543; J7030

== ENCOUNTER 2023-06-26 14:38 | Outpatient (CLI) | payer OTHER, SELFPAY ==
--- NOTE | 2023-06-26 14:45 | XR_ITS ---
WS: [id number] Examination: XR chest 2V* [id number] Reason for Exam: CHRONIC BACK PAIN Date: June 26, 2023 Comparison: June 17, 2023 Findings: The heart is normal in size. The mediastinum not widened. Sternal wires are in place. There is no pulmonary edema or pleural effusion. There is no dense consolidative change. IMPRESSION: No acute lung process.
== END 2023-06-26 14:39 | disposition home or self-care (01) ==
LOC: RAD 14:41
PROVIDERS: PCP Nurse Practitioner Family; Visit Provider Nurse Practitioner Family
DX: M54.89 Other dorsalgia (principal); G89.29 Other chronic pain
CPT/HCPCS: 71046

== ENCOUNTER 2023-06-30 22:24 | Inpatient (IN) | payer OTHER, SELFPAY ==
[2023-06-30 22:26] VITALS: BP 96/64; PULSE 105; RESP 20; TEMP 36; O2SAT 100; BMI 24.7
[2023-06-30 22:39] LABS: Glucose Point of Care 486 mg/dL (70-110)
[2023-06-30 22:43] VITALS: BP 96/64; PULSE 103; RESP 17; O2SAT 100
--- NOTE | 2023-06-30 22:49 | ECG_ITS ---
[facility] Test Date: 2023-07-01 Pat Name: Nelly Gaming Department: Room: ICU03 Gender: Female Community Health Agent: : 1970 Requested By: Fredrick Costello Order Number: [id number] Escobar MD: Eric Moses M.D. Measurements Intervals [place] Rate: 102 P: 69 MO: 168 QRS: 62 QRSD: 94 T: 71 QT: 372 QTc: 486 Interpretive Statements SINUS TACHYCARDIA MODERATE ST DEPRESSION [0.05+ mV ST DEPRESSION] Compared to ECG 07/01/2023 05:02:21 ST (T wave) deviation now present Electronically Signed On 07-02-2023 11:12:23 CDT by Eric Moses M.D. [email or web address]
--- NOTE | 2023-06-30 22:51 | XRR_ITS ---
PROCEDURE INFORMATION: Exam: XR Chest Exam date and time: 06/30/2023 11:03 PM Age: 53 years old Clinical indication: Other: Tachycardia; Prior surgery; Surgery date: 6+ months; Surgery type: Cabg; Additional info: Weakness tachycardia TECHNIQUE: Imaging protocol: Radiologic exam of the chest. Views: Portable upright AP chest x-ray, 1 view. COMPARISON: CR XR chest 2V* [id number] 06/26/2023 2:51 PM FINDINGS: Tubes, catheters and devices: Monitor leads project over the chest. Lungs: No significant or acute findings. No consolidation. Pleural spaces: No significant costophrenic angle blunting. No pneumothorax. Heart/Mediastinum: Heart size is normal. Bones/joints: Sternotomy wires are seen. XR/XR chest 1V portable [id number] IMPRESSION: No acute abnormality demonstrated.
[2023-06-30 22:59] LABS: Basophils # 0.1 10^3/uL (0.0-0.1); Basophils % 0.7 %; Eosinophils # 0.2 10^3/uL (0.0-0.8); Eosinophils % 1.2 %; Hematocrit 28.1 % (36-47); Lymphocytes # 6.5 10^3/uL (0.8-4.8); Lymphocytes % 44.4 %; Mean Corpuscular Volume 90.4 fl (85-98); Monocytes # 1.3 10^3/uL (0.2-0.9); Monocytes % 8.6 %; Neutrophils # 6.56 10^3/uL (1.8-7.7); Neutrophils % 44.6 %; Nucleated Red Blood Cells % 0 %; Platelet Count 427 10^3/cmm (157-399); Red Blood Count 3.11 10^6/uL (3.85-5.65); Red Cell Distribution Width 14.6 % (12.1-15.1); White Blood Count 14.72 10^3/uL (3.29-11.43)
[2023-06-30 23:01] LABS: Add Urine Microscopic? NO; Charge for UA Resulting for Rev
[2023-06-30 23:07] LABS: Blood Urine Neg (Negative); Glucose Urine UA 4+ (Normal); Ketones Urine 1+ (Negative); Protein Urine Neg (Negative); Specific Gravity, Urine 1.015 (1.005-1.030); Urine Appearance Clear (CLEAR); Urine Color Yellow (Yellow); pH Urine 5 (5-7)
[2023-06-30 23:08] LABS: Bilirubin Urine Neg (Negative); Leukocyte Esterase Urine Negative (Negative); Nitrate Urine Negative (Negative); Urobilinogen Urine Neg (Negative)
[2023-06-30 23:11] LABS: Troponin(5th) Baseline 15 ng/L (0-10)
[2023-06-30 23:12] LABS: Alanine Aminotransferase 82 U/L (0-33); Albumin Level 3.9 g/dL (3.5-5.2); Alkaline Phosphatase 89 U/L (35-105); Anion Gap 20.3 (5-19); Aspartate Amino Transferase 84 U/L (0-32); Blood Urea Nitrogen 39 mg/dL (6-20); Calcium 9.3 mg/dL (8.5-10.5); Carbon Dioxide 22 mmol/L (22-29); Chloride 100 mmol/L (98-107); Creatinine Clr Calc Pharmacy 55.4592; Globulin 2.5 g/dL (1.3-4.6); Glomerular Filtration Rate 47.4 mL/min (90-130); Magnesium 2.4 mg/dL (1.7-2.3); Osmolality Calculated 316 mOsm/kg (285-295); Potassium 5.3 mmol/L (3.5-5.1); Sodium 137 mmol/L (136-145); Total Bilirubin 0.3 mg/dL (0.15-1.2); Total Protein 6.4 g/dL (6.6-8.7)
[2023-06-30 23:13] LABS: Glucose 514 mg/dL (65-115)
--- NOTE | 2023-06-30 23:21 | ED_ITS ---
HPI - Weakness 2 General: Chief complaint: Weakness Stated complaint: HYPERGLYCEMIA Time Seen by Provider: 06/30/23 22:32 History of Present Illness: Patient was at the [employer] concert when she is started feeling weak and then she checked her blood sugar and it was 38. Concert go over started given her soda and cookies to help bring her blood sugar up and then upon arrival her blood sugar was 486. Patient feeling a lot better but still not quite her normal self. Patient is on amoxicillin for a urinary tract infection. Review of Systems 2 General: Reports: 10 or more systems reviewed and unremarkable except in HPI and below PFSH ED 2 PFSH: Medical History Skin lesions CAD (coronary artery disease) Folliculitis Diabetic neuropathy Coronary artery 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 2 diabetes mellitus Uncontrolled type 2 diabetes mellitus Diabetes Hypercholesterolemia Surgical History H/O heart bypass surgery [place]- Last Monday03/02/22 Status post colonoscopy (10/01/19) H/O: hysterectomy H/O heart artery stent 5 years ago H/O melanoma excision Family History Father CAD (coronary artery disease) Diabetes Grandfather CAD (coronary artery disease) Diabetes Grandmother CAD (coronary artery disease) Cancer lung Diabetes Denies family history of Anesthesia complication Bleeding disorder Social History Smoking and tobacco/nicotine status: current every day tobacco/nicotine user Alcohol intake: never Substance/Drug Use: never Household members: spouse Marital status: Current occupational status: employed Physical Exam 2 Const: COMMON NORMALS: no acute distress, average body habitus, patient oriented x3, no limitations, healthy appearing, alert and well nourished HENMT: COMMON NORMALS: normocephalic, atraumatic, hearing grossly normal bilaterally, external ears normal, Normal external nose present, moist oral mucous membranes and oropharynx normal HEAD & SCALP: normocephalic and atraumatic NOSE: Normal external nose present EXTERNAL EAR: Yes external ears normal Neck/C-Spine: COMMON NORMALS: no JVD Chest: COMMONS NORMALS: normal inspection of the chest and normal palpation of entire chest wall Resp: COMMON NORMALS: normal respiratory effort, No retractions, No use of accessory muscles and clear to auscultation bilaterally AUSCULTATION: clear to auscultation bilaterally Cardio: COMMON NORMALS: no JVD, regular rate, regular rhythm, S1 normal heart sound present, S2 normal heart sound present, No gallops present (Cardio), No clicks present (Cardio), No murmurs present (Cardio) and No rub (Cardio) R ATE: regular rate RHYTHM: regular rhythm HEART SOUNDS: S1 normal heart sound present and S2 normal heart sound present GI: COMMON NORMALS: Normal to inspection, nondistended, normoactive bowel sounds present, Soft to palpation, non-tender, No hepatosplenomegaly present and no masses PALPATION: Yes Soft to palpation and Yes No hepatosplenomegaly present Neuro: COMMON NORMALS: patient oriented x3 SENSORIUM/ORIENTATION: Yes alert Course 2 Vital Signs: Vital signs: Vital Signs Temperature 96.8 F L 06/30/23 22:26 Pulse Rate 93 07/01/23 01:32 Respiratory Rate 13 07/01/23 01:32 Blood Pressure 93/49 07/01/23 01:32 Pulse Oximetry 100 07/01/23 01:32 Oxygen Delivery Me thod Room Air 07/01/23 01:32 MDM - Weakness Medical Decision Making Patient came to the ER with complaints of hypoglycemia and hyperglycemia. Patient's initial blood sugar was approximately 514, patient was given total 30 units of IV insulin and it brought her sugar down to the 400s. Patient complained of back pain. Patient had a chest x-ray and was given a total of 4 mg of morphine. Patient's white count was slightly elevated at 14.72 platelets 427, ABG did not show any acidosis anion gap was just barely slightly elevated at 20.3. Ketones were negative. Patient had 2 EKGs which shows sinus tachycardia normal sinus rhythm, Dr. Tolbert was consulted who agreed to place patient in hospital for further evaluation and treatment. Differential Diagnosis Likely hypoglycemia; Unlikely acute myocardial infarction, anemia, hypothyroidism, rhabdomyolysis, sepsis or dehydration Medical Records I reviewed the patient's medical records. Lab Data I reviewed the patient's lab results. 06/30/23 22:10 06/30/23 22:10 Radiology Impressions Chest X-Ray 06/30/23 22:51 IMPRESSION: No acute abnormality demonstrated. Laboratory Results WBC 14.72 10^3/uL (3.29-11.43) H 06/30/23 22:10 RBC 3.11 10^6/uL (3.85-5.65) L 06/30/23 22:10 Hgb 8.70 g/dL (11.27-16.99) L 06/30/23 22:10 Hct 28.1 % (36-47) L 06/30/23 22:10 MCV 90.4 fl (85-98) 06/30/23 22:10 MCH 28.0 pg (27-33) 06/30/23 22:10 MCHC 31.0 g/dL (30-55) 06/30/23 22:10 RDW 14.6 % (12.1-15.1) 06/30/23 22:10 Plt Count 427 10^3/cmm (157-399) H 06/30/23 22:10 MPV 10.0 fL (7.4-10.4) 06/30/23 22:10 Neut % (Auto) 44.6 % 06/30/23 22:10 Lymph % (Auto) 44.4 % 06/30/23 22:10 [place] % (Auto) 8.6 % 06/30/23 22:10 Eos % (Auto) 1.2 % 06/30/23 22:10 Baso % (Auto) 0.7 % 06/30/23 22:10 Neut # (Auto) 6.56 10^3/uL (1.8-7.7) 06/30/23 22:10 Lymph # (Auto) 6.5 10^3/uL (0.8-4.8) H 06/30/23 22:10 [place] # (Auto) 1.3 10^3/uL (0.2-0.9) H 06/30/23 22:10 Eos # (Auto) 0.2 10^3/uL (0.0-0.8) 06/30/23 22:10 Baso # (Auto) 0.1 10^3/uL (0.0-0.1) 06/30/23 22:10 Nucleated RBC % (auto) 0 % 06/30/23 22:10 Nucleated RBCs # 0.0 /100WBC 06/30/23 22:10 Specimen Type Arterial 06/30/23 23:23 Sample Site Radial, left 06/30/23 23:23 ABG pH 7.48 (7.35-7.45) H 06/30/23 23:23 ABG pCO2 32.5 mmHg (35-45) L 06/30/23 23:23 ABG pO2 82.7 mmHg (80.0-100.0) 06/30/23 23:23 ABG HCO3 24.0 mmol/L (22-26) 06/30/23 23:23 ABG O2 Saturation 98.6 06/30/23 23:23 ABG Base Excess 0.5 mmol/L (-2.0-2.0) 06/30/23 23:23 Noe Test Pos 06/30/23 23:23 A-a O2 Gradient 3.4 mmHg (5-10) L 06/30/23 23:23 Hematocrit 23.5 % (37-47) L 06/30/23 23:23 Hgb O2 Saturation 97.7 % (95-100) 06/30/23 23:23 Carboxyhemoglobin 1.4 %THgb (0.4-20.1) 06/30/23 23:23 Methemoglobin < 0.0 % (0.4-1.5) L 06/30/23 23:23 Total Hemoglobin 7.7 g/dL (12-16) L 06/30/23 23:23 Sodium 137.0 mmol/L (131-143) 06/30/23 23:23 Potassium 5.5 mmol/L (3.5-5.0) H 06/30/23 23:23 Glucose 443.0 mg/dL (70-115) H 06/30/23 23:23 Ionized Calcium 1.1 mmol/L (1.1-1.4) 06/30/23 23:23 O2 Delivery Device Room air 06/30/23 23:23 Miner Placer ID [email or web address] 06/30/23 23:23 Sodium 137 mmol/L (136-145) 06/30/23 22:10 Potassium 5.3 mmol/L (3.5-5.1) H 06/30/23 22:10 Chloride 100 mmol/L (98-107) 06/30/23 22:10 Carbon Dioxide 22 mmol/L (22-29) 06/30/23 22:10 Anion Gap 20.3 (5-19) H 06/30/23 22:10 BUN 39 mg/dL (6-20) H 06/30/23 22:10 Creatinine 1.2 mg/dL (0.5-0.9) H 06/30/23 22:10 GFR Calculation 47.4 mL/min (90-130) L 06/30/23 22:10 Glucose 514 mg/dL (65-115) H* 06/30/23 22:10 POC Glucose 460 mg/dL (70-110) H 07/01/23 00:25 Calculated Osmolality 316 mOsm/kg (285-295) H 06/30/23 22:10 Calcium 9.3 mg/dL (8.5-10.5) 06/30/23 22:10 Magnesium 2.4 mg/dL (1.7-2.3) H 06/30/23 22:10 Total Bilirubin 0.3 mg/dL (0.15-1.2) 06/30/23 22:10 AST 84 U/L (0-32) H 06/30/23 22:10 ALT 82 U/L (0-33) H 06/30/23 22:10 Alkaline Phosphatase 89 U/L (35-105) 06/30/23 22:10 Troponin T Baseline 15 ng/L (0-10) H 06/30/23 22:10 Troponin T 120 Minute 16.87 ng/L (0-10) H 07/01/23 00:14 Delta Troponin T 1.87 ABS# (0-10) 07/01/23 00:14 Total Protein 6.4 g/dL (6.6-8.7) L 06/30/23 22:10 Albumin 3.9 g/dL (3.5-5.2) 06/30/23 22:10 Globulin 2.5 g/dL (1.3-4.6) 06/30/23 22:10 Urine Color Yellow (Yellow) 06/30/23 22:57 Urine Appearance Clear (CLEAR) 06/30/23 22:57 Urine pH 5 (5-7) 06/30/23 22:57 Ur Specific [place] 1.015 (1.005-1.030) 06/30/23 22:57 Urine Protein Neg (Negative) 04/05/24 22:57 Urine Glucose (UA) 4+ (Normal) H 06/30/23 22:57 Urine Ketones 1+ (Negative) H 06/30/23 22:57 Urine Blood Neg (Negative) 06/30/23 22:57 Urine Nitrate Negative (Negative) 06/30/23 22:57 Urine Bilirubin Neg (Negative) 06/30/23 22:57 Urine Urobilinogen Neg mg/dL (Negative) 06/30/23 22:57 Ur Leukocyte Esterase Negative (Negative) 06/30/23 22:57 Serum Ketones Negative (Negative) 06/30/23 22:10 All radiology interpretation(s) finalized by discharge Discharge Plan Discharge Patient Disposition: Admitted As Inpatient Clinical Impression: Hyperglycemia due to diabetes mellitus, Acute kidney injury, Generalized weakness Condition: Stable Coding Level of Care Code ED Manager Night for Dora Sparks
[2023-06-30 23:23] LABS: Ketone (Acetest) Serum Negative (Negative)
[2023-06-30] MEDS: sodium chloride 0.9% 1,000 ML 999 ML IV (23:29)
[2023-06-30] MEDS: insulin regular-human 100 units/1 mL 10 UNIT IVP (23:29)
[2023-06-30 23:35] LABS: ABG PCO2 32.5 mmHg (35-45); ABG PH Result 7.48 (7.35-7.45); Alveolar-Arterial Oxygen Gradi 3.4 mmHg (5-10); Arterial Blood Gas Hematocrit 23.5 % (37-47); Base Excess ABG 0.5 mmol/L (-2.0-2.0); Blood Gas Allen Test Pos; Blood Gas Sample Site Radial, left; Blood Gas Sample Type Arterial; Carboxyhemoglobin 1.4 %THgb (0.4-20.1); HGB O2 Sat 97.7 % (95-100); Ionized Calcium Level - ABG 1.1 mmol/L (1.1-1.4); Methemoglobin < 0.0 % (0.4-1.5); Oxygen Device ROOM AIR; Oxygen Saturation ABG 98.6; PO2 ABG 82.7 mmHg (80.0-100.0); Potassium Level - ABG 5.5 mmol/L (3.5-5.0); Total Hemoglobin 7.7 g/dL (12-16)
[2023-06-30] MEDS: morphine 4 mg/mL SDV 1 mL 2 MG IVP (23:51)
[2023-07-01] VITALS (91 sets, daily range): BP systolic 77–136; BP diastolic 47–79; PULSE 92–112; RESP 10–108; TEMP 36.2–37.2; O2SAT 94–100; BMI 25.0
[2023-07-01 00:29] LABS: Glucose Point of Care 460 mg/dL (70-110)
[2023-07-01 00:40] LABS: Troponin 5 2HR 16.87 ng/L (0-10); Troponin 5 2HR Delta 1.87 ABS# (0-10)
--- NOTE | 2023-07-01 00:49 | ECG_ITS ---
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 Measurements Intervals [place] Rate: 94 P: 86 ID: 150 QRS: 84 QRSD: 90 T: 82 QT: 381 QTc: 478 Interpretive Statements SINUS RHYTHM Compared to ECG 06/17/2023 09:29:10 Sinus tachycardia no longer present Electronically Signed On 07-02-2023 11:20:47 CDT by Eric Moses M.D. [id number]
[2023-07-01] MEDS: insulin regular-human 100 units/1 mL 20 UNIT IVP (00:50)
[2023-07-01] MEDS: ketorolac 30 mg/mL INJ IVP (01:23)
[2023-07-01 02:18] LABS: Glucose Point of Care 441 mg/dL (70-110)
[2023-07-01 02:36] LABS: C Reactive Protein 8.8 mg/L (0.0-4.9)
--- NOTE | 2023-07-01 02:39 | P.HP_ITS ---
Providers/Chief Complaint 2 Primary Care Provider: Joy Mccray Chief Complaint: HYPERGLYCEMIA History of Present Illness Nelly Gaming is a 53 year old female with a past medical history of type 2 diabetes mellitus, history of CAD status post CABG, hypertension hyperlipidemia, recent hospitalization for UTI pyelonephritis E. coli bacteremia, discharged on Augmentin, who presents [facility] due to lightheadedness, dizziness, presyncopal symptoms, with hypoglycemia and hyperglycemia. Patient tells me that since hospital discharge he has been doing well, she took her home to 140 units of insulin this morning, she did not take her evening dose, she was at a concert, roughly 9 PM, she denies drinking alcohol, does vape, denies using any drugs, when she felt unwell she felt lightheaded and weak, her family numbers were able to get her back to her car, and eventually once she got home they rechecked her sugar and it was 38, so she was given Mountain Dew, cookies her blood sugar and then improved to 400s, patient feels better, but continues to feel weak and fatigued, has complaints of shortness of breath, bilateral pleurisy, denies any falls, no trauma, no hemoptysis, no cough Review of Systems 2 Const: Reports: fatigue and malaise; Denies: fever(s) or chills Card: Denies: chest pain Resp: Reports: dyspnea GI: Denies: abdominal pain : Denies: flank pain Neuro: Reports: dizziness; Denies: headache(s) Medications/Allergies Home Medications Medication Instructions Recorded Confirmed Last Taken Type hydroxyzine HCl 25 mg tablet 25 mg PO Q6H PRN Itching 07/21/20 06/18/23 12/12/21 History nitroglycerin 0.4 mg sublingual 0.4 mg sublingual Q5M PRN chest 07/22/20 06/18/23 Unknown Rx tablet pain #30 tabs aspirin 81 mg tablet,delayed 81 mg PO QAM 12/13/21 06/18/23 06/16/23 History release blood-glucose meter,continuous #1 ea 08/16/22 06/18/23 Unknown Rx (Dexcom G6 Supervisor Drawing) pen needle, diabetic 32 gauge x ##100 09/13/22 06/18/23 Unknown Rx (TechLITE Pen Needle) multivitamin 1 tab PO DAILY 11/20/22 06/18/23 11/19/22 History fluoxetine 40 mg capsule 40 mg PO QAM 01/03/23 06/18/23 06/16/23 History albuterol sulfate 90 mcg/actuation 2 inh inhalation Q4H PRN shortness 01/27/23 06/18/23 Unknown Rx aerosol inhaler of breath or wheezing #18 grams blood-glucose sensor (Dexcom G6 #6 ea 03/10/23 06/18/23 Unknown Rx Sensor device) blood-glucose transmitter (Dexcom #1 ea 03/10/23 06/18/23 Unknown Rx G6 Transmitter device) semaglutide 1 mg/dose (4 mg/3 mL) 1 mg (0.75 mL) SUBCUT Q7D #3 mL 06/06/23 06/18/23 Unknown Rx subcutaneous pen injector (Ozempic) amitriptyline 25 mg tablet 25 mg PO BEDTIME 06/17/23 06/18/23 06/16/23 History insulin regular hum U-500 conc 500 See Rx Instructions .Route .COMPLEX 06/17/23 06/18/23 Unknown History unit/mL(3 mL) subcut pen (Humulin R U-500 (Conc) Insulin Kwikpen) naproxen 500 mg tablet 500 mg PO Q12H PRN Pain 06/17/23 06/18/23 Unknown History promethazine 25 mg tablet 25 mg PO Q6H PRN nausea and 06/17/23 06/18/23 Unknown Rx vomiting #20 tabs rosuvastatin 40 mg tablet (Crestor) 40 mg PO QAM 06/17/23 06/18/23 06/16/23 History amoxicillin 875 mg tablet 875 mg PO BID #16 tabs 06/20/23 Unknown Rx Allergies Allergy/AdvReac Type Severity Reaction Status Date / Time nalbuphine [From Nubain] Allergy ADR-Headach Verified 06/17/23 20:48 e sumatriptan [From Imitrex] Allergy ALGY-Swell Verified 06/17/23 20:48 Lip/Tongue/Throat PFSH Acute 2 PFSH: Medical History Skin lesions CAD (coronary artery disease) Folliculitis Diabetic neuropathy Coronary artery 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 2 diabetes mellitus Uncontrolled type 2 diabetes mellitus Diabetes Hypercholesterolemia Surgical History H/O heart bypass surgery [place]- Last Monday03/02/22 Status post colonoscopy (10/01/19) H/O: hysterectomy H/O heart artery stent 5 years ago H/O melanoma excision Family History Father CAD (coronary artery disease) Diabetes Grandfather CAD (coronary artery disease) Diabetes Grandmother CAD (coronary artery disease) Cancer lung Diabetes Denies family history of Anesthesia complication Bleeding disorder Social History Smoking and tobacco/nicotine status: current every day tobacco/nicotine user Alcohol intake: never Substance/Drug Use: never Household members: spouse Marital status: Current occupational status: employed Vitals/I&O/Wt Last Vital Signs Temp 96.8 F L 06/30/23 22:26 Pulse 92 07/01/23 02:29 Resp 18 07/01/23 02:29 BP 91/58 07/01/23 02:29 Pulse Ox 100 07/01/23 02:29 O2 Del Method Room Air 07/01/23 02:29 06/30/23 06/30/23 07/01/23 14:59 22:59 06:59 Intake Total 1000 / 1000 Balance 1000 / 1000 Weight last 48 hrs Weight 69.4 kg Physical Exam 2 Const: COMMON NORMALS: no acute distress and patient oriented x3 HENMT: COMMON NORMALS: normocephalic HEAD & SCALP: normocephalic Eye: COMMON NORMALS: Equal, round and reactive pupils present and EOMs intact bilaterally Neck/C-Spine: COMMON NORMALS: no JVD Resp: COMMON NORMALS: normal respiratory effort, No retractions, No use of accessory muscles and clear to auscultation bilaterally AUSCULTATION: clear to auscultation bilaterally Cardio: COMMON NORMALS: regular rate, regular rhythm, S1 normal heart sound present and S2 normal heart sound present RATE: regular rate RHYTHM: r egular rhythm HEART SOUNDS: S1 normal heart sound present and S2 normal heart sound present GI: COMMON NORMALS: Normal to inspection, nondistended, normoactive bowel sounds present, Soft to palpation and non-tender : COMMON NORMALS: Yes no CVA tenderness Extremity: COMMON NORMALS: no calf tenderness and no pedal edema Neuro: COMMON NORMALS: patient oriented x3, CN's II-XII intact bilaterally, moves all extremities and no focal motor deficits Psych: COMMON NORMALS: mental status grossly normal Data 06/30/23 22:10 06/30/23 22:10 A&P Assessment and plan (1) Pre-syncope: (2) Hypoglycemia: (3) Shortness of breath: (4) Diabetes mellitus: (5) LYRIC (acute kidney injury): (6) Cystitis: (7) Anemia: (8) Generalized weakness: Plan Hypoglycemic episode ? Resolved ? Etiology unclear Hyperglycemia, ketones negative, pH within normal limits, anion gap 20 ? Patient takes Humulin R U-500 140 units in the morning and 100 units in the evening, she has not taken dose ? For now 10 units of Lantus, with high-dose sliding scale Presyncopal symptoms ? Likely second hypoglycemia, next?neurochecks, NIH stroke scale, will order orthostatic vitals ? Serial EKGs consult. Telemetry monitoring ? TSH, lactic acid pending LYRIC, dehydration, IV fluids, Leukocytosis, possibly reactive, with recent history of UTI with E. coli bacteremia ? Repeat blood cultures ? Continue Rocephin History of CAD, history of CABG ? Has complaints of shortness of breath bilateral pleurisy, serial EKGs, troponins, telemetry monitoring Anemia, ferritin, iron, Hemoccult stool Attestations 2 Medical Necessity Statement*: Patient requires hospitalization for weakness, presyncope, hypoglycemia, LYRIC, outpatient with observation Diagnoses Pre-syncope R55 Hypoglycemia E16.2 Shortness of breath R06.02 Diabetes mellitus E11.9 LYRIC (acute kidney injury) N17.9 Cystitis N30.90 Anemia D64.9 Generalized weakness R53.1
[2023-07-01 02:49] LABS: Lactic Sepsis W/Reflex 3.9 mmol/L (0.5-2.2)
--- NOTE | 2023-07-01 02:55 | CTR_ITS ---
PROCEDURE INFORMATION: Exam: CT Chest With Contrast; Diagnostic Exam date and time: 07/01/2023 3:27 AM Age: 53 years old Clinical indication: Pain and abnormal findings; Abnormal lab test; Elevated liver enzymes and elevated wbc; Other: N/a; Prior surgery; Surgery date: 6+ months; Surgery type: Cabg. Coronary stents. Hysterectomy. Patient HX: Back pain with general weakness. Hypotensive with hyperglycemia, elevated white blood count, and lactic acid. ; Additional info: Hypotenive, elevated lactic acid, wbc TECHNIQUE: Imaging protocol: Diagnostic computed tomography of the chest with contrast. Radiation optimization: All CT scans at this facility use at least one of these dose optimization techniques: automated exposure control; mA and/or kV adjustment per patient size (includes targeted exams where dose is matched to clinical indication); or iterative reconstruction. Contrast material: OMNI 350; Contrast volume: 100 ml; Contrast route: INTRAVENOUS (IV); COMPARISON: CT angio chest PE protcl [id number] 04/01/2022 6:36 AM RADIATION DOSE METRICS: Total DLP (mGy-cm): 851.24 FINDINGS: Lungs: Right basilar calcified granuloma and minimal bibasilar atelectasis. Tiny punctate posterolateral right upper lobe calcified granuloma. No consolidation. Pleural spaces: Unremarkable. No pneumothorax. No pleural effusion. Heart: Heart size is normal. Coronary arteries: Prior CABG. Lymph nodes: No enlarged lymph nodes. Vasculature: Mild atherosclerotic tortuosity of the thoracic aorta. No aortic aneurysm or dissection. Bones/joints: Sternotomy wires are seen. Soft tissues: No significant soft tissue abnormalities. PROCEDURE INFORMATION: Exam: CT Abdomen And Pelvis With Contrast Exam date and time: 07/01/2023 3:27 AM Age: 53 years old Clinical indication: Pain and abnormal findings; Abnormal lab test; Elevated liver enzymes and elevated wbc; Other: N/a; Prior surgery; Surgery date: 6+ months; Surgery type: Cabg. Coronary stents. Hysterectomy. Patient HX: Back pain with general weakness. Hypotensive with hyperglycemia, elevated white blood count, and lactic acid. ; Additional info: Hypotenive, elevated lactic acid, wbc TECHNIQUE: Imaging protocol: Computed tomography of the abdomen and pelvis with contrast. Radiation optimization: All CT scans at this facility use at least one of these dose optimization techniques: automated exposure control; mA and/or kV adjustment per patient size (includes targeted exams where dose is matched to clinical indication); or iterative reconstruction. Contrast material: OMNI 350; Contrast volume: 100 ml; Contrast route: INTRAVENOUS (IV); COMPARISON: CT kidney stone [id number] 06/17/2023 9:47 PM RADIATION DOSE METRICS: Total DLP (mGy-cm): 851.24 FINDINGS: Liver: Diffuse fatty infiltration of the liver. Gallbladder and bile ducts: No acute abnormality. No calcified stones. No ductal dilation. Pancreas: No acute abnormality. No ductal dilation. Spleen: No acute abnormality. Multiple splenic calcified granulomas. Adrenal glands: No significant or acute abnormality. Kidneys and ureters: Mild left renal scarring. No hydronephrosis or hydroureter. Stomach and bowel: Fluid and ingested contents within stomach. No significant large or small bowel distention. Colonic diverticulosis without CT evidence of diverticulitis. Appendix: No findings to suggest acute appendicitis. Intraperitoneal space: No significant fluid collection. No free air. Vasculature: Atherosclerotic vascular calcification. No aortic aneurysm. Lymph nodes: Small nonspecific periportal and retroperitoneal lymph nodes. Urinary bladder: Nondistended decompressed urinary bladder. Reproductive: Previous hysterectomy. Bones/joints: No acute osseous abnormality. No dislocation. Soft tissues: No significant soft tissue abnormalities. CT/CT chest abdpel w/*[id number] IMPRESSION: 1. No acute abnormality demonstrated. 2. Atherosclerotic vascular disease and prior CABG. IMPRESSION: 1. Colonic diverticulosis without CT evidence of diverticulitis. 2. Diffuse fatty infiltration of the liver. 3. Previous hysterectomy. 4. Atherosclerotic vascular disease.
[2023-07-01 02:57] LABS: Ferritin 196 ng/mL (15-150); Iron 55 ug/dL (37-145)
[2023-07-01 03:00] LABS: Procalcitonin 0.16 ng/mL (0-0.5)
[2023-07-01 03:20] LABS: Alcohol Level < 10 mg/dL (0-10)
[2023-07-01 03:28] LABS: Amphetamines Screen Urine Negative (Negative); Barbiturates Screen Urine Negative (Negative); Benzodiazepines Screen Urine Positive (Negative); Cocaine Screen Urine Negative (Negative); Opiate Screen Urine Negative (Negative); PCP Screen Urine Negative (Negative); THC Screen Urine Negative (Negative)
[2023-07-01] MEDS: iohexol 350 mg/mL 500 mL Btl (per mL) IV (03:35)
[2023-07-01] MEDS: pantoprazole 40 mg SDV IVP ×3 (03:55→19:58)
[2023-07-01] MEDS: cefTRIAXone 1,000 MG in sodium chloride 0.9% (plus) 50 ML 100 MG IV (03:55)
[2023-07-01] MEDS: sodium chloride 0.9% 1,000 ML 100 ML IV ×2 (03:56→17:13)
[2023-07-01] MEDS: morphine 4 mg/mL SDV 1 mL 2 MG IVP ×2 (03:59→09:17)
[2023-07-01] MEDS: insulin glargine 100 units/1 mL 10 UNIT SUBCUT (04:11)
[2023-07-01 04:14] LABS: Glucose Point of Care 461 mg/dL (70-110)
[2023-07-01 04:17] LABS: Reflex Lactate Order REFLEX LACTIC ORDERD
[2023-07-01] MEDS: ondansetron 2 mg/ML SDV 2 mL 4 MG IVP ×2 (04:51→12:34)
--- NOTE | 2023-07-01 05:02 | ECG_ITS ---
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 Measurements Intervals [place] Rate: 101 P: 49 [place]: 159 QRS: 80 QRSD: 90 T: 81 QT: 367 QTc: 476 Interpretive Statements SINUS TACHYCARDIA Compared to ECG 07/01/2023 01:10:13 Sinus rhythm no longer present Electronically Signed On 07-02-2023 11:20:39 CDT by Eric Moses M.D. [id number]
[2023-07-01 05:43] LABS: Troponin 5 6HR 19.72 ng/L (0-10); Troponin 5 6HR Delta 4.72 ng/L (0-12)
[2023-07-01 06:06] LABS: Thyroid Stimulating Hormone 2.74 uIU/mL (0.27-4.20)
--- NOTE | 2023-07-01 06:14 | PC.NURSE ---
PLR: PLR preformed for low BP. Results sent to Dr. Walker via VOLT @0326. Change in SVI -5.1. New order for 1L NS Bolus.
[2023-07-01 06:20] LABS: Lactic Acid level (Lactate) 2.9 mmol/L (0.5-2.2)
[2023-07-01] MEDS: fluoxetine 20 mg Capsule 40 MG PO (06:21)
[2023-07-01] MEDS: atorvastatin 40 mg Tablet 80 MG PO (06:23)
[2023-07-01] MEDS: sodium chloride 0.9% 1,000 ML 999 ML IV (06:23)
--- NOTE | 2023-07-01 06:52 | USCV_ITS ---
Nelly Gaming Age: 53 Gender: F : 1970 Exam Date: 07/01/2023 18:03 Ordering Phys: Mariano Walker MD Technologist: Jos Barboza Exam Location: [facility] [place] Indication: sob BP: 89 / 67 HR: 96 Rhythm: Sinus Technical Quality: Adequate MEASUREMENTS (Male / Female) Normal Values 2D ECHO LVOT Diameter 2.1 cm LV Ejection Fraction MOD 2C 74.2 % LV Ejection Fraction 2C AL 75.9 % LA Diameter 3.7 cm RA Systolic Volume 4C AL 22.3 ml RA Systolic Volume 4C MOD 22.5 ml Aorta at Sinotubular Diameter 2.3 cm M-MODE LA Ao Ratio MM 1.1 AV Cusp Separation MM 1.8 cm DOPPLER AV Peak Velocity 138.7 cm/s LVOT Peak Velocity 133.0 cm/s AV Area Cont Eq vti 3.4 cm squared AV Area Cont Eq pk 3.3 cm squared MV Peak Velocity 136.0 cm/s MV Area PHT 6.7 cm squared Mitral E to A Ratio 0.9 TR Peak Velocity 146.0 cm/s TR Peak Gradient 8.5 mmHg TR Mean Velocity 95.0 cm/s TR Mean Gradient 4.4 mmHg TR Velocity Time Integral 20.3 cm PV Peak Velocity 123.4 cm/s RV Ejection Time 0.3 s FINDINGS Left Ventricle Left ventricle is normal size. LV systolic function is normal with EF of 60 to 65%. No regional wall motion abnormalities are seen. Grade 1 diastolic dysfunction Right Ventricle Normal in size and function. Right Atrium Normal in size Left Atrium Normal in size Mitral Valve Structurally normal mitral valve. Mild mitral regurgitation. Aortic Valve Structurally normal aortic valve. No significant stenosis or regurgitation. Tricuspid Valve Mild tricuspid regurgitation. Insufficient TR jet to calculate RVSP. Pulmonic Valve Not well visualized Pericardium Normal Aorta Normal in size IVC Not well visualized CONCLUSIONS LV systolic fucntion is normal with EF of 60-65% Grade 1 diastolic dysfunction Mild mitral regurgitation Mild tricuspid regurgitation Compared to prior echocardiogram from 2020, no significant changes are seen Eric Moses MD (Electronically Signed) Final Date: 02 July 2023 11:33 S
[2023-07-01 07:02] LABS: Glucose Point of Care 470 mg/dL (70-110)
[2023-07-01 07:17] LABS: C.Diff PCR (Lab) POSITIVE (Negative)
[2023-07-01 07:28] LABS: Alanine Aminotransferase 49 U/L (0-33); Albumin Level 2.7 g/dL (3.5-5.2); Alkaline Phosphatase 61 U/L (35-105); Anion Gap 15.4 (5-19); Aspartate Amino Transferase 37 U/L (0-32); Blood Urea Nitrogen 46 mg/dL (6-20); Calcium 7.6 mg/dL (8.5-10.5); Carbon Dioxide 20 mmol/L (22-29); Chloride 103 mmol/L (98-107); Globulin 2.1 g/dL (1.3-4.6); Glomerular Filtration Rate 47.4 mL/min (90-130); Glucose 462 mg/dL (65-115); Osmolality Calculated 306 mOsm/kg (285-295); Potassium 6.4 mmol/L (3.5-5.1); Sodium 132 mmol/L (136-145); Total Bilirubin 0.2 mg/dL (0.15-1.2); Total Protein 4.8 g/dL (6.6-8.7)
[2023-07-01 07:29] LABS: Creatinine Clr Calc Pharmacy 55.8402
[2023-07-01] MEDS: insulin lispro 100 unit/1 mL SUBCUT ×3 (07:50→17:50)
[2023-07-01 08:07] LABS: Basophils % 0.3 %; Eosinophils % 0.2 %; Lymphocytes # 2.6 10^3/uL (0.8-4.8); Lymphocytes % 27.8 %; Mean Corpuscular HGB Conc 30.6 g/dL (30-55); Mean Corpuscular Hemoglobin 28.1 pg (27-33); Mean Corpuscular Volume 91.9 fl (85-98); Mean Platelet Volume 10.2 fL (7.4-10.4); Monocytes # 0.7 10^3/uL (0.2-0.9); Monocytes % 7.5 %; Neutrophils # 5.95 10^3/uL (1.8-7.7); Neutrophils % 63.8 %; Nucleated Red Blood Cells % 0 %; Platelet Count 243 10^3/cmm (157-399); Red Cell Distribution Width 14.8 % (12.1-15.1); White Blood Count 9.33 10^3/uL (3.29-11.43)
[2023-07-01 08:09] LABS: Hematocrit 14.7 % (36-47)
[2023-07-01] MEDS: albuterol 2.5 mg/3 mL Neb INHALATION (08:25)
[2023-07-01] MEDS: norepinephrine 4 MG/250 ML BAG 7.5 MG IV (08:41)
[2023-07-01] MEDS: metroNIDAZOLE IV 500 MG/100 ML PREMIX 100 MG IV (09:09)
[2023-07-01 09:26] LABS: Glucose Point of Care 435 mg/dL (70-110)
--- NOTE | 2023-07-01 09:36 | PM.ACPR ---
Procedure/Consent Time out: Time Out Performed: Yes Consent: Consent for Procedure: Consent obtained from patient Acute Procedures Central Line Placement: Right Femoral: Time out performed: Yes Patient placed on monitor/pulse ox: Yes MD prep: mask, gown and gloves Central line prep: Povidone-Iodine 1%, Chlorhexidine scrub and sterile drapes applied Local anesthesia used: lidocaine 1% Amount of anesthesia used (ml): 4 Ultrasound used for placement: Yes Central line lumen inserted: triple Post procedure: sutured in place, good blood return, all ports aspirated, flushed, capped and sterile dressing applied Post procedure x-ray: other (not indicated ) Patient tolerated procedure: well and no complications Complications: none Epistaxis Control: Time out performed: Yes
--- NOTE | 2023-07-01 09:37 | PM.CCNAC ---
Critical Care Event Note The high probability of a clinically significant, sudden or life threatening deterioration of the patient's [hematological, cardiovascular, GI] system(s) required my full and direct attention, intervention and personal management. The critical care time is as shown. This time is in addition to time spent performing any reported procedures but includes the following: [x] Data and vital sign review and interpretation [x] Patient assessment, examination and intervention [x] Documentation [x] Medication orders and management Called by RN this morning to report patient's hemoglobin had dropped from 8.7 upon arrival to 4.5 at 7 AM. She has had 2 bloody bowel movements overnight. She tested positive for C. difficile. She had been having diarrhea the past few days but had not noticed any bleeding. Denies any past history of GI bleeding. Review of records shows patient also takes naproxen and aspirin at home. No known history of stomach ulcers. She is complaining of pain abdomen, describes it as a cramping churning kind of sensation. CT of the chest abdomen and pelvis taken overnight with contrast which showed colonic diverticulosis without CT evidence of diverticulitis. No noted colitis. Suspect diverticular bleeding. Other abnormal labs this morning are hyperkalemia at 6 point four-page. Patient has just received 18 units of lispro insulin. Blood glucose elevated at 462. Creatinine at 1.2. Elevated lactate at 3.9. Patient is currently alert awake and oriented. Hemodynamics are unstable. Blood pressure dropped to 76/42 and patient was tachycardic with heart rate of 110. Likely secondary to acute blood loss. Received 1 L fluid bolus and now started on norepinephrine infusion. 2 units of packed red blood cells ordered. Started oral vancomycin 125 mg p.o. every 6 hours. Central line inserted into right femoral to enable multiple medications to run at the same time, blood transfusion, pressors. normal anion gap, unlikely DKA N.p.o. except sips and meds. General surgery consulted in view of GI bleeding Critical Care Time Code activated: No Critical Care Time (min): 60 Coding Level of Care Code Acute Code for [facility]
[2023-07-01 09:41] LABS: Clostridioides Difficile Toxin NEGATIVE (Negative)
[2023-07-01] MEDS: ALPRAZolam 0.5 mg Tablet PO ×2 (10:30→20:10)
[2023-07-01] MEDS: insulin regular-human 10 UNIT in SYRINGE 1 EACH IVP (10:32)
[2023-07-01] MEDS: vancomycin 125 mg Capsule PO ×3 (10:32→20:10)
--- NOTE | 2023-07-01 10:35 | P.CONIM_ITS ---
Providers/Reason For Consult 2 Consulting Physician/Specialty*: ICU Medicine Reason for Consult*: GI bleed Requesting Physician: Veronika Cat MD Attending Physician: Veronika Cat MD Primary Care Provider: Joy Mccray History of Present Illness History of Present Illness Nelly Gamign is a 53 year old female who presented via ED with hypo followed by hyperglycemia and near-syncope admitted yesterday with multiple metabolic derangements and who passed two large bloody bowel movements overnight with drop in Hb this morning concerning for acute diverticular bleed. Patient has been taking NSAIDs. No prior history of GIB. Denies abdominal pain, but has been having diarrhea for several days. Review of Systems 2 Const: Reports: fatigue and malaise Eyes: Denies: change in vision ENMT: Denies: bleeding gums or epistaxis Card: Reports: edema (since admission and IV resuscitation) and pre-syncope; Denies: chest pain Resp: Denies: dyspnea or hemoptysis GI: Reports: diarrhea, GI cramping and hematochezia; Denies: abdominal pain, nausea or vomiting Musc: Reports: extremity swelling (since admission and IV resuscitation) Skin/Breast: Denies: rash, pruritus or skin pain Psych: Reports: anxiety Mio/Lymph: Denies: easy bruising, petechiae or purpura Medications/Allergies Home Medications Medication Instructions Recorded Confirmed Last Taken Type hydroxyzine HCl 25 mg tablet 25 mg PO Q6H PRN Itching 07/21/20 07/01/23 12/12/21 History nitroglycerin 0.4 mg sublingual 0.4 mg sublingual Q5M PRN chest 07/22/20 07/01/23 Unknown Rx tablet pain #30 tabs aspirin 81 mg tablet,delayed 81 mg PO QAM 12/13/21 07/01/23 06/16/23 History release blood-glucose meter,continuous #1 ea 08/16/22 07/01/23 Unknown Rx (Dexcom G6 Corporate Consultant) pen needle, diabetic 32 gauge x ##100 09/13/22 07/01/23 Unknown Rx /32 (TechLITE Pen Needle) multivitamin 1 tab PO DAILY 11/20/22 07/01/23 11/19/22 History fluoxetine 40 mg capsule 40 mg PO QAM 01/03/23 07/01/23 06/16/23 History albuterol sulfate 90 mcg/actuation 2 inh inhalation Q4H PRN shortness 01/27/23 07/01/23 Unknown Rx aerosol inhaler of breath or wheezing #18 grams blood-glucose sensor (Dexcom G6 #6 ea 03/10/23 07/01/23 Unknown Rx Sensor device) blood-glucose transmitter (Dexcom #1 ea 03/10/23 07/01/23 Unknown Rx G6 Transmitter device) semaglutide 1 mg/dose (4 mg/3 mL) 1 mg (0.75 mL) SUBCUT Q7D #3 mL 06/06/23 07/01/23 Unknown Rx subcutaneous pen injector (Ozempic) amitriptyline 25 mg tablet 25 mg PO BEDTIME 06/17/23 07/01/23 06/16/23 History insulin regular hum U-500 conc 500 See Rx Instructions .Route .COMPLEX 06/17/23 07/01/23 Unknown History unit/mL(3 mL) subcut pen (Humulin R U-500 (Conc) Insulin Kwikpen) naproxen 500 mg tablet 500 mg PO Q12H PRN Pain 06/17/23 07/01/23 Unknown History promethazine 25 mg tablet 25 mg PO Q6H PRN nausea and 06/17/23 07/01/23 Unknown Rx vomiting #20 tabs rosuvastatin 40 mg tablet (Crestor) 40 mg PO QAM 06/17/23 07/01/23 06/16/23 History amoxicillin 875 mg tablet 875 mg PO BID #16 tabs 06/20/23 07/01/23 Unknown Rx cyclobenzaprine 10 mg tablet 10 mg PO Q8H PRN Pain 07/01/23 07/01/23 Unknown History tamsulosin 0.4 mg capsule 0.4 mg PO DAILY 07/01/23 07/01/23 Unknown History Allergies Allergy/AdvReac Type Severity Reaction Status Date / Time nalbuphine [From Nubain] Allergy ADR-Headach Verified 06/17/23 20:48 e sumatriptan [From Imitrex] Allergy ALGY-Swell Verified 06/17/23 20:48 Lip/Tongue/Throat Current Medications Generic Name Dose Route Start Last Admin Trade Name Freq PRN Reason Stop Dose Admin Alprazolam 0.5 mg 07/01/23 09:28 07/01/23 10:30 Alprazolam 0.5 Mg Tablet PO 0.5 mg BID PRN Administration ANXIETY Atorvastatin Calcium 80 mg 07/01/23 06:00 07/01/23 06:23 Atorvastatin 40 Mg Tablet PO 80 mg QAM DENISE Administration Enoxaparin Sodium 40 mg 07/01/23 03:36 07/01/23 04:03 Enoxaparin 40 Mg/0.4 Ml Syringe SUBCUT Not Given Q24H DENISE Fluoxetine HCl 40 mg 07/01/23 06:00 07/01/23 06:21 Fluoxetine 20 Mg Capsule PO 40 mg QAM DENISE Administration Ceftriaxone Sodium 1,000 mg/ 50 mls @ 100 mls/hr 07/01/23 03:36 07/01/23 04:58 Sodium Chloride IV Infused Q24H DENISE Infusion Protocol Sodium Chloride 1,000 mls @ 100 mls/hr 07/01/23 03:36 07/01/23 03:56 Sodium Chloride 0.9% IV 100 mls/hr .Q10H DENISE Administration Metronidazole 500 mg in 100 mls @ 100 mls/hr 07/01/23 08:30 07/01/23 09:09 Flagyl Iv IV 100 mls/hr Q8H DENISE Administration Protocol norepinephrine 4 mg in 250 mls @ 0 mls/hr 07/01/23 08:30 07/01/23 08:41 Levophed IV 2 mcg/min .Q0M DENISE 7.5 mls/hr Administration Protocol Per Protocol Insulin Human Lispro 0 unit 07/01/23 08:00 07/01/23 07:50 Insulin Lispro 100 Unit/1 Ml SUBCUT 18 unit TIDWM DENISE Administration Protocol Morphine Sulfate 2 mg 07/01/23 03:36 07/01/23 03:59 Morphine 4 Mg/Ml Sdv 1 Ml IVP 2 mg Q4H PRN Administration SEVERE PAIN Ondansetron HCl 4 mg 07/01/23 03:36 07/01/23 04:51 Ondansetron 2 Mg/Ml Sdv 2 Ml IVP 4 mg Q8H PRN Administration vomiting, or N/V if npo Pantoprazole Sodium 40 mg 07/01/23 08:30 07/01/23 08:57 Pantoprazole 40 Mg Sdv IVP 40 mg Q12H DENISE Administration PFSH Acute 2 PFSH: Medical History Skin lesions CAD (coronary artery disease) Folliculitis Diabetic neuropathy Coronary artery 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 2 diabetes mellitus Uncontrolled type 2 diabetes mellitus Diabetes Hypercholesterolemia Surgical History H/O heart bypass surgery [place]- Last Monday03/02/22 Status post colonoscopy (10/01/19) H/O: hysterectomy H/O heart artery stent 5 years ago H/O melanoma excision Family History Father CAD (coronary artery disease) Diabetes Grandfather CAD (coronary artery disease) Diabetes Grandmother CAD (coronary artery disease) Cancer lung Diabetes Denies family history of Anesthesia complication Bleeding disorder Social History Smoking and tobacco/nicotine status: current every day tobacco/nicotine user Alcohol intake: never Substance/Drug Use: never Household members: spouse Marital status: Current occupational status: employed Vitals/I&O/Wt Last Vital Signs Temp 97.9 F 07/01/23 09:57 Pulse 97 07/01/23 10:27 Resp 14 07/01/23 09:57 BP 86/59 07/01/23 06:15 Pulse Ox 100 07/01/23 10:27 O2 Del Method Nasal Cannula 07/01/23 10:27 O2 Flow Rate 2 07/01/23 10:27 06/30/23 07/01/23 07/01/23 22:59 06:59 14:59 Intake Total 1050 / 1050 0 / 0 Output Total 200 / 200 Balance 850 / 850 0 / 0 Weight last 48 hrs Weight 155 lb 6.4 oz Weight 153 lb Physical Exam 2 Const: COMMON NORMALS: no acute distress, patient oriented x3, alert and well nourished GENERAL APPEARANCE: cooperative, well kempt, well developed and anxious HENMT: COMMON NORMALS: normocephalic, atraumatic, external ears normal and Normal external nose present HEAD & SCALP: normocephalic and atraumatic N OSE: Normal external nose present EXTERNAL EAR: Yes external ears normal Eye: COMMON NORMALS: EOMs intact bilaterally and no scleral icterus GENERAL EYE: appearance normal, both eyes and all related structures Neck/C-Spine: COMMON NORMALS: full ROM and supple GENERAL: Yes normal visual inspection and Yes trachea midline Resp: COMMON NORMALS: normal respiratory effort, No retractions and No use of accessory muscles EFFORT & INSPECTION: Yes able to speak in complete sentences and Yes symmetric chest movement Cardio: COMMON NORMALS: regular rhythm JUGULAR VENOUS DISTENTION: no JVD RATE: tachycardic RHYTHM: regular rhythm PERIPHERAL PULSES: radial pulses present GI: COMMON NORMALS: Soft to palpation and non-tender INSPECTION: Yes normal to inspection AUSCULTATION: Yes Hyperactive bowel sounds present P ALPATION: Yes Soft to palpation and No Guarding due to palpation present (GI) RECTAL EXAM: deferred (due to patient anxiety, will assess during planned colonoscopy) Extremity: COMMON NORMALS: normal to inspection and full ROM Neuro: COMMON NORMALS: patient oriented x3 and no focal motor deficits S ENSORIUM/ORIENTATION: Yes alert Psych: COMMON NORMALS: mental status grossly normal, Normal thought process present, cooperative, normal affect, speech normal and activity/motor behavior normal APPEARANCE: Yes well kempt ATTITUDE: Yes calm and Yes engaged A CTIVITY/MOTOR BEHAVIOR: Yes appropriate eye contact SPEECH: Yes normal speech MOOD & AFFECT: Yes anxious THOUGHT PROCESS: Normal thought process present THOUGHT CONTENT: Yes Normal thought content present A TTENTION/CONCENTRATION: Yes attention grossly intact and Yes concentration grossly intact INSIGHT: Good insight present (Psych) JUDGEMENT: Good judgement present (Psych) Skin: COMMON NORMALS: no rashes or lesions noted GENERAL SKIN EXAM: no rashes or lesions noted Data 07/01/23 07:05 07/01/23 07:05 Micro: Microbiology 07/01/23 06:09 Occult Blood (FIT) - Final Stool Routine Collection 07/01/23 04:49 Blood Culture - Preliminary Blood SPECIMEN COLLECTED 07/01/23 04:59 Blood Culture - Preliminary Blood SPECIMEN COLLECTED CT Abd/Pel: I personally reviewed and interpreted this imaging study as follows: My impression: Colonic diverticulosis without evidence of diverticulitis. No evidence of colitis. Radiologist's impression: 1. Colonic diverticulosis without CT evidence of diverticulitis. 2. Diffuse fatty infiltration of the liver. 3. Previous hysterectomy. 4. Atherosclerotic vascular disease. A&P Assessment and plan (1) Acute lower GI bleeding: Significant mixed blood and clot per rectum without melena; although patient refuses NGT placement to rule out upper GI bleed, highly suspect diverticular bleeding given presence of diverticulae and painless large volume bleeding. - 4L Golytely prep prior to colonoscopy possible clip placement (2) Anemia: Acute blood loss anemia, suspect lower GI bleed - Transfuse prn, management per primary medical service (3) Diarrhea: Positive C. difficile - Will not preclude colonoscopy - Management per primary medical service Coding Level of Care Code Acute Code for [facility] Fwd Diagnoses Acute lower GI bleeding K92.2 Anemia D64.9 Diarrhea R19.7
[2023-07-01 10:52] LABS: Estmated Average Glucose 183
[2023-07-01] MEDS: peg /e-lyte soln 4,000 mL Btl 4000 ML PO (11:05)
[2023-07-01 12:13] LABS: Hematocrit 13.2 % (36-47)
[2023-07-01] MEDS: sodium chloride 0.9% 100 mL Bag 50 ML IV ×2 (12:37→18:39)
[2023-07-01 12:42] LABS: Glucose Point of Care 305 mg/dL (70-110)
[2023-07-01 13:14] LABS: Hematocrit 17.6 % (36-47)
[2023-07-01 13:29] LABS: Alanine Aminotransferase 45 U/L (0-33); Albumin Level 2.7 g/dL (3.5-5.2); Alkaline Phosphatase 55 U/L (35-105); Aspartate Amino Transferase 31 U/L (0-32); Blood Urea Nitrogen 46 mg/dL (6-20); Calcium 7.5 mg/dL (8.5-10.5); Carbon Dioxide 20 mmol/L (22-29); Chloride 105 mmol/L (98-107); Globulin 2.1 g/dL (1.3-4.6); Glomerular Filtration Rate 52.4 mL/min (90-130); Glucose 317 mg/dL (65-115); Osmolality Calculated 302 mOsm/kg (285-295); Sodium 134 mmol/L (136-145); Total Bilirubin 0.3 mg/dL (0.15-1.2); Total Protein 4.8 g/dL (6.6-8.7)
[2023-07-01 14:14] LABS: Creatinine Clr Calc Pharmacy 60.9166
--- NOTE | 2023-07-01 15:00 | PC.NURSE ---
SInce starting golytely, patient has had 4 bowel movements. Totalling approximatly 1200mL (some spilled into bed). Stools contiynue to be pio blood, not clearing up with golytely. Has drank about half of the golytley. Nurse alerted Dr Christianson and received guidance to continue with golytely intake.
--- NOTE | 2023-07-01 16:04 | P.ANESASSM_ITS ---
Pre-Anesthetic Assessment Height/Weight: Height 1.68 m Weight 70.488 kg Temp Pulse Resp BP Pulse Ox O2 Del Method O2 Flow Rate 97.5 F L 106 H 18 101/76 100 Nasal Cannula 2 07/01/23 15:37 07/01/23 15:37 07/01/23 15:37 07/01/23 15:37 07/01/23 15:37 07/01/23 12:30 07/01/23 12:30 Preop Diagnosis: GI bleed Operation Date: 07/01/23 16:00 Proposed Procedures p Colonoscopy(Not Applicable) - Natanael Christianson MD Was Beta Alice taken within 24 hours: N/A Was Clonidine taken within 24 hours: N/A Last intake: Intake Last Liquid Date 07/01/23 Last Liquid Time 08:00 Last Solid Date 06/30/23 Last Solid Time 16:30 Social Tobacco and No alcohol Vaps pack(s) per day Exam alert, oriented x 3, clear to auscultation bilaterally and regular rate & rhythm Airway Submandibular: within normal limits Cervical ROM: within normal limits Mallampati: Class II Dentition: full History/ROS No significant history except as noted and No significant complaints Pulmonary Exertional Dyspnea CV/HEM Unstable Angina and Coronary Artery Disease Chronic Renal Insufficiency Hepatic None reported GI Gastroesophageal Reflux Disease Metabolic Diabetes Mellitus Musc/skel Lower Back Pain Neuropsych Neuropathy Anesthetic Plan ASA status: 4 Anesthesia: Anesthesia Evaluation and MAC Risk of > 500 ml blood loss (7ml/kg in children): No Medications/Allergies Home Medications Medication Instructions Recorded Confirmed Last Taken Type hydroxyzine HCl 25 mg tablet 25 mg PO Q6H PRN Itching 07/21/20 07/01/23 12/12/21 History nitroglycerin 0.4 mg sublingual 0.4 mg sublingual Q5M PRN chest 07/22/20 07/01/23 Unknown Rx tablet pain #30 tabs aspirin 81 mg tablet,delayed 81 mg PO QAM 12/13/21 07/01/23 06/16/23 History release blood-glucose meter,continuous #1 ea 08/16/22 07/01/23 Unknown Rx (Dexcom G6 Gas Appliance Adjuster) pen needle, diabetic 32 gauge x ##100 09/13/22 07/01/23 Unknown Rx (TechLITE Pen Needle) multivitamin 1 tab PO DAILY 08/07/01/23 11/19/22 History fluoxetine 40 mg capsule 40 mg PO QAM 01/03/23 07/01/23 06/16/23 History albuterol sulfate 90 mcg/actuation 2 inh inhalation Q4H PRN shortness 01/27/23 07/01/23 Unknown Rx aerosol inhaler of breath or wheezing #18 grams blood-glucose sensor (Dexcom G6 #6 ea 03/10/23 07/01/23 Unknown Rx Sensor device) blood-glucose transmitter (Dexcom #1 ea 03/10/23 07/01/23 Unknown Rx G6 Transmitter device) semaglutide 1 mg/dose (4 mg/3 mL) 1 mg (0.75 mL) SUBCUT Q7D #3 mL 06/06/23 07/01/23 Unknown Rx subcutaneous pen injector (Ozempic) amitriptyline 25 mg tablet 25 mg PO BEDTIME 06/17/23 07/01/23 06/16/23 History insulin regular hum U-500 conc 500 See Rx Instructions .Route .COMPLEX 06/17/23 07/01/23 Unknown History unit/mL(3 mL) subcut pen (Humulin R U-500 (Conc) Insulin Kwikpen) naproxen 500 mg tablet 500 mg PO Q12H PRN Pain 06/17/23 07/01/23 Unknown History promethazine 25 mg tablet 25 mg PO Q6H PRN nausea and 06/17/23 07/01/23 Unknown Rx vomiting #20 tabs rosuvastatin 40 mg tablet (Crestor) 40 mg PO QAM 06/17/23 07/01/23 06/16/23 History amoxicillin 875 mg tablet 875 mg PO BID #16 tabs 06/20/23 07/01/23 Unknown Rx cyclobenzaprine 10 mg tablet 10 mg PO Q8H PRN Pain 07/01/23 07/01/23 Unknown History tamsulosin 0.4 mg capsule 0.4 mg PO DAILY 07/01/23 07/01/23 Unknown History Allergies Allergy/AdvReac Type Severity Reaction Status Date / Time nalbuphine [From Nubain] Allergy ADR-Headach Verified 06/17/23 20:48 e sumatriptan [From Imitrex] Allergy ALGY-Swell Verified 06/17/23 20:48 Lip/Tongue/Throat Current Medications Generic Name Dose Route Start Last Admin Trade Name Freq PRN Reason Stop Dose Admin Alprazolam 0.5 mg 07/01/23 09:28 07/01/23 10:30 Alprazolam 0.5 Mg Tablet PO 0.5 mg BID PRN Administration ANXIETY Atorvastatin Calcium 80 mg 07/01/23 06:00 07/01/23 06:23 Atorvastatin 40 Mg Tablet PO 80 mg QAM DENISE Administration Enoxaparin Sodium 40 mg 07/01/23 03:36 07/01/23 04:03 Enoxaparin 40 Mg/0.4 Ml Syringe SUBCUT Not Given Q24H DENISE Fluoxetine HCl 40 mg 07/01/23 06:00 07/01/23 06:21 Fluoxetine 20 Mg Capsule PO 40 mg QAM DENISE Administration Ceftriaxone Sodium 1,000 mg/ 50 mls @ 100 mls/hr 07/01/23 03:36 07/01/23 04:58 Sodium Chloride IV Infused Q24H DENISE Infusion Protocol Sodium Chloride 1,000 mls @ 100 mls/hr 07/01/23 03:36 07/01/23 03:56 Sodium Chloride 0.9% IV 100 mls/hr .Q10H DENISE Administration Metronidazole 500 mg in 100 mls @ 100 mls/hr 07/01/23 08:30 07/01/23 09:09 Flagyl Iv IV 100 mls/hr Q8H DENISE Administration Protocol norepinephrine 4 mg in 250 mls @ 0 mls/hr 07/01/23 08:30 07/01/23 13:09 Levophed IV 0 mcg/min .Q0M DENISE 0 mls/hr Titration Protocol Per Protocol Insulin Human Lispro 0 unit 07/01/23 08:00 07/01/23 12:45 Insulin Lispro 100 Unit/1 Ml SUBCUT 14 unit TIDWM DENISE Administration Protocol Morphine Sulfate 2 mg 07/01/23 03:36 07/01/23 03:59 Morphine 4 Mg/Ml Sdv 1 Ml IVP 2 mg Q4H PRN Administration SEVERE PAIN Ondansetron HCl 4 mg 07/01/23 03:36 07/01/23 12:34 Ondansetron 2 Mg/Ml Sdv 2 Ml IVP 4 mg Q8H PRN Administration vomiting, or N/V if npo Pantoprazole Sodium 40 mg 07/01/23 08:30 07/01/23 08:57 Pantoprazole 40 Mg Sdv IVP 40 mg Q12H DENISE Administration Sodium Chloride 50 ml 07/01/23 08:14 07/01/23 12:37 Sodium Chloride 0.9% 100 Ml Bag IV 07/02/23 08:15 50 ml PRN PRN Administration Blood transfusion prime and flush Vancomycin HCl 125 mg 07/01/23 09:50 07/01/23 12:22 Vancomycin 125 Mg Capsule PO 125 mg QID DENISE Administration PFSH Anesthesia Medical History Skin lesions CAD (coronary artery disease) Folliculitis Diabetic neuropathy Coronary artery 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 2 diabetes mellitus Uncontrolled type 2 diabetes mellitus Diabetes Hypercholesterolemia Surgical History H/O heart bypass surgery [place]- Last Monday03/02/22 Status post colonoscopy (10/01/19) H/O: hysterectomy H/O heart artery stent 5 years ago H/O melanoma excision Family History Father CAD (coronary artery disease) Diabetes Grandfather CAD (coronary artery disease) Diabetes Grandmother CAD (coronary artery disease) Cancer lung Diabetes Denies family history of Anesthesia complication Bleeding disorder Social History Smoking and tobacco/nicotine status: current every day tobacco/nicotine user Alcohol intake: never Substance/Drug Use: never Household members: spouse Marital status: Current occupational status: employed Data Anesthesia 07/01/23 13:00 07/01/23 13:00 Short CBC 06/30/23 07/01/23 07/01/23 Range/Units 22:10 07:05 08:32 WBC 14.72 H 9.33 (3.29-11.43) 10^3/uL Hgb 8.70 L 4.50 L* D 4.20 L* (11.27-16.99) g/dL Hct 28.1 L 14.7 L* D 13.2 L* (36-47) % MCV 90.4 91.9 (85-98) fl Plt Count 427 H 243 D (157-399) 10^3/cmm Neut % (Auto) 44.6 63.8 % Neut # (Auto) 6.56 5.95 (1.8-7.7) 10^3/uL 07/01/23 Range/Units 13:00 WBC (3.29-11.43) 10^3/uL Hgb 5.60 L* D (11.27-16.99) g/dL Hct 17.6 L* D (36-47) % MCV (85-98) fl Plt Count (157-399) 10^3/cmm Neut % (Auto) % Neut # (Auto) (1.8-7.7) 10^3/uL BMP 06/30/23 07/01/23 07/01/23 22:10 07:05 13:00 Sodium 137 132 L 134 L Potassium 5.3 H 6.4 H 5.0 Chloride 100 103 105 Carbon Dioxide 22 20 L 20 L BUN 39 H 46 H 46 H Creatinine 1.2 H 1.2 H 1.1 H Glucose 514 H* 462 H 317 H Calcium 9.3 7.6 L 7.5 L Cardiac Enzymes 06/30/23 07/01/23 07/01/23 Range/Units 22:10 00:14 04:59 Troponin T Baseline 15 H (0-10) ng/L Troponin T 120 Minute 16.87 H (0-10) ng/L Delta Troponin T 1.87 (0-10) ABS# Troponin T Hi Sens 6Hr 19.72 H (0-10) ng/L Troponin T Hi Sens 6Hr Delta 4.72 (0-12) ng/L Liver Function 06/30/23 07/01/23 07/01/23 Range/Units 22:10 07:05 13:00 Total Bilirubin 0.3 0.2 0.3 (0.15-1.2) mg/dL AST 84 H 37 H 31 (0-32) U/L ALT 82 H 49 H 45 H (0-33) U/L Alkaline Phosphatase 89 61 55 (35-105) U/L Albumin 3.9 2.7 L 2.7 L (3.5-5.2) g/dL Urine 06/30/23 Range/Units 22:57 Urine Color Yellow (Yellow) Urine Appearance Clear (CLEAR) Urine pH 5 (5-7) Ur Specific [place] 1.015 (1.005-1.030) Urine Protein Neg (Negative) Urine Glucose (UA) 4+ H (Normal) Urine Ketones 1+ H (Negative) Urine Nitrate Negative (Negative) Urine Bilirubin Neg (Negative) Ur Leukocyte Esterase Negative (Negative) Blood Bank 07/01/23 08:32 Blood Type O Positive Rho(D) Type Rh positive Antibody Screen Negative Coags 07/01/23 00:14 C-Reactive Protein 8.8 H ABG 06/30/23 23:23 Specimen Type Arterial Sample Site Radial, left ABG pH 7.48 H ABG pCO2 32.5 L ABG pO2 82.7 ABG HCO3 24.0 ABG O2 Saturation 98.6 ABG Base Excess 0.5 A-a O2 Gradient 3.4 L O2 Delivery Device Room air Microbiology 07/01/23 06:09 Occult Blood (FIT) - Final Stool Routine Collection 07/01/23 04:49 Blood Culture - Preliminary Blood SPECIMEN COLLECTED 07/01/23 04:59 Blood Culture - Preliminary Blood SPECIMEN COLLECTED Cardiac Studies: 2 Echocardiogram Ultrasound 07/22/20 Sestamibi Stress Test (Cardiology) 08/30
[2023-07-01 17:17] LABS: Glucose Point of Care 244 mg/dL (70-110)
[2023-07-01 18:32] LABS: Alanine Aminotransferase 40 U/L (0-33); Albumin Level 2.6 g/dL (3.5-5.2); Alkaline Phosphatase 52 U/L (35-105); Blood Urea Nitrogen 42 mg/dL (6-20); Calcium 7.4 mg/dL (8.5-10.5); Carbon Dioxide 20 mmol/L (22-29); Chloride 107 mmol/L (98-107); Creatinine Clr Calc Pharmacy 67.0082; Globulin 1.7 g/dL (1.3-4.6); Glomerular Filtration Rate 58.5 mL/min (90-130); Glucose 229 mg/dL (65-115); Osmolality Calculated 300 mOsm/kg (285-295); Sodium 136 mmol/L (136-145); Total Bilirubin 0.7 mg/dL (0.15-1.2); Total Protein 4.3 g/dL (6.6-8.7)
[2023-07-01 18:41] LABS: Anion Gap 13.5 (5-19); Aspartate Amino Transferase 32 U/L (0-32); Potassium 4.5 mmol/L (3.5-5.1)
--- NOTE | 2023-07-01 19:22 | PC.NURSE ---
Zunilda Davis with [facility] called with bed assignment. GOIng to ICU [id number]. Accepted by Dr Matos. Nurse called Report to SARA Perez at [phone] Nurse arranged Ground transport with [facility] ambulance. Spoke to Charlie. Unit arriving at approximately 2000.
[2023-07-01] MEDS: vasopressin 40 UNIT/100 ML PREMIX IV (19:29)
--- NOTE | 2023-07-01 19:40 | PC.NURSE ---
Received patient back from GI staff at 1705. Patient is oriented to person, place, time, and situation, but is lethargic. HR: 99, BP: 94/61, SPO2: 100% on 2L NC. BLood has finished infusing during procedure, nurse stated 3rd bag of blood.
--- NOTE | 2023-07-01 19:41 | PC.NURSE ---
Shift SUmmary: Tested positive for Cdiff. HGB as low as 4.2 and received 3 units of blood for this. Heart rate slightly elevated around 105 throughout the day, BP a little low, occasionally requiring levophed. Central line placed. Received Golytly for bowel prep before colonoscopy. approximately 1.5 L of bloody stool after golytley and did not clear up. Coloscopy aborted early in procedure due to poor visualization/presence of bowel contents preventing safe advancement. Patient is currently pending transfer to [facility] for GI specialty/further investigation of GI bleeding. Report has been called, ground transport arranged, waiting on ground unit to arrive (see previous nurse notes for details).
--- NOTE | 2023-07-01 19:54 | PM.TDS ---
Transfer Summary Providers Date of Admission: 07/01/23 08:46 Date of Discharge/Transfer: 07/01/23 Attending Provider at Admission: Mariano Walker MD Attending Provider at Transfer: Veronika Cat MD Primary Care Provider: Joy Mccray Transfer Plans: Anticipated date of transfer: 07/01/23. Diagnoses at Discharge Discharge Diagnosis (1) Acute lower GI bleeding: Status: Acute (2) Anemia: Status: Acute (3) Diarrhea: Status: Acute (4) Hypovolemic shock: Status: Acute Reason for Visit Reason for Visit HYPERGLYCEMIA Hospital Course Hospital Course 53 year old lady with recent h/o E.coli sepsis, improving from this standpoint. SHe was at a concert last evening when she developed lightheadedness and felt like she will pass out. She was hypoglycemic with BS 30s. She had oral and iv glucose supplementation and hypoglycemia is since resolved. She reported several episodes of diarrhea recently and tested C diff +. She was in the ICU for overnight monitoring when she developed 2-3 bloody bowel movements. Her HB dropped from 8.7 at presentation to 4.2 by the morning. SHe has received 3 units PRBC during course of the day. This morning she was hypotensive with BP 76/42 and HR 110. She was symptomatic with dizziness and parasthesias. She received fluid boluses and was started on levophed infusion, continuing at 2mcg currently. Hb at 5.6 after one unit PRBC transfusion. CT abdomen/pelvis without signs of colitis. SHowed diverticulosis without diverticulitis. Overall suspicion for acute diverticular bleeding. General surgery was consulted. She underwent sigmoidoscopy today, which showed small amt of blood in the proximal sigmoid colon with few diverticuli. No abnromalities noted in the rectum. No actively bleeding diverticuli encountered. Scope was unable to be passed beyond the sigmoid colon due to anatomic difficulty. She was brought back to the ICU. Discussed with family that patient currently shows stable VS since morning. Hb slight improved, levophed requirement remains the same. Her bleeding currently appears to be stable. Should the patient have further bleeding, next steps may require IR embolization and involvement of GI services. Discussed that we do not have GI services or IR embolization capability at our hospital. Patient's family wish for us to proceed with transfer to higher center. Patient has been accepted at [facility] under care of mud analysis supervisor. Construction Plant Operator recommends FFP transfusion in addition to 3 PRBC already ordered for massive hemorrhage. FFP ordered, not currently started at time of writing this note. Also recommended to start vasopressin infusion for vasospastic effect. This has been ordered, Physical Exam Narrative: General: very anxious. Oriented x 3 HEENT: PERRLA, pupils bilaterally equal and reactive, pallors not present Chest: Normal vesicular breath sounds, no added sounds, equal good air entry bilaterally CVS: S1-S2 regular, no murmurs, no tachycardia, no gallops, no rubs Abdomen: Soft, nontender, no organomegaly, bowel sounds present Neuro: No focal deficits, no facial deformity, AO x3, power 5/5 in all limbs Extremities: Lines: Right fem CVC TS Data Studies Completed and Pending Pending at discharge Category Date Time Status Blood Culture Routine Lab 07/01/23 04:49 Results Complete Blood Count w/Auto AM LABS Lab 07/02/23 04:00 Ordered Comprehensive Metabolic Panel AM LABS Lab 07/02/23 04:00 Ordered Hemoglobin and Hematocrit Q6H Lab 07/02/23 00:01 Ordered Hemoglobin and Hematocrit Q6H Lab 07/02/23 06:01 Ordered Hemoglobin and Hematocrit Q6H Lab 07/02/23 12:01 Ordered Magnesium AM LABS Lab 07/02/23 04:00 Ordered Phosphorus AM LABS Lab 07/02/23 04:00 Ordered Prothrombin Time INR Stat Lab 07/01/23 17:40 Ordered CV. echo complete* [id number] Routine Ultrasound 07/01/23 06:52 Taken Completed Studies During Hospitalization Category Date Time Status CT chest abdomen pelvis [CT chest abdpel w/*[id number] Cat Scan 07/01/23 02:55 Completed ] Stat XR chest 1V portable [id number] Stat Exams 06/30/23 22:51 Completed Laboratory Last Values WBC 9.33 10^3/uL (3.29-11.43) 07/01/23 07:05 RBC 1.60 10^6/uL (3.85-5.65) L 07/01/23 07:05 Hgb 6.60 g/dL (11.27-16.99) L 07/01/23 17:18 Hct 20.0 % (36-47) L* 07/01/23 17:18 MCV 91.9 fl (85-98) 07/01/23 07:05 MCH 28.1 pg (27-33) 07/01/23 07:05 MCHC 30.6 g/dL (30-55) 07/01/23 07:05 RDW 14.8 % (12.1-15.1) 07/01/23 07:05 Plt Count 243 10^3/cmm (157-399) D 07/01/23 07:05 MPV 10.2 fL (7.4-10.4) 07/01/23 07:05 Neut % (Auto) 63.8 % 07/01/23 07:05 Lymph % (Auto) 27.8 % 07/01/23 07:05 [place] % (Auto) 7.5 % 07/01/23 07:05 Eos % (Auto) 0.2 % 07/01/23 07:05 Baso % (Auto) 0.3 % 07/01/23 07:05 Neut # (Auto) 5.95 10^3/uL (1.8-7.7) 07/01/23 07:05 Lymph # (Auto) 2.6 10^3/uL (0.8-4.8) 07/01/23 07:05 [place] # (Auto) 0.7 10^3/uL (0.2-0.9) 07/01/23 07:05 Eos # (Auto) 0.0 10^3/uL (0.0-0.8) 07/01/23 07:05 Baso # (Auto) 0.0 10^3/uL (0.0-0.1) 07/01/23 07:05 Nucleated RBC % (auto) 0 % 07/01/23 07:05 Nucleated RBCs # 0.0 /100WBC 07/01/23 07:05 Specimen Type Arterial 06/30/23 23:23 Sample Site Radial, left 06/30/23 23:23 ABG pH 7.48 (7.35-7.45) H 06/30/23 23:23 ABG pCO2 32.5 mmHg (35-45) L 06/30/23 23:23 ABG pO2 82.7 mmHg (80.0-100.0) 06/30/23 23:23 ABG HCO3 24.0 mmol/L (22-26) 06/30/23 23:23 ABG O2 Saturation 98.6 06/30/23 23:23 ABG Base Excess 0.5 mmol/L (-2.0-2.0) 06/30/23 23:23 Noe Test Pos 06/30/23 23:23 A-a O2 Gradient 3.4 mmHg (5-10) L 06/30/23 23:23 Hematocrit 23.5 % (37-47) L 06/30/23 23:23 Hgb O2 Saturation 97.7 % (95-100) 06/30/23 23:23 Carboxyhemoglobin 1.4 %THgb (0.4-20.1) 06/30/23 23:23 Methemoglobin < 0.0 % (0.4-1.5) L 06/30/23 23:23 Total Hemoglobin 7.7 g/dL (12-16) L 06/30/23 23:23 Sodium 137.0 mmol/L (131-143) 06/30/23 23:23 Potassium 5.5 mmol/L (3.5-5.0) H 06/30/23 23:23 Glucose 443.0 mg/dL (70-115) H 06/30/23 23:23 Ionized Calcium 1.1 mmol/L (1.1-1.4) 06/30/23 23:23 O2 Delivery Device Room air 06/30/23 23:23 Laundry Folder ID [email or web address] 06/30/23 23:23 Sodium 136 mmol/L (136-145) 07/01/23 17:40 Sodium Cancelled 07/01/23 17:40 Potassium 4.5 mmol/L (3.5-5.1) 07/01/23 17:40 Potassium Cancelled 07/01/23 17:40 Chloride 107 mmol/L (98-107) 07/01/23 17:40 Chloride Cancelled 07/01/23 17:40 Carbon Dioxide 20 mmol/L (22-29) L 07/01/23 17:40 Carbon Dioxide Cancelled 07/01/23 17:40 Anion Gap 13.5 (5-19) 07/01/23 17:40 Anion Gap Cancelled 07/01/23 17:40 BUN 42 mg/dL (6-20) H 07/01/23 17:40 BUN Cancelled 07/01/23 17:40 Creatinine 1.0 mg/dL (0.5-0.9) H 07/01/23 17:40 Creatinine Cancelled 07/01/23 17:40 GFR Calculation 58.5 mL/min (90-130) L 07/01/23 17:40 GFR Calculation Cancelled 07/01/23 17:40 Glucose 229 mg/dL (65-115) H 07/01/23 17:40 Glucose Cancelled 07/01/23 17:40 POC Glucose 244 mg/dL (70-110) H 07/01/23 17:09 Estimat Average Glucose 183 07/01/23 07:05 Hemoglobin A1c 8.0 % (4.0-6.0) H 07/01/23 07:05 Calculated Osmolality 300 mOsm/kg (285-295) H 07/01/23 17:40 Calculated Osmolality Cancelled 07/01/23 17:40 Lactic Acid 3.9 mmol/L (0.5-2.2) H 07/01/23 02:26 Lactic Acid (Sepsis) 2.9 mmol/L (0.5-2.2) H 07/01/23 04:29 Calcium 7.4 mg/dL (8.5-10.5) L 07/01/23 17:40 Calcium Cancelled 07/01/23 17:40 Magnesium 2.4 mg/dL (1.7-2.3) H 06/30/23 22:10 Iron 55 ug/dL (37-145) 07/01/23 00:26 Ferritin 196 ng/mL (15-150) H 07/01/23 00:26 Total Bilirubin 0.7 mg/dL (0.15-1.2) 07/01/23 17:40 Total Bilirubin Cancelled 07/01/23 17:40 AST 32 U/L (0-32) 07/01/23 17:40 AST Cancelled 07/01/23 17:40 ALT 40 U/L (0-33) H 07/01/23 17:40 ALT Cancelled 07/01/23 17:40 Alkaline Phosphatase 52 U/L (35-105) 07/01/23 17:40 Alkaline Phosphatase Cancelled 07/01/23 17:40 Troponin T Baseline 15 ng/L (0-10) H 06/30/23 22:10 Troponin T 120 Minute 16.87 ng/L (0-10) H 07/01/23 00:14 Delta Troponin T 1.87 ABS# (0-10) 04 00:14 Troponin T Hi Sens 6Hr 19.72 ng/L (0-10) H 07/01/23 04:59 Troponin T Hi Sens 6Hr Delta 4.72 ng/L (0-12) 07/01/23 04:59 C-Reactive Protein 8.8 mg/L (0.0-4.9) H 07/01/23 00:14 Total Protein 4.3 g/dL (6.6-8.7) L 07/01/23 17:40 Total Protein Cancelled 07/01/23 17:40 Albumin 2.6 g/dL (3.5-5.2) L 07/01/23 17:40 Albumin Cancelled 07/01/23 17:40 Globulin 1.7 g/dL (1.3-4.6) 07/01/23 17:40 Globulin Cancelled 07/01/23 17:40 Procalcitonin 0.16 ng/mL (0-0.5) 07/01/23 00:26 TSH 2.74 uIU/mL (0.27-4.20) 07/01/23 04:59 Urine Color Yellow (Yellow) 06/30/23 22:57 Urine Appearance Clear (CLEAR) 06/30/23 22:57 Urine pH 5 (5-7) 06/30/23 22:57 Ur Specific [place] 1.015 (1.005-1.030) 06/30/23 22:57 Urine Protein Neg (Negative) 06/30/23 22:57 Urine Glucose (UA) 4+ (Normal) H 06/30/23 22:57 Urine Ketones 1+ (Negative) H 06/30/23 22:57 Urine Blood Neg (Negative) 06/30/23 22:57 Urine Nitrate Negative (Negative) 06/30/23 22:57 Urine Bilirubin Neg (Negative) 06/30/23 22:57 Urine Urobilinogen Neg mg/dL (Negative) 06/30/23 22:57 Ur Leukocyte Esterase Negative (Negative) 06/30/23 22:57 Urine Opiates Screen Negative ng/mL (Negative) 07/01/23 00:00 Ur Barbiturates Screen Negative ng/mL (Negative) 07/01/23 00:00 Ur Phencyclidine Scrn Negative ng/mL (Negative) 07/01/23 00:00 Ur Amphetamines Screen Negative ng/mL (Negative) 07/01/23 00:00 U Benzodiazepines Scrn Positive ng/mL (Negative) H 07/01/23 00:00 Urine Cocaine Screen Negative ng/mL (Negative) 07/01/23 00:00 U Marijuana (THC) Screen Negative ng/mL (Negative) 07/01/23 00:00 Ethyl Alcohol < 10 mg/dL (0-10) 07/01/23 00:00 Serum Ketones Negative (Negative) 06/30/23 22:10 C. difficile (PCR) Positive (Negative) H 07/01/23 04:16 C.difficile Tox Confrm Negative (Negative) 07/01/23 04:16 Blood Type O Positive 07/01/23 08:32 Rho(D) Type Rh positive 07/01/23 08:32 Antibody Screen Negative 07/01/23 08:32 Crossmatch See Detail 07/01/23 08:32 Radiology Impressions Chest X-Ray 06/30/23 22:51 IMPRESSION: No acute abnormality demonstrated. Chest/Abdomen/Pelvis CT 07/01/23 02:55 IMPRESSION: 1. No acute abnormality demonstrated. 2. Atherosclerotic vascular disease and prior CABG. IMPRESSION: 1. Colonic diverticulosis without CT evidence of diverticulitis. 2. Diffuse fatty infiltration of the liver. 3. Previous hysterectomy. 4. Atherosclerotic vascular disease. Recent Clincial Data Last Vital Signs Temp 98.8 F 07/01/23 19:10 Pulse 100 07/01/23 19:30 Resp 25 H 07/01/23 19:30 BP 136/70 07/01/23 19:30 Pulse Ox 100 07/01/23 19:30 O2 Del Method Room Air 07/01/23 18:45 O2 Flow Rate 2 07/01/23 12:30 Vital Signs Temp Pulse Resp BP Pulse Ox O2 Del Method O2 Del Method 07/01/23 19:30 100 25 H 136/70 100 07/01/23 19:15 97 18 95/74 100 07/01/23 19:10 98.8 F 101 H 14 100 07/01/23 19:10 98.8 F 99 21 H 95/71 100 04/06/24 19:00 98 19 H 125/79 100 07/01/23 18:45 97.8 F 101 H 15 112/69 100 Room Air 07/01/23 18:30 99 15 118/65 100 07/01/23 18:15 99 14 111/67 99 07/01/23 18:10 98.7 F 97 14 112/69 100 07/01/23 18:00 101 H 20 H 95/61 100 07/01/23 17:55 98.9 F 102 H 14 95/61 100 07/01/23 17:45 102 H 17 89/67 100 07/01/23 17:32 98.8 F 102 H 14 89/67 100 07/01/23 17:30 103 H 17 90/60 100 07/01/23 17:15 98 16 94/61 98 07/01/23 17:00 101/76 07/01/23 16:45 101/76 07/01/23 16:30 101/76 07/01/23 16:15 101/76 07/01/23 16:00 101/76 07/01/23 15:45 101/76 07/01/23 15:37 97.5 F L 106 H 18 101/76 100 07/01/23 15:30 104 H 16 103/65 100 07/01/23 15:15 106 H 12 109/70 07/01/23 15:00 105 H 10 L 113/65 100 07/01/23 14:45 105 H 81/65 100 07/01/23 14:45 97.4 F L 106 H 18 113/65 100 07/01/23 14:31 97.2 F L 108 H 108 H 110/71 100 07/01/23 14:30 110/58 100 07/01/23 14:15 106 H 110/71 100 07/01/23 14:15 97.8 F 105 H 16 100 07/01/23 14:00 103 H 103/66 100 07/01/23 14:00 107 H 07/01/23 14:00 97.2 F L 106 H 16 110/71 99 07/01/23 13:45 104 H 97/78 100 07/01/23 13:30 105 H 107/61 100 07/01/23 13:15 104 H 101/67 94 07/01/23 13:00 104 H 111/64 100 07/01/23 12:45 103 H 114/64 100 07/01/23 12:30 97.2 F L 101 H 16 99/67 100 Nasal Cannula 07/01/23 12:15 102 H 120/64 100 07/01/23 12:00 103 H 89/55 100 07/01/23 11:45 110 H 97/56 07/01/23 11:31 98.7 F 101 H 18 100 07/01/23 11:30 103 H 100/71 07/01/23 11:15 101 H 87/54 100 07/01/23 11:00 110 H 94/57 07/01/23 10:55 98.3 F 109 H 16 87/54 100 07/01/23 10:45 108 H 116/61 100 07/01/23 10:30 106 H 114/65 100 07/01/23 10:27 97 100 Nasal Cannula 07/01/23 10:16 97.3 F L 108 H 16 114/65 99 07/01/23 10:15 105 H 107/52 100 07/01/23 10:00 104 H 101/59 100 07/01/23 09:57 97.9 F 102 H 14 100 07/01/23 09:45 103 H 108/48 100 07/01/23 09:30 104 H 97/69 100 07/01/23 09:17 18 100 07/01/23 09:15 106 H 92/52 100 07/01/23 09:00 104 H 108/58 100 07/01/23 08:45 107 H 84/54 100 07/01/23 08:32 108 H 07/01/23 08:30 98.0 F 107 H 77/47 100 07/01/23 08:25 105 H 22 H 100 Room Air 07/01/23 08:15 103 H 91/55 96 07/01/23 08:00 102 H 94/52 100 O2 Flow Rate O2 Flow Rate 07/01/23 19:30 07/01/23 19:15 07/01/23 19:10 07/01/23 19:10 07/01/23 19:00 07/01/23 18:45 07/01/23 18:30 07/01/23 18:15 07/01/23 18:10 07/01/23 18:00 07/01/23 17:55 07/01/23 17:45 07/01/23 17:32 07/01/23 17:30 07/01/23 17:15 07/01/23 17:00 07/01/23 16:45 07/01/23 16:30 07/01/23 16:15 07/01/23 16:00 07/01/23 15:45 07/01/23 15:37 07/01/23 15:30 07/01/23 15:15 07/01/23 15:00 07/01/23 14:45 07/01/23 14:45 07/01/23 14:31 07/01/23 14:30 07/01/23 14:15 07/01/23 14:15 07/01/23 14:00 07/01/23 14:00 07/01/23 14:00 07/01/23 13:45 07/01/23 13:30 07/01/23 13:15 07/01/23 13:00 07/01/23 12:45 07/01/23 12:30 2 07/01/23 12:15 07/01/23 12:00 07/01/23 11:45 07/01/23 11:31 07/01/23 11:30 07/01/23 11:15 07/01/23 11:00 07/01/23 10:55 07/01/23 10:45 07/01/23 10:30 07/01/23 10:27 2 07/01/23 10:16 07/01/23 10:15 07/01/23 10:00 07/01/23 09:57 07/01/23 09:45 07/01/23 09:30 07/01/23 09:17 07/01/23 09:15 07/01/23 09:00 07/01/23 08:45 07/01/23 08:32 07/01/23 08:30 07/01/23 08:25 07/01/23 08:15 07/01/23 08:00 Intake & Output/Weight 06/29/23 06/30/23 07/01/23 07/02/23 06:59 06:59 06:59 06:59 Intake Total 1050 / 1050 3413.933 / 3413.933 Output Total 200 / 200 1850 / 1850 Balance 850 / 850 1563.933 / 1563.933 Weight 70.488 kg Vitals Last Vital Signs Temp 98.8 F 07/01/23 19:10 Pulse 100 07/01/23 19:30 Resp 25 H 07/01/23 19:30 BP 136/70 07/01/23 19:30 Pulse Ox 100 07/01/23 19:30 O2 Del Method Room Air 07/01/23 18:45 O2 Flow Rate 2 07/01/23 12:30 TS Medications Medications Acetaminophen (Acetaminophen 325 Mg Tablet) 650 mg PO Q6H PRN PRN Reason: Mild/Mod Pain Or Temp >/= 101 Alprazolam (Alprazolam 0.5 Mg Tablet) 0.5 mg PO BID PRN PRN Reason: ANXIETY Last Admin: 07/01/23 10:30 Dose: 0.5 mg Amitriptyline HCl (Amitriptyline 25 Mg Tablet) 25 mg PO BEDTIME [facility] Aspirin (Aspirin 81 Mg Ec Tablet) [facility] [place] Last Admin: 07/01/23 19:17 Dose: Not Given Atorvastatin Calcium (Atorvastatin 40 Mg Tablet) 80 mg PO QAM [facility] Last Admin: 07/01/23 06:23 Dose: 80 mg Fluoxetine HCl (Fluoxetine 20 Mg Capsule) [facility] [place] Last Admin: 07/01/23 06:21 Dose: 40 mg Ceftriaxone Sodium 1,000 mg/ (Sodium Chloride) 50 mls @ 100 mls/hr IV Q24H [facility]; Protocol Last Infusion: 07/01/23 04:58 Dose: Infused Dextrose (D5w) 500 mls @ 0 mls/hr IV ONCE PRN; Protocol PRN Reason: Adult Acute Hypoglycemia Prot Dextrose (D10w) 125 mls @ 750 mls/hr IV PRN PRN; Protocol PRN Reason: Adult Acute Hypoglycemia Nursing Protocol Dextrose (D10w) 250 mls @ 1,000 mls/hr IV PRN PRN; Protocol PRN Reason: Adult Acute Hypoglycemia Nursing Protocol Sodium Chloride (Sodium Chloride 0.9%) 1,000 mls @ 100 mls/hr IV .Q10H [facility] Last Infusion: 07/01/23 19:00 Dose: 100 mls/hr Metronidazole (Flagyl Iv) 500 mg in 100 mls @ 100 mls/hr IV Q8H [facility]; Protocol Last Infusion: 07/01/23 19:00 Dose: Infused norepinephrine (Levophed) 4 mg in 250 mls @ 0 mls/hr IV .Q0M [facility]; Protocol Last Titration: 07/01/23 13:09 Dose: 0 mcg/min, 0 mls/hr Vasopressin (Vasostrict) 40 unit in 100 mls @ 0 mls/hr IV .Q0M [facility]; Protocol Last Admin: 07/01/23 19:29 Dose: 0.01 unit/min, 1.5 mls/hr Insulin Human Lispro (Insulin Lispro 100 Unit/1 Ml) 0 unit SUBCUT TIDWM [facility]; Protocol Last Admin: 07/01/23 17:50 Dose: 10 unit Morphine Sulfate (Morphine 4 Mg/Ml Sdv 1 Ml) 2 mg IVP Q4H PRN PRN Reason: SEVERE PAIN Last Admin: 07/01/23 03:59 Dose: 2 mg Ondansetron HCl (Ondansetron 2 Mg/Ml Sdv 2 Ml) 4 mg IVP Q8H PRN PRN Reason: vomiting, or N/V if npo Last Admin: 07/01/23 12:34 Dose: 4 mg Pantoprazole Sodium (Pantoprazole 40 Mg Sdv) 40 mg IVP Q12H [facility] Last Admin: 07/01/23 08:57 Dose: 40 mg Sodium Chloride (Sodium Chloride 0.9% 100 Ml Bag) 50 ml IV PRN PRN PRN Reason: Blood transfusion prime and flush Stop: 07/02/23 14:34 Vancomycin HCl (Vancomycin 125 Mg Capsule) 125 mg PO QID [facility] Last Admin: 07/01/23 12:22 Dose: 125 mg Discontinued Medications Albuterol Sulfate (Albuterol 2.5 Mg/3 Ml Neb) 2.5 mg INHALATION ONCE ONE Stop: 07/01/23 08:19 Last Admin: 07/01/23 08:25 Dose: 2.5 mg Enoxaparin Sodium (Enoxaparin 40 Mg/0.4 Ml Syringe) 40 mg SUBCUT Q24H [facility] Last Admin: 07/01/23 04:03 Dose: Not Given Sodium Chloride (Sodium Chloride 0.9%) 1,000 mls @ 999 mls/hr IV .Q1H1M ONE Stop: 07/01/23 00:19 Last Infusion: 07/01/23 00:55 Dose: Infused Sodium Chloride (Sodium Chloride 0.9%) 1,000 mls @ 999 mls/hr IV .Q1H1M ONE Stop: 07/01/23 07:14 Last Infusion: 07/01/23 13:08 Dose: Infused Insulin Human Regular 10 unit/ (N/A) 0.1 mls @ 0 mls/hr IVP ONCE ONE Stop: 07/01/23 09:52 Last Infusion: 07/01/23 13:08 Dose: Infused Insulin Glargine (Insulin Glargine 100 Units/1 Ml) 10 unit SUBCUT ONCE ONE Stop: 07/01/23 03:37 Last Admin: 07/01/23 04:11 Dose: 10 unit Insulin Glargine (Insulin Glargine 100 Units/1 Ml) Confirm Administered Dose 10 unit .ROUTE .STK-MED ONE Stop: 07/01/23 04:02 Insulin Human Regular (Insulin Regular-Human 100 Units/1 Ml) 10 unit 0.15 unit/kg (10 unit) IVP ONCE ONE Stop: 06/30/23 23:16 Last Admin: 06/30/23 23:29 Dose: 10 unit Insulin Human Regular (Insulin Regular-Human 100 Units/1 Ml) 20 unit IVP ONCE ONE Stop: 07/01/23 00:41 Last Admin: 07/01/23 00:50 Dose: 20 unit Iohexol (Iohexol 350 Mg/Ml 500 Ml Btl (Per Ml)) 0 ml IV ONCE ONE Stop: 07/01/23 03:35 Last Admin: 07/01/23 03:35 Dose: 100 ml Ketorolac Tromethamine (Ketorolac 30 Mg/Ml Inj) 30 mg IVP ONCE ONE Stop: 07/01/23 01:12 Last Admin: 07/01/23 01:23 Dose: 30 mg Lidocaine HCl (Lidocaine 2% Inj 20 Ml) Confirm Administered Dose 100 ml .ROUTE .STK-MED ONE Stop: 07/01/23 14:54 Morphine Sulfate (Morphine 4 Mg/Ml Sdv 1 Ml) 2 mg IVP ONCE ONE Stop: 06/30/23 23:40 Last Admin: 06/30/23 23:51 Dose: 2 mg Morphine Sulfate (Morphine 4 Mg/Ml Sdv 1 Ml) 2 mg IVP ONCE ONE Stop: 07/01/23 09:12 Last Admin: 07/01/23 09:17 Dose: 2 mg Multivitamins Therapeutic (Multivitamin Therapeutic Tablet) 1 tab PO DAILY [facility] Pantoprazole Sodium (Pantoprazole 40 Mg Sdv) 40 mg IVP Q24H [facility] Last Admin: 07/01/23 03:55 Dose: 40 mg Polyethylene Glycol/Electrolytes (Peg /E-Lyte Soln 4,000 Ml Btl) 4,000 ml PO ONCE ONE Stop: 07/01/23 10:35 Last Admin: 07/01/23 11:05 Dose: 4,000 ml Propofol (Propofol 10 Mg/Ml Sdv 20 Ml) Confirm Administered Dose 200 mg .ROUTE .STK-MED ONE Stop: 07/01/23 14:54 Propofol (Propofol 10 Mg/Ml Sdv 20 Ml) Confirm Administered Dose 200 mg .ROUTE .STK-MED ONE Stop: 07/01/23 15:53 Sodium Chloride (Sodium Chloride 0.9% 100 Ml Bag) 50 ml IV PRN PRN PRN Reason: Blood transfusion prime and flush Stop: 07/02/23 08:15 Last Admin: 07/01/23 18:39 Dose: 50 ml Allergies nalbuphine [From Nubain] Allergy (Verified 06/17/23 20:48) ADR-Headache sumatriptan [From Imitrex] Allergy (Verified 06/17/23 20:48) ALGY-Swell Lip/Tongue/Throat Home Medications hydroxyzine HCl 25 mg tablet 25 mg PO Q6H PRN Itching 07/21/20 [History Confirmed 07/01/23] nitroglycerin 0.4 mg sublingual tablet 0.4 mg sublingual Q5M PRN chest pain #30 tabs 07/22/20 [Rx Confirmed 07/01/23] aspirin 81 mg tablet,delayed release 81 mg PO QAM 12/13/21 [History Confirmed 07/01/23] blood-glucose meter,continuous (Dexcom G6 Ammonia Refrigeration Technician) #1 ea 08/16/22 [Rx Confirmed 07/01/23] pen needle, diabetic 32 gauge x 5/32 (TechLITE Pen Needle) ##100 09/13/22 [Rx Confirmed 07/01/23] multivitamin 1 tab PO DAILY 11/20/22 [History Confirmed 07/01/23] fluoxetine 40 mg capsule 40 mg PO QAM 01/03/23 [History Confirmed 07/01/23] albuterol sulfate 90 mcg/actuation aerosol inhaler 2 inh inhalation Q4H PRN shortness of breath or wheezing #18 grams 01/27/23 [Rx Confirmed 07/01/23] blood-glucose sensor (Dexcom G6 Sensor device) #6 ea 03/10/23 [Rx Confirmed 07/01/23] blood-glucose transmitter (Dexcom G6 Transmitter device) #1 ea 03/10/23 [Rx Confirmed 07/01/23] semaglutide 1 mg/dose (4 mg/3 mL) subcutaneous pen injector (Ozempic) 1 mg (0.75 mL) SUBCUT Q7D #3 mL 06/06/23 [Rx Confirmed 07/01/23] amitriptyline 25 mg tablet 25 mg PO BEDTIME 06/17/23 [History Confirmed 07/01/23] insulin regular hum U-500 conc 500 unit/mL(3 mL) subcut pen (Humulin R U-500 (Conc) Insulin Kwikpen) See Rx Instructions .Route .COMPLEX 06/17/23 [History Confirmed 07/01/23] naproxen 500 mg tablet 500 mg PO Q12H PRN Pain 06/17/23 [History Confirmed 07/01/23] promethazine 25 mg tablet 25 mg PO Q6H PRN nausea and vomiting #20 tabs 06/17/23 [Rx Confirmed 07/01/23] rosuvastatin 40 mg tablet (Crestor) 40 mg PO QAM 06/17/23 [History Confirmed 07/01/23] amoxicillin 875 mg tablet 875 mg PO BID #16 tabs 06/20/23 [Rx Confirmed 07/01/23] cyclobenzaprine 10 mg tablet 10 mg PO Q8H PRN Pain 07/01/23 [History Confirmed 07/01/23] tamsulosin 0.4 mg capsule 0.4 mg PO DAILY 07/01/23 [History Confirmed 07/01/23] Discharge Plan Discharge Condition: Stable Prescriptions: No Action fluoxetine 40 mg capsule 40 mg PO QAM (DME) Dexcom G6 Sensor Device See Rx Instructions .ROUTE .MEDSUPPLY Qty: 6 3RF Rx Instructions: change every 10 days (DME) Dexcom G6 Transmitter Device See Rx Instructions .ROUTE .MEDSUPPLY Qty: 1 3RF Rx Instructions: change every 3 months Ozempic 1 mg/dose (4 mg/3 mL) pen injector 1 mg SUBCUT Q7D Qty: 3 1RF Rx Instructions: on sat (DME) Dexcom G6 Ammonia Refrigeration Technician Misc See Rx Instructions .ROUTE .MEDSUPPLY Qty: 1 3RF Rx Instructions: new international logistics coordinator once a year (DME) pen needle, diabetic [TechLITE Pen Needle] 32 gauge x 5/32 needle See Rx Instructions .ROUTE .COMPLEX Qty: 100 3RF Dose Instruction: USE DIRECTED Rx Instructions: USE DIRECTED hydroxyzine HCl 25 mg Tablet 25 mg PO Q6H PRN (Reason: Itching) nitroglycerin 0.4 mg tablet, sublingual 0.4 mg sublingual Q5M PRN (Reason: chest pain) Qty: 30 0RF Rx Instructions: do not exceed 3 doses per episode multivitamin Tablet 1 tab PO DAILY cyclobenzaprine 10 mg tablet 10 mg PO Q8H PRN (Reason: Pain) tamsulosin 0.4 mg Capsule 0.4 mg PO DAILY aspirin 81 mg Tablet,Delayed Release (Dr/Ec) 81 mg PO QAM albuterol sulfate 90 mcg/actuation HFA aerosol inhaler 2 inh INHALATION Q4H PRN (Reason: shortness of breath or wheezing) Qty: 18 0RF amitriptyline 25 mg tablet 25 mg PO BEDTIME naproxen 500 mg tablet 500 mg PO Q12H PRN (Reason: Pain) rosuvastatin [Crestor] 40 mg tablet 40 mg PO QAM Humulin R U-500 (Conc) Kwikpen 500 unit/mL (3 mL) insulin pen See Rx Instructions .ROUTE .COMPLEX Rx Instructions: 140 units subcutaneously qam and 100 units at bedtime promethazine 25 mg tablet 25 mg PO Q6H PRN (Reason: nausea and vomiting) Qty: 20 0RF amoxicillin 875 mg tablet 875 mg PO BID Qty: 16 0RF Referrals: Joy Mccray FNP [Primary Care Provider] - Patient Instructions: Opioid Safety, GI Discharge Instructions Transfer Attestations Time Spent in Transfer Care: critical care time Critical Care Time (min): 60 Quality Metrics Clinical Quality Measures [ No reported AMI, CVA or VTE this stay] Coding Level of Care Code Acute Code for Chg Fwd Diagnoses Acute lower GI bleeding K92.2 Anemia D64.9 Diarrhea R19.7 Hypovolemic shock R57.1
[2023-07-01] MEDS: amitriptyline 25 mg Tablet PO (20:10)
[2023-07-01 21:19] LABS: Glucose Point of Care 189 mg/dL (70-110)
--- NOTE | 2023-07-02 08:27 | ANES.PREANE2 ---
Pre-Anesthetic Assessment Height/Weight: Height 1.68 m Weight 70.488 kg Temp Pulse Resp BP Pulse Ox O2 Del Method O2 Flow Rate 98.7 F 103 H 20 H 104/56 97 Room Air 2 07/01/23 21:25 07/01/23 21:25 07/01/23 21:25 07/01/23 21:25 07/01/23 21:25 07/01/23 20:15 07/01/23 12:30 Preop Diagnosis: GI bleed Operation Date: 07/01/23 16:00 Proposed Procedures p Colonoscopy(Not Applicable) - Natanael Christianson MD Last intake: Intake Last Liquid Date 07/01/23 Last Liquid Time 08:00 Last Solid Date 06/30/23 Last Solid Time 16:30 Social Alcohol and Tobacco Exam alert, oriented x 3, clear to auscultation bilaterally and regular rate & rhythm Airway Submandibular: within normal limits Cervical ROM: within normal limits Mallampati: Class II Pulmonary Asthma, Chronic Obstructive Pulmonary Disease, Exertional Dyspnea and Shortness of Breath CV/HEM Stable Angina, Coronary Artery Disease and Congestive Heart Failure GI Gastroesophageal Reflux Disease and Peptic Ulcer Disease Metabolic Diabetes Mellitus Anesthetic Plan ASA status: 4E Anesthesia: MAC Medications/Allergies Home Medications Medication Instructions Recorded Confirmed Last Taken Type hydroxyzine HCl 25 mg tablet 25 mg PO Q6H PRN Itching 07/21/20 07/01/23 12/12/21 History nitroglycerin 0.4 mg sublingual 0.4 mg sublingual Q5M PRN chest 07/22/20 07/01/23 Unknown Rx tablet pain #30 tabs aspirin 81 mg tablet,delayed 81 mg PO QAM 12/13/21 07/01/23 06/16/23 History release blood-glucose meter,continuous #1 ea 08/16/22 07/01/23 Unknown Rx (Dexcom G6 Desk Operator) pen needle, diabetic 32 gauge x ##100 09/13/22 07/01/23 Unknown Rx /32 (TechLITE Pen Needle) multivitamin 1 tab PO DAILY 11/20/22 07/01/23 11/19/22 History fluoxetine 40 mg capsule 40 mg PO QAM 01/03/23 07/01/23 06/16/23 History albuterol sulfate 90 mcg/actuation 2 inh inhalation Q4H PRN shortness 01/27/23 07/01/23 Unknown Rx aerosol inhaler of breath or wheezing #18 grams blood-glucose sensor (Dexcom G6 #6 ea 03/10/23 07/01/23 Unknown Rx Sensor device) blood-glucose transmitter (Dexcom #1 ea 03/10/23 07/01/23 Unknown Rx G6 Transmitter device) semaglutide 1 mg/dose (4 mg/3 mL) 1 mg (0.75 mL) SUBCUT Q7D #3 mL 06/06/23 07/01/23 Unknown Rx subcutaneous pen injector (Ozempic) amitriptyline 25 mg tablet 25 mg PO BEDTIME 06/17/23 07/01/23 06/16/23 History insulin regular hum U-500 conc 500 See Rx Instructions .Route .COMPLEX 06/17/23 07/01/23 Unknown History unit/mL(3 mL) subcut pen (Humulin R U-500 (Conc) Insulin Kwikpen) naproxen 500 mg tablet 500 mg PO Q12H PRN Pain 06/17/23 07/01/23 Unknown History promethazine 25 mg tablet 25 mg PO Q6H PRN nausea and 06/17/23 07/01/23 Unknown Rx vomiting #20 tabs rosuvastatin 40 mg tablet (Crestor) 40 mg PO QAM 06/17/23 07/01/23 06/16/23 History amoxicillin 875 mg tablet 875 mg PO BID #16 tabs 06/20/23 07/01/23 Unknown Rx cyclobenzaprine 10 mg tablet 10 mg PO Q8H PRN Pain 07/01/23 07/01/23 Unknown History tamsulosin 0.4 mg capsule 0.4 mg PO DAILY 07/01/23 07/01/23 Unknown History Allergies Allergy/AdvReac Type Severity Reaction Status Date / Time nalbuphine [From Nubain] Allergy ADR-Headach Verified 06/17/23 20:48 e sumatriptan [From Imitrex] Allergy ALGY-Swell Verified 06/17/23 20:48 [facility] Medical History Skin lesions CAD (coronary artery disease) Folliculitis Diabetic neuropathy Coronary artery 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 2 diabetes mellitus Uncontrolled type 2 diabetes mellitus Diabetes Hypercholesterolemia Surgical History H/O heart bypass surgery [place]- Last Monday03/02/22 Status post colonoscopy (10/01/19) H/O: hysterectomy H/O heart artery stent 5 years ago H/O melanoma excision Family History Father CAD (coronary artery disease) Diabetes Grandfather CAD (coronary artery disease) Diabetes Grandmother CAD (coronary artery disease) Cancer lung Diabetes Denies family history of Anesthesia complication Bleeding disorder Social History Smoking and tobacco/nicotine status: current every day tobacco/nicotine user Alcohol intake: never Substance/Drug Use: never Household members: spouse Marital status: Current occupational status: employed Data Anesthesia 07/01/23 17:18 07/01/23 17:40 Short CBC 06/30/23 07/01/23 07/01/23 Range/Units 22:10 07:05 08:32 WBC 14.72 H 9.33 (3.29-11.43) 10^3/uL Hgb 8.70 L 4.50 L* D 4.20 L* (11.27-16.99) g/dL Hct 28.1 L 14.7 L* D 13.2 L* (36-47) % MCV 90.4 91.9 (85-98) fl Plt Count 427 H 243 D (157-399) 10^3/cmm Neut % (Auto) 44.6 63.8 % Neut # (Auto) 6.56 5.95 (1.8-7.7) 10^3/uL 07/01/23 07/01/23 Range/Units 13:00 17:18 WBC (3.29-11.43) 10^3/uL Hgb 5.60 L* D 6.60 L (11.27-16.99) g/dL Hct 17.6 L* D 20.0 L* (36-47) % MCV (85-98) fl Plt Count (157-399) 10^3/cmm Neut % (Auto) % Neut # (Auto) (1.8-7.7) 10^3/uL BMP 06/30/23 07/01/23 07/01/23 22:10 07:05 13:00 Sodium 137 132 L 134 L Potassium 5.3 H 6.4 H 5.0 Chloride 100 103 105 Carbon Dioxide 22 20 L 20 L BUN 39 H 46 H 46 H Creatinine 1.2 H 1.2 H 1.1 H Glucose 514 H* 462 H 317 H Calcium 9.3 7.6 L 7.5 L 07/01/23 07/01/23 07/01/23 17:40 17:40 17:40 Sodium Cancelled 136 Potassium Cancelled 4.5 Chloride Cancelled Carbon Dioxide BUN Creatinine Glucose Calcium 07/01/23 07/01/23 07/01/23 17:40 17:40 17:40 Sodium Potassium Chloride 107 Carbon Dioxide Cancelled 20 L BUN Cancelled 42 H Creatinine Cancelled Glucose Calcium 07/01/23 07/01/23 07/01/23 17:40 17:40 17:40 Sodium Potassium Chloride Carbon Dioxide BUN Creatinine 1.0 H Glucose Cancelled 229 H Calcium Cancelled 7.4 L Cardiac Enzymes 06/30/23 07/01/23 07/01/23 Range/Units 22:10 00:14 04:59 Troponin T Baseline 15 H (0-10) ng/L Troponin T 120 Minute 16.87 H (0-10) ng/L Delta Troponin T 1.87 (0-10) ABS# Troponin T Hi Sens 6Hr 19.72 H (0-10) ng/L Troponin T Hi Sens 6Hr Delta 4.72 (0-12) ng/L Liver Function 06/30/23 07/01/23 07/01/23 Range/Units 22:10 07:05 13:00 Total Bilirubin 0.3 0.2 0.3 (0.15-1.2) mg/dL AST 84 H 37 H 31 (0-32) U/L ALT 82 H 49 H 45 H (0-33) U/L Alkaline Phosphatase 89 61 55 (35-105) U/L Albumin 3.9 2.7 L 2.7 L (3.5-5.2) g/dL 07/01/23 07/01/23 07/01/23 Range/Units 17:40 17:40 17:40 Total Bilirubin Cancelled 0.7 (0.15-1.2) mg/dL AST Cancelled 32 (0-32) U/L ALT Cancelled (0-33) U/L Alkaline Phosphatase (35-105) U/L Albumin (3.5-5.2) g/dL 07/01/23 07/01/23 07/01/23 Range/Units 17:40 17:40 17:40 Total Bilirubin (0.15-1.2) mg/dL AST (0-32) U/L ALT 40 H (0-33) U/L Alkaline Phosphatase Cancelled 52 (35-105) U/L Albumin Cancelled 2.6 L (3.5-5.2) g/dL Urine 06/30/23 Range/Units 22:57 Urine Color Yellow (Yellow) Urine Appearance Clear (CLEAR) Urine pH 5 (5-7) Ur Specific [place] 1.015 (1.005-1.030) Urine Protein Neg (Negative) Urine Glucose (UA) 4+ H (Normal) Urine Ketones 1+ H (Negative) Urine Nitrate Negative (Negative) Urine Bilirubin Neg (Negative) Ur Leukocyte Esterase Negative (Negative) Blood Bank 07/01/23 08:32 Blood Type O Positive Rho(D) Type Rh positive Antibody Screen Negative Coags 07/01/23 00:14 C-Reactive Protein 8.8 H ABG 06/30/23 23:23 Specimen Type Arterial Sample Site Radial, left ABG pH 7.48 H ABG pCO2 32.5 L ABG pO2 82.7 ABG HCO3 24.0 ABG O2 Saturation 98.6 ABG Base Excess 0.5 A-a O2 Gradient 3.4 L O2 Delivery Device Room air Microbiology 07/01/23 04:59 Blood Culture - Preliminary Blood NEGATIVE TO DATE 07/01/23 04:49 Blood Culture - Preliminary Blood NEGATIVE TO DATE 07/01/23 06:09 Occult Blood (FIT) - Final Stool Routine Collection Cardiac Studies: Echocardiogram Ultrasound 07/22/20 Sestamibi Stress Test (Cardiology) 08/30/22
--- NOTE | 2023-07-02 08:28 | ANE.PACU2 ---
Inpatient post-anesthesia follow up: Vital signs: Temperature 98.7 F Pulse Rate 103 Respiratory Rate 20 Blood Pressure 104/56 Pulse Oximetry 97 Oxygen Delivery Me thod [ Nasal Cannula Current Rate & Del orquidea] Oxygen Delivery Me thod Room Air Oxygen Flow Rate [ Current Rate 2 & Delivery] Oxygen Flow Rate 2 Fraction of Inspir ed Oxygen Hydration adequate: No Nausea and vomiting: No Pain level: 1 Mental status: Baseline
--- NOTE | 2023-07-03 08:48 | PC.SOCIAL ---
Patient transfered to [facility] in [place]
== END 2023-07-01 20:39 | disposition short-term general hospital (02) | DRG 637 ==
LOC: ER 07-01 02:13 → MEDSURG 07-01 03:01 → ICU 07-01 04:32 → MEDSURG 07-01 06:53
PROVIDERS: Surgery; Admitting Provider Family Medicine; Emergency Provider Emergency Medicine; PCP Nurse Practitioner Family; Visit Provider Student in an Organized Health Care Education/Training Program
PROC: 0DJD8ZZ Inspection of Lower Intestinal Tract, Via Natural or Artificial Opening Endoscopic (ICD-10-PCS; CPT 45378; principal; 2023-07-01 16:00)
DX: E11.65 Type 2 diabetes mellitus with hyperglycemia (principal); K57.31 Diverticulosis of large intestine without perforation or abscess with bleeding; D62 Acute posthemorrhagic anemia; N17.9 Acute kidney failure, unspecified; B96.89 Other specified bacterial agents as the cause of diseases classified elsewhere; E11.40 Type 2 diabetes mellitus with diabetic neuropathy, unspecified; I25.10 Atherosclerotic heart disease of native coronary artery without angina pectoris; I10 Essential (primary) hypertension; E78.00 Pure hypercholesterolemia, unspecified; F17.290 Nicotine dependence, other tobacco product, uncomplicated; N30.90 Cystitis, unspecified without hematuria; E86.0 Dehydration; E87.5 Hyperkalemia; Z79.82 Long term (current) use of aspirin; Z79.85 Long-term (current) use of injectable non-insulin antidiabetic drugs; Z79.4 Long term (current) use of insulin; Z95.1 Presence of aortocoronary bypass graft; Z87.440 Personal history of urinary (tract) infections; Z95.5 Presence of coronary angioplasty implant and graft; Z85.820 Personal history of malignant melanoma of skin
CPT/HCPCS: 36415; 36416; 36430; 36592; 36600; 45330; 71045; 71260; 74177; 80051; 80053; 80306; 80307; 81003; 82009; 82274; 82330; 82728; 82805; 82962; 83036; 83540; 83605; 83735; 84145; 84443; 84484; 85014; 85018; 85025; 86140; 86850; 86900; 86920; 86927; 87040; 87324; 87493; 93005; 93306; 94640; 94664; 96372; 96374; 96375; 96376; 99285; C9113; G0378; J0696; J1815; J1885; J2270; J2405; J2598; J2704; J3490; J7030; J7613; P9016; P9017; Q9967

== ENCOUNTER 2023-08-02 18:46 | Emergency (ER) | payer OTHER, SELFPAY ==
[2023-08-02] VITALS (10 sets, daily range): BP systolic 90–129; BP diastolic 47–74; PULSE 99–118; RESP 16–18; TEMP 37.1–37.7; O2SAT 93–97
--- NOTE | 2023-08-02 19:00 | XRR_ITS ---
PROCEDURE INFORMATION: Exam: XR Chest Exam date and time: 08/02/2023 7:40 PM Age: 53 years old Clinical indication: Other: Weakness TECHNIQUE: Imaging protocol: Radiologic exam of the chest. Views: 1 view. COMPARISON: CT chest abdpel w/*[id number] 07/01/2023 3:27 AM FINDINGS: Lungs: No focal consolidation. Pleural spaces: Unremarkable. No pleural effusion. No pneumothorax. Heart/Mediastinum: Unremarkable. No cardiomegaly. Bones/joints: Prior median sternotomy and CABG. XR/XR chest 1V portable [id number] IMPRESSION: No focal consolidation.
[2023-08-02 19:12] LABS: Add Urine Microscopic? YES; Bilirubin Urine Neg (Negative); Blood Urine Neg (Negative); Glucose Urine UA 1+ (Normal); Ketones Urine Negative (Negative); Leukocyte Esterase Urine Negative (Negative); Nitrate Urine Negative (Negative); Protein Urine Neg (Negative); Specific Gravity, Urine 1.015 (1.005-1.030); Urine Appearance SL Hazy (CLEAR); Urine Color Yellow (Yellow); Urobilinogen Urine Norm (Negative); pH Urine 5 (5-7)
--- NOTE | 2023-08-02 19:12 | ED_ITS ---
HPI - Nausea/Vomiting/Diarrhea 2 General: Chief complaint: General Medical Stated complaint: V\Eyes Burning\Headache\Ears and Sides Hurt Time Seen by Provider: 08/02/23 18:59 Source: patient Mode of arrival: ambulatory Limitations: no limitations History of Present Illness: Patient is a 53-year-old female with a history of diabetes, E. coli bacteremia/sepsis, C. difficile colitis with GI hemorrhage here for complaints of continued diarrhea, abdominal pain, low-grade fevers, chills, headache, neck pain, eye pain, ear pain. Patient was admitted to our facility approximately a month ago and subsequently required transfer to [facility] given acute GI hemorrhage. Patient states she was diagnosed for C. difficile on that visit. She states she has been on oral vancomycin since her discharge from [facility] approximately a month ago. She states she recently ran out of this medication and contacted her PCP who prescribed her 10 more days of therapy. Patient is still having diffuse watery diarrhea. MD elicited complaint: diarrhea and abdominal pain Pertinent past history: other (c diff) Onset (ago): week(s) Description of diarrhea: watery Associated nausea: Yes Associated abdominal pain: Yes Location of pain: Diffuse Radiation: diffuse Pain consistency: intermittent Severity: moderate Quality: cramping Relieving factors: bowel movement Context: recent antibiotic use and other (known c diff) Associated symtoms: Reports headache(s) and nausea; Denies change in vision, chest pain, dizziness, dysuria or tinnitus Treatment prior to arrival: other (vancomycin/abx) Review of Systems 2 Const: Reports: fever(s) (low grade) and chills Eyes: Reports: photophobia and eye discomfort; Denies: change in vision, blurry vision, floaters or seeing flashes ENMT: Reports: ear or mastoid pain; Denies: throat pain, odynophagia, change in hearing, tinnitus, disequilibrium, nasal discharge, nasal congestion or sinus pain Card: Denies: chest pain Resp: Denies: dyspnea GI: Reports: abdominal pain, nausea and diarrhea; Denies: vomiting or hematemesis : Denies: flank pain, difficulty voiding, dysuria, urinary frequency, urinary urgency or urinary hesitancy Musc: Reports: neck pain; Denies: back pain, extremity pain, extremity swelling, joint pain or joint swelling Skin/Breast: Denies: rash Neuro: Reports: headache(s); Denies: numbness in extremities, weakness in extremities, sensory changes, lack of coordination, difficulty walking or dizziness PFSH ED 2 PFSH: Medical History Skin lesions CAD (coronary artery disease) Folliculitis Diabetic neuropathy Coronary artery 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 2 diabetes mellitus Uncontrolled type 2 diabetes mellitus Diabetes Hypercholesterolemia Surgical History H/O heart bypass surgery [place]- Last Monday03/02/22 Status post colonoscopy (10/01/19) H/O: hysterectomy H/O heart artery stent 5 years ago H/O melanoma excision Family History Father CAD (coronary artery disease) Diabetes Grandfather CAD (coronary artery disease) Diabetes Grandmother CAD (coronary artery disease) Cancer lung Diabetes Denies family history of Anesthesia complication Bleeding disorder Social History Smoking and tobacco/nicotine status: current every day tobacco/nicotine user Alcohol intake: never Substance/Drug Use: never Household members: spouse Marital status: Current occupational status: employed Physical Exam 2 Const: COMMON NORMALS: no acute distress, average body habitus, patient oriented x3, no limitations, healthy appearing, alert and well nourished G ENERAL APPEARANCE: cooperative ORIENTATION/CONSCIOUSNESS: Yes awake, Yes oriented to person, Yes oriented to place and Yes oriented to time HENMT: COMMON NORMALS: normocephalic and atraumatic HEAD & SCALP: normal to inspection, normocephalic and atraumatic Eye: COMMON NORMALS: Equal, round and reactive pupils present and EOMs intact bilaterally GENERAL EYE: appearance normal, both eyes and all related structures and normal light reflex PUPIL: Yes Equal, round and reactive pupils present DIRECT OPHTHALMOSCOPY: Yes normal light reflex Neck/C-Spine: COMMON NORMALS: full ROM, no lymphadenopathy, supple and no meningeal signs Chest: COMMONS NORMALS: normal inspection of the chest Resp: COMMON NORMALS: normal respiratory effort and clear to auscultation bilaterally AUSCULTATION: clear to auscultation bilaterally Cardio: COMMON NORMALS: regular rhythm RATE: tachycardic RHYTHM: regular rhythm GI: COMMON NORMALS: Normal to inspection, nondistended, normoactive bowel sounds present, Soft to palpation, No hepatosplenomegaly present and no masses INSPECTION: Yes normal to inspection PALPATION: Yes Soft to palpation, Yes Tenderness to palpation present (GI) (across lower abdomen), Yes Guarding due to palpation present (GI), No Rigid due to palpation and Yes No hepatosplenomegaly present : COMMON NORMALS: Yes no CVA tenderness BLADDER/KIDNEY EXAM: Yes no CVA tenderness Back/Pelvis: COMMON NORMALS: no CVA tenderness and thoracic and lumbar spine normal to inspection Extremity: COMMON NORMALS: normal to inspection GENERAL: Yes normal exam except as noted Neuro: NIKKIE COMA SCALE: document GCS findings [place] coma scale eye opening: Spontaneous Nikkie coma scale verbal response: Orientated Nik[place] coma scale motor response: Obey commands Austin coma scale total score: 15 COMMON NORMALS: patient oriented x3, moves all extremities, no focal motor deficits and no sensory deficits noted SENSORIUM/ORIENTATION: Yes alert, Yes oriented to person, Yes oriented to place and Yes oriented to time MENINGEAL SIGNS: Yes no meningeal signs Skin: COMMON NORMALS: no rashes or lesions noted GENERAL SKIN EXAM: no rashes or lesions noted Course 2 Vital Signs: Vital signs: Vital Signs Temperature 98.8 F 08/02/23 21:57 Pulse Rate 99 08/02/23 22:32 Respiratory Rate 16 08/02/23 22:32 Blood Pressure 102/60 08/02/23 22:32 Pulse Oximetry 93 08/02/23 22:32 Oxygen Delivery Me thod Room Air 08/02/23 22:05 MDM - Nausea/Vomiting/Diarrhea Medical Decision Making Patient here for continued watery diarrhea and abdominal pain/cramping. She is known C. difficile positive. Patient's blood work today does not show anything concerning for fulminant colitis. Her white count is 11.9. Her creatinine is 1.1. Lactate is normal. CT of her abdomen is unremarkable. Vitals have remained stable. She is chronically on the low end of blood pressures. She is afebrile. She was given fluids here. Spoke to hospitalist Dr. Walker as she has now been on Vancomycin for approximately a month now. He is recommended a tapered and pulsed therapy as per guidelines and if she fails this then we could switch her to Fidaxomicin. I would like her to follow-up with primary care next week. Return to ED precautions given. Differential Diagnosis Likely clostridium difficile infection and dehydration Medical Records I reviewed the patient's medical records. Lab Data I reviewed the patient's lab results. 08/02/23 19:17 08/02/23 19:17 Radiology Impressions Chest X-Ray 08/02/23 19:00 IMPRESSION: No focal consolidation. Abdomen/Pelvis CT 08/02/23 19:12 IMPRESSION: 1. No bowel obstruction or inflammatory process associated with the bowel. 2. No free air or significant free fluid in the abdomen or pelvis. 3. The appendix is not visualized but there are no secondary signs of acute appendicitis. Laboratory Results WBC 11.92 10^3/uL (3.29-11.43) H 08/02/23 19:17 RBC 3.72 10^6/uL (3.85-5.65) L 08/02/23 19:17 Hgb 10.40 g/dL (11.27-16.99) L 08/02/23 19:17 Hct 32.3 % (36-47) L 08/02/23 19:17 MCV 86.8 fl (85-98) 08/02/23 19:17 MCH 28.0 pg (27-33) 08/02/23 19:17 MCHC 32.2 g/dL (30-55) 08/02/23 19:17 RDW 14.0 % (12.1-15.1) 08/02/23 19:17 Plt Count 211 10^3/cmm (157-399) 08/02/23 19:17 MPV 9.5 fL (7.4-10.4) 08/02/23 19:17 Neut % (Auto) 75.1 % 08/02/23 19:17 Lymph % (Auto) 17.3 % 08/02/23 19:17 Reynolds % (Auto) 5.8 % 08/02/23 19:17 Eos % (Auto) 0.8 % 08/02/23 19:17 Baso % (Auto) 0.4 % 08/02/23 19:17 Neut # (Auto) 8.96 10^3/uL (1.8-7.7) H 08/02/23 19:17 Lymph # (Auto) 2.1 10^3/uL (0.8-4.8) 08/02/23 19:17 Reynolds # (Auto) 0.7 10^3/uL (0.2-0.9) 08/02/23 19:17 Eos # (Auto) 0.1 10^3/uL (0.0-0.8) 08/02/23 19:17 Baso # (Auto) 0.1 10^3/uL (0.0-0.1) 08/02/23 19:17 Nucleated RBC % (auto) 0 % 08/02/23 19:17 Nucleated RBCs # 0.0 /100WBC 08/02/23 19:17 Sodium 138 mmol/L (136-145) 08/02/23 19:17 Potassium 3.7 mmol/L (3.5-5.1) 08/02/23 19:17 Chloride 101 mmol/L (98-107) 08/02/23 19:17 Carbon Dioxide 25 mmol/L (22-29) 08/02/23 19:17 Anion Gap 15.7 (5-19) 08/02/23 19:17 BUN 16 mg/dL (6-20) 08/02/23 19:17 Creatinine 1.1 mg/dL (0.5-0.9) H 08/02/23 19:17 GFR Calculation 52.4 mL/min (90-130) L 08/02/23 19:17 Glucose 160 mg/dL (65-115) H 08/02/23 19:17 Calculated Osmolality 291 mOsm/kg (285-295) 08/02/23 19:17 Lactic Acid 1.3 mmol/L (0.5-2.2) 08/02/23 19:17 Calcium 9.1 mg/dL (8.5-10.5) 08/02/23 19:17 Total Bilirubin 0.5 mg/dL (0.15-1.2) 08/02/23 19:17 AST 37 U/L (0-32) H 08/02/23 19:17 ALT 39 U/L (0-33) H 08/02/23 19:17 Alkaline Phosphatase 90 U/L (35-105) 08/02/23 19:17 Total Protein 7.6 g/dL (6.6-8.7) 08/02/23 19:17 Albumin 4.2 g/dL (3.5-5.2) 08/02/23 19:17 Globulin 3.4 g/dL (1.3-4.6) 08/02/23 19:17 Urine Color Yellow (Yellow) 08/02/23 19:00 Urine Appearance Sl hazy (CLEAR) A 08/02/23 19:00 Urine pH 5 (5-7) 08/02/23 19:00 Ur Specific [place] 1.015 (1.005-1.030) 08/02/23 19:00 Urine Protein Neg (Negative) 08/02/23 19:00 Urine Glucose (UA) 1+ (Normal) H 08/02/23 19:00 Urine Ketones Negative (Negative) 08/02/23 19:00 Urine Blood Neg (Negative) 08/02/23 19:00 Urine Nitrate Negative (Negative) 08/02/23 19:00 Urine Bilirubin Neg (Negative) 08/02/23 19:00 Urine Urobilinogen Norm mg/dL (Negative) 08/02/23 19:00 Ur Leukocyte Esterase Negative (Negative) 08/02/23 19:00 Urine RBC Rare /hpf (0-2) 08/02/23 19:00 Urine WBC 15-25 /hpf (0-5) H 08/02/23 19:00 Ur Squamous Epith Cells 0-4 /hpf (0-5) H 08/02/23 19:00 Ur Transition Epith Cell 0-4 /hpf 08/02/23 19:00 Amorphous Sediment Not Reportable 08/02/23 19:00 Urine Bacteria 1+ /hpf (NONE) H 08/02/23 19:00 Urine Mucus None /hpf 08/02/23 19:00 All radiology interpretation(s) finalized by discharge Discharge Plan Discharge Patient Disposition: Home Clinical Impression: C. difficile diarrhea Condition: Stable Prescriptions: New vancomycin 125 mg capsule 125 mg PO DIRECTED Qty: 42 0RF Rx Instructions: FINISH COURSE of 4x daily x 10 days. Then start this-2 times per day for 7 days; once daily for 7 days; once every 2-3 days for 2-8 weeks No Action fluoxetine 40 mg capsule 40 mg PO QAM (DME) Dexcom G6 Sensor Device See Rx Instructions .ROUTE .MEDSUPPLY Qty: 6 3RF Rx Instructions: change every 10 days (DME) Dexcom G6 Transmitter Device See Rx Instructions .ROUTE .MEDSUPPLY Qty: 1 3RF Rx Instructions: change every 3 months Ozempic 1 mg/dose (4 mg/3 mL) pen injector 1 mg SUBCUT Q7D Qty: 3 1RF Rx Instructions: on sat (DME) Dexcom G6 Suspender Maker Misc See Rx Instructions .ROUTE .MEDSUPPLY Qty: 1 3RF Rx Instructions: new roller hand once a year (DME) pen needle, diabetic [TechLITE Pen Needle] 32 gauge x 5/32 needle See Rx Instructions .ROUTE .COMPLEX Qty: 100 3RF Dose Instruction: USE DIRECTED Rx Instructions: USE DIRECTED rosuvastatin [Crestor] 40 mg tablet 40 mg PO DAILY Qty: 90 1RF hydroxyzine HCl 25 mg Tablet 25 mg PO Q6H PRN (Reason: Itching) nitroglycerin 0.4 mg tablet, sublingual 0.4 mg sublingual Q5M PRN (Reason: chest pain) Qty: 30 0RF Rx Instructions: do not exceed 3 doses per episode multivitamin Tablet 1 tab PO DAILY cyclobenzaprine 10 mg tablet 10 mg PO Q8H PRN (Reason: Pain) tamsulosin 0.4 mg Capsule 0.4 mg PO DAILY aspirin 81 mg Tablet,Delayed Release (Dr/Ec) 81 mg PO QAM albuterol sulfate 90 mcg/actuation HFA aerosol inhaler 2 inh INHALATION Q4H PRN (Reason: shortness of breath or wheezing) Qty: 18 0RF amitriptyline 25 mg tablet 25 mg PO BEDTIME naproxen 500 mg tablet 500 mg PO Q12H PRN (Reason: Pain) Humulin R U-500 (Conc) Kwikpen 500 unit/mL (3 mL) insulin pen See Rx Instructions .ROUTE .COMPLEX Rx Instructions: 140 units subcutaneously qam and 100 units at bedtime promethazine 25 mg tablet 25 mg PO Q6H PRN (Reason: nausea and vomiting) Qty: 20 0RF amoxicillin 875 mg tablet 875 mg PO BID Qty: 16 0RF Discharge Orders: Discharge ED (Routine); Ordered 08/02/23 Ordered By: Laverne Lantigua Referrals: Joy Mccray, [facility] APPLIQUER [Primary Care Provider] - Patient Instructions: C. Diff (Clostridioides Difficile) Infection (DC) Activity Restrictions/Additional Instructions: As we discussed plan will be for a TAPERED AND PULSED REGIMEN for your Vancomycin. You stated you were just prescribed another 10 day course of Vancomycin 125mg 4x daily. We will have you FINISH THIS and THEN I will write you for the remainder of the course as outlined below. * 125 mg orally 4 times daily for 10 to 14 days-CURRENT COURSE * 125 mg orally 2 times daily for 7 days, then * 125 mg orally once daily for 7 days, then * 125 mg orally every 2 to 3 days for 2 to 8 weeks Coding Level of Care Code ED Health And Physical Education Teacher for Dora Sparks
--- NOTE | 2023-08-02 19:12 | CTR_ITS ---
PROCEDURE INFORMATION: Exam: CT Abdomen And Pelvis With Contrast Exam date and time: 08/02/2023 8:08 PM Age: 53 years old Clinical indication: Abdominal pain; Generalized; Prior surgery; Surgery date: 6+ months; Surgery type: Hyst/sling; Additional info: C diff, abdominal pain, low grade fevers TECHNIQUE: Imaging protocol: Computed tomography of the abdomen and pelvis with contrast. Radiation optimization: All CT scans at this facility use at least one of these dose optimization techniques: automated exposure control; mA and/or kV adjustment per patient size (includes targeted exams where dose is matched to clinical indication); or iterative reconstruction. Contrast material: OMNI 350; Contrast volume: 80 ml; Contrast route: INTRAVENOUS (IV); COMPARISON: CT chest abdpel w/*[id number] 07/01/2023 3:27 AM RADIATION DOSE METRICS: Total DLP (mGy-cm): 596.67 FINDINGS: Liver: Normal. No mass. Gallbladder and bile ducts: Normal. No calcified stones. No ductal dilation. Pancreas: Normal. No ductal dilation. Spleen: Multiple punctate calcifications in the spleen consistent with prior granulomatous infection. Adrenal glands: Normal. No mass. Kidneys and ureters: Normal. No hydronephrosis. Stomach and bowel: Unremarkable. No obstruction. No mucosal thickening. Appendix: The appendix is not visualized but there are no secondary signs of acute appendicitis. Intraperitoneal space: Unremarkable. No free air. No significant fluid collection. Vasculature: Severe atherosclerotic disease of the abdominal aorta. Lymph nodes: Calcified lymph node in the right hilum. Urinary bladder: Unremarkable as visualized. Reproductive: Unremarkable as visualized. Bones/joints: Prior median sternotomy. Soft tissues: Unremarkable. CT/CT abdomen pelvis w con* [id number] IMPRESSION: 1. No bowel obstruction or inflammatory process associated with the bowel. 2. No free air or significant free fluid in the abdomen or pelvis. 3. The appendix is not visualized but there are no secondary signs of acute appendicitis.
[2023-08-02 19:22] LABS: RBC Urine RARE /hpf (0-2); WBC Urine 15-25 /hpf (0-5)
[2023-08-02 19:23] LABS: Add Urine Culture? No; Bacteria Urine 1+ /hpf; Squamous Epithelial Cell Urine 0-4 /hpf (0-5); Transitional Epi Cells Urine 0-4 /hpf
[2023-08-02 19:38] LABS: Basophils # 0.1 10^3/uL (0.0-0.1); Basophils % 0.4 %; Eosinophils # 0.1 10^3/uL (0.0-0.8); Eosinophils % 0.8 %; Hematocrit 32.3 % (36-47); Lymphocytes # 2.1 10^3/uL (0.8-4.8); Lymphocytes % 17.3 %; Mean Corpuscular HGB Conc 32.2 g/dL (30-55); Mean Corpuscular Volume 86.8 fl (85-98); Mean Platelet Volume 9.5 fL (7.4-10.4); Monocytes # 0.7 10^3/uL (0.2-0.9); Monocytes % 5.8 %; Neutrophils # 8.96 10^3/uL (1.8-7.7); Neutrophils % 75.1 %; Nucleated Red Blood Cells % 0 %; Platelet Count 211 10^3/cmm (157-399); Red Blood Count 3.72 10^6/uL (3.85-5.65); White Blood Count 11.92 10^3/uL (3.29-11.43)
[2023-08-02] MEDS: acetaminophen 500 mg Tablet 1000 MG PO (19:46)
[2023-08-02] MEDS: sodium chloride 0.9% 1,000 ML 999 ML IV (19:47)
[2023-08-02 19:54] LABS: Alanine Aminotransferase 39 U/L (0-33); Albumin Level 4.2 g/dL (3.5-5.2); Alkaline Phosphatase 90 U/L (35-105); Anion Gap 15.7 (5-19); Aspartate Amino Transferase 37 U/L (0-32); Blood Urea Nitrogen 16 mg/dL (6-20); Calcium 9.1 mg/dL (8.5-10.5); Carbon Dioxide 25 mmol/L (22-29); Chloride 101 mmol/L (98-107); Creatinine Clr Calc Pharmacy 61.0205; Globulin 3.4 g/dL (1.3-4.6); Glomerular Filtration Rate 52.4 mL/min (90-130); Glucose 160 mg/dL (65-115); Osmolality Calculated 291 mOsm/kg (285-295); Potassium 3.7 mmol/L (3.5-5.1); Sodium 138 mmol/L (136-145); Total Bilirubin 0.5 mg/dL (0.15-1.2); Total Protein 7.6 g/dL (6.6-8.7)
[2023-08-02 19:55] LABS: Lactic Sepsis W/Reflex 1.3 mmol/L (0.5-2.2)
[2023-08-02] MEDS: iohexol 350 mg/mL 500 mL Btl (per mL) IV (20:10)
== END 2023-08-02 22:47 | disposition home or self-care (01) ==
PROVIDERS: Emergency Provider Physician Assistant; PCP Nurse Practitioner Family
DX: A04.72 Enterocolitis due to Clostridium difficile, not specified as recurrent (principal); Z79.82 Long term (current) use of aspirin; Z79.85 Long-term (current) use of injectable non-insulin antidiabetic drugs; Z79.4 Long term (current) use of insulin; Z72.0 Tobacco use; I25.10 Atherosclerotic heart disease of native coronary artery without angina pectoris; E11.40 Type 2 diabetes mellitus with diabetic neuropathy, unspecified
CPT/HCPCS: 36415; 71045; 74177; 80053; 81001; 83605; 85025; 87040; 99285; J7030; Q9967

== ENCOUNTER 2023-10-05 15:30 | Outpatient (CLI) | payer OTHER, SELFPAY ==
--- NOTE | 2023-10-05 15:49 | XRR_ITS ---
PROCEDURE INFORMATION: Exam: XR Left Wrist Exam date and time: 10/05/2023 3:55 PM Age: 53 years old Clinical indication: Wrist; Left; Patient HX: 1 month, swollen, worsening sharp pain, pain affects the length of the 3rd digit, non specific injury; Additional info: Wrist pain, left TECHNIQUE: Imaging protocol: Radiologic exam of the left wrist. Views: 3 or more views. COMPARISON: No relevant prior studies available. FINDINGS: Bones/joints: Minimal narrowing of the radiocarpal joint in the thumb CMC joint. The alignment is anatomic. No fracture. Soft tissues: Mild soft tissue swelling about the wrist. XR/XR wrist LT min 3V* [id number] IMPRESSION: Minimal degenerative changes. No acute injury.
== END 2023-10-05 15:31 | disposition home or self-care (01) ==
LOC: RAD 15:36
PROVIDERS: PCP Nurse Practitioner Family; Visit Provider Nurse Practitioner Family
DX: M25.532 Pain in left wrist (principal)
CPT/HCPCS: 73110

== ENCOUNTER 2023-10-23 06:00 | Outpatient (CLI) | payer OTHER, SELFPAY | END 2023-10-23 23:59 | disposition home or self-care (01) | LOC: SOT 10-24 10:18 | PROVIDERS: PCP Nurse Practitioner Family; Visit Provider Nurse Practitioner | DX: Z46.89 Encounter for fitting and adjustment of other specified devices (principal); M65.4 Radial styloid tenosynovitis [de Quervain] | CPT/HCPCS: L3807 ==

== ENCOUNTER 2024-02-02 07:55 | Outpatient (CLI) | payer OTHER, SELFPAY ==
--- NOTE | 2024-02-02 08:30 | USCV_ITS ---
Nelly Gaming Age: 54 Gender: F : 1970 Exam Date: 02/02/2024 08:29 Ordering Phys: Kenneth Chappell MD ([email or web address]) Technologist: [place] [facility] [place]: BP: 138 / 83 HR: 77 Rhythm: Sinus Technical Quality: Adequate MEASUREMENTS (Male / Female) Normal Values 2D ECHO LVOT Diameter 2.1 cm LV Ejection Fraction MOD 4C 62.7 % LV Ejection Fraction MOD 2C 52.8 % LV Ejection Fraction 2C AL 54.2 % LA Diameter 2.8 cm RA Systolic Volume 4C AL 28.9 ml RA Systolic Volume 4C MOD 27.7 ml LA Sys Volume AL 42.4 cm cubed LA Sys Volume Index AL 23.8 cm cubed/m squared Aorta at Sinotubular Diameter 2.3 cm M-MODE LA Ao Ratio MM 1.7 AV Cusp Separation MM 2.2 cm DOPPLER AV Peak Velocity 109.0 cm/s LVOT Peak Velocity 92.0 cm/s AV Area Cont Eq vti 2.8 cm squared AV Area Cont Eq pk 2.9 cm squared MV Peak Velocity 75.0 cm/s MV Area PHT 3.4 cm squared Mitral E to A Ratio 0.9 TR Peak Velocity 183.0 cm/s TR Peak Gradient 13.4 mmHg TV Peak E Velocity 59.0 cm/s Right Atrial Pressure 3.0 mmHg Pulmonary Artery Systolic Pressu 16.4 mmHg PV Peak Velocity 96.5 cm/s FINDINGS Left Ventricle Normal left ventricular size, systolic function and wall thickness, with no regional wall motion abnormalities. Left ventricular ejection fraction is estimated at 60 %. Grade I/IV diastolic dysfunction (abnormal relaxation filling pattern), normal to mildly elevated filling pressures. Right Ventricle The right ventricle is normal in size and function. Right Atrium The right atrium is normal in size. Left Atrium The left atrium is normal in size. Mitral Valve Thickened mitral valve. No mitral valve stenosis. Trace mitral valve regurgitation. Aortic Valve Structurally normal aortic valve without significant sclerosis or stenosis. There is no aortic regurgitation. Tricuspid Valve Trace tricuspid valve regurgitation. Pulmonic Valve Structurally normal pulmonic valve without significant stenosis. There is no pulmonic regurgitation. Pericardium Normal pericardium without effusion. Aorta Normal ascending aorta dimension. IVC The inferior vena cava appears normal. CONCLUSIONS Normal left ventricular size, systolic function and wall thickness, with no regional wall motion abnormalities. Left ventricular ejection fraction is estimated at 60 %. Grade I/IV diastolic dysfunction (abnormal relaxation filling pattern), normal to mildly elevated filling pressures. There is no pericardial effusion. No significant valve abnormalities. Pulmonary artery systolic pressure is within normal limits. Right atrial pressure is around 5 mm of mercury. Kenneth Chappell MD (Electronically Signed) Final Date: 05 February 2024 20:00 S
== END 2024-02-02 07:56 | disposition home or self-care (01) ==
LOC: RAD 07:56
PROVIDERS: PCP Nurse Practitioner Family; Visit Provider Internal Medicine Cardiovascular Disease
DX: I50.30 Unspecified diastolic (congestive) heart failure (principal); I34.81 Nonrheumatic mitral (valve) annulus calcification; R06.02 Shortness of breath
CPT/HCPCS: 93306

== ENCOUNTER → 2024-06-24 10:10 | Outpatient (BNVA) | payer OTHER, SELFPAY | PROVIDERS: PCP Nurse Practitioner Family; Visit Provider Internal Medicine | DX: E11.9 Type 2 diabetes mellitus without complications (principal); E11.40 Type 2 diabetes mellitus with diabetic neuropathy, unspecified; K76.0 Fatty (change of) liver, not elsewhere classified | CPT/HCPCS: 36415; 80053; 80061; 82044; 83036 ==

== ENCOUNTER 2024-08-12 12:42 | Outpatient (CLI) | payer OTHER, SELFPAY ==
--- NOTE | 2024-08-12 12:49 | MM_ITS ---
WS: [id number] BILATERAL 3D TOMOSYNTHESIS DIGITAL SCREENING MAMMOGRAPHY WITH CAD CLINICAL INFORMATION: SCREEN HISTORY: Screening mammogram. No current complaints. COMPARISON: Baseline TECHNIQUE: Bilateral CC and MLO views. FINDINGS: The breasts are composed of heterogeneous fibroglandular density tissue, which can limit the detection of small underlying mass lesions. Nodular breast tissue bilaterally. No suspicious mass, asymmetry, calcifications, or architectural distortion. No evidence of malignancy. Punctate and lucent centered calcifications. Dystrophic calcifications. MM/MM [facility] tomosynthesis [id number] IMPRESSION: DENSITY: The breasts are heterogeneously dense, which may obscure small masses. BI-RADS: 2 - Benign FOLLOW UP: 1 Year Follow-up Recommend return to annual screening mammography.
== END 2024-08-12 12:43 | disposition home or self-care (01) ==
PROVIDERS: PCP Nurse Practitioner Family; Visit Provider Family Medicine
DX: Z12.31 Encounter for screening mammogram for malignant neoplasm of breast (principal); R92.333 Mammographic heterogeneous density, bilateral breasts; N63.20 Unspecified lump in the left breast, unspecified quadrant; N63.10 Unspecified lump in the right breast, unspecified quadrant; R92.1 Mammographic calcification found on diagnostic imaging of breast
CPT/HCPCS: 77063; 77067

== ENCOUNTER 2024-09-06 07:27 | Outpatient (CLI) | payer OTHER, SELFPAY ==
--- NOTE | 2024-09-06 07:31 | CT_ITS ---
WS: [id number] LDCT LUNG CANCER SCREENING TECHNIQUE: Noncontrast CT of the chest with coronal and sagittal reformatted images. CLINICAL INFORMATION: HX OF TOBACCO USE COMPARISON: None. DLP: 60.17 mGy.cm DIvol: Mean CTDIvol: 1.10 (mGy) All CT scans at [facility] use at least one of these dose optimization techniques: automated exposure control; mA and/or kV adjustment per patient size (includes targeted exams where dose is matched to clinical indication); or iterative reconstruction. FINDINGS: Calcified granuloma RIGHT lower lobe. 4 mm nodule RIGHT lower lobe. Bibasilar atelectasis. Calcified RIGHT hilar nodes. Sternotomy. CABG. Partially visualized small RIGHT thyroid nodules. Aortic calcification. Coronary calcification. No mediastinal or hilar lymphadenopathy. Tiny esophageal hiatal hernia. No axillary lymphadenopathy. Normal RIGHT adrenal gland. Thickening with nodularity LEFT adrenal gland. Splenic granulomas. Hepatomegaly. CT/CT lung screening [id number] IMPRESSION: LUNG-RADS: 2-Benign Appearance or Behavior FOLLOW UP: 12 Month: Continue annual screening with LDCT
== END 2024-09-06 07:28 | disposition home or self-care (01) ==
LOC: RAD 07:28
PROVIDERS: PCP Nurse Practitioner Family; Visit Provider Family Medicine
DX: Z12.2 Encounter for screening for malignant neoplasm of respiratory organs (principal); Z87.891 Personal history of nicotine dependence; J98.4 Other disorders of lung; J84.10 Pulmonary fibrosis, unspecified; R91.8 Other nonspecific abnormal finding of lung field; J98.11 Atelectasis; Z98.61 Coronary angioplasty status; E04.2 Nontoxic multinodular goiter; E27.8 Other specified disorders of adrenal gland; D73.89 Other diseases of spleen
CPT/HCPCS: 71271

== ENCOUNTER 2024-12-17 08:51 | Outpatient (CLI) | payer OTHER, SELFPAY ==
[2024-12-17 10:52] LABS: Estmated Average Glucose 252; Hemoglobin A1C 10.4 % (4.0-6.0)
[2024-12-17 10:56] LABS: Creatinine Urine, Random 112 mg/dL (28-217)
[2024-12-17 10:59] LABS: Alanine Aminotransferase 58 U/L (0-33); Albumin Level 4.2 g/dL (3.5-5.2); Alkaline Phosphatase 90 U/L (35-105); Anion Gap 12.2 (5-19); Aspartate Amino Transferase 76 U/L (0-32); Blood Urea Nitrogen 22 mg/dL (6-20); Calcium 9.7 mg/dL (8.5-10.5); Carbon Dioxide 29 mmol/L (22-29); Chloride 104 mmol/L (98-107); Globulin 3.2 g/dL (1.3-4.6); Glucose 161 mg/dL (65-115); Osmolality Calculated 299 mOsm/kg (285-295); Potassium 4.2 mmol/L (3.5-5.1); Sodium 141 mmol/L (136-145); Total Protein 7.4 g/dL (6.6-8.7)
[2024-12-17 11:00] LABS: Microalbum Creatinine Ratio Ur 196 mg/dL (0-20)
[2024-12-18 09:08] LABS: Cholesterol 151 mg/dL (0-200); HDL Cholesterol 43 mg/dL (60-100); Triglycerides 166 mg/dL (0-150)
== END 2024-12-17 08:52 | disposition home or self-care (01) ==
PROVIDERS: PCP Nurse Practitioner Family; Visit Provider Internal Medicine
DX: E11.9 Type 2 diabetes mellitus without complications (principal)
CPT/HCPCS: 80053; 80061; 82044; 82248; 83036

== ENCOUNTER → 2025-01-07 14:54 | Outpatient (BNVA) | payer OTHER, SELFPAY | PROVIDERS: PCP Nurse Practitioner Family; Visit Provider Internal Medicine Cardiovascular Disease | DX: R07.9 Chest pain, unspecified (principal) | CPT/HCPCS: 93005 ==

== ENCOUNTER 2025-01-24 14:01 | Outpatient (CLI) | payer OTHER, SELFPAY ==
--- NOTE | 2025-01-24 14:15 | XR_ITS ---
WS: [id number] Exam: XR knee LT 3V* [id number] Date/Time of Exam: 01/24/2025 2:16 PM Reason For Exam: L KNEE PAIN Comparison 03/28/2023. No fracture. The joint compartments are maintained. No joint effusion. Vascular calcifications along the posterior lower femur. XR/XR knee LT 3V* [id number] IMPRESSION: 1. Negative LEFT knee. No change.
== END 2025-01-24 14:02 | disposition home or self-care (01) ==
PROVIDERS: PCP Nurse Practitioner Family; Visit Provider Nurse Practitioner Family
DX: M25.562 Pain in left knee (principal); I70.292 Other atherosclerosis of native arteries of extremities, left leg
CPT/HCPCS: 73562

== ENCOUNTER → 2025-02-10 14:54 | Outpatient (BNVA) | payer OTHER, SELFPAY | PROVIDERS: PCP Nurse Practitioner Family; Visit Provider Nurse Practitioner | DX: M25.562 Pain in left knee (principal); Z01.89 Encounter for other specified special examinations | CPT/HCPCS: 73560; 73565 ==

== ENCOUNTER 2025-02-24 14:27 | Outpatient (CLI) | payer OTHER, SELFPAY ==
--- NOTE | 2025-02-24 14:30 | MR_ITS ---
WS: [id number] MRI LEFT KNEE HISTORY: M25.562 - Pain in left knee COMPARISON: Radiograph 02/10/2025 Anterior cruciate ligament: Intact. Posterior cruciate ligament: Intact. Medial collateral ligament: Intact. Posterior lateral corner structures: Intact. Medial menisci: Mild intrasubstance degeneration in the posterior horn. No tears. Lateral meniscus: Intact. Normal signal, size and shape. Extensor mechanism: Distal quadriceps tendon and patellar tendons are intact. Fluid and soft tissue: No joint effusion. Tiny Hdez's cyst. Osseous and articular structures: Patellofemoral compartment: Normal. Medial compartment: Mild narrowing the medial compartment. There is a very small osteochondral lesion involving the medial most femoral condyle adjacent to the MCL. Osteochondral lesion measures 2.5 x 3.4 mm. Lateral compartment: Very minimal narrowing lateral compartment. Cartilage is well preserved. No marrow edema or fracture. MR/MR knee LT wo con* [id number] IMPRESSION: 1. No ACL or meniscal tear. 2. Small osteochondral lesion measuring 2.5 x 3.4 mm in the medial femoral con dyle adjacent to the MCL. 3. Mild narrowing of the medial and lateral compartments.
== END 2025-02-24 14:28 | disposition home or self-care (01) ==
LOC: RAD 14:28
PROVIDERS: PCP Nurse Practitioner Family; Visit Provider Nurse Practitioner
DX: M17.12 Unilateral primary osteoarthritis, left knee (principal)
CPT/HCPCS: 73721